=== PATIENT | female | born 1940 | race African-American/Black ===

== ENCOUNTER 2016-11-23 20:56 | Inpatient (IN) | payer OTHER ==
[~2016-11-23] VITALS: Ht 162.6 cm; Wt 85.0 kg
[~2016-11-23 20:56] MED LIST: ACET325T9 PO; ASPI325T8; CHOL10003 PO; CLON0.1T PO; CLON0.1T12 PO; CLON0.2T PO; DILT240C4; HYDR-2868 PO; INSU100I11 SQ; INSU100I17 SUBCUT; INSU100I18 SUBCUT; INSU100V13 SQ; LABE200T2 PO; LINA5TAB4 PO; LOSA1TAB18 PO; PRAV40TA2; SAXA5TAB PO; SODI650T PO; TRAV5DRO; TRAV5DRO OS; [UNRECOGNIZED DRUG - CODE]; vit d
--- NOTE | 2016-11-23 21:22 | PHYS DOC ---
Past Medical History Past Medical History: CVA, Diabetes-Type I, Hypertension, Renal Failure Past Surgical History: Tonsillectomy Additional Past Surgical Histo: fistula graft Alcohol Use: Occasionally Drug Use: None Adult General Chief Complaint Chief Complaint: OTHER COMPLAINTS [facility] HPI Patient is a 76 year old female who presents with complains of generalized weakness. She just recently got out of [facility] and is now at home. Family states that she's too weak to be taking care of. She denies any headache chest pain nausea vomiting or other concerns. She states she has taken her blood pressure medicines but hasn't taken tonight's medicine as of yet. Review of Systems Review of Systems Constitutional: Denies fever or chills [] Eyes: Denies change in visual acuity, redness, or eye pain [] HENT: Denies nasal congestion or sore throat [] Respiratory: Denies cough or shortness of breath [] Cardiovascular: No additional information not addressed in HPI [] GI: Denies abdominal pain, nausea, vomiting, bloody stools or diarrhea [] : Denies dysuria or hematuria [] Musculoskeletal: Denies back pain or joint pain [] Integument: Denies rash or skin lesions [] Neurologic: Denies headache, focal weakness or sensory changes [] Endocrine: Denies polyuria or polydipsia [] Current Medications Current Medications Current Medications Medications (Trade) Dose Ordered Sig/Nicolas Start Time Stop Time Status Last Admin Dose Admin Hydralazine HCl (Apresoline) 10 mg 1X ONCE 11/24/16 01:00 11/24/16 01:01 DC 11/24/16 00:35 10 MG Ondansetron HCl (Zofran) 4 mg PRN Q8HRS PRN 11/24/16 00:30 11/25/16 00:29 Allergies Allergies Allergies Coded Allergies Type Severity Reaction Last Updated Verified iodine Allergy Intermediate 05/01/16 Yes Physical Exam Physical Exam Constitutional: Well developed, well nourished, no acute distress, non-toxic appearance. [] HENT: Normocephalic, atraumatic, bilateral external ears normal, oropharynx moist, no oral exudates, nose normal. [] Eyes: PERRLA, EOMI, conjunctiva normal, no discharge. [] Neck: Normal range of motion, no tenderness, supple, no stridor. [] Cardiovascular:Heart rate regular rhythm, no murmur [] Lungs & Thorax: Bilateral breath sounds clear to auscultation [] Abdomen: Bowel sounds normal, soft, no tenderness, no masses, no pulsatile masses. [] Skin: Warm, dry, no erythema, no rash. [] Back: No tenderness, no CVA tenderness. [] Extremities: No tenderness, no cyanosis, no clubbing, ROM intact, 2+ right lower show many edema Neurologic: Alert and oriented X 3, normal motor function, normal sensory function, no focal deficits noted. [] Psychologic: Affect normal, judgement normal, mood normal. [] Current Patient Data Vital Signs Vital Signs Date Time Temp Pulse Resp B/P (MAP) Pulse Ox O2 Delivery O2 Flow Rate FiO2 11/24/16 00:37 98.6 74 16 218/97 (137) 100 Room Air 98.6 Lab Values Laboratory Tests Test 11/23/16 21:45 11/23/16 22:20 11/23/16 23:45 White Blood Count 10.2 x10^3/uL (4.0-11.0) Red Blood Count 2.73 x10^6/uL (3.50-5.40) L Hemoglobin 8.1 g/dL (12.0-15.5) L Hematocrit 23.9 % (36.0-47.0) L Mean Corpuscular Volume 87 fL (79-100) Mean Corpuscular Hemoglobin 30 pg (25-35) Mean Corpuscular Hemoglobin Concent 34 g/dL (31-37) Red Cell Distribution Width 16.2 % (11.5-14.5) H Platelet Count 279 x10^3/uL (140-400) Neutrophils (%) (Auto) 67 % (31-73) Lymphocytes (%) (Auto) 17 % (24-48) L Monocytes (%) (Auto) 14 % (0-9) H Eosinophils (%) (Auto) 2 % (0-3) Basophils (%) (Auto) 1 % (0-3) Neutrophils # (Auto) 6.8 x10^3uL (1.8-7.7) Lymphocytes # (Auto) 1.7 x10^3/uL (1.0-4.8) Monocytes # (Auto) 1.4 x10^3/uL (0.0-1.1) H Eosinophils # (Auto) 0.2 x10^3/uL (0.0-0.7) Basophils # (Auto) 0.1 x10^3/uL (0.0-0.2) Prothrombin Time 13.4 SEC (11.7-14.0) Prothrombin Time INR 1.1 (0.8-1.1) Sodium Level 139 mmol/L (136-145) Potassium Level 5.1 mmol/L (3.5-5.1) Chloride Level 105 mmol/L (98-107) Carbon Dioxide Level 25 mmol/L (21-32) Anion Gap 9 (6-14) Blood Urea Nitrogen 59 mg/dL (7-20) H Creatinine 2.8 mg/dL (0.6-1.0) H Estimated GFR (Cockcroft-Gault) 20.0 Glucose Level 118 mg/dL (70-99) H Calcium Level 9.4 mg/dL (8.5-10.1) Magnesium Level 1.8 mg/dL (1.8-2.4) Total Bilirubin 0.3 mg/dL (0.2-1.0) Direct Bilirubin 0.1 mg/dL (0.0-0.2) Aspartate Amino Transferase (AST) 22 U/L (15-37) Alanine Aminotransferase (ALT) 39 U/L (14-59) Alkaline Phosphatase 67 U/L (46-116) Creatine Kinase 110 U/L (26-192) Creatine Kinase MB (Mass) 1.3 ng/mL (0.0-3.6) Creatine Kinase MB Relative Index 1.2 % (0-4) Troponin I Quantitative 0.020 ng/mL (0.000-0.055) Total Protein 6.9 g/dL (6.4-8.2) Albumin 2.9 g/dL (3.4-5.0) L Lipase 172 U/L (73-393) Thyroid Stimulating Hormone (TSH) 3.262 uIU/mL (0.358-3.74) Urine Collection Type Unknown Urine Color Yellow Urine Clarity Cloudy Urine pH 7.0 Urine Specific [place] 1.010 Urine Protein 100 mg/dL (NEG-TRACE) Urine Glucose (UA) Negative mg/dL (NEG) Urine Ketones (Stick) Negative mg/dL (NEG) Urine Blood Small (NEG) Urine Nitrite Negative (NEG) Urine Bilirubin Negative (NEG) Urine Urobilinogen Dipstick 0.2 mg/dL (0.2 mg/dL) Urine Leukocyte Esterase Large (NEG) Urine RBC 11-20 /HPF (0-2) Urine WBC Tntc /HPF (0-4) Urine Squamous Epithelial Cells Few /LPF Urine Bacteria Moderate /HPF (0-FEW) Laboratory Tests 11/23/16 21:45 Laboratory Tests 11/23/16 22:20 EKG EKG EKG shows irregular rhythm with rate of 70 bpm, no ST elevations or T-wave inversions appreciated, left axis deviation noted, QTC 498 ms, as interpreted by me. Radiology/Procedures Radiology/Procedures One view chest x-ray did not show any focal is elevations, bony abnormality's, or pneumothorax, as interpreted by me. Impressions: Generalized weakness Urgency urgency Diabetes Course & Med Decision Making Course & Med Decision Making Pertinent Labs and Imaging studies reviewed. (See chart for details) Labs do not show acute abnormalities. Chest x-ray EKG all within normal limits. Patient is being admitted for weakness and unable to take care of herself. She likely needs to be placed in a [place] [facility]. Spoke with Dr. Bazan who is agreeable to the plan. Interim orders have been written. Patient's blood pressure is elevated 211 systolic she's been given IV hydralazine x 2 My Critical Care: Critical Care Time: 55 minutes Treatments/Evaluations: Close monitoring and treatment of unstable vital signs, cardiorespiratory, and neurologic status, while maintaining tight balance of fluid, respiratory, and cardiac interventions. Dragon Disclaimer Dragon Disclaimer This electronic medical record was generated, in whole or in part, using a voice recognition dictation system. Departure Departure Impression: Primary Impression: Weakness Disposition: ADMITTED INPATIENT Admitting Physician: Eugenia Bazan Condition: STABLE Referrals: RENITA RAMIREZ (PCP) KUSUM HUGO MD Nov 23, 2016 21:22
[2016-11-23 21:55] LABS: BASO # 0.1 x10^3/uL (0.0-0.2); BASO % 1 % (0-3); EOS % 2 % (0-3); HEMATOCRIT 23.9 % (36.0-47.0); HEMOGLOBIN 8.1 g/dL (12.0-15.5); LYMPH # 1.7 x10^3/uL (1.0-4.8); LYMPH % 17 % (24-48); MEAN CORPUSCULAR HEMOGLOBIN 30 pg (25-35); MEAN CORPUSCULAR HGB CONC 34 g/dL (31-37); MEAN CORPUSCULAR VOLUME 87 fL (79-100); MONO % 14 % (0-9); NEUT % 67 % (31-73); PLATELET COUNT 279 x10^3/uL (140-400); RED BLOOD COUNT 2.73 x10^6/uL (3.50-5.40); RED CELL DISTRIBUTION WIDTH 16.2 % (11.5-14.5); WHITE BLOOD COUNT 10.2 x10^3/uL (4.0-11.0)
[2016-11-23 22:05] LABS: INR 1.1 (0.8-1.1); PROTHROMBIN TIME PATIENT 13.4 SEC (11.7-14.0)
[2016-11-23 22:44] LABS: CALCIUM 9.4 mg/dL (8.5-10.1); CREATININE 2.8 mg/dL (0.6-1.0); POTASSIUM 5.1 mmol/L (3.5-5.1)
[2016-11-23 22:50] LABS: ALBUMIN 2.9 g/dL (3.4-5.0); DIRECT BILIRUBIN 0.1 mg/dL (0.0-0.2); MAGNESIUM 1.8 mg/dL (1.8-2.4); TOTAL BILIRUBIN 0.3 mg/dL (0.2-1.0); TOTAL PROTEIN 6.9 g/dL (6.4-8.2)
[2016-11-23 22:58] LABS: CKMB MASS 1.3 ng/mL (0.0-3.6)
[2016-11-23 23:53] LABS: BILIRUBIN,URINE NEGATIVE (NEG); GLUCOSE,URINE NEGATIVE (NEG); NITRITE,URINE NEGATIVE (NEG); PROTEIN,URINE 100 mg/dL (NEG-TRACE); UROBILINOGEN,URINE 0.2 mg/dL (0.2 mg/dL)
[2016-11-24] VITALS (7 sets, daily range): BP systolic 168–181; BP diastolic 71–81
[2016-11-24 00:22] LABS: BACTERIA,URINE MODERATE /HPF (0-FEW); SQUAMOUS EPITHELIAL CELL,UR FEW /LPF; WBC,URINE TNTC /HPF (0-4)
[2016-11-24] MEDS ORDERED: ONDANSETRON PF 4 MG/2 ML VIAL. IV PRN (00:30)
[2016-11-24] MEDS ORDERED: hydrALAZINE 20 MG/ML VIAL. IVP ONE ×2 (01:00→02:00)
[2016-11-24] MEDS ORDERED: ACETAMINOPHEN 325 MG TABLET. PO PRN (03:45)
--- NOTE | 2016-11-24 08:14 | RAD ---
EXAM: CHEST 1 VIEW History: Bilateral leg swelling, weakness COMPARISON: 10/29/2016 TECHNIQUE: Single portable radiograph of the chest FINDINGS: The cardiac silhouette is unchanged. The lungs are clear bilaterally. The costophrenic sulci are clear and well demarcated. Aortic atherosclerotic calcifications. IMPRESSION: No radiographic evidence of an acute cardiopulmonary process.
[2016-11-24] MEDS ORDERED: hydrALAZINE 25 MG TABLET PO SCH (09:00)
[2016-11-24] MEDS ORDERED: LINAGLIPTIN 5 MG TABLET PO SCH (09:00)
--- NOTE | 2016-11-24 09:02 | EKG ---
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
[2016-11-24] MEDS: INSULIN ASPART 300 UNITS/3 ML INSULN.PEN SQ SCH ×3 (09:15→17:03)
[2016-11-24] MEDS: LABETALOL HCL 200 MG TABLET PO SCH ×2 (09:17→20:45)
[2016-11-24] MEDS: cloNIDine HCL 0.2 MG TABLET PO SCH ×3 (09:17→20:47)
[2016-11-24] MEDS: SODIUM BICARBONATE 650 MG TABLET. PO SCH ×2 (09:18→20:47)
[2016-11-24] MEDS: ACETAMINOPHEN 325 MG TABLET. PO SCH ×4 (09:18→20:47)
[2016-11-24] MEDS: INSULIN DETEMIR 300 UNITS/3 ML INSULN.PEN. SQ SCH (10:24)
[2016-11-24] MEDS ORDERED: LOSA100T6 PO (11:37)
[2016-11-24] MEDS ORDERED: HYDR12.58 PO (11:37)
--- NOTE | 2016-11-24 12:17 | EKG ---
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
[2016-11-24] MEDS: hydroCHLOROthiazide 12.5 MG CAPSULE PO SCH (12:44)
[2016-11-24] MEDS: LOSARTAN POTASSIUM 50 MG TABLET. PO SCH (12:44)
--- NOTE | 2016-11-24 12:44 | PDOC ---
Provider Note Provider Note Pt seen .H&P dictated. #[id number] GRAEME SERNA MD Nov 24, 2016 12:44
--- NOTE | 2016-11-24 15:30 | HP ---
ADMIT DATE: 11/24/2016 PATIENT LOCATION: [facility] REASON FOR ADMISSION TO THE HOSPITAL: Generalized weakness. HISTORY OF PRESENT ILLNESS: The patient is a 76-year-old female and patient has a history of stage 5 renal failure. She has an AV shunt placed, anticipating dialysis. She was just released from [facility] on Saturday, but she was too weak and not able to care for herself and the patient was brought back to the hospital because they are not able to take care of her, probably she may need a long-term mcc placement. PAST MEDICAL HISTORY: The patient has a history of diabetes, hypertension and end-stage renal disease. PAST SURGICAL HISTORY: She had a tonsillectomy, AV fistula on the right arm and anticipating dialysis, she also has history of gout. ALLERGIES: IODINE. MEDICATIONS: Tylenol, clonidine 0.2 three times daily, hydralazine 25 mg 3 times daily, insulin sliding scale 5 units 3 times daily, labetalol 200 mg twice a day, Tradjenta 5 mg daily, pravastatin 40 mg daily, sodium bicarbonate 650 twice a day, Travatan two drops at bedtime. PERSONAL HISTORY: No history of smoking, alcohol or drug abuse. FAMILY HISTORY: Diabetes and kidney problems. REVIEW OF SYMPTOMS: Denies any chest pain, shortness of breath, nausea or vomiting. Just weakness. PHYSICAL EXAMINATION: GENERAL: The patient is an elderly female, not in any distress. VITAL SIGNS: Temperature 97, pulse 96, respirations 18, blood pressure 180/79 and 97 on room air. HEENT: Head is atraumatic. Pupils equal. Oral cavity: No congestion. NECK: Supple. Thyroid not enlarged. JVD not elevated. CHEST: Symmetrical. CARDIOVASCULAR: S1, S2. LUNGS: Clear to auscultation. ABDOMEN: Soft. No mass palpable. EXTERNAL GENITALIA: No Jerome. RECTAL: Deferred. EXTREMITIES: Has some arthritis with some swelling at the joints, has AV shunt in the left arm and thrill is present. LABORATORY DATA: Shows a white count of 10, hemoglobin 8.1, platelets 279. Electrolytes show sodium 139, potassium 5.1, chloride 105, bicarbonate 25, BUN 59, creatinine 2.8, glucose 118. LFTs were normal. Urine shows 11-20 rbc's, too many white cells. Chest x-ray: No acute process. FINAL IMPRESSION: 1. Generalized weakness.Failure to thrive at home, not a safe social situation. 2. Stage 5 renal failure. The patient has AV shunt, anticipating dialysis. 3. Insulin-dependent diabetes. 4. Hypertension. 5. Gout. 6. General debility. 7. Elevated troponin. PLAN: At this time, was admitted to the hospital and social service consult, probably the patient needs a long-term mcc placement, not able to care of herself at home.slightly elevated troponin will consult cardiology,ECHO and stress test? GRAEME SERNA MD DR: CATALINA/tereso JOB#: [id number] / [id number] RENITA Ann
[2016-11-24] MEDS: ENOXAPARIN 30 MG/0.3 ML SYRINGE. SQ SCH (15:31)
[2016-11-24] MEDS: ASPIRIN 325 MG TABLET PO SCH (15:37)
--- NOTE | 2016-11-24 16:50 | EKG ---
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
[2016-11-24] MEDS: ATORVASTATIN CALCIUM 10 MG TABLET. PO SCH (20:44)
[2016-11-24] MEDS: LATANOPROST 0.005% OPHTH SOLUTION 2.5ML BOTTLE. OS SCH (20:44)
[2016-11-24] MEDS ORDERED: INSULIN DETEMIR 300 UNITS/3 ML INSULN.PEN. SQ SCH (21:00)
[2016-11-25] VITALS (8 sets, daily range): BP systolic 133–204; BP diastolic 66–91
--- NOTE | 2016-11-25 03:42 | ACF ---
Admission Forms Criteria GENERAL ADMISSION CRITERIA (Place 'X' for any and all applicable criteria): Admission is indicated for ANY ONE of the following: [ ]I. Hemodynamic instability as indicated by ANY ONE of the following(1)(2) (3)(4)(5): [ ]a) Vital sign abnormality not readily corrected by appropriate treatment within 12 to 24 hours indicated by ANY ONE of the following: [ ]i) Hypotension [ ]ii) Symptomatic Tachycardia unresponsive to treatment (eg , analgesia, fluids, sedation as indicated) [ ]iii) Orthostatic vital sign changes unresponsive to treatment (eg, fluids) [ ]b) Vital sign abnormality that is severe indicated by ANY ONE of the following: [ ]i) Inadequate perfusion indicated by ANY ONE of the following: [ ]1) Lactic acidosis (greater than 2 mmol/L) [ ]2) New abnormal capillary refill (greater than 3 seconds) [ ]3) Other metabolic acidosis (arterial pH less than 7.35) not otherwise explained [ ]4) Reduced urine output [ ]5) Altered mental status [ ]6) Myocardial Ischemia [ ]v) Mean arterial pressure[A] less than 60 mm Hg [ ]vi) Mean arterial pressure[A] less than 70 mm Hg after 30 minutes of appropriate treatment (eg, fluid resuscitation) [ ]vii) IV inotropic or vasopressor medication required to maintain adequate blood pressure or perfusion [ ]viii) Sustained heart rate greater than 120 beats per minute in adult or child 6 years or older[B]] [ ]II. Hypertension requiring inpatient treatment as indicated by ANY ONE of the following(6)(7)(8): [ ]a) SBP greater than 220 mm Hg or DBP greater than 120 mm Hg despite treatment [ ]b) SBP greater than 140 mm Hg or DBP greater than 100 mm Hg with evidence of acute end organ damage as indicated by ANY ONE of the following: [ ]i) Encephalopathy [ ]ii) Acute renal failure as indicated by new onset of ANY ONE of the following(9)(10)(11)(12)(13): [ ]1) A 3-fold rise in serum creatinine from baseline [ ]2) Serum creatinine greater than 4 mg/dL ( 354 micromoles/L) with acute rise greater than 0.5 mg/dL (44.2 micromoles/L) [ ]3) Reduction of more than 75% in estimated glomerular filtration rate from baseline [ ]4) Estimated glomerular filtration rate less than 35 mL/min/1.73m2 (0.59 mL/sec/1.73m2) in child up to 18 years of age [ ]5) Cessation of urine output indicated by ALL of the following: [ ]A. Adequate volume status [ ]B. Inadequate urine output as indicated by ANY ONE of the following: [ ]a. Urine output less than 0.3 mL/kg/hr for 24 hours [ ]b. Anuria (urine output less than 0.1 mL/kg/hr) for 12 hours [ ]iii) Aortic dissection [ ]iv) Myocardial ischemia [ ]v) Left ventricular heart failure [ ]vi) Retinal hemorrhage [ ]vii) Other significant finding [ ]c) Hypertension in child requiring inpatient treatment as indicated by ALL of the following(14)(15)(16): [ ]i) Outpatient treatment not effective, not available, or not appropriate [ ]ii) SBP or DBP greater than 95th percentile for age [ ]iii) Evidence of acute end organ damage as indicated by ANY ONE of the following: [ ]1) Altered mental status [ ]2) Acute renal failure as indicated by new onset of ANY ONE of the following(9)(10)(11)(12)(13): [ ]A. A 3-fold rise in serum creatinine from baseline [ ]B. Serum creatinine greater than 4 mg/dL (354 micromoles/L) with acute rise greater than 0.5 mg/dL (44.2 micromoles/L) [ ]C. Reduction of more than 75% in estimated glomerular filtration rate from baseline [ ]D. Estimated glomerular filtration rate less than 35 mL/min/1.73m2 (0.59 mL/sec/1.73m2)in child up to 18 years of age [ ]E. Cessation of urine output indicated by ALL of the following: [ ]a. Adequate volume status [ ]b. Inadequate urine output as indicated by ANY ONE of the following: [ ]1) Urine output less than 0.3 mL/kg/hr for 24 hours [ ]2) Anuria (urine output less than 0.1 mL/kg/hr) for 12 hours [ ]3) Severe headache [ ]4) Visual disturbance [ ]5) Retinal hemorrhage [ ]6) Other significant finding [ ]III. Acute cardiac or peripheral ischemia as indicated by ANY ONE of the following: [ ]a) Acute coronary syndrome(17)(18) [ ]b) Acute peripheral ischemia (eg, pulseless, cool, mottled, or cyanotic extremity)(19) [ ]IV. Cardiac arrhythmias or findings of immediate concern indicated by ANY ONE of the following(20)(21): [ ]a) Heart rhythms that are inherently dangerous or unstable indicated by ANY ONE of the following(22)(23)(24): [ ]i) Resuscitated ventricular fibrillation or cardiac arrest [ ]ii) Ventricular escape rhythm [ ]iii) Sustained ventricular tachycardia (30 seconds or more of ventricular rhythm at greater than 100 beats per minute) [ ]iv) Nonsustained ventricular tachycardia and ANY ONE of the following: [ ]1) Suspected cardiac ischemia as cause or consequence of ventricular tachycardia [ ]2) In setting of acute myocarditis [ ]b) Unstable cardiac conduction defects indicated by ANY ONE of the following(24)(25)(26): [ ]i) Type II second-degree atrioventricular block [ ]ii) Third-degree atrioventricular block [ ]iii) New-onset left bundle branch block with suspected myocardial ischemia [ ]c) Any heart rhythm and ANY ONE of the following(22)(23)(27)(28)( 29): [ ] i) Continuous long-term ECG monitoring needed (eg, initiation of drug requiring monitoring for more than 24 hours) [ ] ii) Patient has automatic implanted cardioverter defibrillator that is repeatedly firing, malfunctioning, or in need of immediate adjustment of settings beyond the scope of ambulatory or observation care. [ ]d) Heart rhythms of concern due to ANY ONE of the following: [ ]i) Hypotension [ ]ii) Respiratory distress [ ]iii) Association with other significant symptoms (eg, bradycardia with syncope or ongoing dizziness, supraventricular tachycardia with chest pain) (27)(28) (30) [ ] V. Severe heart failure as indicated by ANY ONE of the following ( 31)(32): [ ]a) Respiratory distress [ ]b) Hypotension [ ]c) Anasarca (refractory to outpatient therapy) [ ]d) Cardiac arrhythmias of immediate concern [ ]e) Myocardial ischemia [ ]. Respiratory abnormalities, including ANY ONE of the following(33)(34) (35)(36): [ ]a) Respiratory rate greater than 30 breaths per minute unresponsive to treatment [A] [ ]b) New saturation of arterial oxygen less than 90% [ ]c) New partial pressure of carbon dioxide greater than 44 mm Hg ( 5.9 kPa) [ ]d) Supplemental oxygen or respiratory treatments needed that are new or not performable at other levels of care [ ]e) New-onset cyanosis [ ]f) Inability to protect airway [ ]g) Chronic lung disease with severe deterioration (not responsive to emergency and observation care treatment as appropriate) as indicated by ANY ONE of the following(34)(36 ): [ ]i) SaO2 5% below baseline in patient with chronic hypoxemia [ ]ii) New requirement for supplemental oxygen to keep SaO2 at baseline or acceptable level [ ]iii) Required supplemental oxygen performable only in acute inpatient setting [ ]iv) Severe airflow or ventilation abnormalities [ ]v) Previously mobile patient unable to walk between rooms [ ]vi Inability to eat or sleep due to dyspnea [ ]vii) Rapid rate of exacerbation onset [ ]viii) Altered mental status ]VII. Severe airflow or ventilation abnormalities (not responsive to emergency and observation care treatment as appropriate) as indicated by ANY ONE of the following(33)(34)(35)(37): [ ]a) PCO2 greater than 42 mm Hg (5.6 kPa) and pH less than 7.35 (new ) [ ]b) Documented PCO2 increased more than 5 mm Hg (0.7 kPa) from disease baseline [ ]c) Airflow measurements [B] less than 60% of previous best or predicted (eg, peak expiratory flow rate less than 300 L/minute) despite intensive emergent treatment [C] [ ]d) Required respiratory treatments that are performable only in acute inpatient setting [ ]VIII. Impending or actual respiratory arrest ( Also use Respiratory Failure GRG for severe respiratory disease and long-term mechanical ventilation patients) [ ]IX. Neurologic abnormalities, including ANY ONE of the following: [ ]a) New findings that suggest ANY ONE of the following: [ ]i) EVP OF [employer] infection(38) [ ]ii) Cerebral bleeding, ischemia, or vasospasm(39)(40) [ ]iii) Increased intracranial pressure, hydrocephalus, or cerebral edema(41)(42)(43) [ ]iv) Spinal cord injury(44) [ ]b) Uncontrolled seizures(45) [ ]c) New-onset coma (eg, Adrienne coma scale score less than 9) or unexplained abnormal mental status (eg, Adrienne coma scale score less than 14) [D](41)(46)(47) [ ]X. New-onset severe neurologic findings requiring inpatient care; examples include(42)(48)(49): [ ]a) Papilledema [ ]b) Cerebral edema [ ]c) Mass effect on CT scan [ ]XI. Suspected acute intra-abdominal process with peritoneal signs, abdominal mass, or similar findings (50)(51)(52) [ ]XII. Severe physiologic disorder remaining after emergency or observation level care (as appropriate) as indicated by ANY ONE of the following (53): [ ]a) Significant dehydration [ ]b) Diabetic ketoacidosis [ ]c) Hyperglycemic hyperosmolar state (eg, osmolality greater than 320 mOsm/kg (mmol/kg) [ ]d) Hypoglycemia [ ]e) Other (new) acid-base disorder with pH less than 7.35 or greater than 7.5(54) [ ]f) Thyroid storm (55) [ ]g) Myxedema coma (55) [ ]XIII. Abdominal abnormalities with ANY ONE of the following(56)(57): [ ]a) Absent bowel sounds with complete ileus [ ]b) Signs of intestinal obstruction or peritonitis [E] [ ]c) Nausea and vomiting that cannot be controlled with outpatient or observation care [ ]XIV. Acute renal failure as indicated by new onset of ANY ONE of the following(9)(10)(11)(12)(13): [ ]a) A 3-fold rise in serum creatinine from baseline [ ]b) Serum creatinine greater than 4 mg/dL (354 micromoles/L) with acute rise greater than 0.5 mg/dL (44.2 micromoles/L) [ ]c) Reduction of more than 75% in estimated glomerular filtration rate from baseline [ ]d) Estimated glomerular filtration rate less than 35 mL/min/ 1.73m2 (0.59 mL/sec/1.73m2) in child up to 18 years of age [ ]e) Cessation of urine output indicated by ALL of the following: [ ]i) Adequate volume status [ ]ii) Inadequate urine output as indicated by ANY ONE of the following: [ ]1) Urine output less than 0.3 mL/kg/hr for 24 hours [ ]2) Anuria (urine output less than 0.1 mL/kg/hr) for 12 hours [ ]XV. Significant uremic complications as indicated by ANY ONE of the following(58)(59)(60): [ ]a) Outpatient therapy is ineffective or not feasible for ANY ONE of the following: [ ]i) Severe heart failure [ ]ii) Severehypertension [ ]iii) Pleural effusion [ ]iv) Pericarditis or pericardial effusion [ ]b) Cardiac arrhythmias of immediate concern [ ]c) Intractable nausea or vomiting [ ]d) Recurrent seizures [ ]e) Encephalopathy [ ]f) Bleeding abnormalities (eg, platelet dysfunction) with active (eg, gastrointestinal) bleeding [ ]g) Dialysis indicated before long-term access or ambulatory arrangements can be made [ ]h) Significant metabolic or electrolyte abnormalities (eg, severe acidosis or hyperkalemia) [ ]XVI. High fever or other high-risk infection situation as indicated by ANY ONE of the following(61)(62)(63)(64): [ ]a) Outpatient and observation care antimicrobial treatment unavailable, not effective, or not appropriate [ ]b) Documented bacteremia [ ]c) Temperature greater than 40.5 degrees C (104.9 degrees F) ( oral) [ ]d) Temperature greater than 39.5 degrees C (103.1 degrees F) ( oral) or less than 36 degrees C (96.8 degrees F) (rectal) that does not respond to e treatment and observation care [ ] XVII. Temperature less than 95 degrees F (35 degrees C)(rectal)(65) [ ] XVIII. Severe nutritional abnormalities as indicated by ALL of the following (66)(67): [ ]a) Inability to tolerate or establish sufficient oral or other enteral nutrition in outpatient setting [ ]b) Parenteral nutrition regimen need that must be implemented on inpatient basis [ ] XIX. Severe electrolyte abnormalities indicated by ALL of the following(68) (69)(70): [ ]a) Electrolytes and associated findings are not as expected for patient baseline or acceptable treatment effects. [ ]b) Severe abnormalities indicated by ANY ONE of the following: [ ]i) Sodium less than 130 mEq/L (mmol/L) (new) [ ]ii)Sodium less than 135 mEq/L (mmol/L) with ANY ONE of the following: [ ]1) Uncorrectable (to near normal or chronic baseline) after trial of outpatient and emergency treatment [ ]2) Altered mental status [ ]3) Seizures [ ]4) Severe medical etiology requiring inpatient management (eg, heart failure, hypovolemia) [ ]iii) Sodium greater than 155 mEq/L (mmol/L) [ ]iv) Sodium greater than 150 mEq/L (mmol/L) with ANY ONE of the following: [ ]1) Uncorrectable (to near normal or chronic baseline) with outpatient and emergency treatment [ ]2) Altered mental status [ ]3) Seizures [ ]4) Severe medical etiology (eg, hypovolemia, diabetes insipidus) [ ]v) Potassium less than 2.5 mEq/L (mmol/L) despite outpatient and emergency treatment [ ]vi) Potassium less than 3 mEq/L (mmol/L) with ANY ONE of the following: [ ]1) Weakness [ ]2) Cardiac abnormality (eg, arrhythmia, conduction disturbance) [ ]3) Cardiac ischemia [ ]4) Ileus [ ]5) Ongoing medical cause requiring inpatient management (eg, acute renal wasting or SIADH) [ ]6) Other severe symptoms [ ]vii) Potassium greater than 6.5 mEq/L (mmol/L) [ ]viii) Potassium greater than 5 mEq/L (mmol/L) with ANY ONE of the following: [ ]1) Uncorrectable (to near normal or chronic baseline) with outpatient and emergency treatment [ ]2) Severe ECG findings [F] [ ]3) Acute worsening of renal failure (creatinine greater than 2.5 mg/dL (221 micromoles/L) or significant elevation for age and size) [ ]4) Severe weakness [ ]5) Severe medical etiology (eg, hemolysis, infection, drug overdose) [ ]ix) Calcium less than 7 mg/dL (1.75 mmol/L) despite outpatient and emergency treatment (72) [ ]x) Calcium less than 8 mg/dL (2 mmol/L) with significant symptoms or findings; examples include(72): [ ]1) Altered mental status [ ]2) Muscle spasms [ ]3) Seizures [ ]4) Breathing difficulty [ ]5) Cardiac abnormality (eg, arrhythmia or conduction disturbance) [ ]xi) Calcium greater than 14 mg/dL (3.5 mmol/L)(72) [ ]xii) Calcium greater than 12 mg/dL (3 mmol/L) with ANY ONE of the following(72): [ ]1) Uncorrectable (to near normal or chronic baseline) with outpatient and emergency treatment [ ]2) Significant dehydration or hypovolemia as indicated by ALL of the following(70)(73)(74): [ ]A. Not resolved with initial treatments [ ]B. Clinically significant dehydration as indicated by ANY ONE of the following: [ ]a. Vomiting refractory to outpatient treatment (ie, precluding oral rehydration) [ ]b. Inability to drink [ ]c. Hypernatremia or other electrolyte abnormality unable to be corrected with outpatient and emergency treatment [ ]d. Failure to remain hydrated with outpatient therapy [ ]e. Reduced urine output [ ]f. Hypotension [ ]g. Serious cause for dehydration requiring acute hospitalization (eg, bowel obstruction, increased intracranial pressure, infectious cause) [ ]h. Child with ANY ONE of the following(75): [ ]1) Severe abdominal tenderness [ ]2) Adequate care not available at home [ ]3) Severe dehydration ( greater than 9% loss of body weight) [ ]4) Significant symptoms or findings; examples include: [ ]A. Altered mental status [ ]B. Cardiac abnormality (eg, arrhythmia, conduction disturbance) [ ]C. Malignant etiology requiring inpatient treatment [ ]xiii) Phosphorus less than 1 mg/dL (0.32 mmol/L) [ ]xiv) Phosphorus less than 1.5 mg/dL (0.48 mmol/L) with ANY ONE of the following: [ ]1) Patient unresponsive to outpatient and emergency treatment [ ]2) Significant symptoms or findings; examples include: [ ]A. Weakness [ ]B. Altered mental status [ ]C. Breathing difficulty [ ]D. Seizures [ ]E. Rhabdomyolysis [ ]xv) Phosphorus greater than 10 mg/dL (3.2 mmol/L) [ ]xvi) Phosphorus greater than 4.5 mg/dL (1.45 mmol/L) (new) with ANY ONE of the following: [ ]1) Severe medical etiology (eg, crush injury, acute renal failure) [ ]2) Associated hypocalcemia with significant findings; examples include: [ ]A. Neurologic symptoms [ ]B. Altered mental status [ ]C. Muscle spasms [ ]D. Seizures [ ]E. Breathing difficulty [ ]F. Cardiac abnormality (eg, arrhythmia, conduction disturbance) [ ]xvii) Magnesium less than 1 mg/dL (0.41 mmol/L) [ ]xviii) Magnesium less than 1.5 mg/dL (0.62 mmol/L) with ANY ONE of the following: [ ]1) Patient unresponsive to outpatient and emergency treatment [ ]2) Associated hypocalcemia with significant findings; examples include: [ ]A. Altered mental status [ ]B. Muscle spasms [ ]C. Seizures [ ]D. Breathing difficulty [ ]E. Cardiac abnormality (eg, arrhythmia , conduction disturbance) [ ]3) Associated hypokalemia (potassium less than 3 mEq/L (mmol/L)) with risk of arrhythmia [ ]xix) Magnesium greater than 4 mEq/L (2 mmol/L) [ ]xx) Magnesium greater than 2.5 mEq/L (1.25 mmol/L) with significant symptoms or findings; examples include: [ ]1) Weakness [ ]2) Altered mental status [ ]3) Cardiac abnormality (eg, arrhythmia, conduction disturbance) [ ]4) Breathing difficulty [ ]5) Severe medical etiology (eg, renal failure, hypovolemia) [ ]xxi) Uric acid greater than 20 mg/dL (1190 micromoles/L)(76) [ ]xxii) Uric acid greater than 8 mg/dL (476 micromoles/L) with significant symptoms or findings of tumor lysis syndrome; examples include(76): [ ]1) Creatinine greater than 1.5 times upper limit of normal [ ]2) Cardiac abnormality (eg, arrhythmia, conduction disturbance) [ ]3) Seizure [ ]XX. Acute blood loss causing significant abnormality as indicated by ANY ONE of the following(77)(78): [ ]a) Hemoglobin less than 10 g/dL (100 g/L) (not baseline) [ ]b) Hematocrit less than 30% (0.30) (not baseline) [ ]c) Repeat hematocrit decreased more than 2% (0.02) [ ]d) Uncontrolled bleeding [ ]XXI. Severe anemia indicated by ANY ONE of the following(78)(79): [ ]a) Altered mental status [ ]b) Chest pain [ ]c) Exertional dyspnea [ ]d) Syncope [ ]e) Other findings suggesting inadequate perfusion [ ]f) Treatment with transfusion or volume replacement is ineffective at resolving ANY ONE of the following [G]: [ ]i) Tachycardia for age [ ]ii) Orthostatic vital sign changes as indicated by ANY ONE of the following(80): [ ]1) Fall in SBP of 20 mm Hg or more 1 to 3 minutes after patient sits or stands from recumbent position [ ]2) Fall in DBP of 10 mm Hg or more 1 to 3 minutes after patient sits or stands from recumbent position [ ]XXII. High-risk low platelet count as indicated by ANY ONE of the following( 81)(82): [ ]a) Severe or life-threatening bleeding (eg, intracranial, major gastrointestinal, or extensive mucosal bleeding), with any reduced platelet count [ ]b) Platelet count less than 20,000/mm3 (20 x109/L) with any active bleeding [ ]c) Platelet count less than 10,000/mm3 (10 x109/L) with minor purpura or petechiae [ ]d) Platelet count less than 5000/mm3 (5 x109/L) [ ]e) Low platelet count with hemolytic anemia [ ]XXIII. Disseminated intravascular coagulation(77)(83) [ ]XXIV. Severe adverse drug or systemic toxin reaction requiring inpatient treatment; examples include(84)(85): [ ]a) Serotonin syndrome(86) [ ]b) Neuroleptic malignant syndrome(86) [ ]c) Cholinergic syndrome with severe symptoms (eg, bronchorrhea, weakness, mental status changes, seizures) [ ]d) Sympathetic syndrome with severe symptoms (eg, seizures, mental status changes, cardiac dysrhythmias) [ ]e) Anticholinergic syndrome [ ]XXV. Severe pain requiring acute inpatient management as indicated by ALL of the following (87)(88)(89): [ ]a) Continuous or frequent (eg, every 2 to 4 hours) parenteral analgesics required [H] [ ]b) Rapid improvement expected from treatment or acute intervention (eg, surgery, anesthesia procedure) [ ]XXVI.Severe behavioral health issues judged unmanageable at a lower level of care (eg, residential) in a patient who is ANY ONE of the following(91) [ ]a) Acutely suicidal [ ]b) A danger to self (eg, self-mutilating or suicidal behavior) [ ]c) A danger to others (eg, assaultive or homicidal behavior) [ ]d) Incapacitated because of grave disability (eg, inability to provide for self at lower level of care) (92) [X ]XXVII. Inpatient monitoring needed; examples include(1)(3)(87)(93)(94)(95)( 96): [ X]a) Vital signs, neurologic signs, or vascular checks more frequently than every 4 hours [ ]b) Cardiac or respiratory monitoring beyond the scope (eg, over 24 hours) of observation care [ ]c) Pulmonary artery catheter monitoring [ ]d) Suspected compartment syndrome(97) (98) [ ]e) Cerebral bleeding, hydrocephalus, or vasospasm monitoring [ ]f) Increased intracranial pressure or cerebral edema monitoring [ ]g) monitoring [ ]XXVIII. Treatment requiring inpatient care; examples include: [ ]a) IV fluid to replace significant ongoing losses (greater than 3 L/m2 per day)(53) [ ]b) High concentration oxygen (greater than 40%)(33)(99)(100) [ ]c) Frequent respiratory therapy (more frequently than every 4 hours) to maintain airflow rates greater than 60% of baseline(33)(99)(100) [ ]d) Epidural analgesia(87) [ ]e) IV anticoagulation, vasoactive, or antiarrhythmic medication(19 )(23) [ ]f) Acute thrombolytics (generally require 24 hours of observation )(101)(102) [ ]XXIX. Emergency procedures needed; examples include: [ ]a) Emergency inpatient surgery [ ]b) Temporary pacemaker placement(103) [ ]c) Chest tube placement with active evacuation (eg, suction, drainage)(104) [ ]d) Emergent cardioversion(105) [ ]e) Emergent cardiac or vascular procedures (eg, cardiac catheterization, angioplasty) (17)(18) [ ]f) Emergent dialysis access placement and institution(10)(106) [ ]g) Emergent pericardiocentesis(107) [ ]h) Emergent plasmapheresis or leukapheresis(83) [ ]i) Emergent tracheostomy The original [employer] content created by [employer] has been revised. The portions of the content which have been revised are identified through the use of italic text or in bold, and [facility] [employer] has neither reviewed nor approved the modified material. All other unmodified content is copyright [employer]. Please see references footnoted in the original [employer] edition 2016 Admission Criteria Met?: Yes SONYA PÉREZ Nov 25, 2016 03:42
[2016-11-25 05:57] LABS: BASO # 0.1 x10^3/uL (0.0-0.2); BASO % 1 % (0-3); EOS % 2 % (0-3); HEMATOCRIT 22.2 % (36.0-47.0); HEMOGLOBIN 7.3 g/dL (12.0-15.5); LYMPH # 1.8 x10^3/uL (1.0-4.8); LYMPH % 22 % (24-48); MEAN CORPUSCULAR HEMOGLOBIN 29 pg (25-35); MEAN CORPUSCULAR HGB CONC 33 g/dL (31-37); MEAN CORPUSCULAR VOLUME 89 fL (79-100); MONO % 15 % (0-9); NEUT % 59 % (31-73); PLATELET COUNT 254 x10^3/uL (140-400); RED BLOOD COUNT 2.51 x10^6/uL (3.50-5.40); RED CELL DISTRIBUTION WIDTH 16.4 % (11.5-14.5); WHITE BLOOD COUNT 8.3 x10^3/uL (4.0-11.0)
--- NOTE | 2016-11-25 06:11 | EKG ---
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
[2016-11-25 06:30] LABS: CALCIUM 8.8 mg/dL (8.5-10.1); CREATININE 3.1 mg/dL (0.6-1.0); GFR 17.8; POTASSIUM 5.2 mmol/L (3.5-5.1)
[2016-11-25] MEDS ORDERED: LOSARTAN POTASSIUM 50 MG TABLET. PO SCH (09:00)
--- NOTE | 2016-11-25 10:17 | PDOC2 ---
CONSULT Date of Consult Date of Consult DATE: 11/25/16 TIME: :17 Reason for Consult Reason for Consult: Elevated troponin level Referring Physician Referring Physician: Dr. Bazan Identification/Chief Complaint Chief Complaint Generalized weakness Problems: Source Source: Chart review, Patient History of Present Illness Reason for Visit: 76-year-old female with history of near end-stage renal failure presented with generalized weakness and fatigue. She denied any chest pain, orthopnea/PND, palpitations or syncope. Cardiology has been consulted for slightly elevated troponin level. Past Medical History Cardiovascular: HTN, Hyperlipidemia Pulmonary: No pertinent hx GI: Constipation Heme/Onc: Anemia NOS Hepatobiliary: No pertinent hx Psych: No pertinent hx Rheumatologic: No pertinent hx Renal/: Chronic renal insuff Endocrine: Diabetes, Hypothyroidism Past Surgical History Past Surgical History AV fistula placement Tonsillectomy Family History Family History: Cancer, Coronary Artery Disease, Diabetes, Kidney Disease, Osteo Arthiritis Social History Social History Patient denied any smoking alcohol or drug use Current Problem List Problem List Problems Medical Problems: (1) Weakness Status: Acute Current Medications Current Medications Current Medications Hydralazine HCl (Apresoline) 10 mg 1X ONCE IVP Last administered on 11/24/16 00:35; Start 11/24/16 at 01:00; Stop 11/24/16 at 01:01; Status DC Ondansetron HCl (Zofran) 4 mg PRN Q8HRS PRN IV NAUSEA/VOMITING; Start 11/24/16 at 00:30; Stop 11/25/16 at 00:29; Status DC Hydralazine HCl (Apresoline) 10 mg 1X ONCE IVP Last administered on 11/24/16 02:06; Start 11/24/16 at 02:00; Stop 11/24/16 at 02:13; Status DC Acetaminophen (Tylenol) 650 mg PRN Q6HRS PRN PO MILD PAIN Last administered on 11/24/16 03:43; Start 11/24/16 at 03:45; Stop 11/24/16 at 09:08; Status DC Acetaminophen (Tylenol) 650 mg QID PO Last administered on 11/24/16 20:47; Start 11/24/16 at 09:00 Clonidine HCl (Catapres) 0.2 mg TID PO Last administered on 11/24/16 20:47; Start 11/24/16 at 09:00 Hydralazine HCl (Apresoline) 50 mg TID PO ; Start 11/24/16 at 09:00; Stop at 09:16; Status DC Labetalol HCl (Trandate) 200 mg BID PO Last administered on 11/24/16 20:45; Start 11/24/16 at 09:00 Linagliptin (Tradjenta) 5 mg DAILY PO Last administered on 11/24/16 10:20; Start 11/24/16 at 09:00; Stop 11/24/16 at 12:47; Status DC Sodium Bicarbonate (Sodium Bicarbonate) 1,300 mg BID PO Last administered on 20:47; Start 11/24/16 at 09:00 Insulin Detemir (Levemir) 10 units DAILYWBKFT SQ Last administered on 11/24/16 10:24; Start 11/24/16 at 09:15 Insulin Detemir (Levemir) 65 units QHS SQ ; Start 11/24/16 at 21:00; Stop at 21:00; Status DC Insulin Aspart (NovoLOG) 5 units TIDAC SQ Last administered on 11/24/16 17:03; Start 11/24/16 at 09:15 Latanoprost (Xalatan) 1 drop QHS OS Last administered on 11/24/16 20:44; Start 11/24/16 at 21:00 Hydralazine HCl (Apresoline) 50 mg TID PO Last administered on 11/24/16 20:48; Start 11/24/16 at 09:30 Atorvastatin Calcium (Lipitor) 10 mg QHS PO Last administered on 11/24/16 20:44 ; Start 11/24/16 at 21:00 Losartan Potassium (Cozaar) 100 mg DAILY PO ; Start 11/25/16 at 09:00; Status Cancel Hydrochlorothiazide (Microzide) 12.5 mg DAILY PO Last administered on 11/24/16 12:44; Start 11/24/16 at 12:00 Losartan Potassium (Cozaar) 100 mg DAILY PO Last administered on 11/24/16 12:44 ; Start 11/24/16 at 12:00 Enoxaparin Sodium (Lovenox 30mg Syringe) 30 mg Q24H SQ Last administered on 11/24 15:31; Start 11/24/16 at 15:00 Aspirin (Radha Aspirin) 325 mg DAILYWBKFT PO Last administered on 11/24/16 15: 37; Start 11/24/16 at 15:30 Active Scripts Active Hydralazine Hcl 25 Mg Tablet 50 Mg PO TID Reported Tradjenta (Linagliptin) 5 Mg Tablet 1 Tab PO DAILY Clonidine Hcl 0.2 Mg Tablet 1 Tab PO TID Tylenol (Acetaminophen) 325 Mg Tablet 1-2 Tab PO QID Sodium Bicarbonate 650 Mg Tablet 2 Tab PO BID Levemir (Insulin Detemir) 100 Unit/1 Ml Vial 65 Unit SQ QHS Levemir (Insulin Detemir) 100 Unit/1 Ml Vial 10 Unit SQ DAILYWBKFT Humalog (Insulin Lispro) 100 Unit/1 Ml Insuln.pen 5 Unit SQ TIDAC Travatan Z (Travoprost) 5 Ml Drops 1 Drop OS QHS Labetalol Hcl 200 Mg Tablet 1 Tab PO BID Losartan-Hctz 100-12.5 Mg Tab (Losartan/Hydrochlorothiazide) 1 Each Tablet PO DAILY Pravastatin Sodium 40 Mg Tablet 1 HS Allergies Allergies: Coded Allergies: iodine (Verified Allergy, Intermediate, 05/01/16) ROS General: YES: Fatigue PSYCHOLOGICAL ROS: No: Hallucinations Eyes: No Loss of vision HEENT: No: Epistaxis Respiratory: No: Hemoptysis, Orthopnea Cardiovascular: No Chest Pain Gastrointestinal: No Vomiting, No Diarrhea Genitourinary: No Hematuria Neurological: No Seizures Skin: No Rash Physical Exam General: Alert, Oriented X3 HEENT: Atraumatic, PERRLA Lungs: Clear to auscultation Heart: Regular rate Abdomen: Soft, No tenderness Extremities: Other (1-2+ pitting pedal edema) Neuro: Normal speech Psych/Mental Status: Mood NL Vitals VITALS Vital Signs Date Time Temp Pulse Resp B/P (MAP) Pulse Ox O2 Delivery O2 Flow Rate FiO2 11/25/16 07:30 98.7 72 18 191/79 (116) 93 Room Air 98.7 Labs Labs Laboratory Tests Test 11/23/16 21:45 11/23/16 22:20 11/23/16 23:45 11/24/16 06:20 White Blood Count 10.2 x10^3/uL (4.0-11.0) Red Blood Count 2.73 x10^6/uL (3.50-5.40) Hemoglobin 8.1 g/dL (12.0-15.5) Hematocrit 23.9 % (36.0-47.0) Mean Corpuscular Volume 87 fL (79-100) Mean Corpuscular Hemoglobin 30 pg (25-35) Mean Corpuscular Hemoglobin Concent 34 g/dL (31-37) Red Cell Distribution Width 16.2 % (11.5-14.5) Platelet Count 279 x10^3/uL (140-400) Neutrophils (%) (Auto) 67 % (31-73) Lymphocytes (%) (Auto) 17 % (24-48) Monocytes (%) (Auto) 14 % (0-9) Eosinophils (%) (Auto) 2 % (0-3) Basophils (%) (Auto) 1 % (0-3) Neutrophils # (Auto) 6.8 x10^3uL (1.8-7.7) Lymphocytes # (Auto) 1.7 x10^3/uL (1.0-4.8) Monocytes # (Auto) 1.4 x10^3/uL (0.0-1.1) Eosinophils # (Auto) 0.2 x10^3/uL (0.0-0.7) Basophils # (Auto) 0.1 x10^3/uL (0.0-0.2) Prothrombin Time 13.4 SEC (11.7-14.0) Prothromb Time International Ratio 1.1 (0.8-1.1) Sodium Level 139 mmol/L (136-145) Potassium Level 5.1 mmol/L (3.5-5.1) Chloride Level 105 mmol/L (98-107) Carbon Dioxide Level 25 mmol/L (21-32) Anion Gap 9 (6-14) Blood Urea Nitrogen 59 mg/dL (7-20) Creatinine 2.8 mg/dL (0.6-1.0) Estimated GFR (Cockcroft-Gault) 20.0 Glucose Level 118 mg/dL (70-99) Calcium Level 9.4 mg/dL (8.5-10.1) Magnesium Level 1.8 mg/dL (1.8-2.4) Total Bilirubin 0.3 mg/dL (0.2-1.0) Direct Bilirubin 0.1 mg/dL (0.0-0.2) Aspartate Amino Transf (AST/SGOT) 22 U/L (15-37) Alanine Aminotransferase (ALT/SGPT) 39 U/L (14-59) Alkaline Phosphatase 67 U/L (46-116) Creatine Kinase 110 U/L (26-192) Creatine Kinase MB (Mass) 1.3 ng/mL (0.0-3.6) Creatine Kinase MB Relative Index 1.2 % (0-4) Troponin I Quantitative 0.020 ng/mL (0.000-0.055) 0.022 ng/mL (0.000-0.055) Total Protein 6.9 g/dL (6.4-8.2) Albumin 2.9 g/dL (3.4-5.0) Lipase 172 U/L (73-393) Thyroid Stimulating Hormone (TSH) 3.262 uIU/mL (0.358-3.74) Urine Collection Type Unknown Urine Color Yellow Urine Clarity Cloudy Urine pH 7.0 Urine Specific [place] 1.010 Urine Protein 100 mg/dL (NEG-TRACE) Urine Glucose (UA) Negative mg/dL (NEG) Urine Ketones (Stick) Negative mg/dL (NEG) Urine Blood Small (NEG) Urine Nitrite Negative (NEG) Urine Bilirubin Negative (NEG) Urine Urobilinogen Dipstick 0.2 mg/dL (0.2 mg/dL) Urine Leukocyte Esterase Large (NEG) Urine RBC 11-20 /HPF (0-2) Urine WBC Tntc /HPF (0-4) Urine Squamous Epithelial Cells Few /LPF Urine Bacteria Moderate /HPF (0-FEW) Test 11/24/16 07:29 11/24/16 11:22 11/24/16 12:40 11/24/16 16:19 Glucose (Fingerstick) 135 mg/dL (70-99) 139 mg/dL (70-99) 140 mg/dL (70-99) Troponin I Quantitative 0.169 ng/mL (0.000-0.055) Test 11/24/16 19:10 11/24/16 21:07 11/25/16 04:30 11/25/16 08:32 Troponin I Quantitative 0.305 ng/mL (0.000-0.055) 0.323 ng/mL (0.000-0.055) Glucose (Fingerstick) 140 mg/dL (70-99) 158 mg/dL (70-99) White Blood Count 8.3 x10^3/uL (4.0-11.0) Red Blood Count 2.51 x10^6/uL (3.50-5.40) Hemoglobin 7.3 g/dL (12.0-15.5) Hematocrit 22.2 % (36.0-47.0) Mean Corpuscular Volume 89 fL (79-100) Mean Corpuscular Hemoglobin 29 pg (25-35) Mean Corpuscular Hemoglobin Concent 33 g/dL (31-37) Red Cell Distribution Width 16.4 % (11.5-14.5) Platelet Count 254 x10^3/uL (140-400) Neutrophils (%) (Auto) 59 % (31-73) Lymphocytes (%) (Auto) 22 % (24-48) Monocytes (%) (Auto) 15 % (0-9) Eosinophils (%) (Auto) 2 % (0-3) Basophils (%) (Auto) 1 % (0-3) Neutrophils # (Auto) 4.9 x10^3uL (1.8-7.7) Lymphocytes # (Auto) 1.8 x10^3/uL (1.0-4.8) Monocytes # (Auto) 1.3 x10^3/uL (0.0-1.1) Eosinophils # (Auto) 0.2 x10^3/uL (0.0-0.7) Basophils # (Auto) 0.1 x10^3/uL (0.0-0.2) Sodium Level 140 mmol/L (136-145) Potassium Level 5.2 mmol/L (3.5-5.1) Chloride Level 105 mmol/L (98-107) Carbon Dioxide Level 25 mmol/L (21-32) Anion Gap 10 (6-14) Blood Urea Nitrogen 59 mg/dL (7-20) Creatinine 3.1 mg/dL (0.6-1.0) Estimated GFR (Cockcroft-Gault) 17.8 Glucose Level 98 mg/dL (70-99) Calcium Level 8.8 mg/dL (8.5-10.1) Laboratory Tests Test 11/24/16 11:22 11/24/16 12:40 11/24/16 16:19 11/24/16 19:10 Glucose (Fingerstick) 139 mg/dL (70-99) 140 mg/dL (70-99) Troponin I Quantitative 0.169 ng/mL (0.000-0.055) 0.305 ng/mL (0.000-0.055) Test 11/24/16 21:07 11/25/16 04:30 11/25/16 08:32 Glucose (Fingerstick) 140 mg/dL (70-99) 158 mg/dL (70-99) White Blood Count 8.3 x10^3/uL (4.0-11.0) Red Blood Count 2.51 x10^6/uL (3.50-5.40) Hemoglobin 7.3 g/dL (12.0-15.5) Hematocrit 22.2 % (36.0-47.0) Mean Corpuscular Volume 89 fL (79-100) Mean Corpuscular Hemoglobin 29 pg (25-35) Mean Corpuscular Hemoglobin Concent 33 g/dL (31-37) Red Cell Distribution Width 16.4 % (11.5-14.5) Platelet Count 254 x10^3/uL (140-400) Neutrophils (%) (Auto) 59 % (31-73) Lymphocytes (%) (Auto) 22 % (24-48) Monocytes (%) (Auto) 15 % (0-9) Eosinophils (%) (Auto) 2 % (0-3) Basophils (%) (Auto) 1 % (0-3) Neutrophils # (Auto) 4.9 x10^3uL (1.8-7.7) Lymphocytes # (Auto) 1.8 x10^3/uL (1.0-4.8) Monocytes # (Auto) 1.3 x10^3/uL (0.0-1.1) Eosinophils # (Auto) 0.2 x10^3/uL (0.0-0.7) Basophils # (Auto) 0.1 x10^3/uL (0.0-0.2) Sodium Level 140 mmol/L (136-145) Potassium Level 5.2 mmol/L (3.5-5.1) Chloride Level 105 mmol/L (98-107) Carbon Dioxide Level 25 mmol/L (21-32) Anion Gap 10 (6-14) Blood Urea Nitrogen 59 mg/dL (7-20) Creatinine 3.1 mg/dL (0.6-1.0) Estimated GFR (Cockcroft-Gault) 17.8 Glucose Level 98 mg/dL (70-99) Calcium Level 8.8 mg/dL (8.5-10.1) Troponin I Quantitative 0.323 ng/mL (0.000-0.055) Assessment/Plan Assessment/Plan 1. Slightly elevated troponin level: Patient denied any chest pain. EKG showed sinus rhythm without any acute changes. Check 2-D echo to assess LV systolic function and Lexiscan nuclear stress test to rule out ischemia. 2. Accelerated hypertension: Continue home medications and increase hydralazine dose for better blood pressure control. 3. Hyperlipidemia: Continue statin therapy 4. Near end-stage renal disease s/p AV fistula placement in anticipation of hemodialysis : Continue management per nephrology team 5. Diabetes mellitus type 2: Treated per IM Thank you for your consultation. DENI JORDAN MD Nov 25, 2016 10:17
[2016-11-25] MEDS: ACETAMINOPHEN 325 MG TABLET. PO SCH ×4 (11:11→20:45)
[2016-11-25] MEDS: ASPIRIN 325 MG TABLET PO SCH (11:12)
[2016-11-25] MEDS: SODIUM BICARBONATE 650 MG TABLET. PO SCH ×2 (11:12→20:47)
[2016-11-25] MEDS: LABETALOL HCL 200 MG TABLET PO SCH ×2 (11:12→20:47)
[2016-11-25] MEDS: hydroCHLOROthiazide 12.5 MG CAPSULE PO SCH (11:13)
[2016-11-25] MEDS: cloNIDine HCL 0.2 MG TABLET PO SCH ×3 (11:13→20:46)
[2016-11-25] MEDS: LOSARTAN POTASSIUM 50 MG TABLET. PO SCH (11:14)
[2016-11-25] MEDS: INSULIN ASPART 300 UNITS/3 ML INSULN.PEN SQ SCH ×3 (11:16→17:31)
[2016-11-25] MEDS: INSULIN DETEMIR 300 UNITS/3 ML INSULN.PEN. SQ SCH (11:17)
--- NOTE | 2016-11-25 11:35 | PDOC ---
PROGRESS NOTES Subjective Subjective no complaints Objective Objective Vital Signs Date Time Temp Pulse Resp B/P (MAP) Pulse Ox O2 Delivery O2 Flow Rate FiO2 11/25/16 11:14 72 191/79 11/25/16 07:30 98.7 18 93 Room Air 98.7 Physical Exam Abdomen: Normal bowel sounds, Soft Heart: Regular rate, Normal S1, Normal S2 Extremities: No clubbing General: No acute distress HEENT: PERRLA Lungs: Clear to auscultation MUSCULOSKELETAL: No deformity, No swelling Neuro: Normal speech Psych/Mental Status: Mood NL Skin: No breakdown Diagnosis Problem List Problems Medical Problems: (1) Weakness Status: Acute Assessment Assessment Problems Medical Problems: (1) Weakness Status: Acute FINAL IMPRESSION: 1. Generalized weakness. 2. Stage 5 renal failure. The patient has AV shunt, anticipating dialysis. 3. Insulin-dependent diabetes. 4. Hypertension. 5. Gout. 6. General debility. 7. elevated troponin slightly PLAN: cardiology consult. echo. Labs reviewed. needs NH placement. At this time, was admitted to the hospital and social service consult, probably the patient needs a long-term prison placement, not able to care of herself at home. Problems: Plan Plan of Care Problems Medical Problems: (1) Weakness Status: Acute Comment Review of Relevant I have reviewed the following items reji (where applicable) has been applied. Labs Laboratory Tests Test 11/24/16 12:40 11/24/16 16:19 11/24/16 19:10 11/24/16 21:07 Troponin I Quantitative 0.169 ng/mL (0.000-0.055) 0.305 ng/mL (0.000-0.055) Glucose (Fingerstick) 140 mg/dL (70-99) 140 mg/dL (70-99) Test 11/25/16 04:30 11/25/16 08:32 White Blood Count 8.3 x10^3/uL (4.0-11.0) Red Blood Count 2.51 x10^6/uL (3.50-5.40) Hemoglobin 7.3 g/dL (12.0-15.5) Hematocrit 22.2 % (36.0-47.0) Mean Corpuscular Volume 89 fL (79-100) Mean Corpuscular Hemoglobin 29 pg (25-35) Mean Corpuscular Hemoglobin Concent 33 g/dL (31-37) Red Cell Distribution Width 16.4 % (11.5-14.5) Platelet Count 254 x10^3/uL (140-400) Neutrophils (%) (Auto) 59 % (31-73) Lymphocytes (%) (Auto) 22 % (24-48) Monocytes (%) (Auto) 15 % (0-9) Eosinophils (%) (Auto) 2 % (0-3) Basophils (%) (Auto) 1 % (0-3) Neutrophils # (Auto) 4.9 x10^3uL (1.8-7.7) Lymphocytes # (Auto) 1.8 x10^3/uL (1.0-4.8) Monocytes # (Auto) 1.3 x10^3/uL (0.0-1.1) Eosinophils # (Auto) 0.2 x10^3/uL (0.0-0.7) Basophils # (Auto) 0.1 x10^3/uL (0.0-0.2) Sodium Level 140 mmol/L (136-145) Potassium Level 5.2 mmol/L (3.5-5.1) Chloride Level 105 mmol/L (98-107) Carbon Dioxide Level 25 mmol/L (21-32) Anion Gap 10 (6-14) Blood Urea Nitrogen 59 mg/dL (7-20) Creatinine 3.1 mg/dL (0.6-1.0) Estimated GFR (Cockcroft-Gault) 17.8 Glucose Level 98 mg/dL (70-99) Calcium Level 8.8 mg/dL (8.5-10.1) Troponin I Quantitative 0.323 ng/mL (0.000-0.055) Glucose (Fingerstick) 158 mg/dL (70-99) Medications Current Medications Aspirin (Radha Aspirin) 325 mg DAILYWBKFT PO Last administered on 11/25/16 11: 12; Start 11/24/16 at 15:30 Atorvastatin Calcium (Lipitor) 10 mg QHS PO Last administered on 11/24/16 20:44 ; Start 11/24/16 at 21:00 Enoxaparin Sodium (Lovenox 30mg Syringe) 30 mg Q24H SQ Last administered on 11/24 15:31; Start 11/24/16 at 15:00 Hydralazine HCl (Apresoline) 25 mg PRN Q6HRS PRN IVP ELEVATED BP, SEE COMMENTS ; Start 11/25/16 at 11:15 Hydrochlorothiazide (Microzide) 12.5 mg DAILY PO Last administered on 11/25/16 11:13; Start 11/24/16 at 12:00 Insulin Detemir (Levemir) 65 units QHS SQ ; Start 11/24/16 at 21:00; Stop at 21:00; Status DC Latanoprost (Xalatan) 1 drop QHS OS Last administered on 11/24/16 20:44; Start 11/24/16 at 21:00 Losartan Potassium (Cozaar) 100 mg DAILY PO Last administered on 11/25/16 11:14 ; Start 11/24/16 at 12:00 Losartan Potassium (Cozaar) 100 mg DAILY PO ; Start 11/25/16 at 09:00; Status Cancel Vitals/I & O Vital Sign - Last 24 Hours 11/24/16 11/24/16 11/24/16 11/24/16 12:44 15:00 15:30 15:31 Temp 99.7 99.7 Pulse 87 78 87 87 Resp 18 B/P (MAP) 172/80 168/81 (110) 172/80 172/80 Pulse Ox 97 O2 Delivery Room Air 11/24/16 11/24/16 11/24/16 11/24/16 19:00 20:00 20:45 20:47 Temp 98.8 98.8 Pulse 81 87 87 Resp 16 B/P (MAP) 179/75 (109) 172/80 172/80 Pulse Ox 99 O2 Delivery Room Air Room Air 11/24/16 11/24/16 11/25/16 11/25/16 20:48 23:00 03:00 04:01 Temp 97.9 97.7 97.9 97.7 Pulse 87 77 75 75 Resp 18 18 B/P (MAP) 172/80 181/74 (109) 198/78 (118) 174/84 (114) Pulse Ox 99 99 O2 Delivery Room Air Room Air 11/25/16 11/25/16 11/25/16 11/25/16 07:30 11:12 11:12 11:13 Temp 98.7 98.7 Pulse 72 72 72 72 Resp 18 B/P (MAP) 191/ (116) / Pulse Ox 93 O2 Delivery Room Air 11/25/16 11:14 Pulse 72 B/P (MAP) 191/79 GRAEME SERNA MD Nov 25, 2016 11:35
[2016-11-25] MEDS: hydrALAZINE 20 MG/ML VIAL. IVP PRN (12:53)
[2016-11-25] MEDS: ENOXAPARIN 30 MG/0.3 ML SYRINGE. SQ SCH (14:59)
[2016-11-25] MEDS: ATORVASTATIN CALCIUM 10 MG TABLET. PO SCH (20:46)
[2016-11-25] MEDS: hydrALAZINE 25 MG TABLET PO SCH (20:46)
[2016-11-25] MEDS: LATANOPROST 0.005% OPHTH SOLUTION 2.5ML BOTTLE. OS SCH (20:47)
[2016-11-26] VITALS (7 sets, daily range): BP systolic 137–208; BP diastolic 66–94
[2016-11-26] MEDS: hydrALAZINE 20 MG/ML VIAL. IVP PRN (03:39)
[2016-11-26] MEDS: ASPIRIN 325 MG TABLET PO SCH (08:59)
[2016-11-26] MEDS: SODIUM BICARBONATE 650 MG TABLET. PO SCH ×2 (08:59→20:35)
[2016-11-26] MEDS: ACETAMINOPHEN 325 MG TABLET. PO SCH ×4 (09:00→20:27)
[2016-11-26] MEDS: hydroCHLOROthiazide 12.5 MG CAPSULE PO SCH (09:00)
[2016-11-26] MEDS: LOSARTAN POTASSIUM 50 MG TABLET. PO SCH (09:00)
[2016-11-26] MEDS: LABETALOL HCL 200 MG TABLET PO SCH ×2 (09:02→20:33)
[2016-11-26] MEDS: hydrALAZINE 25 MG TABLET PO SCH (09:04)
[2016-11-26] MEDS: cloNIDine HCL 0.2 MG TABLET PO SCH ×3 (09:06→20:36)
[2016-11-26] MEDS: INSULIN DETEMIR 300 UNITS/3 ML INSULN.PEN. SQ SCH (09:10)
[2016-11-26] MEDS: INSULIN ASPART 300 UNITS/3 ML INSULN.PEN SQ SCH ×3 (09:11→17:25)
[2016-11-26 10:03] LABS: BASO % 0 % (0-3); EOS % 2 % (0-3); HEMATOCRIT 22.7 % (36.0-47.0); HEMOGLOBIN 7.6 g/dL (12.0-15.5); LYMPH # 1.1 x10^3/uL (1.0-4.8); LYMPH % 12 % (24-48); MEAN CORPUSCULAR HEMOGLOBIN 29 pg (25-35); MEAN CORPUSCULAR HGB CONC 34 g/dL (31-37); MEAN CORPUSCULAR VOLUME 88 fL (79-100); MONO % 13 % (0-9); NEUT % 73 % (31-73); PLATELET COUNT 244 x10^3/uL (140-400); RED BLOOD COUNT 2.59 x10^6/uL (3.50-5.40); RED CELL DISTRIBUTION WIDTH 16.2 % (11.5-14.5); WHITE BLOOD COUNT 8.9 x10^3/uL (4.0-11.0)
[2016-11-26 10:08] LABS: CALCIUM 9.1 mg/dL (8.5-10.1); CREATININE 3.2 mg/dL (0.6-1.0); GFR 17.1; POTASSIUM 4.6 mmol/L (3.5-5.1)
--- NOTE | 2016-11-26 11:59 | PDOC ---
PROGRESS NOTES Subjective Subjective Denied any chest pain or dyspnea Objective Objective Vital Signs Date Time Temp Pulse Resp B/P (MAP) Pulse Ox O2 Delivery O2 Flow Rate FiO2 11/26/16 10:55 98.5 71 20 197/81 (119) 98 Room Air 98.5 Physical Exam Abdomen: Soft, No tenderness Heart: Regular rate Extremities: Other (1-2+ pitting pedal edema) General: Alert, Oriented X3 HEENT: Atraumatic, PERRLA Lungs: Clear to auscultation MUSCULOSKELETAL: No deformity, No swelling Neuro: Normal speech Psych/Mental Status: Mood NL Skin: No breakdown Assessment Assessment 1. Slightly elevated troponin level: Patient denied any chest pain. EKG showed sinus rhythm without any acute changes. 2-D echo showed normal LV systolic function without any wall motion abnormalities. Lexiscan nuclear stress test to rule out ischemia pending. 2. Accelerated hypertension: Blood pressure continues to be elevated. Increase hydralazine dose 200 mg 3 times a day. 3. Hyperlipidemia: Continue statin therapy 4. Near end-stage renal disease s/p AV fistula placement in anticipation of hemodialysis : Continue management per nephrology team 5. Diabetes mellitus type 2: Treated per IM Plan Plan of Care Problems Medical Problems: (1) Weakness Status: Acute Comment Review of Relevant I have reviewed the following items reji (where applicable) has been applied. Labs Laboratory Tests Test 11/25/16 16:37 11/25/16 20:55 11/26/16 07:40 11/26/16 09:40 Glucose (Fingerstick) 139 mg/dL (70-99) 171 mg/dL (70-99) 131 mg/dL (70-99) White Blood Count 8.9 x10^3/uL (4.0-11.0) Red Blood Count 2.59 x10^6/uL (3.50-5.40) Hemoglobin 7.6 g/dL (12.0-15.5) Hematocrit 22.7 % (36.0-47.0) Mean Corpuscular Volume 88 fL (79-100) Mean Corpuscular Hemoglobin 29 pg (25-35) Mean Corpuscular Hemoglobin Concent 34 g/dL (31-37) Red Cell Distribution Width 16.2 % (11.5-14.5) Platelet Count 244 x10^3/uL (140-400) Neutrophils (%) (Auto) 73 % (31-73) Lymphocytes (%) (Auto) 12 % (24-48) Monocytes (%) (Auto) 13 % (0-9) Eosinophils (%) (Auto) 2 % (0-3) Basophils (%) (Auto) 0 % (0-3) Neutrophils # (Auto) 6.5 x10^3uL (1.8-7.7) Lymphocytes # (Auto) 1.1 x10^3/uL (1.0-4.8) Monocytes # (Auto) 1.1 x10^3/uL (0.0-1.1) Eosinophils # (Auto) 0.2 x10^3/uL (0.0-0.7) Basophils # (Auto) 0.0 x10^3/uL (0.0-0.2) Sodium Level 142 mmol/L (136-145) Potassium Level 4.6 mmol/L (3.5-5.1) Chloride Level 106 mmol/L (98-107) Carbon Dioxide Level 24 mmol/L (21-32) Anion Gap 12 (6-14) Blood Urea Nitrogen 59 mg/dL (7-20) Creatinine 3.2 mg/dL (0.6-1.0) Estimated GFR (Cockcroft-Gault) 17.1 Glucose Level 162 mg/dL (70-99) Calcium Level 9.1 mg/dL (8.5-10.1) Test 11/26/16 11:38 Glucose (Fingerstick) 121 mg/dL (70-99) Medications Current Medications Hydralazine HCl (Apresoline) 75 mg TID PO Last administered on 11/26/16t 09:04; Start 11/25/16 at 21:00 Vitals/I & O Vital Sign - Last 24 Hours 11/25/16 11/25/16 11/25/16 11/25/16 12:18 12:53 15:00 15:00 Pulse 72 72 72 B/P (MAP) 185/82 (116) 185/82 185/82 185/82 11/25/16 11/25/16 11/25/16 11/25/16 15:00 19:20 20:00 20:46 Temp 97.0 98.5 97.0 98.5 Pulse 98 84 84 Resp 17 18 B/P (MAP) 133/66 (88) 194/82 (119) 194/82 Pulse Ox 99 98 O2 Delivery Room Air Room Air Room Air 11/25/16 11/25/16 11/25/16 11/26/16 20:46 20:47 23:20 03:25 Temp 98.6 98.5 98.6 98.5 Pulse 84 84 81 78 Resp 18 18 B/P (MAP) 194/82 194/82 163/68 (99) 208/94 (132) Pulse Ox 96 98 O2 Delivery Room Air Room Air 11/26/16 11/26/16 11/26/16 11/26/16 03:39 04:39 07:30 09:00 Temp 98.2 98.2 Pulse 76 80 80 Resp 18 B/P (MAP) 208/94 153/66 (95) 186/86 (119) 186/86 Pulse Ox 97 O2 Delivery Room Air 11/26/16 11/26/16 11/26/16 11/26/16 09:02 09:04 09:06 10:55 Temp 98.5 98.5 Pulse 80 80 80 71 Resp 20 B/P (MAP) 186/86 186/86 186/86 197/81 (119) Pulse Ox 98 O2 Delivery Room Air DENI JORDAN MD Nov 26, 2016 11:59
--- NOTE | 2016-11-26 12:44 | CARD ---
APPROVED REPORT EXAM: Two-dimensional and M-mode echocardiogram with Doppler and color Doppler. Other Information Quality : GoodHR: 83bpm Rhythm : NSR INDICATION Elevated troponin 2D DIMENSIONS RVDd2.9 (2.9-3.5cm)Left Atrium(2D)4.1 (1.6-4.0cm) IVSd1.2 (0.7-1.1cm)Aortic Root(2D)2.8 (2.0-3.7cm) LVDd5.5 (3.9-5.9cm)LVOT Diameter2.3 (1.8-2.4cm) PWd1.2 (0.7-1.1cm)LVDs3.3 (2.5-4.0cm) FS (%) 40.2 %SV102.6 ml LVEF(%)70.3 (>50%) Aortic Valve AoV Peak [place].145.0cm/sAoV VTI29.5cm AO Peak GR.8.4mmHgLVOT Peak [place].136.5cm/s AO Mean GR.4mmHgAVA (VMAX)3.82cm2 Mitral Valve MV E Tusqjugz410.3cm/sMV E Peak Gr.9mmHg MV DECEL [id number] A Dczaddhm262.8cm/s MV E Mean Gr.3mmHgE/A Ratio0.7 MV A [id number] Pulmonary Valve PV Peak Hmrdioqb718.2cm/s Tricuspid Valve TR P. [id number]/sTR Peak Gr.40mmHg Pulmonary Vein S1 Ykkxzxyp63.1cm/sD2 Wgucahlq51.4cm/s LEFT VENTRICLE The left ventricle is normal size. There is mild concentric left ventricular hypertrophy. The left ve ntricular systolic function is normal. The Ejection Fraction is 65-70%. There is normal LV segmental wall motion. Transmitral Doppler flow pattern is Grade I-abnormal relaxation pattern. RIGHT VENTRICLE The right ventricle is normal size. There is normal right ventricular wall thickness. The right ventr icular systolic function is normal. ATRIA The left atrium is mildly dilated. The right atrium size is normal. The interatrial septum is intact with no evidence for an atrial septal defect or patent foramen ovale as noted on 2-D or Doppler imagi ng. AORTIC VALVE The aortic valve is mildly sclerotic. The aortic valve is probably bicuspid. Doppler and Color Flow r evealed no significant aortic regurgitation. There is no significant aortic valvular stenosis. MITRAL VALVE The mitral valve leaflets are mildly thickened. There is no evidence of mitral valve prolapse. There is no mitral valve stenosis. Doppler and Color Flow revealed trace mitral regurgitation. TRICUSPID VALVE Doppler and Color Flow revealed mild tricuspid regurgitation. The pulmonary artery systolic pressure is estimated at 48 mmHg. There is moderate pulmonary hypertension. PULMONIC VALVE The pulmonic valve is not well visualized but appears to open adequately. Doppler and Color Flow reve aled trace pulmonic valvular regurgitation. There is no pulmonic valvular stenosis by spectral Dopple r. GREAT VESSELS The aortic root is normal in size. The ascending aorta is normal in size. The pulmonary artery is nor mal. The IVC is dilated and collapses >50% with inspiration. PERICARDIAL EFFUSION There is small right pleural effusion. There is no evidence of significant pericardial effusion. Critical Notification Critical Value: No <Conclusion> The left ventricular systolic function is normal. The Ejection Fraction is 65-70%. There is normal LV segmental wall motion. Transmitral Doppler flow pattern is Grade I-abnormal relaxation pattern. Trace mitral regurgitation. Mild tricuspid regurgitation. The pulmonary artery systolic pressure is estimated at 48 mmHg. There is no evidence of significant pericardial effusion.
--- NOTE | 2016-11-26 13:16 | PDOC ---
IM PROGRESS NOTES- Subjective Subjective No dyspnea,chest pains. Objective Vitals Vital Signs Date Time Temp Pulse Resp B/P (MAP) Pulse Ox O2 Delivery O2 Flow Rate FiO2 11/26/16 10:55 98.5 71 20 197/81 (119) 98 Room Air 98.5 Physical Exam Physical Exam General appearance - alert and in no distress and oriented to person, place, and time Obese Mental Status - alert, oriented to person, place, and time, affect appropriate to mood Head - normal Chest - clear to auscultation, no wheezes, rales or rhonchi, symmetric air entry Heart - S1 and S2 normal Abdomen - soft, nontender, nondistended, no masses or organomegaly Neurological - alert and oriented Musculoskeletal - no muscular tenderness noted Extremities - pedal edema + Skin - warm and dry Labs Laboratory Tests Test 11/24/16 16:19 11/24/16 19:10 11/24/16 21:07 11/25/16 04:30 Glucose (Fingerstick) 140 mg/dL (70-99) 140 mg/dL (70-99) Troponin I Quantitative 0.305 ng/mL (0.000-0.055) 0.323 ng/mL (0.000-0.055) White Blood Count 8.3 x10^3/uL (4.0-11.0) Red Blood Count 2.51 x10^6/uL (3.50-5.40) Hemoglobin 7.3 g/dL (12.0-15.5) Hematocrit 22.2 % (36.0-47.0) Mean Corpuscular Volume 89 fL (79-100) Mean Corpuscular Hemoglobin 29 pg (25-35) Mean Corpuscular Hemoglobin Concent 33 g/dL (31-37) Red Cell Distribution Width 16.4 % (11.5-14.5) Platelet Count 254 x10^3/uL (140-400) Neutrophils (%) (Auto) 59 % (31-73) Lymphocytes (%) (Auto) 22 % (24-48) Monocytes (%) (Auto) 15 % (0-9) Eosinophils (%) (Auto) 2 % (0-3) Basophils (%) (Auto) 1 % (0-3) Neutrophils # (Auto) 4.9 x10^3uL (1.8-7.7) Lymphocytes # (Auto) 1.8 x10^3/uL (1.0-4.8) Monocytes # (Auto) 1.3 x10^3/uL (0.0-1.1) Eosinophils # (Auto) 0.2 x10^3/uL (0.0-0.7) Basophils # (Auto) 0.1 x10^3/uL (0.0-0.2) Sodium Level 140 mmol/L (136-145) Potassium Level 5.2 mmol/L (3.5-5.1) Chloride Level 105 mmol/L (98-107) Carbon Dioxide Level 25 mmol/L (21-32) Anion Gap 10 (6-14) Blood Urea Nitrogen 59 mg/dL (7-20) Creatinine 3.1 mg/dL (0.6-1.0) Estimated GFR (Cockcroft-Gault) 17.8 Glucose Level 98 mg/dL (70-99) Calcium Level 8.8 mg/dL (8.5-10.1) Test 11/25/16 08:32 11/25/16 11:55 11/25/16 16:37 11/25/16 20:55 Glucose (Fingerstick) 158 mg/dL (70-99) 150 mg/dL (70-99) 139 mg/dL (70-99) 171 mg/dL (70-99) Test 11/26/16 07:40 11/26/16 09:40 11/26/16 11:38 Glucose (Fingerstick) 131 mg/dL (70-99) 121 mg/dL (70-99) White Blood Count 8.9 x10^3/uL (4.0-11.0) Red Blood Count 2.59 x10^6/uL (3.50-5.40) Hemoglobin 7.6 g/dL (12.0-15.5) Hematocrit 22.7 % (36.0-47.0) Mean Corpuscular Volume 88 fL (79-100) Mean Corpuscular Hemoglobin 29 pg (25-35) Mean Corpuscular Hemoglobin Concent 34 g/dL (31-37) Red Cell Distribution Width 16.2 % (11.5-14.5) Platelet Count 244 x10^3/uL (140-400) Neutrophils (%) (Auto) 73 % (31-73) Lymphocytes (%) (Auto) 12 % (24-48) Monocytes (%) (Auto) 13 % (0-9) Eosinophils (%) (Auto) 2 % (0-3) Basophils (%) (Auto) 0 % (0-3) Neutrophils # (Auto) 6.5 x10^3uL (1.8-7.7) Lymphocytes # (Auto) 1.1 x10^3/uL (1.0-4.8) Monocytes # (Auto) 1.1 x10^3/uL (0.0-1.1) Eosinophils # (Auto) 0.2 x10^3/uL (0.0-0.7) Basophils # (Auto) 0.0 x10^3/uL (0.0-0.2) Sodium Level 142 mmol/L (136-145) Potassium Level 4.6 mmol/L (3.5-5.1) Chloride Level 106 mmol/L (98-107) Carbon Dioxide Level 24 mmol/L (21-32) Anion Gap 12 (6-14) Blood Urea Nitrogen 59 mg/dL (7-20) Creatinine 3.2 mg/dL (0.6-1.0) Estimated GFR (Cockcroft-Gault) 17.1 Glucose Level 162 mg/dL (70-99) Calcium Level 9.1 mg/dL (8.5-10.1) Laboratory Tests Test 11/25/16 16:37 11/25/16 20:55 11/26/16 07:40 11/26/16 09:40 Glucose (Fingerstick) 139 mg/dL (70-99) 171 mg/dL (70-99) 131 mg/dL (70-99) White Blood Count 8.9 x10^3/uL (4.0-11.0) Red Blood Count 2.59 x10^6/uL (3.50-5.40) Hemoglobin 7.6 g/dL (12.0-15.5) Hematocrit 22.7 % (36.0-47.0) Mean Corpuscular Volume 88 fL (79-100) Mean Corpuscular Hemoglobin 29 pg (25-35) Mean Corpuscular Hemoglobin Concent 34 g/dL (31-37) Red Cell Distribution Width 16.2 % (11.5-14.5) Platelet Count 244 x10^3/uL (140-400) Neutrophils (%) (Auto) 73 % (31-73) Lymphocytes (%) (Auto) 12 % (24-48) Monocytes (%) (Auto) 13 % (0-9) Eosinophils (%) (Auto) 2 % (0-3) Basophils (%) (Auto) 0 % (0-3) Neutrophils # (Auto) 6.5 x10^3uL (1.8-7.7) Lymphocytes # (Auto) 1.1 x10^3/uL (1.0-4.8) Monocytes # (Auto) 1.1 x10^3/uL (0.0-1.1) Eosinophils # (Auto) 0.2 x10^3/uL (0.0-0.7) Basophils # (Auto) 0.0 x10^3/uL (0.0-0.2) Sodium Level 142 mmol/L (136-145) Potassium Level 4.6 mmol/L (3.5-5.1) Chloride Level 106 mmol/L (98-107) Carbon Dioxide Level 24 mmol/L (21-32) Anion Gap 12 (6-14) Blood Urea Nitrogen 59 mg/dL (7-20) Creatinine 3.2 mg/dL (0.6-1.0) Estimated GFR (Cockcroft-Gault) 17.1 Glucose Level 162 mg/dL (70-99) Calcium Level 9.1 mg/dL (8.5-10.1) Test 11/26/16 11:38 Glucose (Fingerstick) 121 mg/dL (70-99) Meds Current Medications Hydralazine HCl (Apresoline) 75 mg TID PO Last administered on 11/26/16t 09:04; Start 11/25/16 at 21:00 Assessment Assessment Problems Medical Problems: (1) Weakness Status: Acute FINAL IMPRESSION: 1. Generalized weakness. 2. Stage 5 renal failure. The patient has AV shunt, anticipating dialysis. 3. Insulin-dependent diabetes. 4. Hypertension. 5. Gout. 6. General debility. 7. elevated troponin slightly PLAN: cardiology consult. Hypertensive crisis- BP 197/81- start Clonidine prn,continue Hydralazine. echo. Labs reviewed. needs NH placement. Plan Plan For more details regarding further plans, please refer to the orders. FAHEEM OBRIEN MD Nov 26, 2016 13:16
[2016-11-26] MEDS: ENOXAPARIN 30 MG/0.3 ML SYRINGE. SQ SCH (17:18)
[2016-11-26] MEDS: ATORVASTATIN CALCIUM 10 MG TABLET. PO SCH (20:27)
[2016-11-26] MEDS: cloNIDine HCL 0.1 MG TABLET PO PRN (20:30)
[2016-11-26] MEDS: LATANOPROST 0.005% OPHTH SOLUTION 2.5ML BOTTLE. OS SCH (20:34)
[2016-11-26] MEDS: CEPHALEXIN 250 MG CAPSULE. PO SCH (22:38)
[2016-11-27 03:20] VITALS: BP 190/81
[2016-11-27] MEDS: cloNIDine HCL 0.1 MG TABLET PO PRN ×2 (03:53→10:29)
[2016-11-27 07:03] LABS: BASO % 1 % (0-3); EOS % 2 % (0-3); HEMATOCRIT 21.8 % (36.0-47.0); HEMOGLOBIN 7.2 g/dL (12.0-15.5); LYMPH # 1.4 x10^3/uL (1.0-4.8); LYMPH % 16 % (24-48); MEAN CORPUSCULAR HEMOGLOBIN 29 pg (25-35); MEAN CORPUSCULAR HGB CONC 33 g/dL (31-37); MEAN CORPUSCULAR VOLUME 88 fL (79-100); MONO % 17 % (0-9); NEUT % 64 % (31-73); PLATELET COUNT 248 x10^3/uL (140-400); RED BLOOD COUNT 2.48 x10^6/uL (3.50-5.40); RED CELL DISTRIBUTION WIDTH 16.5 % (11.5-14.5); WHITE BLOOD COUNT 8.7 x10^3/uL (4.0-11.0)
[2016-11-27 07:22] LABS: ALBUMIN 2.5 g/dL (3.4-5.0); ALBUMIN/GLOBULIN RATIO 0.7 (1.0-1.7); CALCIUM 8.9 mg/dL (8.5-10.1); GFR 18.5; POTASSIUM 4.5 mmol/L (3.5-5.1); TOTAL BILIRUBIN 0.4 mg/dL (0.2-1.0); TOTAL PROTEIN 6.3 g/dL (6.4-8.2)
[2016-11-27 07:35] VITALS: BP 185/82
[2016-11-27] MEDS ORDERED: REGADENOSON 0.4 MG/5 ML DISP.SYRIN. IV ONE (08:00)
[2016-11-27] MEDS: hydroCHLOROthiazide 12.5 MG CAPSULE PO SCH (10:23)
[2016-11-27] MEDS: LOSARTAN POTASSIUM 50 MG TABLET. PO SCH (10:24)
[2016-11-27] MEDS: ASPIRIN 325 MG TABLET PO SCH (10:25)
[2016-11-27] MEDS: SODIUM BICARBONATE 650 MG TABLET. PO SCH ×2 (10:25→20:28)
[2016-11-27] MEDS: ACETAMINOPHEN 325 MG TABLET. PO SCH ×4 (10:25→20:28)
[2016-11-27] MEDS: CEPHALEXIN 250 MG CAPSULE. PO SCH ×2 (10:25→20:31)
[2016-11-27] MEDS: LABETALOL HCL 200 MG TABLET PO SCH ×2 (10:26→20:29)
[2016-11-27] MEDS: cloNIDine HCL 0.2 MG TABLET PO SCH ×3 (10:41→20:31)
[2016-11-27] MEDS: INSULIN DETEMIR 300 UNITS/3 ML INSULN.PEN. SQ SCH (10:42)
[2016-11-27] MEDS: INSULIN ASPART 300 UNITS/3 ML INSULN.PEN SQ SCH ×3 (10:43→17:37)
[2016-11-27 10:53] VITALS: BP 164/76
--- NOTE | 2016-11-27 12:11 | RAD ---
APPROVED REPORT Test Type: Pharmacological Stress Nurse/Tech: Corby Cardona RN Test Indications: chest pain Cardiac History: see ehr Medications: see ehr Medical History: see ehr Resting ECG: SR with BBB Resting Heart Rate: 77 bpm Resting Blood Pressure: 185/85mmHg Pretest Chest Pain: None Nurse/Tech Notes Lungs CTA, S1, S2 Consent: The procedure was explained to the patient in lay terms. Informed consent was witnessed. Mark eout was entered into [employer]. History and Stress Test performed by [facility] Details Pharmacologic stress testing was performed using 0.4mg per 5ml of regadenoson given intravenously ove r 7-10 seconds. Stress Symptoms No chest pain or symptoms. POST EXERCISE Reason for Termination: Infusion complete Max HR: 96 bpm Max Blood Pressure: 168/60mmHg Blood Pressure response to exercise: Normal blood pressure response during stress. Chest Pain: No. Arrhythmia: No. ST Change: No. INTERPRETATION Stress EKG Conclusion: Baseline EKG showed sinus rhythm with intraventricular conduction delay. Nondi agnostic changes at peak stress. No arrhythmias. Imaging Protocol IMAGE PROTOCOL: Rest Tc-99m/stress Tc-99m 2 days Rest: Stress: Viability: Radiopharm.Tc99m SmdrxvfezLi78u Sestamibi Bchs87oYi 33.4mCi Duration 15min. 10min. Img Date 11/26/2016 11/27/2016 Inj-Img Aveu13jlp. 60min. Rest Admin Site:IV - Right ForearmAdministrator:SHADI Modi Stress Admin Site: IV - Right ForearmAdministrator: WANDA Steven, ARRT (R)(N) STRESS DATA End Diast. Vol.130.0mlAv. Heart Rate99.0bpm End Syst. Vol.61.0mlCO Index BSA0.0L/min Myocardial Crmv463.0gEject. Oasmlfsn72.0% Stress Rates Pk. Fill Rate4.12EDV/secLVtime Pk. Fill 163.71msec Pk. Empty Rate3.32ESV/secLVtime Pk. Wtdgz643.53msec 03/27 Pk. Fill0.40EDV/sec Stress Scores Regional WT2.00Summed WT21.00 Regional WM0.00Summed WM16.00 LV Perfusion Scintigraphic images did not show any fixed or reversible defects. Wall Motion Abnormal septal wall motion secondary to conduction delay. Left ventricular ejection fraction calcula patricia at 53%. LV Perf. Quant 17 Seg. SSS8.00 17 Seg. SRS3.00 17 Seg. SDS5.00 Stress Defect Extent (% LAD)0.00Rest Defect Extent (% LAD)0.00Rev. Defect Extent (% LAD)0.00 Stress Defect Extent (% LCX) 75.00Rest Defect Extent (% LCX)30.00Rev. Defect Extent (% LCX)43.80 Stress Defect Extent (% RCA)0.00Rest Defect Extent (% RCA)0.00Rev. Defect Extent (% RCA)0.00 Stress Defect Extent (% ANNA)16.10Rest Defect Extent (% ANNA)5.90Rev. Defect Extent (% ANNA)10.40 Conclusion 1. Regadenoson cardioisotope stress test did not show any evidence of ischemia or infarct. 2. Abnormal septal wall motion secondary to conduction delay. Left ventricular ejection fraction calc ulated at 53%. 3. Low risk for cardiac events.
--- NOTE | 2016-11-27 13:31 | PDOC ---
MICHAEL SRIVASTAVA INTERPERSONAL COMMUNICATIONS PROFESSOR 11/27/16 1330: CARDIO Progress Notes Date and Time Date of Service 11/27/2016 Time of Evaluation 1310 Subjective Subjective: No Chest Pain, No shortness of breath, No Palpitations Vitals Vitals Vital Signs Date Time Temp Pulse Resp B/P (MAP) Pulse Ox O2 Delivery O2 Flow Rate FiO2 11/27/16 10:53 97.9 99 18 164/76 (105) 98 Room Air 97.9 Weight Weight [ ] Laboratory Labs Laboratory Tests Test 11/26/16 16:21 11/26/16 21:12 11/27/16 06:00 11/27/16 07:33 Glucose (Fingerstick) 174 mg/dL (70-99) 152 mg/dL (70-99) 119 mg/dL (70-99) White Blood Count 8.7 x10^3/uL (4.0-11.0) Red Blood Count 2.48 x10^6/uL (3.50-5.40) Hemoglobin 7.2 g/dL (12.0-15.5) Hematocrit 21.8 % (36.0-47.0) Mean Corpuscular Volume 88 fL (79-100) Mean Corpuscular Hemoglobin 29 pg (25-35) Mean Corpuscular Hemoglobin Concent 33 g/dL (31-37) Red Cell Distribution Width 16.5 % (11.5-14.5) Platelet Count 248 x10^3/uL (140-400) Neutrophils (%) (Auto) 64 % (31-73) Lymphocytes (%) (Auto) 16 % (24-48) Monocytes (%) (Auto) 17 % (0-9) Eosinophils (%) (Auto) 2 % (0-3) Basophils (%) (Auto) 1 % (0-3) Neutrophils # (Auto) 5.6 x10^3uL (1.8-7.7) Lymphocytes # (Auto) 1.4 x10^3/uL (1.0-4.8) Monocytes # (Auto) 1.5 x10^3/uL (0.0-1.1) Eosinophils # (Auto) 0.2 x10^3/uL (0.0-0.7) Basophils # (Auto) 0.0 x10^3/uL (0.0-0.2) Sodium Level 141 mmol/L (136-145) Potassium Level 4.5 mmol/L (3.5-5.1) Chloride Level 105 mmol/L (98-107) Carbon Dioxide Level 23 mmol/L (21-32) Anion Gap 13 (6-14) Blood Urea Nitrogen 57 mg/dL (7-20) Creatinine 3.0 mg/dL (0.6-1.0) Estimated GFR (Cockcroft-Gault) 18.5 BUN/Creatinine Ratio 19 (6-20) Glucose Level 122 mg/dL (70-99) Calcium Level 8.9 mg/dL (8.5-10.1) Total Bilirubin 0.4 mg/dL (0.2-1.0) Aspartate Amino Transf (AST/SGOT) 16 U/L (15-37) Alanine Aminotransferase (ALT/SGPT) 29 U/L (14-59) Alkaline Phosphatase 59 U/L (46-116) Total Protein 6.3 g/dL (6.4-8.2) Albumin 2.5 g/dL (3.4-5.0) Albumin/Globulin Ratio 0.7 (1.0-1.7) Test 11/27/16 11:49 Glucose (Fingerstick) 155 mg/dL (70-99) Microbiology Micro Microbiology 11/24/16 Urine Culture - Final, Complete 11/24/16 Urine Culture Result 1 (STANLEY) - Final, Complete 11/24/16 Antimicrobic Susceptibility - Final, Complete Physical Exam HEENT: Neck Supple W Full Motion Chest: Symmetric LUNGS: Other (diminished bases) Heart: S1S2, RRR (SR) Abdomen: Soft N/T Extremities: No Calf Tenderness, Other (2+ bilateral LE pitting edema) Neurology: alert, oriented, follow commands Assessment Assessment 1. Elevated troponin: peaked at 0.32, demand mediated with underlying renal insufficiency and uncontrolled HTN. 2. Accelerated HTN: labile 3. CKD5: nephrology following. HD anticipated 4. DM2/HLP 5. Anemia of chronic disease: Hgb 7.2 per PCP Recommendations 1. MPI unremarkable for ischemic process. TTE with normal wall motion and EF. Continue with secondary prevention 2. Agree with med adjustment, consider imdur to add if BP remains labile. 3. Will follow peripherally DENI JORDAN MD 11/27/162051: CARDIO Progress Notes Assessment Assessment Patient seen and examined. Agree with FILTER WORKER's assessment and plan. 2D echo showed normal LV function and MPI without any ischemia Continue current medical regimen We will follow as needed MICHAEL SRIVASTAVA APRN Nov 27, 2016 13:30 DENI JORDAN MD Nov 27, 2016 20:52
--- NOTE | 2016-11-27 14:41 | PDOC ---
PROGRESS NOTES Subjective Subjective feels ok ,no complaints Objective Objective Vital Signs Date Time Temp Pulse Resp B/P (MAP) Pulse Ox O2 Delivery O2 Flow Rate FiO2 11/27/16 14:06 99 164/76 11/27/16 10:53 97.9 18 98 Room Air 97.9 Physical Exam Abdomen: Soft, No tenderness Heart: Regular rate Extremities: Other (1-2+ pitting pedal edema) General: Alert, Oriented X3 HEENT: Atraumatic, PERRLA Lungs: Clear to auscultation MUSCULOSKELETAL: No deformity, No swelling Neuro: Normal speech Psych/Mental Status: Mood NL Skin: No breakdown Diagnosis Problem List Problems Medical Problems: (1) Weakness Status: Acute Assessment Assessment Problems Medical Problems: (1) Weakness Status: Acute FINAL IMPRESSION: 1. Generalized weakness. 2. Stage 5 renal failure. The patient has AV shunt, anticipating dialysis. 3. Insulin-dependent diabetes. 4. Hypertension. 5. Gout. 6. General debility. 7. elevated troponin slightly 8.UTI PLAN: cardiology consult appreciated. Hypertensive crisis- BP 197/81- start Clonidine prn,continue Hydralazine. echo good LVF. stress test -ve keflex for uti Labs reviewed. needs NH placement. Problems: Plan Plan of Care Problems Medical Problems: (1) Weakness Status: Acute Comment Review of Relevant I have reviewed the following items reji (where applicable) has been applied. Labs Laboratory Tests Test 11/26/16 16:21 11/26/16 21:12 11/27/16 06:00 11/27/16 07:33 Glucose (Fingerstick) 174 mg/dL (70-99) 152 mg/dL (70-99) 119 mg/dL (70-99) White Blood Count 8.7 x10^3/uL (4.0-11.0) Red Blood Count 2.48 x10^6/uL (3.50-5.40) Hemoglobin 7.2 g/dL (12.0-15.5) Hematocrit 21.8 % (36.0-47.0) Mean Corpuscular Volume 88 fL (79-100) Mean Corpuscular Hemoglobin 29 pg (25-35) Mean Corpuscular Hemoglobin Concent 33 g/dL (31-37) Red Cell Distribution Width 16.5 % (11.5-14.5) Platelet Count 248 x10^3/uL (140-400) Neutrophils (%) (Auto) 64 % (31-73) Lymphocytes (%) (Auto) 16 % (24-48) Monocytes (%) (Auto) 17 % (0-9) Eosinophils (%) (Auto) 2 % (0-3) Basophils (%) (Auto) 1 % (0-3) Neutrophils # (Auto) 5.6 x10^3uL (1.8-7.7) Lymphocytes # (Auto) 1.4 x10^3/uL (1.0-4.8) Monocytes # (Auto) 1.5 x10^3/uL (0.0-1.1) Eosinophils # (Auto) 0.2 x10^3/uL (0.0-0.7) Basophils # (Auto) 0.0 x10^3/uL (0.0-0.2) Sodium Level 141 mmol/L (136-145) Potassium Level 4.5 mmol/L (3.5-5.1) Chloride Level 105 mmol/L (98-107) Carbon Dioxide Level 23 mmol/L (21-32) Anion Gap 13 (6-14) Blood Urea Nitrogen 57 mg/dL (7-20) Creatinine 3.0 mg/dL (0.6-1.0) Estimated GFR (Cockcroft-Gault) 18.5 BUN/Creatinine Ratio 19 (6-20) Glucose Level 122 mg/dL (70-99) Calcium Level 8.9 mg/dL (8.5-10.1) Total Bilirubin 0.4 mg/dL (0.2-1.0) Aspartate Amino Transf (AST/SGOT) 16 U/L (15-37) Alanine Aminotransferase (ALT/SGPT) 29 U/L (14-59) Alkaline Phosphatase 59 U/L (46-116) Total Protein 6.3 g/dL (6.4-8.2) Albumin 2.5 g/dL (3.4-5.0) Albumin/Globulin Ratio 0.7 (1.0-1.7) Test 11/27/16 11:49 Glucose (Fingerstick) 155 mg/dL (70-99) Microbiology 11/24/16 Urine Culture - Final, Complete 11/24/16 Urine Culture Result 1 (STANLEY) - Final, Complete 11/24/16 Antimicrobic Susceptibility - Final, Complete Medications Current Medications Cephalexin HCl (Keflex) 500 mg BID PO Last administered on 11/27/16 10:25; Start 11/26/16 at 22:30 Regadenoson (Lexiscan) 0.4 mg 1X ONCE IV Last administered on 11/27/16 08:16; Start 11/27/16 at 08:00; Stop 11/27/16 at 08:01; Status DC Vitals/I & O Vital Sign - Last 24 Hours 11/26/16 11/26/16 11/26/16 11/26/16 14:44 19:20 20:00 20:30 Temp 97.5 98.5 97.5 98.5 Pulse 81 77 81 Resp 20 20 B/P (MAP) 179/80 (113) 137/74 (95) 179/80 Pulse Ox 97 99 O2 Delivery Room Air Room Air Room Air 11/26/16 11/26/16 11/26/16 11/26/16 20:32 20:33 20:36 23:20 Temp 98.4 98.4 Pulse 77 77 77 74 Resp 20 B/P (MAP) 137/74 134/74 134/74 195/83 (120) Pulse Ox 99 O2 Delivery Room Air 11/27/16 11/27/16 11/27/16 11/27/16 03:20 03:53 07:35 08:00 Temp 98.5 97.9 98.5 97.9 Pulse 77 77 77 Resp 20 20 B/P (MAP) 190/81 (117) 190/81 185/82 (116) Pulse Ox 97 98 O2 Delivery Room Air Room Air Room Air 11/27/16 11/27/16 11/27/16 11/27/16 08:00 10:24 10:26 10:26 Pulse 77 77 77 B/P (MAP) 185/82 185/82 185/82 O2 Delivery Room Air 11/27/16 11/27/16 11/27/16 11/27/16 10:41 10:53 14:04 14:06 Temp 97.9 97.9 Pulse 77 99 99 99 Resp 18 B/P (MAP) 185/82 164/76 (105) 164/76 164/76 Pulse Ox 98 O2 Delivery Room Air GRAEME SERNA MD Nov 27, 2016 14:41
[2016-11-27 15:10] VITALS: BP 169/78
[2016-11-27] MEDS: ENOXAPARIN 30 MG/0.3 ML SYRINGE. SQ SCH (15:27)
[2016-11-27 19:50] VITALS: BP 193/78
[2016-11-27] MEDS: LATANOPROST 0.005% OPHTH SOLUTION 2.5ML BOTTLE. OS SCH (20:31)
[2016-11-27] MEDS: ATORVASTATIN CALCIUM 10 MG TABLET. PO SCH (20:31)
[2016-11-27 23:31] VITALS: BP 152/74
[2016-11-28 03:11] VITALS: BP 177/78
[2016-11-28] MEDS: hydrALAZINE 20 MG/ML VIAL. IVP PRN (03:19)
[2016-11-28 06:18] LABS: ALBUMIN 2.6 g/dL (3.4-5.0); ALBUMIN/GLOBULIN RATIO 0.7 (1.0-1.7); CALCIUM 8.6 mg/dL (8.5-10.1); CREATININE 3.2 mg/dL (0.6-1.0); GFR 17.1; POTASSIUM 4.1 mmol/L (3.5-5.1); TOTAL BILIRUBIN 0.4 mg/dL (0.2-1.0); TOTAL PROTEIN 6.4 g/dL (6.4-8.2)
[2016-11-28 07:00] VITALS: BP 197/79
[2016-11-28] MEDS: ASPIRIN 325 MG TABLET PO SCH (08:07)
[2016-11-28] MEDS: cloNIDine HCL 0.2 MG TABLET PO SCH ×3 (08:09→20:46)
[2016-11-28] MEDS: ACETAMINOPHEN 325 MG TABLET. PO SCH ×4 (08:09→20:44)
[2016-11-28] MEDS: hydroCHLOROthiazide 12.5 MG CAPSULE PO SCH (08:09)
[2016-11-28] MEDS: LOSARTAN POTASSIUM 50 MG TABLET. PO SCH (08:11)
[2016-11-28] MEDS: LABETALOL HCL 200 MG TABLET PO SCH ×2 (08:11→20:45)
[2016-11-28] MEDS: CEPHALEXIN 250 MG CAPSULE. PO SCH ×2 (08:12→20:45)
[2016-11-28] MEDS: SODIUM BICARBONATE 650 MG TABLET. PO SCH ×2 (08:17→20:43)
[2016-11-28] MEDS: INSULIN DETEMIR 300 UNITS/3 ML INSULN.PEN. SQ SCH (08:30)
[2016-11-28] MEDS: INSULIN ASPART 300 UNITS/3 ML INSULN.PEN SQ SCH ×3 (08:30→17:04)
--- NOTE | 2016-11-28 09:37 | PDOC ---
PROGRESS NOTES Subjective Subjective no complaints Objective Objective Vital Signs Date Time Temp Pulse Resp B/P (MAP) Pulse Ox O2 Delivery O2 Flow Rate FiO2 11/28/16 08:11 81 197/79 11/28/16 07:00 98.4 20 97 Room Air 98.4 Physical Exam Abdomen: Soft, No tenderness Heart: Regular rate Extremities: Other (1-2+ pitting pedal edema) General: Alert, Oriented X3 HEENT: Atraumatic, PERRLA Lungs: Clear to auscultation MUSCULOSKELETAL: No deformity, No swelling Neuro: Normal speech Psych/Mental Status: Mood NL Skin: No breakdown Diagnosis Problem List Problems Medical Problems: (1) Weakness Status: Acute Assessment Assessment Problems Medical Problems: (1) Weakness Status: Acute FINAL IMPRESSION: 1. Generalized weakness. 2. Stage 5 renal failure. The patient has AV shunt, anticipating dialysis. 3. Insulin-dependent diabetes. 4. Hypertension. 5. Gout. 6. General debility. 7. elevated troponin slightly 8.UTI PLAN: waiting for placement cardiology consult appreciated. Hypertensive crisis- BP 197/81- start Clonidine prn,continue Hydralazine. echo good LVF.60% EJF stress test -ve for ischemia keflex for uti Labs reviewed. needs NH placement. Problems: Plan Plan of Care Problems Medical Problems: (1) Weakness Status: Acute Comment Review of Relevant I have reviewed the following items reji (where applicable) has been applied. Labs Laboratory Tests Test 11/27/16 11:49 11/27/16 16:56 11/27/16 21:16 11/28/16 05:16 Glucose (Fingerstick) 155 mg/dL (70-99) 131 mg/dL (70-99) 128 mg/dL (70-99) Sodium Level 140 mmol/L (136-145) Potassium Level 4.1 mmol/L (3.5-5.1) Chloride Level 105 mmol/L (98-107) Carbon Dioxide Level 23 mmol/L (21-32) Anion Gap 12 (6-14) Blood Urea Nitrogen 58 mg/dL (7-20) Creatinine 3.2 mg/dL (0.6-1.0) Estimated GFR (Cockcroft-Gault) 17.1 BUN/Creatinine Ratio 18 (6-20) Glucose Level 115 mg/dL (70-99) Calcium Level 8.6 mg/dL (8.5-10.1) Total Bilirubin 0.4 mg/dL (0.2-1.0) Aspartate Amino Transf (AST/SGOT) 23 U/L (15-37) Alanine Aminotransferase (ALT/SGPT) 34 U/L (14-59) Alkaline Phosphatase 61 U/L (46-116) Total Protein 6.4 g/dL (6.4-8.2) Albumin 2.6 g/dL (3.4-5.0) Albumin/Globulin Ratio 0.7 (1.0-1.7) Test 11/28/16 07:24 Glucose (Fingerstick) 121 mg/dL (70-99) Microbiology 11/24/16 Urine Culture - Final, Complete 11/24/16 Urine Culture Result 1 (STANLEY) - Final, Complete 11/24/16 Antimicrobic Susceptibility - Final, Complete Vitals/I & O Vital Sign - Last 24 Hours 11/27/16 11/27/16 11/27/16 11/27/16 10:24 10:26 10:26 10:41 Pulse 77 77 77 77 B/P (MAP) 185/82 185/82 185/82 185/82 11/27/16 11/27/16 11/27/16 11/27/16 10:53 14:04 14:06 15:10 Temp 97.9 98.3 97.9 98.3 Pulse 99 99 99 96 Resp 18 18 B/P (MAP) 164/76 (105) 164/76 164/76 169/78 (108) Pulse Ox 98 98 O2 Delivery Room Air Room Air 11/27/16 11/27/16 11/27/16 11/27/16 19:50 20:00 20:29 20:30 Temp 98.3 98.3 Pulse 72 72 72 Resp 20 B/P (MAP) 193/78 (116) 193/78 193/78 Pulse Ox 100 O2 Delivery Room Air Room Air 11/27/16 11/27/16 11/28/16 11/28/16 20:31 23:31 03:11 03:19 Temp 98.3 98.3 98.3 98.3 Pulse 72 77 79 79 Resp 18 20 B/P (MAP) 193/78 152/74 (100) 177/78 (111) 177/78 Pulse Ox 98 100 O2 Delivery Room Air Room Air 11/28/16 11/28/16 11/28/16 11/28/16 07:00 08:08 08:09 08:11 Temp 98.4 98.4 Pulse 81 81 81 81 Resp 20 B/P (MAP) 197/79 (118) 197/79 197/79 197/79 Pulse Ox 97 O2 Delivery Room Air 11/28/16 08:11 Pulse 81 B/P (MAP) 197/79 GRAEME SERNA MD Nov 28, 2016 09:37
[2016-11-28 11:00] VITALS: BP 127/53
[2016-11-28 15:00] VITALS: BP 167/67
[2016-11-28] MEDS: ENOXAPARIN 30 MG/0.3 ML SYRINGE. SQ SCH (15:45)
[2016-11-28 19:30] VITALS: BP 114/72
[2016-11-28] MEDS: ATORVASTATIN CALCIUM 10 MG TABLET. PO SCH (20:45)
[2016-11-28] MEDS: LATANOPROST 0.005% OPHTH SOLUTION 2.5ML BOTTLE. OS SCH (20:46)
[2016-11-28 23:44] VITALS: BP 172/75
[2016-11-29] VITALS (7 sets, daily range): BP systolic 170–198; BP diastolic 71–85
[2016-11-29] MEDS: hydrALAZINE 20 MG/ML VIAL. IVP PRN (00:04)
[2016-11-29] MEDS: cloNIDine HCL 0.1 MG TABLET PO PRN ×2 (04:07→18:19)
[2016-11-29 05:17] LABS: ALBUMIN 2.7 g/dL (3.4-5.0); ALBUMIN/GLOBULIN RATIO 0.7 (1.0-1.7); CALCIUM 8.8 mg/dL (8.5-10.1); GFR 18.5; POTASSIUM 4.2 mmol/L (3.5-5.1); TOTAL BILIRUBIN 0.3 mg/dL (0.2-1.0); TOTAL PROTEIN 6.5 g/dL (6.4-8.2)
[2016-11-29] MEDS: ASPIRIN 325 MG TABLET PO SCH (09:23)
[2016-11-29] MEDS: cloNIDine HCL 0.2 MG TABLET PO SCH ×3 (09:25→21:09)
[2016-11-29] MEDS: LOSARTAN POTASSIUM 50 MG TABLET. PO SCH (09:26)
[2016-11-29] MEDS: hydroCHLOROthiazide 12.5 MG CAPSULE PO SCH (09:26)
[2016-11-29] MEDS: SODIUM BICARBONATE 650 MG TABLET. PO SCH ×2 (09:27→21:09)
[2016-11-29] MEDS: LABETALOL HCL 200 MG TABLET PO SCH ×2 (09:28→21:08)
[2016-11-29] MEDS: ACETAMINOPHEN 325 MG TABLET. PO SCH ×4 (09:29→21:07)
[2016-11-29] MEDS: CEPHALEXIN 250 MG CAPSULE. PO SCH ×2 (09:29→21:07)
[2016-11-29] MEDS: INSULIN ASPART 300 UNITS/3 ML INSULN.PEN SQ SCH ×3 (09:40→17:10)
[2016-11-29] MEDS: INSULIN DETEMIR 300 UNITS/3 ML INSULN.PEN. SQ SCH (09:41)
[2016-11-29] MEDS: ENOXAPARIN 30 MG/0.3 ML SYRINGE. SQ SCH (15:57)
--- NOTE | 2016-11-29 17:39 | PDOC ---
PROGRESS NOTES Subjective Subjective feels good ,eating now. Objective Objective Vital Signs Date Time Temp Pulse Resp B/P (MAP) Pulse Ox O2 Delivery O2 Flow Rate FiO2 11/29/16 14:35 98.4 76 19 170/71 (104) 97 Room Air 98.4 Intake and Output 11/30/16 07:00 Intake Total 700 ml Balance 700 ml Intake Oral 700 ml # Voids 3 Physical Exam Abdomen: Soft, No tenderness Heart: Regular rate Extremities: Other (1-2+ pitting pedal edema) General: Alert, Oriented X3 HEENT: Atraumatic, PERRLA Lungs: Clear to auscultation MUSCULOSKELETAL: No deformity, No swelling Neuro: Normal speech Psych/Mental Status: Mood NL Skin: No breakdown Diagnosis Problem List Problems Medical Problems: (1) Weakness Status: Acute Assessment Assessment Problems Medical Problems: (1) Weakness Status: Acute FINAL IMPRESSION: 1. Generalized weakness. 2. Stage 5 renal failure. The patient has AV shunt, anticipating dialysis. 3. Insulin-dependent diabetes. 4. Hypertension. 5. Gout. 6. General debility. 7. elevated troponin slightly 8.UTI PLAN: pt want to go home, donot want to go [facility]. renal consult for f/u home tomorrow. cardiology consult appreciated. Hypertensive crisis- BP 197/81- start Clonidine prn,continue Hydralazine. echo good LVF.60% EJF stress test -ve for ischemia keflex for uti Labs reviewed. needs NH placement. Problems: Plan Plan of Care Problems Medical Problems: (1) Weakness Status: Acute Comment Review of Relevant I have reviewed the following items reji (where applicable) has been applied. Labs Laboratory Tests Test 11/28/16 20:38 11/29/16 04:00 11/29/16 07:23 11/29/16 11:31 Glucose (Fingerstick) 137 mg/dL (70-99) 144 mg/dL (70-99) 130 mg/dL (70-99) Sodium Level 141 mmol/L (136-145) Potassium Level 4.2 mmol/L (3.5-5.1) Chloride Level 105 mmol/L (98-107) Carbon Dioxide Level 24 mmol/L (21-32) Anion Gap 12 (6-14) Blood Urea Nitrogen 60 mg/dL (7-20) Creatinine 3.0 mg/dL (0.6-1.0) Estimated GFR (Cockcroft-Gault) 18.5 BUN/Creatinine Ratio 20 (6-20) Glucose Level 111 mg/dL (70-99) Calcium Level 8.8 mg/dL (8.5-10.1) Total Bilirubin 0.3 mg/dL (0.2-1.0) Aspartate Amino Transf (AST/SGOT) 29 U/L (15-37) Alanine Aminotransferase (ALT/SGPT) 43 U/L (14-59) Alkaline Phosphatase 59 U/L (46-116) Total Protein 6.5 g/dL (6.4-8.2) Albumin 2.7 g/dL (3.4-5.0) Albumin/Globulin Ratio 0.7 (1.0-1.7) Test 11/29/16 16:49 Glucose (Fingerstick) 125 mg/dL (70-99) Microbiology 11/24/16 Urine Culture - Final, Complete 11/24/16 Urine Culture Result 1 (STANLEY) - Final, Complete 11/24/16 Antimicrobic Susceptibility - Final, Complete Vitals/I & O Vital Sign - Last 24 Hours 11/28/16 11/28/16 11/28/16 11/28/16 19:30 20:00 20:44 20:45 Temp 98.1 98.1 Pulse 77 77 77 Resp 18 B/P (MAP) 114/72 (86) 114/72 114/72 Pulse Ox 98 O2 Delivery Room Air Room Air 11/28/16 11/28/16 11/29/16 11/29/16 20:46 23:44 00:04 03:10 Temp 98.1 98.5 98.1 98.5 Pulse 77 80 80 74 Resp 18 18 B/P (MAP) 114/72 172/75 (107) 172/75 198/85 (122) Pulse Ox 95 95 O2 Delivery Room Air Room Air 11/29/16 11/29/16 11/29/16 11/29/16 04:07 07:04 08:00 09:24 Temp 98.3 98.3 Pulse 74 75 75 Resp 19 B/P (MAP) 198/85 197/85 (122) 197/85 Pulse Ox 93 O2 Delivery Room Air Room Air 11/29/16 11/29/16 11/29/16 11/29/16 09:25 09:26 09:28 11:01 Temp 98.1 98.1 Pulse 75 75 75 77 Resp 19 B/P (MAP) 197/85 197/85 197/85 175/78 (110) Pulse Ox 98 O2 Delivery Room Air 11/29/16 11/29/16 11/29/16 13:29 13:29 14:35 Temp 98.4 98.4 Pulse 77 77 76 Resp 19 B/P (MAP) 175/78 175/78 170/71 (104) Pulse Ox 97 O2 Delivery Room Air Intake and Output 11/29/16 11/29/16 11/30/16 15:00 23:00 07:00 Intake Total 500 ml 200 ml Balance 500 ml 200 ml GRAEME SERNA MD Nov 29, 2016 17:39
[2016-11-29] MEDS ORDERED: ASPI325T8 PO (17:45)
[2016-11-29] MEDS ORDERED: HYDR-2869 PO (17:45)
[2016-11-29] MEDS ORDERED: CEPH250C PO (17:45)
[2016-11-29] MEDS: ATORVASTATIN CALCIUM 10 MG TABLET. PO SCH (21:08)
[2016-11-29] MEDS: LATANOPROST 0.005% OPHTH SOLUTION 2.5ML BOTTLE. OS SCH (21:09)
[2016-11-30] MEDS: cloNIDine HCL 0.1 MG TABLET PO PRN (00:31)
[2016-11-30] MEDS: hydrALAZINE 20 MG/ML VIAL. IVP PRN (02:03)
[2016-11-30 03:09] VITALS: BP 166/74
[2016-11-30 06:04] LABS: ALBUMIN 2.8 g/dL (3.4-5.0); ALBUMIN/GLOBULIN RATIO 0.7 (1.0-1.7); CALCIUM 8.9 mg/dL (8.5-10.1); CREATININE 2.9 mg/dL (0.6-1.0); GFR 19.2; POTASSIUM 3.8 mmol/L (3.5-5.1); TOTAL BILIRUBIN 0.3 mg/dL (0.2-1.0); TOTAL PROTEIN 6.7 g/dL (6.4-8.2)
[2016-11-30 06:07] VITALS: BP 118/79
[2016-11-30 07:45] VITALS: BP 191/85
[2016-11-30] MEDS: SODIUM BICARBONATE 650 MG TABLET. PO SCH (08:30)
[2016-11-30] MEDS: hydroCHLOROthiazide 12.5 MG CAPSULE PO SCH (08:30)
[2016-11-30] MEDS: LOSARTAN POTASSIUM 50 MG TABLET. PO SCH (08:30)
[2016-11-30] MEDS: ACETAMINOPHEN 325 MG TABLET. PO SCH ×2 (08:31→12:51)
[2016-11-30] MEDS: ASPIRIN 325 MG TABLET PO SCH (08:31)
[2016-11-30] MEDS: cloNIDine HCL 0.2 MG TABLET PO SCH (08:31)
[2016-11-30] MEDS: LABETALOL HCL 200 MG TABLET PO SCH (08:32)
[2016-11-30] MEDS: CEPHALEXIN 250 MG CAPSULE. PO SCH (08:32)
[2016-11-30] MEDS: INSULIN DETEMIR 300 UNITS/3 ML INSULN.PEN. SQ SCH (08:50)
[2016-11-30] MEDS: INSULIN ASPART 300 UNITS/3 ML INSULN.PEN SQ SCH ×2 (08:50→12:57)
--- NOTE | 2016-11-30 10:32 | PDOC ---
PROGRESS NOTES Subjective Subjective feels good,ready to go home Objective Objective Vital Signs Date Time Temp Pulse Resp B/P (MAP) Pulse Ox O2 Delivery O2 Flow Rate FiO2 11/30/16 08:32 80 191/85 11/30/16 08:00 Room Air 11/30/16 07:45 98.2 20 93 98.2 Physical Exam Abdomen: Soft, No tenderness Heart: Regular rate Extremities: Other (1-2+ pitting pedal edema) General: Alert, Oriented X3 HEENT: Atraumatic, PERRLA Lungs: Clear to auscultation MUSCULOSKELETAL: No deformity, No swelling Neuro: Normal speech Psych/Mental Status: Mood NL Skin: No breakdown Diagnosis Problem List Problems Medical Problems: (1) Weakness Status: Acute Assessment Assessment Problems Medical Problems: (1) Weakness Status: Acute FINAL IMPRESSION: 1. Generalized weakness. 2. Stage 5 renal failure. The patient has AV shunt, anticipating dialysis. 3. Insulin-dependent diabetes. 4. Hypertension. 5. Gout. 6. General debility. 7. elevated troponin slightly 8.UTI PLAN: d/c home today with home health spoke with renal. pt want to go home, donot want to go to [place]. renal consult for f/u cardiology consult appreciated. echo good LVF.60% EJF stress test -ve for ischemia keflex for uti for 3 more days Labs reviewed. Problems: Plan Plan of Care Problems Medical Problems: (1) Weakness Status: Acute Comment Review of Relevant I have reviewed the following items reji (where applicable) has been applied. Labs Laboratory Tests Test 11/29/16 11:31 11/29/16 16:49 11/29/16 20:25 11/30/16 04:10 Glucose (Fingerstick) 130 mg/dL (70-99) 125 mg/dL (70-99) 138 mg/dL (70-99) Sodium Level 139 mmol/L (136-145) Potassium Level 3.8 mmol/L (3.5-5.1) Chloride Level 103 mmol/L (98-107) Carbon Dioxide Level 22 mmol/L (21-32) Anion Gap 14 (6-14) Blood Urea Nitrogen 55 mg/dL (7-20) Creatinine 2.9 mg/dL (0.6-1.0) Estimated GFR (Cockcroft-Gault) 19.2 BUN/Creatinine Ratio 19 (6-20) Glucose Level 109 mg/dL (70-99) Calcium Level 8.9 mg/dL (8.5-10.1) Total Bilirubin 0.3 mg/dL (0.2-1.0) Aspartate Amino Transf (AST/SGOT) 36 U/L (15-37) Alanine Aminotransferase (ALT/SGPT) 58 U/L (14-59) Alkaline Phosphatase 64 U/L (46-116) Total Protein 6.7 g/dL (6.4-8.2) Albumin 2.8 g/dL (3.4-5.0) Albumin/Globulin Ratio 0.7 (1.0-1.7) Test 11/30/16 07:20 Glucose (Fingerstick) 108 mg/dL (70-99) Microbiology 11/24/16 Urine Culture - Final, Complete 11/24/16 Urine Culture Result 1 (STANLEY) - Final, Complete 11/24/16 Antimicrobic Susceptibility - Final, Complete Vitals/I & O Vital Sign - Last 24 Hours 11/29/16 11/29/16 11/29/16 11/29/16 11:01 13:29 13:29 14:35 Temp 98.1 98.4 98.1 98.4 Pulse 77 77 77 76 Resp 19 19 B/P (MAP) 175/78 (110) 175/78 175/78 170/71 (104) Pulse Ox 98 97 O2 Delivery Room Air Room Air 11/29/16 11/29/16 11/29/16 11/29/16 18:15 18:19 19:20 20:00 Temp 97.8 97.8 Pulse 75 75 71 Resp 20 18 B/P (MAP) 189/77 (114) 189/77 177/85 (115) Pulse Ox 96 94 O2 Delivery Room Air Room Air Room Air 11/29/16 11/29/16 11/29/16 11/29/16 21:08 21:08 21:09 23:38 Temp 98.3 98.3 Pulse 75 75 71 86 Resp 18 B/P (MAP) 189/77 189/77 177/85 195/81 (119) Pulse Ox 98 O2 Delivery Room Air 11/30/16 11/30/16 11/30/16 11/30/16 00:31 02:03 03:09 06:07 Temp 98.1 98.1 Pulse 86 97 76 Resp 18 B/P (MAP) 195/81 200/103 166/74 (104) 118/79 (92) Pulse Ox 93 O2 Delivery Room Air 11/30/16 11/30/16 11/30/16 11/30/16 07:45 08:00 08:30 08:31 Temp 98.2 98.2 Pulse 80 80 80 Resp 20 B/P (MAP) 191/85 (120) 191/ 191/85 Pulse Ox 93 O2 Delivery Room Air Room Air 11/30/16 11/30/16 08:32 08:32 Pulse 80 80 B/P (MAP) 191/85 191/85 GRAEME SERNA MD Nov 30, 2016 10:32
[2016-11-30 11:00] VITALS: BP 173/79
--- NOTE | 2016-11-30 14:53 | PDOC ---
PROGRESS NOTES Subjective Subjective consult cancelled by Dr Bazan and so she will f/up with us as OP Objective Objective Vital Signs Date Time Temp Pulse Resp B/P (MAP) Pulse Ox O2 Delivery O2 Flow Rate FiO2 11/30/16 11:00 97.9 72 20 173/79 (110) 98 Room Air 97.9 Assessment Assessment Problems Medical Problems: (1) Weakness Status: Acute Comment Review of Relevant I have reviewed the following items reji (where applicable) has been applied. Labs Laboratory Tests Test 11/28/16 16:54 11/28/16 20:38 11/29/16 04:00 11/29/16 07:23 Glucose (Fingerstick) 159 mg/dL (70-99) 137 mg/dL (70-99) 144 mg/dL (70-99) Sodium Level 141 mmol/L (136-145) Potassium Level 4.2 mmol/L (3.5-5.1) Chloride Level 105 mmol/L (98-107) Carbon Dioxide Level 24 mmol/L (21-32) Anion Gap 12 (6-14) Blood Urea Nitrogen 60 mg/dL (7-20) Creatinine 3.0 mg/dL (0.6-1.0) Estimated GFR (Cockcroft-Gault) 18.5 BUN/Creatinine Ratio 20 (6-20) Glucose Level 111 mg/dL (70-99) Calcium Level 8.8 mg/dL (8.5-10.1) Total Bilirubin 0.3 mg/dL (0.2-1.0) Aspartate Amino Transf (AST/SGOT) 29 U/L (15-37) Alanine Aminotransferase (ALT/SGPT) 43 U/L (14-59) Alkaline Phosphatase 59 U/L (46-116) Total Protein 6.5 g/dL (6.4-8.2) Albumin 2.7 g/dL (3.4-5.0) Albumin/Globulin Ratio 0.7 (1.0-1.7) Test 11/29/16 11:31 11/29/16 16:49 11/29/16 20:25 11/30/16 04:10 Glucose (Fingerstick) 130 mg/dL (70-99) 125 mg/dL (70-99) 138 mg/dL (70-99) Sodium Level 139 mmol/L (136-145) Potassium Level 3.8 mmol/L (3.5-5.1) Chloride Level 103 mmol/L (98-107) Carbon Dioxide Level 22 mmol/L (21-32) Anion Gap 14 (6-14) Blood Urea Nitrogen 55 mg/dL (7-20) Creatinine 2.9 mg/dL (0.6-1.0) Estimated GFR (Cockcroft-Gault) 19.2 BUN/Creatinine Ratio 19 (6-20) Glucose Level 109 mg/dL (70-99) Calcium Level 8.9 mg/dL (8.5-10.1) Total Bilirubin 0.3 mg/dL (0.2-1.0) Aspartate Amino Transf (AST/SGOT) 36 U/L (15-37) Alanine Aminotransferase (ALT/SGPT) 58 U/L (14-59) Alkaline Phosphatase 64 U/L (46-116) Total Protein 6.7 g/dL (6.4-8.2) Albumin 2.8 g/dL (3.4-5.0) Albumin/Globulin Ratio 0.7 (1.0-1.7) Test 11/30/16 07:20 11/30/16 11:34 Glucose (Fingerstick) 108 mg/dL (70-99) 125 mg/dL (70-99) Laboratory Tests Test 11/29/16 16:49 11/29/16 20:25 11/30/16 04:10 11/30/16 07:20 Glucose (Fingerstick) 125 mg/dL (70-99) 138 mg/dL (70-99) 108 mg/dL (70-99) Sodium Level 139 mmol/L (136-145) Potassium Level 3.8 mmol/L (3.5-5.1) Chloride Level 103 mmol/L (98-107) Carbon Dioxide Level 22 mmol/L (21-32) Anion Gap 14 (6-14) Blood Urea Nitrogen 55 mg/dL (7-20) Creatinine 2.9 mg/dL (0.6-1.0) Estimated GFR (Cockcroft-Gault) 19.2 BUN/Creatinine Ratio 19 (6-20) Glucose Level 109 mg/dL (70-99) Calcium Level 8.9 mg/dL (8.5-10.1) Total Bilirubin 0.3 mg/dL (0.2-1.0) Aspartate Amino Transf (AST/SGOT) 36 U/L (15-37) Alanine Aminotransferase (ALT/SGPT) 58 U/L (14-59) Alkaline Phosphatase 64 U/L (46-116) Total Protein 6.7 g/dL (6.4-8.2) Albumin 2.8 g/dL (3.4-5.0) Albumin/Globulin Ratio 0.7 (1.0-1.7) Test 11/30/16 11:34 Glucose (Fingerstick) 125 mg/dL (70-99) Microbiology 11/24/16 Urine Culture - Final, Complete 11/24/16 Urine Culture Result 1 (STANLEY) - Final, Complete 11/24/16 Antimicrobic Susceptibility - Final, Complete Medications Current Medications Hydralazine HCl (Apresoline) 10 mg 1X ONCE IVP Last administered on 11/24/16 00:35; Start 11/24/16 at 01:00; Stop 11/24/16 at 01:01; Status DC Ondansetron HCl (Zofran) 4 mg PRN Q8HRS PRN IV NAUSEA/VOMITING; Start 11/24/16 at 00:30; Stop 11/25/16 at 00:29; Status DC Hydralazine HCl (Apresoline) 10 mg 1X ONCE IVP Last administered on 11/24/16 02:06; Start 11/24/16 at 02:00; Stop 11/24/16 at 02:13; Status DC Acetaminophen (Tylenol) 650 mg PRN Q6HRS PRN PO MILD PAIN Last administered on 11/24/16 03:43; Start 11/24/16 at 03:45; Stop 11/24/16 at 09:08; Status DC Acetaminophen (Tylenol) 650 mg QID PO Last administered on 11/30/16 12:51; Start 11/24/16 at 09:00 Clonidine HCl (Catapres) 0.2 mg TID PO Last administered on 11/30/16 08:31; Start 11/24/16 at 09:00 Hydralazine HCl (Apresoline) 50 mg TID PO ; Start 11/24/16 at 09:00; Stop at 09:16; Status DC Labetalol HCl (Trandate) 200 mg BID PO Last administered on 11/30/16 08:32; Start 11/24/16 at 09:00 Linagliptin (Tradjenta) 5 mg DAILY PO Last administered on 11/24/16 10:20; Start 11/24/16 at 09:00; Stop 11/24/16 at 12:47; Status DC Sodium Bicarbonate (Sodium Bicarbonate) 1,300 mg BID PO Last administered on 08:30; Start 11/24/16 at 09:00 Insulin Detemir (Levemir) 10 units DAILYWBKFT SQ Last administered on 11/30/16 08:50; Start 11/24/16 at 09:15 Insulin Detemir (Levemir) 65 units QHS SQ ; Start 11/24/16 at 21:00; Stop at 21:00; Status DC Insulin Aspart (NovoLOG) 5 units TIDAC SQ Last administered on 11/30/16 12:57; Start 11/24/16 at 09:15 Latanoprost (Xalatan) 1 drop QHS OS Last administered on 11/29/16 21:09; Start 11/24/16 at 21:00 Hydralazine HCl (Apresoline) 50 mg TID PO Last administered on 11/25/16 15:00; Start 11/24/16 at 09:30; Stop 11/25/16 at 17:32; Status DC Atorvastatin Calcium (Lipitor) 10 mg QHS PO Last administered on 11/29/16 21:08 ; Start 11/24/16 at 21:00 Losartan Potassium (Cozaar) 100 mg DAILY PO ; Start 11/25/16 at 09:00; Status Cancel Hydrochlorothiazide (Microzide) 12.5 mg DAILY PO Last administered on 11/30/16 08:30; Start 11/24/16 at 12:00 Losartan Potassium (Cozaar) 100 mg DAILY PO Last administered on 11/30/16 08:30 ; Start 11/24/16 at 12:00 Enoxaparin Sodium (Lovenox 30mg Syringe) 30 mg Q24H SQ Last administered on 11/29 15:57; Start 11/24/16 at 15:00 Aspirin (Radha Aspirin) 325 mg DAILYWBKFT PO Last administered on 11/30/16 08: 31; Start 11/24/16 at 15:30 Hydralazine HCl (Apresoline) 25 mg PRN Q6HRS PRN IVP ELEVATED BP, SEE COMMENTS Last administered on 11/30/16 02:03; Start 11/25/16 at 11:15 Hydralazine HCl (Apresoline) 75 mg TID PO Last administered on 11/26/16 09:04; Start 11/25/16 at 21:00; Stop 11/26/16 at 13:35; Status DC Clonidine HCl (Catapres) 0.1 mg PRN Q6HRS PRN PO HYPERTENSION, SEE COMMENTS Last administered on 11/30/16 00:31; Start 11/26/16 at 13:15 Hydralazine HCl (Apresoline) 100 mg TID PO Last administered on 11/30/16 08:32 ; Start 11/26/16 at 13:45 Cephalexin HCl (Keflex) 500 mg BID PO Last administered on 11/30/16 08:32; Start 11/26/16 at 22:30 Regadenoson (Lexiscan) 0.4 mg 1X ONCE IV Last administered on 11/27/16 08:16; Start 11/27/16 at 08:00; Stop 11/27/16 at 08:01; Status DC Active Scripts Active Hydralazine Hcl 25 Mg Tablet 50 Mg PO TID Reported Tradjenta (Linagliptin) 5 Mg Tablet 1 Tab PO DAILY Clonidine Hcl 0.2 Mg Tablet 1 Tab PO TID Tylenol (Acetaminophen) 325 Mg Tablet 1-2 Tab PO QID Sodium Bicarbonate 650 Mg Tablet 2 Tab PO BID Levemir (Insulin Detemir) 100 Unit/1 Ml Vial 65 Unit SQ QHS Levemir (Insulin Detemir) 100 Unit/1 Ml Vial 10 Unit SQ DAILYWBKFT Humalog (Insulin Lispro) 100 Unit/1 Ml Insuln.pen 5 Unit SQ TIDAC Travatan Z (Travoprost) 5 Ml Drops 1 Drop OS QHS Labetalol Hcl 200 Mg Tablet 1 Tab PO BID Losartan-Hctz 100-12.5 Mg Tab (Losartan/Hydrochlorothiazide) 1 Each Tablet PO DAILY Pravastatin Sodium 40 Mg Tablet 1 HS Vitals/I & O Vital Sign - Last 24 Hours 9/711/29/16 11/29/16 11/29/16 18:15 18:19 19:20 20:00 Temp 97.8 97.8 Pulse 75 75 71 Resp 20 18 B/P (MAP) 189/77 (114) 189/77 177/85 (115) Pulse Ox 96 94 O2 Delivery Room Air Room Air Room Air 11/29/16 11/29/16 11/29/16 11/29/16 21:08 21:08 21:09 23:38 Temp 98.3 98.3 Pulse 75 75 71 86 Resp 18 B/P (MAP) 189/77 189/77 177/85 195/81 (119) Pulse Ox 98 O2 Delivery Room Air 11/30/16 11/30/16 11/30/16 11/30/16 00:31 02:03 03:09 06:07 Temp 98.1 98.1 Pulse 86 97 76 Resp 18 B/P (MAP) 195/81 200/103 166/74 (104) 118/79 (92) Pulse Ox 93 O2 Delivery Room Air 11/30/16 11/30/16 11/30/16 11/30/16 07:45 08:00 08:30 08:31 Temp 98.2 98.2 Pulse 80 80 80 Resp 20 B/P (MAP) 191/85 (120) 191/ 191/85 Pulse Ox 93 O2 Delivery Room Air Room Air 11/30/16 11/30/16 11/30/16 08:32 08:32 11:00 Temp 97.9 97.9 Pulse 80 80 72 Resp 20 B/P (MAP) 191/85 191/85 173/79 (110) Pulse Ox 98 O2 Delivery Room Air SHARMILA CONTRERAS MD Nov 30, 2016 14:53
[2016-11-30 15:00] VITALS: BP 173/59
--- NOTE | 2016-12-02 14:27 | PDOC ---
Provider Note Provider Note Discharge summary dictated. #[id number] GRAEME SERNA MD Dec 02, 2016 14:27
--- NOTE | 2016-12-03 12:44 | DS ---
DATE OF DISCHARGE: 11/30/2016 DATE OF ADMISSION: 11/24/2016 DATE OF DISCHARGE: 11/30/2016 CONSULTATIONS: Dr. Upton. PROCEDURES DONE: 1. Stress test. 2. Echocardiogram. COMPLICATIONS NOTED: None. HOSPITAL COURSE: The patient is a 76-year-old female. The patient has stage 5 renal disease, has AV shunt in the left arm. She was at [facility] and was discharged home, but when she went home, she was having problems with weakness and not able to move around, was brought to the hospital. The patient was seen by Cardiology, had a stress test negative for ischemia. Echo shows a good left ventricular function. The patient has a creatinine around 3 which is at baseline at stage V. She already has an AV shunt placed. The patient seen by Physical Therapy Rehab and it was felt that she would need a long-term nursing facility, but the patient's family decided to take her back home with home health and the patient was discharged. FINAL DIAGNOSES: 1. Chest pain, noncardiac.?GERD. 2. Generalized weakness. 3. Chronic renal failure, stage 5. 4. Anemia secondary to chronic renal disease, hemoglobin 7.2 and creatinine was 3 that is a new baseline. 5. UTI-She also had a urinary tract infection with Proteus 50,000 colonies, sensitive to Keflex, was discharged on Keflex 500 mg twice daily for 7 days, adjusted to renal dose 6. Diabetes. 7. Hypertension. DISPOSITION: Home with home health. See MRAD for discharge medications. GRAEME SERNA MD DR: CATALINA/tereso JOB#: [id number] / [id number] RENITA Ann
== END 2016-11-30 15:56 | disposition home health service (06) | DRG 682 ==
LOC: ER 22:36 → 6 SOUTH 11-24 01:21
PROVIDERS: ADMIT Internal Medicine; ATTEND Internal Medicine
DX: I12.0 Hypertensive chronic kidney disease with stage 5 chronic kidney disease or end stage renal disease (principal); N18.6 End stage renal disease; E11.22 Type 2 diabetes mellitus with diabetic chronic kidney disease; N39.0 Urinary tract infection, site not specified; I16.9 Hypertensive crisis, unspecified; D63.8 Anemia in other chronic diseases classified elsewhere; R62.7 Adult failure to thrive; E03.9 Hypothyroidism, unspecified; E78.5 Hyperlipidemia, unspecified; M10.9 Gout, unspecified; Z79.4 Long term (current) use of insulin; Z82.49 Family history of ischemic heart disease and other diseases of the circulatory system; Z83.3 Family history of diabetes mellitus; Z86.73 Personal history of transient ischemic attack (TIA), and cerebral infarction without residual deficits; Z99.2 Dependence on renal dialysis; Z90.89 Acquired absence of other organs; Z80.9 Family history of malignant neoplasm, unspecified; Z84.1 Family history of disorders of kidney and ureter; Z91.041 Radiographic dye allergy status
CPT/HCPCS: 36415; 71010; 78452; 80048; 80053; 80076; 81001; 82553; 82962; 83690; 83735; 84443; 84484; 85025; 85610; 87086; 87186; 93005; 93017; 93306; 96374; 96375; 96376; A9500; J0360; J1650; J1815; J2785; 97110; 97116; 97530; 97535; 99291-25

== ENCOUNTER → 2016-12-13 | Outpatient (CLI) | payer OTHER ==
[2016-11-30 15:00] VITALS: BP 173/59
[~2016-12-13] MED LIST changes: +ASPI325T8 PO; +CEPH250C PO; +HYDR-2869 PO; +HYDR12.58 PO; +LOSA100T6 PO
--- NOTE | 2016-12-13 12:08 | RAD ---
Indication lump right hip for 2 weeks. Axial images through the pelvis were obtained. The abdomen was not scanned. No IV or gastrointestinal contrast was administered. The area of concern, lump, was marked with a BB. There is mild diffuse soft tissue swelling. This likely reflects a systemic process. Mild anasarca could account for the appearance. Corresponding to the palpable concern is a soft tissue mass in the subcutaneous tissues opposite and just inferior to the right greater trochanter measuring 3.6 x 2.2 x 3.3 cm. The etiology is unclear. This may represent a lymph node. Hematoma would be in the differential. Targeted ultrasound would likely be useful for additional evaluation and characterization. No additional finding is seen in the pelvis. Degenerative changes are noted in the lumbar spine. IMPRESSION: Subcutaneous soft tissue mass in the area of the right hip. Targeted ultrasound may be useful for additional evaluation and characterization PQRS Compliance Statement: One or more of the following individualized dose reduction techniques were utilized for this examination: 1. Automated exposure control 2. Adjustment of the mA and/or kV according to patient size 3. Use of iterative reconstruction technique
== END | disposition home or self-care (01) ==
LOC: CT 10:46
PROVIDERS: ATTEND Family Medicine
DX: R19.00 Intra-abdominal and pelvic swelling, mass and lump, unspecified site (principal)
CPT/HCPCS: 72192

== ENCOUNTER → 2016-12-17 | Outpatient (CLI) | payer OTHER ==
[2016-11-30 15:00] VITALS: BP 173/59
--- NOTE | 2016-12-17 15:30 | RAD ---
Examination: Ultrasound lateral right hip History: History of lump in the lateral right hip for 2 weeks, fall comparison: None available. Findings: In the lateral aspect of the right hip, there is a 6.5 x 1.8 x 4.1 cm hypoechoic fluid collection without vascular flow. Impression Large 6.5 cm hypoechoic fluid collection identified in the soft tissue of the lateral aspect of the right hip without vascular flow within , differential includes seroma or hematoma. Follow-up to resolution.
== END | disposition home or self-care (01) ==
LOC: US 13:42
PROVIDERS: ATTEND Family Medicine
DX: M79.89 Other specified soft tissue disorders (principal)
CPT/HCPCS: 76881

== ENCOUNTER → 2017-01-08 | Outpatient (CLI) | payer OTHER ==
[~2017-01-08] MED LIST changes: -LOSA1TAB18 PO; +LOSA1TAB25 PO
--- NOTE | 2017-01-08 14:39 | RAD ---
Clinical Indication: Bilateral lower extremity swelling Technique: Study is dated January 08, 2017. Taylor scale, color flow and spectral waveform analysis was performed of both lower extremities with and without compression. Findings: There is normal compressibility of all visualized vein segments. No evidence of DVT is present on grayscale or color images. There is normal phasicity of waveform. There is normal augmentation . Mildly prominent right inguinal lymph node is noted but has normal fatty notch, presumably reactive. Impression: No evidence of deep vein thrombosis in either lower extremity.
== END | disposition home or self-care (01) ==
LOC: US 13:23
PROVIDERS: ATTEND Family Medicine
DX: I12.9 Hypertensive chronic kidney disease with stage 1 through stage 4 chronic kidney disease, or unspecified chronic kidney disease (principal); N18.4 Chronic kidney disease, stage 4 (severe); E11.22 Type 2 diabetes mellitus with diabetic chronic kidney disease; I73.9 Peripheral vascular disease, unspecified; G89.29 Other chronic pain; M79.89 Other specified soft tissue disorders
CPT/HCPCS: 93970

== ENCOUNTER → 2017-01-10 | Outpatient (CLI) | payer OTHER | END | disposition home or self-care (01) | LOC: PMGWOUND 08:59 | PROVIDERS: ATTEND Emergency Medicine Undersea and Hyperbaric Medicine | DX: E11.621 Type 2 diabetes mellitus with foot ulcer (principal); L97.421 Non-pressure chronic ulcer of left heel and midfoot limited to breakdown of skin; L89.629 Pressure ulcer of left heel, unspecified stage; E11.22 Type 2 diabetes mellitus with diabetic chronic kidney disease; I12.0 Hypertensive chronic kidney disease with stage 5 chronic kidney disease or end stage renal disease; N18.6 End stage renal disease; E78.5 Hyperlipidemia, unspecified; E03.9 Hypothyroidism, unspecified; G89.29 Other chronic pain; Z79.4 Long term (current) use of insulin; Z99.2 Dependence on renal dialysis; Z86.73 Personal history of transient ischemic attack (TIA), and cerebral infarction without residual deficits | CPT/HCPCS: 97597 ==

== ENCOUNTER → 2017-01-22 | Outpatient (CLI) | payer OTHER | END | disposition home or self-care (01) | LOC: PMGWOUND 14:09 | PROVIDERS: ATTEND Emergency Medicine Undersea and Hyperbaric Medicine | DX: E11.621 Type 2 diabetes mellitus with foot ulcer (principal); L97.421 Non-pressure chronic ulcer of left heel and midfoot limited to breakdown of skin; L89.629 Pressure ulcer of left heel, unspecified stage; E78.5 Hyperlipidemia, unspecified; E03.9 Hypothyroidism, unspecified; M19.90 Unspecified osteoarthritis, unspecified site; E11.51 Type 2 diabetes mellitus with diabetic peripheral angiopathy without gangrene; E11.22 Type 2 diabetes mellitus with diabetic chronic kidney disease; I12.0 Hypertensive chronic kidney disease with stage 5 chronic kidney disease or end stage renal disease; N18.6 End stage renal disease; G89.29 Other chronic pain; Z99.2 Dependence on renal dialysis; Z79.4 Long term (current) use of insulin; Z86.73 Personal history of transient ischemic attack (TIA), and cerebral infarction without residual deficits | CPT/HCPCS: 99214 ==

== ENCOUNTER 2017-03-08 13:56 | Inpatient (IN) | payer OTHER ==
[~2017-03-08] VITALS: Ht 162.6 cm; Wt 80.5 kg
[2017-03-08] MEDS ORDERED: cloNIDine HCL 0.1 MG TABLET PO ONE (15:00)
--- NOTE | 2017-03-08 15:11 | EKG ---
[facility] [address] [place] [address] Test Date: 2017-03-08 Test Time: 15:04:57 Pat Name: OFE MAE Department: Room: Gender: F [employer]: : 1940 Requested By: ELVIA KOENIG Order Number: [id number] Reading MD: Measurements Intervals Protem Rate: 84 P: 35 FL: 156 QRS: -33 QRSD: 118 T: 109 QT: 410 QTc: 488 Interpretive Statements SINUS RHYTHM LEFT ATRIAL ABNORMALITY ABNORMAL LEFT AXIS DEVIATION LVH WITH REPOLARIZATION ABNORMALITY PROLONGED QT ST-T ELEVATION, CONSIDER ACUTE ANTERIOR INFARCT ABNORMAL ECG RI6.01 No previous ECG available for comparison
[2017-03-08 15:19] LABS: BILIRUBIN,URINE NEGATIVE (NEG); GLUCOSE,URINE NEGATIVE (NEG); NITRITE,URINE NEGATIVE (NEG); PROTEIN,URINE >=300 mg/dL (NEG-TRACE); UROBILINOGEN,URINE 0.2 mg/dL (0.2 mg/dL)
[2017-03-08 15:28] LABS: BARBITURATES NEG (NEG); BENZODIAZEPINES NEG (NEG); CANNABINOIDS NEG (NEG); COCAINE NEG (NEG); METHADONE NEG (NEG); OPIATES NEG (NEG); PHENCYCLIDINE NEG (NEG)
[2017-03-08 15:29] LABS: BACTERIA,URINE MANY /HPF (0-FEW); WBC,URINE 20-40 /HPF (0-4)
--- NOTE | 2017-03-08 15:35 | RAD ---
Frontal view of the Chest 03/08/2017 4:42 PM Indication: syncope Comparison: Chest radiograph November 23, 2016 Findings: There is no focal consolidation or infiltrate identified. There is no effusion or pneumothorax. Heart size is stable. Stable aortic calcification.. No osseous abnormality is identified. Impression: No evidence of acute cardiopulmonary process.
--- NOTE | 2017-03-08 15:39 | RAD ---
Right knee with patella, 4 views, 03/08/2017: History: Syncope, fall, pain The bony structures are demineralized. There is moderate narrowing of the knee joint with marginal spurring and irregularity of the articular surfaces. There is extensive spurring at the right patellofemoral articulation. No acute fracture or dislocation is identified. Soft tissue swelling in the suprapatellar bursa region is suggestive of a joint effusion. Extensive arterial calcifications are present. IMPRESSION: 1. Demineralization. 2. Severe degenerative change. 3. No acute bony abnormality. 4. Probable knee joint effusion.
[2017-03-08 15:46] LABS: BASO # 0.1 x10^3/uL (0.0-0.2); BASO % 1 % (0-3); EOS % 2 % (0-3); HEMATOCRIT 28.9 % (36.0-47.0); HEMOGLOBIN 9.5 g/dL (12.0-15.5); LYMPH # 1.9 x10^3/uL (1.0-4.8); LYMPH % 20 % (24-48); MEAN CORPUSCULAR HEMOGLOBIN 27 pg (25-35); MEAN CORPUSCULAR HGB CONC 33 g/dL (31-37); MEAN CORPUSCULAR VOLUME 83 fL (79-100); MONO % 12 % (0-9); NEUT % 66 % (31-73); PLATELET COUNT 238 x10^3/uL (140-400); RED BLOOD COUNT 3.46 x10^6/uL (3.50-5.40); RED CELL DISTRIBUTION WIDTH 15.7 % (11.5-14.5); WHITE BLOOD COUNT 9.5 x10^3/uL (4.0-11.0)
[2017-03-08 16:05] LABS: CALCIUM 8.8 mg/dL (8.5-10.1); CREATININE 3.1 mg/dL (0.6-1.0); GFR 17.8; POTASSIUM 3.8 mmol/L (3.5-5.1)
--- NOTE | 2017-03-08 16:11 | RAD ---
CT of the head without contrast, 03/08/2017: History: Syncope Comparison is made to a study from 11/02/2016. There is moderate cerebral atrophy. There is a lucency within the left basal ganglia compatible with an old infarct. There are mild deep white matter lucencies, more so on the left, compatible with chronic ischemic change. The ventricles are mildly prominent on a compensatory basis. There is no shift of the midline structures. There is no evidence of acute intracranial hemorrhage or mass effect. IMPRESSION: 1. Chronic findings as described above. 2. No acute intracranial abnormality is detected. PQRS Compliance Statement: One or more of the following individualized dose reduction techniques were utilized for this examination: 1. Automated exposure control 2. Adjustment of the mA and/or kV according to patient size 3. Use of iterative reconstruction technique
[2017-03-08 16:12] LABS: ALBUMIN 3.2 g/dL (3.4-5.0); ALBUMIN/GLOBULIN RATIO 0.7 (1.0-1.7); MAGNESIUM 2.1 mg/dL (1.8-2.4); TOTAL BILIRUBIN 0.4 mg/dL (0.2-1.0); TOTAL PROTEIN 7.5 g/dL (6.4-8.2)
[2017-03-08 16:15] LABS: CKMB MASS 1.7 ng/mL (0.0-3.6)
--- NOTE | 2017-03-08 16:28 | PHYS DOC ---
Past Medical History Past Medical History: CVA, Diabetes-Type I, Hypertension, Renal Failure Additional Past Medical Histor: R side weakness from CVA Past Surgical History: Tonsillectomy Additional Past Surgical Histo: fistula graft Alcohol Use: Occasionally Drug Use: None Adult General Chief Complaint Chief Complaint: MECHANICAL FALL HPI HPI Patient is a 76 year old female with history of diabetes type I, uncontrolled hypertension, CVA with right-sided weakness, who presents today stating she fell. Patient states she got up to ambulate when she fell on her right knee. Patient states she does not know if she passed out but her granddaughter informed her "she fainted" patient denies any chest pain or shortness of breath. She states her granddaughter called 911 as soon as she fell. She states her granddaughter does not want to live with her anymore. She states the granddaughter has not picked up her blood pressure medicines for months. Patient is a very poor historian. PCP Dr. Ramirez Review of Systems Review of Systems Constitutional: Denies fever or chills [] Eyes: Denies change in visual acuity, redness, or eye pain [] HENT: Denies nasal congestion or sore throat [] Respiratory: Denies cough or shortness of breath [] Cardiovascular: No additional information not addressed in HPI [] GI: Denies abdominal pain, nausea, vomiting, bloody stools or diarrhea [] : Denies dysuria or hematuria [] Musculoskeletal: Right anterior knee pain Integument: Denies rash or skin lesions [] Neurologic: Denies headache, focal weakness or sensory changes [] All other systems were reviewed and found to be within normal limits, except as documented in this note. Current Medications Current Medications Current Medications Medications (Trade) Dose Ordered Sig/[facility] Start Time Stop Time Status Last Admin Dose Admin Clonidine HCl (Catapres) 0.2 mg 1X ONCE 03/08/17 15:00 03/08/17 15:01 DC 03/08/17 15:23 0.2 MG Allergies Allergies Allergies Coded Allergies Type Severity Reaction Last Updated Verified iodine Allergy Intermediate 05/01/16 Yes Physical Exam Physical Exam Constitutional: Well developed, well nourished, no acute distress, non-toxic appearance. [] HENT: Normocephalic, atraumatic, bilateral external ears normal, oropharynx moist, no oral exudates, nose normal. [] Eyes: PERRLA, EOMI, conjunctiva normal, no discharge. [] Neck: Normal range of motion, no tenderness, supple, no stridor. [] Cardiovascular:Heart rate regular rhythm, no murmur [] Lungs & Thorax: Bilateral breath sounds clear to auscultation [] Abdomen: Bowel sounds normal, soft, no tenderness, no masses, no pulsatile masses. [] Skin: Warm, dry, no erythema, no rash. [] Back: No tenderness, no CVA tenderness. [] Extremities: Right upper extremity is deformed from a CVA. Right knee with small amount of soft tissue swelling on the anterior aspect. No tenderness on exam of the right knee. Full passive range of motion to the right knee, +2 right pedal pulse. Cap refill less than 2 seconds to the right lower extremity. Trace edema noted to bilateral lower extremities. Neurologic: Alert and oriented X 3, normal motor function, normal sensory function, no focal deficits noted. [] Psychologic: Affect normal, judgement normal, mood normal. [] Current Patient Data Vital Signs Vital Signs Date Time Temp Pulse Resp B/P (MAP) Pulse Ox O2 Delivery O2 Flow Rate FiO2 03/08/17 15:23 92 237/112 03/08/17 13:56 98.4 13 98 Room Air 98.4 Lab Values Laboratory Tests Test 03/08/17 14:50 03/08/17 15:00 Urine Collection Type U cath Urine Color Yellow Urine Clarity Clear Urine pH 6.0 Urine Specific [place] 1.020 Urine Protein >=300 mg/dL (NEG-TRACE) Urine Glucose (UA) Negative mg/dL (NEG) Urine Ketones (Stick) Negative mg/dL (NEG) Urine Blood Moderate (NEG) Urine Nitrite Negative (NEG) Urine Bilirubin Negative (NEG) Urine Urobilinogen Dipstick 0.2 mg/dL (0.2 mg/dL) Urine Leukocyte Esterase Small (NEG) Urine RBC 11-20 /HPF (0-2) Urine WBC 20-40 /HPF (0-4) Urine Bacteria Many /HPF (0-FEW) Urine Opiates Screen Neg (NEG) Urine Methadone Screen Neg (NEG) Urine Barbiturates Neg (NEG) Urine Phencyclidine Screen Neg (NEG) Urine Amphetamine/Methamphetamine Neg (NEG) Urine Benzodiazepines Screen Neg (NEG) Urine Cocaine Screen Neg (NEG) Urine Cannabinoids Screen Neg (NEG) Urine Ethyl Alcohol Neg (NEG) White Blood Count 9.5 x10^3/uL (4.0-11.0) Red Blood Count 3.46 x10^6/uL (3.50-5.40) L Hemoglobin 9.5 g/dL (12.0-15.5) L Hematocrit 28.9 % (36.0-47.0) L Mean Corpuscular Volume 83 fL (79-100) Mean Corpuscular Hemoglobin 27 pg (25-35) Mean Corpuscular Hemoglobin Concent 33 g/dL (31-37) Red Cell Distribution Width 15.7 % (11.5-14.5) H Platelet Count 238 x10^3/uL (140-400) Neutrophils (%) (Auto) 66 % (31-73) Lymphocytes (%) (Auto) 20 % (24-48) L Monocytes (%) (Auto) 12 % (0-9) H Eosinophils (%) (Auto) 2 % (0-3) Basophils (%) (Auto) 1 % (0-3) Neutrophils # (Auto) 6.2 x10^3uL (1.8-7.7) Lymphocytes # (Auto) 1.9 x10^3/uL (1.0-4.8) Monocytes # (Auto) 1.1 x10^3/uL (0.0-1.1) Eosinophils # (Auto) 0.2 x10^3/uL (0.0-0.7) Basophils # (Auto) 0.1 x10^3/uL (0.0-0.2) Sodium Level 143 mmol/L (136-145) Potassium Level 3.8 mmol/L (3.5-5.1) Chloride Level 107 mmol/L (98-107) Carbon Dioxide Level 24 mmol/L (21-32) Anion Gap 12 (6-14) Blood Urea Nitrogen 62 mg/dL (7-20) H Creatinine 3.1 mg/dL (0.6-1.0) H Estimated GFR (Cockcroft-Gault) 17.8 BUN/Creatinine Ratio 20 (6-20) Glucose Level 115 mg/dL (70-99) H Calcium Level 8.8 mg/dL (8.5-10.1) Magnesium Level 2.1 mg/dL (1.8-2.4) Total Bilirubin 0.4 mg/dL (0.2-1.0) Aspartate Amino Transferase (AST) 23 U/L (15-37) Alanine Aminotransferase (ALT) 19 U/L (14-59) Alkaline Phosphatase 80 U/L (46-116) Creatine Kinase 127 U/L (26-192) Creatine Kinase MB (Mass) 1.7 ng/mL (0.0-3.6) Creatine Kinase MB Relative Index 1.3 % (0-4) Troponin I Quantitative 0.095 ng/mL (0.000-0.055) BV-Wxm-G-Type Natriuretic Peptide 4660 pg/mL (0-124) H Total Protein 7.5 g/dL (6.4-8.2) Albumin 3.2 g/dL (3.4-5.0) L Albumin/Globulin Ratio 0.7 (1.0-1.7) L Lipase 192 U/L (73-393) Thyroid Stimulating Hormone (TSH) 2.465 uIU/mL (0.358-3.74) Laboratory Tests 03/08/17 15:00 Laboratory Tests 03/08/17 15:00 EKG EKG 15:04 interpreted by sinus rhythm, left bundle branch block, heart rate 84 no STEMI.[] Radiology/Procedures Radiology/Procedures []PROCEDURE: CT HEAD WO CONTRAST CT of the head without contrast, 03/08/2017: History: Syncope Comparison is made to a study from 11/02/2016. There is moderate cerebral atrophy. There is a lucency within the left basal ganglia compatible with an old infarct. There are mild deep white matter lucencies, more so on the left, compatible with chronic ischemic change. The ventricles are mildly prominent on a compensatory basis. There is no shift of the midline structures. There is no evidence of acute intracranial hemorrhage or mass effect. IMPRESSION: 1. Chronic findings as described above. 2. No acute intracranial abnormality is detected. PQRS Compliance Statement: One or more of the following individualized dose reduction techniques were utilized for this examination: 1. Automated exposure control 2. Adjustment of the mA and/or kV according to patient size 3. Use of iterative reconstruction technique DICTATED and SIGNED BY: KIARA CASIANO MD DATE: 03/08/17 [id number] CC: RENITA RAMIREZ; ELVIA KOENIG APRN ~ PROCEDURE: KNEE RIGHT 4V Right knee with patella, 4 views, 03/08/2017: History: Syncope, fall, pain The bony structures are demineralized. There is moderate narrowing of the knee joint with marginal spurring and irregularity of the articular surfaces. There is extensive spurring at the right patellofemoral articulation. No acute fracture or dislocation is identified. Soft tissue swelling in the suprapatellar bursa region is suggestive of a joint effusion. Extensive arterial calcifications are present. IMPRESSION: 1. Demineralization. 2. Severe degenerative change. 3. No acute bony abnormality. 4. Probable knee joint effusion. DICTATED and SIGNED BY: KIARA CASIANO MD DATE: 03/08/17 [id number] CC: RENITA RAMIREZ; ELVIA KOENIG APRN ~ Course & Med Decision Making Course & Med Decision Making Pertinent Labs and Imaging studies reviewed. (See chart for details) This is a 76-year-old female patient very poor historian presenting to the ED today with complaints of falling at home. She states she was informed she passed out. Right knee x-ray interpreted by radiologist was noted for probable joint effusion to the right knee. Patient is noted for creatinine of 3.1, from the charts she has history of renal failure. Troponin 0.095, no STEMI on EKG. Patient does not have chest pain or shortness of breath. CT of the head is negative. 16:29 Consulted with Marily MITCHELL for cardiology for elevated troponin she will follow-up with patient. 16:[address] Bazan and patient was admitted. Her blood pressure was 237/112 on arrival to the ED. She was given clonidine 0.2 mg, BP has come down to 203/94. She has no neurological symptoms. Her CT of the head is negative. She has not taken her blood pressure medicines for months. Dragon Disclaimer Dragon Disclaimer This electronic medical record was generated, in whole or in part, using a voice recognition dictation system. Departure Departure Impression: Primary Impression: Acute on chronic renal failure Additional Impressions: Fall from standing Elevated troponin Syncope Accelerated hypertension Disposition: ADMITTED INPATIENT Admitting Physician: Eugenia Bazan Condition: STABLE Referrals: RENITA RAMIREZ (PCP) Problem Qualifiers Primary Impression: Acute on chronic renal failure Acute renal failure type: unspecified Chronic kidney disease stage: unspecified stage Qualified Codes: N17.9 - Acute kidney failure, unspecified; N18.9 - Chronic kidney disease, unspecified Additional Impressions: Fall from standing Encounter type: initial encounter Qualified Codes: W19.XXXA - Unspecified fall, initial encounter Syncope Syncope type: unspecified Qualified Codes: R55 - Syncope and collapse ELVIA KOENIG [employer]ER [employer] OPERATOR Mar 08, 2017 16:28
[2017-03-08] MEDS ORDERED: ONDANSETRON PF 4 MG/2 ML VIAL. IV PRN (17:00)
[2017-03-08] MEDS ORDERED: MORPHINE SULFATE 2 MG/ML DISP.SYRIN. IV PRN (17:00)
[2017-03-08] MEDS ORDERED: IV NORMAL SALINE 1000ML BAG 1,000 ML IV ONE (17:00)
[2017-03-08] MEDS: INSULIN ASPART 300 UNITS/3 ML INSULN.PEN SQ SCH (17:00)
[2017-03-08] MEDS ORDERED: DEXTROSE 50% 25 GM / 50ML DISP.SYRIN. IV PRN (17:00)
[2017-03-08] MEDS ORDERED: LABETALOL 20 MG/4 ML DISP.SYRIN. IVP PRN (17:00)
[2017-03-08] MEDS ORDERED: ACETAMINOPHEN 325 MG TABLET. PO PRN (17:00)
[2017-03-08 19:02] VITALS: BP 170/91
[2017-03-08 19:43] VITALS: BP 116/59
[2017-03-08 20:16] VITALS: BP 215/95
[2017-03-08] MEDS ORDERED: INSU100I17 SQ (20:48)
[2017-03-08] MEDS ORDERED: hydrALAZINE 20 MG/ML VIAL. IVP PRN (21:00)
[2017-03-08] MEDS: LABETALOL HCL 200 MG TABLET PO SCH (21:15)
[2017-03-08 23:42] VITALS: BP 135/65
[2017-03-09] VITALS (7 sets, daily range): BP systolic 116–184; BP diastolic 57–98
[2017-03-09 05:36] LABS: BASO # 0.1 x10^3/uL (0.0-0.2); BASO % 1 % (0-3); EOS % 2 % (0-3); HEMATOCRIT 24.7 % (36.0-47.0); HEMOGLOBIN 8.1 g/dL (12.0-15.5); LYMPH # 2.2 x10^3/uL (1.0-4.8); LYMPH % 25 % (24-48); MEAN CORPUSCULAR HEMOGLOBIN 28 pg (25-35); MEAN CORPUSCULAR HGB CONC 33 g/dL (31-37); MEAN CORPUSCULAR VOLUME 84 fL (79-100); MONO % 14 % (0-9); NEUT % 58 % (31-73); PLATELET COUNT 211 x10^3/uL (140-400); RED BLOOD COUNT 2.96 x10^6/uL (3.50-5.40); WHITE BLOOD COUNT 8.7 x10^3/uL (4.0-11.0)
[2017-03-09 06:18] LABS: ALBUMIN 2.7 g/dL (3.4-5.0); ALBUMIN/GLOBULIN RATIO 0.8 (1.0-1.7); CALCIUM 8.4 mg/dL (8.5-10.1); CREATININE 3.2 mg/dL (0.6-1.0); GFR 17.1; POTASSIUM 3.6 mmol/L (3.5-5.1); TOTAL BILIRUBIN 0.2 mg/dL (0.2-1.0); TOTAL PROTEIN 6.3 g/dL (6.4-8.2)
[2017-03-09] MEDS: INSULIN ASPART 300 UNITS/3 ML INSULN.PEN SQ SCH ×2 (08:00→12:00)
[2017-03-09] MEDS: LABETALOL HCL 200 MG TABLET PO SCH ×2 (09:58→20:38)
[2017-03-09] MEDS ORDERED: LABETALOL 20 MG/4 ML DISP.SYRIN. IVP PRN (11:45)
--- NOTE | 2017-03-09 11:49 | PDOC2 ---
CARDIAC CONSULT DATE OF CONSULT Date of Consult DATE: 03/09/17 TIME: 11:18 REASON FOR CONSULT Reason for Consult: Elevated troponin REFERRING PHYSICIAN Referring Physician: Rosmery SOURCE Source: Chart review, Patient HISTORY OF PRESENT ILLNESS HISTORY OF PRESENT ILLNESS This is a 76 yo female admitted for fall. She is notable for right side hemiparesis with past CVA. She got up and lost her balance and landed somewhat to her right knee. She may have fainted in regards to her falling but she is not clear about this but appears to have been witnessed by granddaughter per review. Family not at the bedside to confirm. It appears there is some family dynamics going on and appears that pt has not taken her BP meds for unknown duration. Upon admission she was noted with right knee tenderness and high BP. No mention of CP, palpitations, or SOA. Presently pt denies fainting or dizziness and told me that she lost her balance. In addition she PAST MEDICAL HISTORY Past Medical History Cardiovascular: HTN, Hyperlipidemia Pulmonary: No pertinent hx GI: Constipation Heme/Onc: Anemia NOS Hepatobiliary: No pertinent hx Psych: No pertinent hx Rheumatologic: No pertinent hx Renal/: Chronic renal insuff Endocrine: Diabetes, Hypothyroidism Neuro: CVA PAST SURGICAL HISTORY Past Surgical History AV fistula placement Tonsillectomy FAMILY HISTORY Family History Cancer, Coronary Artery Disease, Diabetes, Kidney Disease, Osteo Arthiritis SOCIAL HISTORY Smoke: No ALCOHOL: none Drugs: None CURRENT MEDICATIONS CURRENT MEDICATIONS Current Medications Medications (Trade) Dose Ordered Sig/Nicolas Route PRN Reason Start Time Stop Time Status Last Admin Dose Admin Clonidine HCl (Catapres) 0.2 mg 1X ONCE PO 03/08/17 15:00 03/08/17 15:01 DC 03/08/17 15:23 Labetalol HCl (Normodyne) 10 mg Q6HRS PRN IVP HYPERTENSION, SEE COMMENTS 03/08/17 17:00 03/08/17 17:10 Hydralazine HCl (Apresoline Inj) 10 mg Q6HRS PRN IVP ELEVATED BP, SEE COMMENTS 03/08/17 21:00 03/08/17 21:13 Hydralazine HCl (Apresoline) 100 mg TID PO 03/08/17 21:00 03/09/17 09:58 Labetalol HCl (Trandate) 200 mg BID PO 03/08/17 21:00 03/09/17 09:58 ALLERGIES ALLERGIES: Coded Allergies: iodine (Verified Allergy, Intermediate, 05/01/16) ROS Review of System possibly unreliable, discrepancy between pt recall and chart review. see HPI PHYSICAL EXAM General: Alert, Oriented X3, Cooperative, No acute distress HEENT: Atraumatic, Mucous membr. moist/pink Lungs: Clear to auscultation, Normal air movement Heart: Regular rate (SR), Normal S1, Normal S2, Other (2/6 systolic murmur to LLS border) Abdomen: Soft Extremities: No cyanosis, Other (right knee tenderness) Skin: No breakdown, No significant lesion Neuro: Normal speech, Sensation intact Psych/Mental Status: Mental status NL, Mood NL MUSCULOSKELETAL: Osteoarthritic changes both hands, Other (right knee effusion) VITALS VITALS Vital Signs Date Time Temp Pulse Resp B/P (MAP) Pulse Ox O2 Delivery O2 Flow Rate FiO2 03/09/17 10:40 98.7 86 18 173/90 (117) 100 Room Air 98.7 LABS Lab: Laboratory Tests Test 03/08/17 14:50 03/08/17 15:00 03/08/17 17:35 03/08/17 20:25 Urine Collection Type U cath Urine Color Yellow Urine Clarity Clear Urine pH 6.0 Urine Specific [place] 1.020 Urine Protein >=300 mg/dL (NEG-TRACE) Urine Glucose (UA) Negative mg/dL (NEG) Urine Ketones (Stick) Negative mg/dL (NEG) Urine Blood Moderate (NEG) Urine Nitrite Negative (NEG) Urine Bilirubin Negative (NEG) Urine Urobilinogen Dipstick 0.2 mg/dL (0.2 mg/dL) Urine Leukocyte Esterase Small (NEG) Urine RBC 11-20 /HPF (0-2) Urine WBC 20-40 /HPF (0-4) Urine Bacteria Many /HPF (0-FEW) Urine Opiates Screen Neg (NEG) Urine Methadone Screen Neg (NEG) Urine Barbiturates Neg (NEG) Urine Phencyclidine Screen Neg (NEG) Urine Amphetamine/Methamphetamine Neg (NEG) Urine Benzodiazepines Screen Neg (NEG) Urine Cocaine Screen Neg (NEG) Urine Cannabinoids Screen Neg (NEG) Urine Ethyl Alcohol Neg (NEG) White Blood Count 9.5 x10^3/uL (4.0-11.0) Red Blood Count 3.46 x10^6/uL (3.50-5.40) Hemoglobin 9.5 g/dL (12.0-15.5) Hematocrit 28.9 % (36.0-47.0) Mean Corpuscular Volume 83 fL (79-100) Mean Corpuscular Hemoglobin 27 pg (25-35) Mean Corpuscular Hemoglobin Concent 33 g/dL (31-37) Red Cell Distribution Width 15.7 % (11.5-14.5) Platelet Count 238 x10^3/uL (140-400) Neutrophils (%) (Auto) 66 % (31-73) Lymphocytes (%) (Auto) 20 % (24-48) Monocytes (%) (Auto) 12 % (0-9) Eosinophils (%) (Auto) 2 % (0-3) Basophils (%) (Auto) 1 % (0-3) Neutrophils # (Auto) 6.2 x10^3uL (1.8-7.7) Lymphocytes # (Auto) 1.9 x10^3/uL (1.0-4.8) Monocytes # (Auto) 1.1 x10^3/uL (0.0-1.1) Eosinophils # (Auto) 0.2 x10^3/uL (0.0-0.7) Basophils # (Auto) 0.1 x10^3/uL (0.0-0.2) Sodium Level 143 mmol/L (136-145) Potassium Level 3.8 mmol/L (3.5-5.1) Chloride Level 107 mmol/L (98-107) Carbon Dioxide Level 24 mmol/L (21-32) Anion Gap 12 (6-14) Blood Urea Nitrogen 62 mg/dL (7-20) Creatinine 3.1 mg/dL (0.6-1.0) Estimated GFR (Cockcroft-Gault) 17.8 BUN/Creatinine Ratio 20 (6-20) Glucose Level 115 mg/dL (70-99) Calcium Level 8.8 mg/dL (8.5-10.1) Magnesium Level 2.1 mg/dL (1.8-2.4) Total Bilirubin 0.4 mg/dL (0.2-1.0) Aspartate Amino Transf (AST/SGOT) 23 U/L (15-37) Alanine Aminotransferase (ALT/SGPT) 19 U/L (14-59) Alkaline Phosphatase 80 U/L (46-116) Creatine Kinase 127 U/L (26-192) Creatine Kinase MB (Mass) 1.7 ng/mL (0.0-3.6) Creatine Kinase MB Relative Index 1.3 % (0-4) Troponin I Quantitative 0.095 ng/mL (0.000-0.055) GL-Rqz-A-Type Natriuretic Peptide 4660 pg/mL (0-124) Total Protein 7.5 g/dL (6.4-8.2) Albumin 3.2 g/dL (3.4-5.0) Albumin/Globulin Ratio 0.7 (1.0-1.7) Lipase 192 U/L (73-393) Thyroid Stimulating Hormone (TSH) 2.465 uIU/mL (0.358-3.74) Glucose (Fingerstick) 99 mg/dL (70-99) 169 mg/dL (70-99) Test 03/08/17 22:48 03/09/17 04:45 03/09/17 08:03 Troponin I Quantitative 0.081 ng/mL (0.000-0.055) 0.063 ng/mL (0.000-0.055) White Blood Count 8.7 x10^3/uL (4.0-11.0) Red Blood Count 2.96 x10^6/uL (3.50-5.40) Hemoglobin 8.1 g/dL (12.0-15.5) Hematocrit 24.7 % (36.0-47.0) Mean Corpuscular Volume 84 fL (79-100) Mean Corpuscular Hemoglobin 28 pg (25-35) Mean Corpuscular Hemoglobin Concent 33 g/dL (31-37) Red Cell Distribution Width 16.0 % (11.5-14.5) Platelet Count 211 x10^3/uL (140-400) Neutrophils (%) (Auto) 58 % (31-73) Lymphocytes (%) (Auto) 25 % (24-48) Monocytes (%) (Auto) 14 % (0-9) Eosinophils (%) (Auto) 2 % (0-3) Basophils (%) (Auto) 1 % (0-3) Neutrophils # (Auto) 5.0 x10^3uL (1.8-7.7) Lymphocytes # (Auto) 2.2 x10^3/uL (1.0-4.8) Monocytes # (Auto) 1.2 x10^3/uL (0.0-1.1) Eosinophils # (Auto) 0.2 x10^3/uL (0.0-0.7) Basophils # (Auto) 0.1 x10^3/uL (0.0-0.2) Sodium Level 141 mmol/L (136-145) Potassium Level 3.6 mmol/L (3.5-5.1) Chloride Level 106 mmol/L (98-107) Carbon Dioxide Level 23 mmol/L (21-32) Anion Gap 12 (6-14) Blood Urea Nitrogen 64 mg/dL (7-20) Creatinine 3.2 mg/dL (0.6-1.0) Estimated GFR (Cockcroft-Gault) 17.1 BUN/Creatinine Ratio 20 (6-20) Glucose Level 177 mg/dL (70-99) Calcium Level 8.4 mg/dL (8.5-10.1) Total Bilirubin 0.2 mg/dL (0.2-1.0) Aspartate Amino Transf (AST/SGOT) 18 U/L (15-37) Alanine Aminotransferase (ALT/SGPT) 15 U/L (14-59) Alkaline Phosphatase 68 U/L (46-116) Total Protein 6.3 g/dL (6.4-8.2) Albumin 2.7 g/dL (3.4-5.0) Albumin/Globulin Ratio 0.8 (1.0-1.7) Glucose (Fingerstick) 107 mg/dL (70-99) ECHOCARDIOGRAM ECHOCARDIOGRAM <Conclusion> The left ventricular systolic function is normal. The Ejection Fraction is 65-70%. There is normal LV segmental wall motion. Transmitral Doppler flow pattern is Grade I-abnormal relaxation pattern. Trace mitral regurgitation. Mild tricuspid regurgitation. The pulmonary artery systolic pressure is estimated at 48 mmHg. There is no evidence of significant pericardial effusion. DATE: 11/26/16 1243 STRESS TEST STRESS TEST Conclusion 1. Regadenoson cardioisotope stress test did not show any evidence of ischemia or infarct. 2. Abnormal septal wall motion secondary to conduction delay. Left ventricular ejection fraction calculated at 53%. 3. Low risk for cardiac events. DATE: 11/27/16 1210 ASSESSMENT/PLAN ASSESSMENT/PLAN 1. Malignant HTN: due to missed meds, still awaiting meds from mail 2. Mechanical fall with right knee effusion 3. Hx of CVA with right side hemiparesis 4. CKD5; has LFA AV fistula but denies having HD 5. Elevated troponin: peaked at 0.09, likely type 2, due to above. No cardiac symptoms. 6. Possible presyncope: pt does deny 7. DM2/HLP 8. Possible neglect, defer to PCP 9. LBBB/LAFB: SR. Could not ascertain if this is new or chronic. Prior EF and wall motion normal. Recommendations 1. Recent MPI noted above, nothing further at this time, will follow peripherally 2. Start on ECASA 81 mg and statin 3. Continue home BP meds. Labeotolol PRN. No ACEi/ARB 4. Social service. 5. Continue with secondary prevention measures 6. TTE tomorrow in regards to LBBB Problems: MICHAEL SRIVASTAVA APRN Mar 09, 2017 11:49
--- NOTE | 2017-03-09 12:29 | PDOC ---
Provider Note Provider Note Pt seen.H&P dictated. #[id number] GRAEME SERNA MD Mar 09, 2017 12:29
[2017-03-09] MEDS ORDERED: DEXTROSE 50% 25 GM / 50ML DISP.SYRIN. IV PRN (12:30)
[2017-03-09] MEDS ORDERED: ASPIRIN ENTERIC COATED 81 MG TABLET.DR. PO SCH (12:30)
[2017-03-09] MEDS: ASPIRIN 325 MG TABLET PO SCH (13:36)
[2017-03-09] MEDS: LINAGLIPTIN 5 MG TABLET PO SCH (13:36)
[2017-03-09] MEDS: LOSARTAN POTASSIUM 50 MG TABLET. PO SCH (13:37)
[2017-03-09] MEDS: cloNIDine HCL 0.2 MG TABLET PO SCH ×2 (13:38→20:38)
[2017-03-09] MEDS: ENOXAPARIN 30 MG/0.3 ML SYRINGE. SQ SCH (13:39)
[2017-03-09] MEDS ORDERED: INSULIN ASPART 300 UNITS/3 ML INSULN.PEN SQ SCH ×2 (16:30→17:00)
--- NOTE | 2017-03-09 16:36 | HP ---
ADMIT DATE: 03/08/2017 PATIENT LOCATION: 254. ADMITTING PHYSICIAN: Graeme Bazan MD. PRIMARY PHYSICIAN: Dr. Ruffin. REASON FOR ADMISSION TO THE HOSPITAL: Mechanical fall at home and also she thinks she might have fainted, and when she came in, x-rays were negative for fracture, her troponin was slightly elevated, and the patient was admitted to the hospital. PAST MEDICAL HISTORY: She was in the hospital 3 months ago, had a stress test and echocardiogram, negative for ischemia. She has a history of type 1 insulin-dependent diabetes, old CVA, hypertension, renal failure, right-sided weakness from previous CVA. PAST SURGICAL HISTORY: Tonsillectomy, fistula for stage 5 renal failure. PERSONAL HISTORY: No history of smoking, alcohol, drug abuse. FAMILY HISTORY: Hypertension, heart disease, kidney problems. SOCIAL HISTORY: Lives at home with her family. REVIEW OF SYSTEMS: Denies any chest pain or shortness of breath. Recurrence of pain in the right knee. ALLERGIES: IODINE. MEDICATIONS AT HOME: The patient takes pravastatin 40 mg daily, aspirin 325 daily, clonidine 0.2 three times daily, hydralazine 100 mg 3 times daily, insulin 5 units 3 times daily, NovoLog, Levemir 10 units at bedtime, labetalol 200 units twice a day, Tradjenta 5 mg daily, losartan 100 mg daily. PHYSICAL EXAMINATION: GENERAL: The patient is not in any distress, eating. VITAL SIGNS: Temperature 97, pulse 80, respirations 20, blood pressure 167/77, 97% or room air. HEENT: Head is atraumatic. Pupils equal. Oral cavity: No congestion. NECK: Supple. Thyroid not enlarged. JVD not elevated. CHEST: Symmetrical. CARDIOVASCULAR: S1, S2. LUNGS: Clear. ABDOMEN: Soft, no masses palpable. EXTERNAL GENITALIA: No Jerome. RECTAL: Deferred. EXTREMITIES: No calf tenderness, no edema. The patient has an AV shunt in the left arm. LABORATORY DATA: Urine shows more than 20-40 wbc's, small leukocyte esterase, moderate blood in the urine. She had a chest x-ray that was negative. CT head, negative. X-ray of the right knee was negative for any fractures. FINAL IMPRESSION: 1. Mechanical fall. 2. Questionable syncopal episode. 3. Accelerated hypertension. 4. Stage 5 renal failure. 5. Possible urinary tract infection. 6. General debility. PLAN: At this time, the patient was admitted. She, 3 months ago, had an echo stress test, negative for ischemia. Cardiology has seen. Elevated troponin secondary to kidney failure and also accelerated hypertension. We will have PT, OT and urine cultures and see how the patient's condition improves. GRAEME BAZAN MD DR: CATALINA/tereso JOB#: [id number] / [id number]
[2017-03-09] MEDS: ATORVASTATIN CALCIUM 10 MG TABLET. PO SCH (20:38)
[2017-03-09] MEDS ORDERED: INSULIN DETEMIR 300 UNITS/3 ML INSULN.PEN. SQ SCH (21:00)
[2017-03-10] VITALS (15 sets, daily range): BP systolic 86–133; BP diastolic 47–73
[2017-03-10 06:10] LABS: CALCIUM 8.6 mg/dL (8.5-10.1); CREATININE 4.2 mg/dL (0.6-1.0); GFR 12.5; POTASSIUM 4.2 mmol/L (3.5-5.1)
[2017-03-10 07:42] LABS: BASO % 0 % (0-3); EOS % 1 % (0-3); HEMATOCRIT 23.3 % (36.0-47.0); HEMOGLOBIN 7.9 g/dL (12.0-15.5); LYMPH # 1.5 x10^3/uL (1.0-4.8); LYMPH % 16 % (24-48); MEAN CORPUSCULAR HEMOGLOBIN 28 pg (25-35); MEAN CORPUSCULAR HGB CONC 34 g/dL (31-37); MEAN CORPUSCULAR VOLUME 83 fL (79-100); MONO % 12 % (0-9); NEUT % 70 % (31-73); PLATELET COUNT 244 x10^3/uL (140-400); RED BLOOD COUNT 2.81 x10^6/uL (3.50-5.40); RED CELL DISTRIBUTION WIDTH 15.8 % (11.5-14.5); WHITE BLOOD COUNT 9.1 x10^3/uL (4.0-11.0)
[2017-03-10] MEDS ORDERED: ASPIRIN ENTERIC COATED 81 MG TABLET.DR. PO SCH (08:00)
[2017-03-10] MEDS: LABETALOL HCL 200 MG TABLET PO SCH ×2 (08:59→21:39)
[2017-03-10] MEDS: ASPIRIN 325 MG TABLET PO SCH (08:59)
[2017-03-10] MEDS: LINAGLIPTIN 5 MG TABLET PO SCH (08:59)
[2017-03-10] MEDS: cloNIDine HCL 0.2 MG TABLET PO SCH ×3 (09:00→21:39)
[2017-03-10] MEDS: LOSARTAN POTASSIUM 50 MG TABLET. PO SCH (09:01)
[2017-03-10] MEDS: IV NORMAL SALINE 1000ML BAG 1,000 ML IV SCH (11:00)
[2017-03-10 11:07] LABS: BASO # 0.1 x10^3/uL (0.0-0.2); BASO % 1 % (0-3); EOS % 1 % (0-3); HEMATOCRIT 22.2 % (36.0-47.0); HEMOGLOBIN 7.6 g/dL (12.0-15.5); LYMPH # 1.6 x10^3/uL (1.0-4.8); LYMPH % 17 % (24-48); MEAN CORPUSCULAR HEMOGLOBIN 28 pg (25-35); MEAN CORPUSCULAR HGB CONC 34 g/dL (31-37); MEAN CORPUSCULAR VOLUME 83 fL (79-100); MONO % 13 % (0-9); NEUT % 69 % (31-73); PLATELET COUNT 240 x10^3/uL (140-400); RED BLOOD COUNT 2.69 x10^6/uL (3.50-5.40); RED CELL DISTRIBUTION WIDTH 15.9 % (11.5-14.5); WHITE BLOOD COUNT 9.4 x10^3/uL (4.0-11.0)
--- NOTE | 2017-03-10 11:08 | PDOC ---
PROGRESS NOTES Subjective Subjective nge in mental status around 1015, am,hard to arouse,sleepy Objective Objective Vital Signs Date Time Temp Pulse Resp B/P (MAP) Pulse Ox O2 Delivery O2 Flow Rate FiO2 03/10/17 10:40 98.0 75 18 104/48 (66) 99 Room Air 98.0 Intake and Output 03/10/17 07:00 Intake Total 600 ml Output Total 500 ml Balance 100 ml Intake Oral 600 ml Output Urine Total 500 ml # Voids 2 Physical Exam Abdomen: Soft Heart: Regular rate (SR), Normal S1, Normal S2, Other (2/6 systolic murmur to LLS border) Extremities: No cyanosis, Other (right knee tenderness) General: No acute distress HEENT: Atraumatic, Mucous membr. moist/pink Lungs: Clear to auscultation, Normal air movement MUSCULOSKELETAL: Osteoarthritic changes both hands, Other (right knee effusion) Neuro: Sensation intact Skin: No breakdown, No significant lesion COMMENT weak in left arm ,not able to lift any extremities by herself Diagnosis Problem List Problems Medical Problems: (1) Accelerated hypertension Status: Acute (2) Acute on chronic renal failure Status: Acute (3) Elevated troponin Status: Acute (4) Fall from standing Status: Acute (5) Syncope Status: Acute Assessment Assessment Problems Medical Problems: (1) Accelerated hypertension Status: Acute (2) Acute on chronic renal failure Status: Acute (3) Elevated troponin Status: Acute (4) Fall from standing Status: Acute (5) Syncope Status: Acute FINAL IMPRESSION: mental status changes hard to arouse ?cva 1. Mechanical fall no injuries. 2. Questionable syncopal episode. 3. Accelerated hypertension. 4. Stage 5 renal failure. 5. Possible urinary tract infection. 6. General debility. PLAN: code stroke activated [address] scan neuro consult. blood sugars 150 . BP110/70 .p80 sat94% , no arrhythmias on monitor. not able to get urine c/s incontinence. Problems: Plan Plan of Care Problems Medical Problems: (1) Accelerated hypertension Status: Acute (2) Acute on chronic renal failure Status: Acute (3) Elevated troponin Status: Acute (4) Fall from standing Status: Acute (5) Syncope Status: Acute Comment Review of Relevant I have reviewed the following items reji (where applicable) has been applied. Labs Laboratory Tests Test 03/09/17 11:32 03/09/17 17:08 03/09/17 21:37 03/10/17 03:30 Glucose (Fingerstick) 121 mg/dL (70-99) 142 mg/dL (70-99) 197 mg/dL (70-99) Sodium Level 141 mmol/L (136-145) Potassium Level 4.2 mmol/L (3.5-5.1) Chloride Level 108 mmol/L (98-107) Carbon Dioxide Level 22 mmol/L (21-32) Anion Gap 11 (6-14) Blood Urea Nitrogen 68 mg/dL (7-20) Creatinine 4.2 mg/dL (0.6-1.0) Estimated GFR (Cockcroft-Gault) 12.5 Glucose Level 131 mg/dL (70-99) Calcium Level 8.6 mg/dL (8.5-10.1) Test 03/10/17 07:07 03/10/17 08:00 White Blood Count 9.1 x10^3/uL (4.0-11.0) Red Blood Count 2.81 x10^6/uL (3.50-5.40) Hemoglobin 7.9 g/dL (12.0-15.5) Hematocrit 23.3 % (36.0-47.0) Mean Corpuscular Volume 83 fL (79-100) Mean Corpuscular Hemoglobin 28 pg (25-35) Mean Corpuscular Hemoglobin Concent 34 g/dL (31-37) Red Cell Distribution Width 15.8 % (11.5-14.5) Platelet Count 244 x10^3/uL (140-400) Neutrophils (%) (Auto) 70 % (31-73) Lymphocytes (%) (Auto) 16 % (24-48) Monocytes (%) (Auto) 12 % (0-9) Eosinophils (%) (Auto) 1 % (0-3) Basophils (%) (Auto) 0 % (0-3) Neutrophils # (Auto) 6.4 x10^3uL (1.8-7.7) Lymphocytes # (Auto) 1.5 x10^3/uL (1.0-4.8) Monocytes # (Auto) 1.1 x10^3/uL (0.0-1.1) Eosinophils # (Auto) 0.1 x10^3/uL (0.0-0.7) Basophils # (Auto) 0.0 x10^3/uL (0.0-0.2) Glucose (Fingerstick) 135 mg/dL (70-99) Medications Current Medications Aspirin (Radha Aspirin) 325 mg DAILYWBKFT PO Last administered on 03/10/17 08 :59; Start 03/09/17 at 13:00 Aspirin (Ecotrin) 81 mg DAILYWBKFT PO ; Start 03/09/17 at 12:30; Stop at 12:30; Status DC Aspirin (Ecotrin) 81 mg DAILYWBKFT PO ; Start 03/10/17 at 08:00; Stop at 08:00; Status DC Atorvastatin Calcium (Lipitor) 10 mg QHS PO Last administered on 03/09/17 20: 38; Start 03/09/17 at 21:00 Clonidine HCl (Catapres) 0.2 mg TID PO Last administered on 03/10/17 09:00; Start 03/09/17 at 14:00 Dextrose (Dextrose 50%-Water Syringe) 12.5 gm PRN Q15MIN PRN IV SEE COMMENTS; Start 03/09/17 at 12:30 Enoxaparin Sodium (Lovenox 30mg Syringe) 30 mg Q24H SQ Last administered on 13:39; Start 03/09/17 at 13:00 Insulin Aspart (NovoLOG) 0-5 UNITS TIDWMEALS SQ ; Start 03/09/17 at 17:00; Stop 03/09/17 at 17:00; Status DC Insulin Aspart (NovoLOG) 5 units TIDAC SQ ; Start 03/09/17 at 16:30; Stop at 16:30; Status DC Insulin Detemir (Levemir) 10 units QHS SQ Last administered on 03/09/17 21:43 ; Start 03/09/17 at 21:00 Labetalol HCl (Normodyne) 20 mg PRN Q2HR PRN IVP HYPERTENSION, SEE COMMENTS; Start 03/09/17 at 11:45 Linagliptin (Tradjenta) 5 mg DAILY PO Last administered on 03/10/17 08:59; Start 03/09/17 at 13:00 Losartan Potassium (Cozaar) 100 mg DAILY PO Last administered on 03/10/17t 09: 01; Start 03/09/17 at 13:00 Sodium Chloride 1,000 ml @ 75 mls/hr [id number] IV ; Start 03/10/17 at 11:00 Vitals/I & O Vital Sign - Last 24 Hours 03/09/17 03/09/17 03/09/17 03/09/17 13:37 13:37 13:38 15:05 Temp 98.2 98.2 Pulse 86 86 86 76 Resp 16 B/P (MAP) 173/90 173/90 173/90 116/57 (76) Pulse Ox 95 O2 Delivery Room Air 03/09/17 03/09/17 03/09/17 03/09/17 19:36 20:00 20:38 20:38 Temp 97.6 97.6 Pulse 90 90 90 Resp 18 B/P (MAP) 152/73 (99) 152/73 152/73 Pulse Ox 100 O2 Delivery Room Air Room Air 03/09/17 03/09/17 03/10/17 03/10/17 20:38 23:58 03:59 07:50 Temp 98.4 99.9 98.8 98.4 99.9 98.8 Pulse 90 92 85 84 Resp 16 16 18 B/P (MAP) 152/73 174/81 (112) 125/68 (87) 132/70 (90) Pulse Ox 100 99 96 O2 Delivery Room Air Room Air Room Air 03/10/17 03/10/17 03/10/17 03/10/17 08:59 09:00 09:00 09:01 Pulse 84 84 84 84 B/P (MAP) 132/70 132/70 132/70 132/70 03/10/17 10:40 Temp 98.0 98.0 Pulse 75 Resp 18 B/P (MAP) 104/48 (66) Pulse Ox 99 O2 Delivery Room Air Intake and Output 03/09/17 03/09/17 03/10/17 15:00 23:00 07:00 Intake Total 500 ml 100 ml Output Total 500 ml 0 ml Balance 0 ml 100 ml GRAEME SERNA MD Mar 10, 2017 11:08
--- NOTE | 2017-03-10 11:34 | RAD ---
CT head without contrast 03/10/2017 Clinical indication: Altered mental status. Comparison: CT head 03/08/2017, 11/02/2016, 05/06/2013. Technique: Multiple CT images of the head were obtained without contrast according to standard protocol. RS Compliance Statement: One or more of the following individualized dose reduction techniques were utilized for this examination: 1. Automated exposure control 2. Adjustment of the mA and/or kV according to patient size 3. Use of iterative reconstruction technique Findings: Examination is somewhat limited due to patient positioning. No acute intracranial hemorrhage. No midline shift. There is prominence of the ventricles and subarachnoid spaces compatible generalized cerebral atrophy. There is an old left basal ganglia lacunar infarct. There is patchy periventricular white matter low attenuation compatible with nonspecific white matter disease. Visualized mastoid air cells and paranasal sinuses are well aerated. Impression: Limited exam due to patient positioning with no acute intracranial hemorrhage. These results were discussed with the emergency service by telephone at 11:30 AM 03/10/2017.
[2017-03-10 11:48] LABS: BASO % 0 % (0-3); EOS % 1 % (0-3); HEMATOCRIT 23.6 % (36.0-47.0); HEMOGLOBIN 7.9 g/dL (12.0-15.5); LYMPH # 1.8 x10^3/uL (1.0-4.8); LYMPH % 19 % (24-48); MEAN CORPUSCULAR HEMOGLOBIN 28 pg (25-35); MEAN CORPUSCULAR HGB CONC 33 g/dL (31-37); MEAN CORPUSCULAR VOLUME 83 fL (79-100); MONO % 14 % (0-9); NEUT % 66 % (31-73); PLATELET COUNT 230 x10^3/uL (140-400); RED BLOOD COUNT 2.84 x10^6/uL (3.50-5.40); WHITE BLOOD COUNT 9.4 x10^3/uL (4.0-11.0)
[2017-03-10] MEDS ORDERED: IV NORMAL SALINE 1000ML BAG 1,000 ML IV SCH (12:00)
[2017-03-10 12:07] LABS: CALCIUM 8.2 mg/dL (8.5-10.1); CREATININE 4.6 mg/dL (0.6-1.0); GFR 11.3; MAGNESIUM 2.1 mg/dL (1.8-2.4)
[2017-03-10] MEDS ORDERED: CLOPIDOGREL BISULFATE 75 MG TABLET PO ONE (12:30)
--- NOTE | 2017-03-10 12:32 | PDOC ---
Provider Note Provider Note pt seen again in ICU, improved significantly awake answering questions moving upper extremities weak in rt leg CT head neg for bleed, getting mri brain and carotid doppler ,echo with bubble study. pt already on Lovenox and stage 5 renal failure, admitted with accelerated htn ,not a good candidate for tPa, risk of bleeding high. pt started on Plavix GRAEME SERNA MD Mar 10, 2017 12:32
[2017-03-10] MEDS: ENOXAPARIN 30 MG/0.3 ML SYRINGE. SQ SCH (12:46)
--- NOTE | 2017-03-10 14:15 | RAD ---
EXAMINATION: Magnetic resonance imaging (MRI) of the brain and brainstem without contrast 03/10/2017 11:50 AM HISTORY: CVA TECHNIQUE: Multiplanar multi-weighted MRI of the brain and brainstem was performed without intravenous contrast using the general brain protocol. COMPARISON: CT head March 08, 2017, March 10, 2017 FINDINGS: The scalp and calvarium are normal. The superior sagittal sinus demonstrates normal venous flow. The corpus callosum is normal in shape and signal intensity. The posterior fossa is unremarkable. The pituitary and sella are normal. The brainstem and craniocervical junction are unremarkable. T2/FLAIR signal hyperintensity is identified in the periventricular and subcortical white matter compatible with moderate chronic small vessel ischemic changes. Remote lacunar infarcts are noted in the right cerebellum. Remote lacunar infarcts are noted in the left basal ganglia. There is linear susceptibility artifact along the subependymal region of the left lateral ventricle suspicious remote hemorrhage. Remote infarct noted in the left doll radiata. Punctate foci of diffusion signal hyperintensity are identified with corresponding low signal on ADC maps involving the left inferior frontal gyri, right middle frontal gyrus, and isthmus of the corpus callosum. Findings are suspicious for acute infarcts and given distribution an embolic phenomenon is suspected. The susceptibility weighted sequences reveal no evidence of acute or chronic hemorrhage. The ventricles are normal in size and position without evidence of hydrocephalus. The paranasal sinuses are normal. The visualized portions of the mastoids are unremarkable. [place] contour of the right globe may represent a coloboma versus high myopia Normal flow voids are demonstrated in the carotid arteries and basilar artery. IMPRESSION: 1. Suspect acute punctate infarcts involving the left inferior frontal gyrus, right middle frontal gyrus, and isthmus of the corpus callosum. Findings are suspicious for embolic phenomena. 2. Moderate chronic small vessel ischemic changes are identified in the periventricular and subcortical white matter. Remote lacunar infarcts are identified in the right cerebellum and left basal ganglia. 3. No evidence for acute intracranial hemorrhage. Critical results were discussed with the patient's nurse Vidhya at 2:05 PM on 03/10/[address] Varma. Electronically signed by: Rebecca Varma MD (03/10/2017 2:11 PM) [facility]
--- NOTE | 2017-03-10 15:41 | RAD ---
Ultrasound bilateral carotid Doppler 03/10/2017 INDICATION: CVA COMPARISON: None. TECHNIQUE: Color, grayscale and doppler ultrasound images obtained of the carotid system bilaterally. Percent stenosis is estimated using criteria that correlates with NASCET methodology. FINDINGS: Peak systolic velocities are as follows in cm/s: Right Carotid System: Mid CCA 107 cm/s Distal ICA: 65 cm/s Distal ICA E : 25 cm/s ECA: 68 cm/s ICA/CCA ratio: <1 Left carotid system: Mid CCA 72 cm/s Mid ICA: 65 cm/s Mid ICA 83:19 cm/s ECA: 82 cm/s ICA/CCA ratio:<1 Vertebral arteries are antegrade bilaterally. There is mild plaque at the bilateral carotid bulbs without significant high-grade visualized narrowing. Impression: Mild bilateral carotid bulb plaque without visual or spectral analysis evidence of hemodynamically significant stenosis.
--- NOTE | 2017-03-10 16:46 | PDOC2 ---
CONSULT Date of Consult Date of Consult DATE: 03/10/17 TIME: 16:42 Reason for Consult Reason for Consult: CVA History of Present Illness Reason for Visit: This patient is 76-year-old female who presented to emergency room after mechanical fall. Patient was having weakness for last several days. Patient also had elevated blood pressures. Patient was previously in the hospital 3 months back had a cardiac workup done patient has also history of hypertension, renal failure, right-sided weakness from a previous stroke. with some worsening of weakness this morning around 8 and also had some numbness on theright side of the face. Patient was moved to the ICU for stroke evaluation. Patient had a CT scan done on the brain which was limited due to patient's positioning but there was no acute intracranial hemorrhage noted. Past Medical History Cardiovascular: HTN, Hyperlipidemia Pulmonary: No pertinent hx GI: Constipation Heme/Onc: Anemia NOS Hepatobiliary: No pertinent hx Psych: No pertinent hx Rheumatologic: No pertinent hx Renal/: Chronic renal insuff Endocrine: Diabetes, Hypothyroidism Family History Family History: Cancer, Coronary Artery Disease, Diabetes, Kidney Disease, Osteo Arthiritis Social History No ALCOHOL: none Drugs: None Current Problem List Problem List Problems Medical Problems: (1) Accelerated hypertension Status: Acute (2) Acute on chronic renal failure Status: Acute (3) Elevated troponin Status: Acute (4) Fall from standing Status: Acute (5) Syncope Status: Acute Current Medications Current Medications Current Medications Clonidine HCl (Catapres) 0.2 mg 1X ONCE PO Last administered on 03/08/17t 15: 23; Start 03/08/17 at 15:00; Stop 03/08/17 at 15:01; Status DC Ondansetron HCl (Zofran) 4 mg PRN Q8HRS PRN IV NAUSEA/VOMITING; Start at 17:00; Stop 03/09/17 at 16:59; Status DC Morphine Sulfate 2 mg PRN Q2HR PRN IV PAIN; Start 03/08/17 at 17:00; Stop at 16:59; Status DC Acetaminophen (Tylenol) 650 mg PRN Q4HRS PRN PO FEVER; Start 03/08/17 at 17:00 ; Stop 03/09/17 at 16:59; Status DC Insulin Aspart (NovoLOG) 0-7 UNITS TIDWMEALS SQ ; Start 03/08/17 at 17:00; Stop 03/09/17 at 12:29; Status DC Dextrose (Dextrose 50%-Water Syringe) 12.5 gm PRN Q15MIN PRN IV SEE COMMENTS; Start 03/08/17 at 17:00; Status Cancel Sodium Chloride 1,000 ml @ 75 mls/hr 1X ONCE IV ; Start 03/08/17 at 17:00; Stop 03/09/17 at 06:19; Status Cancel Labetalol HCl (Normodyne) 10 mg Q6HRS PRN IVP HYPERTENSION, SEE COMMENTS Last administered on 03/08/17 17:10; Start 03/08/17 at 17:00; Stop 03/09/17 at 12 :31; Status DC Hydralazine HCl (Apresoline Inj) 10 mg Q6HRS PRN IVP ELEVATED BP, SEE COMMENTS Last administered on 03/08/17 21:13; Start 03/08/17 at 21:00 Hydralazine HCl (Apresoline) 100 mg TID PO Last administered on 03/10/17 14: 02; Start 03/08/17 at 21:00 Labetalol HCl (Trandate) 200 mg BID PO Last administered on 03/10/17 08:59; Start 03/08/17 at 21:00 Atorvastatin Calcium (Lipitor) 10 mg QHS PO Last administered on 03/09/17 20: 38; Start 03/09/17 at 21:00 Aspirin (Ecotrin) 81 mg DAILYWBKFT PO ; Start 03/10/17 at 08:00; Stop at 08:00; Status DC Labetalol HCl (Normodyne) 20 mg PRN Q2HR PRN IVP HYPERTENSION, SEE COMMENTS; Start 03/09/17 at 11:45 Aspirin (Ecotrin) 81 mg DAILYWBKFT PO ; Start 03/09/17 at 12:30; Stop at 12:30; Status DC Aspirin (Radha Aspirin) 325 mg DAILYWBKFT PO Last administered on 03/10/17 08 :59; Start 03/09/17 at 13:00 Clonidine HCl (Catapres) 0.2 mg TID PO Last administered on 03/10/17 14:02; Start 03/09/17 at 14:00 Insulin Aspart (NovoLOG) 5 units TIDAC SQ ; Start 03/09/17 at 16:30; Stop at 16:30; Status DC Linagliptin (Tradjenta) 5 mg DAILY PO Last administered on 03/10/17 08:59; Start 03/09/17 at 13:00 Insulin Detemir (Levemir) 10 units QHS SQ Last administered on 03/09/17 21:43 ; Start 03/09/17 at 21:00; Stop 03/10/17 at 12:34; Status DC Losartan Potassium (Cozaar) 100 mg DAILY PO Last administered on 03/10/17 09: 01; Start 03/09/17 at 13:00 Insulin Aspart (NovoLOG) 0-5 UNITS TIDWMEALS SQ ; Start 03/09/17 at 17:00; Stop 03/09/17 at 17:00; Status DC Dextrose (Dextrose 50%-Water Syringe) 12.5 gm PRN Q15MIN PRN IV SEE COMMENTS; Start 03/09/17 at 12:30 Enoxaparin Sodium (Lovenox 30mg Syringe) 30 mg Q24H SQ Last administered on 12:46; Start 03/09/17 at 13:00 Sodium Chloride 1,000 ml @ 75 mls/hr [id number] IV Last administered on 11:00; Start 03/10/17 at 11:00 Sodium Chloride 1,000 ml @ 75 mls/hr [id number] IV ; Start 03/10/17 at 12:00; Stop 03/10/17 at 12:00; Status DC Clopidogrel Bisulfate (Plavix) 75 mg DAILYWBKFT PO ; Start 03/11/17 at 08:00 Clopidogrel Bisulfate (Plavix) 75 mg 1X ONCE PO Last administered on 12:42; Start 03/10/17 at 12:30; Stop 03/10/17 at 12:31; Status DC Active Scripts Active Hydralazine Hcl 50 Mg Tablet 100 Mg PO TID 30 Days Aspirin 325 Mg Tablet 325 Mg PO DAILYWBKFT 30 Days Reported Novolog Flexpen (Insulin Aspart) 100 Unit/1 Ml Insuln.pen 5 Unit SQ TIDAC Tradjenta (Linagliptin) 5 Mg Tablet 1 Tab PO DAILY Clonidine Hcl 0.2 Mg Tablet 1 Tab PO TID Levemir (Insulin Detemir) 100 Unit/1 Ml Vial 10 Unit SQ HS Labetalol Hcl 200 Mg Tablet 1 Tab PO BID Losartan-Hctz 100-12.5 Mg Tab (Losartan/Hydrochlorothiazide) 1 Each Tablet PO DAILY Pravastatin Sodium 40 Mg Tablet 1 HS Allergies Allergies: Coded Allergies: iodine (Verified Allergy, Intermediate, 05/01/16) Physical Exam Physical Exam REVIEW OF SYSTEMS: Otherwise, not [id number] review of systems. PHYSICAL EXAMINATION: General appearance is in acute distress. HEENT: Normocephalic and nontraumatic. Neck is supple. No lymphadenopathy. No crepitus. Cardiovascular: S1, S2, regular rate and rhythm. murmur + Pulmonary: Clear to auscultation bilaterally. Abdomen: Bowel sounds are positive. Abdomen is soft, nontender, and nondistended. No restriction of range of motion NEUROLOGICAL EXAMINATION: Alert able to tell her name knows in hospital PERRL. EOMI. CN: no focal findings. facial sy Muscle tone: within normal. Muscle strength: able to move all exts left more than right DTR 1 Plantar reflex: Flexor response bilaterally Gait: not examined in bed. Sensory exam: no abnormal findings. No obvious cerebellar signs elicited. Vitals VITALS Vital Signs Date Time Temp Pulse Resp B/P (MAP) Pulse Ox O2 Delivery O2 Flow Rate FiO2 03/10/17 14:02 68 129/61 03/10/17 10:40 98.0 18 99 Room Air 98.0 Labs Labs Laboratory Tests Test 03/08/17 17:35 03/08/17 20:25 03/08/17 22:48 03/09/17 04:45 Glucose (Fingerstick) 99 mg/dL (70-99) 169 mg/dL (70-99) Troponin I Quantitative 0.081 ng/mL (0.000-0.055) 0.063 ng/mL (0.000-0.055) White Blood Count 8.7 x10^3/uL (4.0-11.0) Red Blood Count 2.96 x10^6/uL (3.50-5.40) Hemoglobin 8.1 g/dL (12.0-15.5) Hematocrit 24.7 % (36.0-47.0) Mean Corpuscular Volume 84 fL (79-100) Mean Corpuscular Hemoglobin 28 pg (25-35) Mean Corpuscular Hemoglobin Concent 33 g/dL (31-37) Red Cell Distribution Width 16.0 % (11.5-14.5) Platelet Count 211 x10^3/uL (140-400) Neutrophils (%) (Auto) 58 % (31-73) Lymphocytes (%) (Auto) 25 % (24-48) Monocytes (%) (Auto) 14 % (0-9) Eosinophils (%) (Auto) 2 % (0-3) Basophils (%) (Auto) 1 % (0-3) Neutrophils # (Auto) 5.0 x10^3uL (1.8-7.7) Lymphocytes # (Auto) 2.2 x10^3/uL (1.0-4.8) Monocytes # (Auto) 1.2 x10^3/uL (0.0-1.1) Eosinophils # (Auto) 0.2 x10^3/uL (0.0-0.7) Basophils # (Auto) 0.1 x10^3/uL (0.0-0.2) Sodium Level 141 mmol/L (136-145) Potassium Level 3.6 mmol/L (3.5-5.1) Chloride Level 106 mmol/L (98-107) Carbon Dioxide Level 23 mmol/L (21-32) Anion Gap 12 (6-14) Blood Urea Nitrogen 64 mg/dL (7-20) Creatinine 3.2 mg/dL (0.6-1.0) Estimated GFR (Cockcroft-Gault) 17.1 BUN/Creatinine Ratio 20 (6-20) Glucose Level 177 mg/dL (70-99) Calcium Level 8.4 mg/dL (8.5-10.1) Total Bilirubin 0.2 mg/dL (0.2-1.0) Aspartate Amino Transf (AST/SGOT) 18 U/L (15-37) Alanine Aminotransferase (ALT/SGPT) 15 U/L (14-59) Alkaline Phosphatase 68 U/L (46-116) Total Protein 6.3 g/dL (6.4-8.2) Albumin 2.7 g/dL (3.4-5.0) Albumin/Globulin Ratio 0.8 (1.0-1.7) Test 03/09/17 08:03 03/09/17 11:32 03/09/17 17:08 03/09/17 21:37 Glucose (Fingerstick) 107 mg/dL (70-99) 121 mg/dL (70-99) 142 mg/dL (70-99) 197 mg/dL (70-99) Test 03/10/17 03:30 03/10/17 07:07 03/10/17 08:00 03/10/17 10:41 Sodium Level 141 mmol/L (136-145) Potassium Level 4.2 mmol/L (3.5-5.1) Chloride Level 108 mmol/L (98-107) Carbon Dioxide Level 22 mmol/L (21-32) Anion Gap 11 (6-14) Blood Urea Nitrogen 68 mg/dL (7-20) Creatinine 4.2 mg/dL (0.6-1.0) Estimated GFR (Cockcroft-Gault) 12.5 Glucose Level 131 mg/dL (70-99) Calcium Level 8.6 mg/dL (8.5-10.1) White Blood Count 9.1 x10^3/uL (4.0-11.0) Red Blood Count 2.81 x10^6/uL (3.50-5.40) Hemoglobin 7.9 g/dL (12.0-15.5) Hematocrit 23.3 % (36.0-47.0) Mean Corpuscular Volume 83 fL (79-100) Mean Corpuscular Hemoglobin 28 pg (25-35) Mean Corpuscular Hemoglobin Concent 34 g/dL (31-37) Red Cell Distribution Width 15.8 % (11.5-14.5) Platelet Count 244 x10^3/uL (140-400) Neutrophils (%) (Auto) 70 % (31-73) Lymphocytes (%) (Auto) 16 % (24-48) Monocytes (%) (Auto) 12 % (0-9) Eosinophils (%) (Auto) 1 % (0-3) Basophils (%) (Auto) 0 % (0-3) Neutrophils # (Auto) 6.4 x10^3uL (1.8-7.7) Lymphocytes # (Auto) 1.5 x10^3/uL (1.0-4.8) Monocytes # (Auto) 1.1 x10^3/uL (0.0-1.1) Eosinophils # (Auto) 0.1 x10^3/uL (0.0-0.7) Basophils # (Auto) 0.0 x10^3/uL (0.0-0.2) Glucose (Fingerstick) 135 mg/dL (70-99) 138 mg/dL (70-99) Test 03/10/17 10:55 03/10/17 11:35 03/10/17 11:43 White Blood Count 9.4 x10^3/uL (4.0-11.0) 9.4 x10^3/uL (4.0-11.0) Red Blood Count 2.69 x10^6/uL (3.50-5.40) 2.84 x10^6/uL (3.50-5.40) Hemoglobin 7.6 g/dL (12.0-15.5) 7.9 g/dL (12.0-15.5) Hematocrit 22.2 % (36.0-47.0) 23.6 % (36.0-47.0) Mean Corpuscular Volume 83 fL (79-100) 83 fL (79-100) Mean Corpuscular Hemoglobin 28 pg (25-35) 28 pg (25-35) Mean Corpuscular Hemoglobin Concent 34 g/dL (31-37) 33 g/dL (31-37) Red Cell Distribution Width 15.9 % (11.5-14.5) 16.0 % (11.5-14.5) Platelet Count 240 x10^3/uL (140-400) 230 x10^3/uL (140-400) Neutrophils (%) (Auto) 69 % (31-73) 66 % (31-73) Lymphocytes (%) (Auto) 17 % (24-48) 19 % (24-48) Monocytes (%) (Auto) 13 % (0-9) 14 % (0-9) Eosinophils (%) (Auto) 1 % (0-3) 1 % (0-3) Basophils (%) (Auto) 1 % (0-3) 0 % (0-3) Neutrophils # (Auto) 6.5 x10^3uL (1.8-7.7) 6.2 x10^3uL (1.8-7.7) Lymphocytes # (Auto) 1.6 x10^3/uL (1.0-4.8) 1.8 x10^3/uL (1.0-4.8) Monocytes # (Auto) 1.2 x10^3/uL (0.0-1.1) 1.3 x10^3/uL (0.0-1.1) Eosinophils # (Auto) 0.1 x10^3/uL (0.0-0.7) 0.1 x10^3/uL (0.0-0.7) Basophils # (Auto) 0.1 x10^3/uL (0.0-0.2) 0.0 x10^3/uL (0.0-0.2) Sodium Level 140 mmol/L (136-145) Potassium Level 4.0 mmol/L (3.5-5.1) Chloride Level 106 mmol/L (98-107) Carbon Dioxide Level 22 mmol/L (21-32) Anion Gap 12 (6-14) Blood Urea Nitrogen 74 mg/dL (7-20) Creatinine 4.6 mg/dL (0.6-1.0) Estimated GFR (Cockcroft-Gault) 11.3 Glucose Level 138 mg/dL (70-99) Lactic Acid Level 0.8 mmol/L (0.4-2.0) Calcium Level 8.2 mg/dL (8.5-10.1) Magnesium Level 2.1 mg/dL (1.8-2.4) Glucose (Fingerstick) 126 mg/dL (70-99) Laboratory Tests Test 03/09/17 17:08 03/09/17 21:37 03/10/17 03:30 03/10/17 07:07 Glucose (Fingerstick) 142 mg/dL (70-99) 197 mg/dL (70-99) Sodium Level 141 mmol/L (136-145) Potassium Level 4.2 mmol/L (3.5-5.1) Chloride Level 108 mmol/L (98-107) Carbon Dioxide Level 22 mmol/L (21-32) Anion Gap 11 (6-14) Blood Urea Nitrogen 68 mg/dL (7-20) Creatinine 4.2 mg/dL (0.6-1.0) Estimated GFR (Cockcroft-Gault) 12.5 Glucose Level 131 mg/dL (70-99) Calcium Level 8.6 mg/dL (8.5-10.1) White Blood Count 9.1 x10^3/uL (4.0-11.0) Red Blood Count 2.81 x10^6/uL (3.50-5.40) Hemoglobin 7.9 g/dL (12.0-15.5) Hematocrit 23.3 % (36.0-47.0) Mean Corpuscular Volume 83 fL (79-100) Mean Corpuscular Hemoglobin 28 pg (25-35) Mean Corpuscular Hemoglobin Concent 34 g/dL (31-37) Red Cell Distribution Width 15.8 % (11.5-14.5) Platelet Count 244 x10^3/uL (140-400) Neutrophils (%) (Auto) 70 % (31-73) Lymphocytes (%) (Auto) 16 % (24-48) Monocytes (%) (Auto) 12 % (0-9) Eosinophils (%) (Auto) 1 % (0-3) Basophils (%) (Auto) 0 % (0-3) Neutrophils # (Auto) 6.4 x10^3uL (1.8-7.7) Lymphocytes # (Auto) 1.5 x10^3/uL (1.0-4.8) Monocytes # (Auto) 1.1 x10^3/uL (0.0-1.1) Eosinophils # (Auto) 0.1 x10^3/uL (0.0-0.7) Basophils # (Auto) 0.0 x10^3/uL (0.0-0.2) Test 03/10/17 08:00 03/10/17 10:41 03/10/17 10:55 03/10/17 11:35 Glucose (Fingerstick) 135 mg/dL (70-99) 138 mg/dL (70-99) White Blood Count 9.4 x10^3/uL (4.0-11.0) 9.4 x10^3/uL (4.0-11.0) Red Blood Count 2.69 x10^6/uL (3.50-5.40) 2.84 x10^6/uL (3.50-5.40) Hemoglobin 7.6 g/dL (12.0-15.5) 7.9 g/dL (12.0-15.5) Hematocrit 22.2 % (36.0-47.0) 23.6 % (36.0-47.0) Mean Corpuscular Volume 83 fL (79-100) 83 fL (79-100) Mean Corpuscular Hemoglobin 28 pg (25-35) 28 pg (25-35) Mean Corpuscular Hemoglobin Concent 34 g/dL (31-37) 33 g/dL (31-37) Red Cell Distribution Width 15.9 % (11.5-14.5) 16.0 % (11.5-14.5) Platelet Count 240 x10^3/uL (140-400) 230 x10^3/uL (140-400) Neutrophils (%) (Auto) 69 % (31-73) 66 % (31-73) Lymphocytes (%) (Auto) 17 % (24-48) 19 % (24-48) Monocytes (%) (Auto) 13 % (0-9) 14 % (0-9) Eosinophils (%) (Auto) 1 % (0-3) 1 % (0-3) Basophils (%) (Auto) 1 % (0-3) 0 % (0-3) Neutrophils # (Auto) 6.5 x10^3uL (1.8-7.7) 6.2 x10^3uL (1.8-7.7) Lymphocytes # (Auto) 1.6 x10^3/uL (1.0-4.8) 1.8 x10^3/uL (1.0-4.8) Monocytes # (Auto) 1.2 x10^3/uL (0.0-1.1) 1.3 x10^3/uL (0.0-1.1) Eosinophils # (Auto) 0.1 x10^3/uL (0.0-0.7) 0.1 x10^3/uL (0.0-0.7) Basophils # (Auto) 0.1 x10^3/uL (0.0-0.2) 0.0 x10^3/uL (0.0-0.2) Sodium Level 140 mmol/L (136-145) Potassium Level 4.0 mmol/L (3.5-5.1) Chloride Level 106 mmol/L (98-107) Carbon Dioxide Level 22 mmol/L (21-32) Anion Gap 12 (6-14) Blood Urea Nitrogen 74 mg/dL (7-20) Creatinine 4.6 mg/dL (0.6-1.0) Estimated GFR (Cockcroft-Gault) 11.3 Glucose Level 138 mg/dL (70-99) Lactic Acid Level 0.8 mmol/L (0.4-2.0) Calcium Level 8.2 mg/dL (8.5-10.1) Magnesium Level 2.1 mg/dL (1.8-2.4) Test 03/10/17 11:43 Glucose (Fingerstick) 126 mg/dL (70-99) Assessment/Plan Assessment/Plan This patient is 76-year-old female who presented to emergency room after mechanical fall. Patient was having weakness for last several days. Patient also had elevated blood pressures. Patient was previously in the hospital 3 months back had a cardiac workup done patient has also history of hypertension, renal failure, right-sided weakness from a previous stroke. with some worsening of weakness this morning around 8 and also had some numbness on theright side of the face. Patient was moved to the ICU for stroke evaluation. Patient had a CT scan done on the brain which was limited due to patient's positioning but there was no acute intracranial hemorrhage noted. 76-year-old female with past medical history of multiple medical problems with history of CVA with weakness on the right side of the body with history of renal failure patient woke up with symptoms of worsening of weakness this morning also had some numbness on the right side of the face patient was brought to the ICU for further stroke workup patient had MRI of the brain which showed punctate infarct in left frontal, right frontal areaswith changes showing chronic small vessel ischemic disease with no evidence of acute hemorrhage patient also had remote lacunar infarcts in the right cerebellum and left basal ganglia. Patient was started on Plavix. Patient had improvement of symptoms. Patient did not got IV TPA as she is outside the window. Patient was also found to be high risk of bleed with previous stroke. Patient was started on Plavix. We will check echo with a bubble study, K Doppler. Patient is on Lovenox for DVT prophylaxis. History of hypertension continue treat and monitor in the disease. PTOT evaluation continue medical management. MERY SUERO MD Mar 10, 2017 16:45
[2017-03-10 17:03] LABS: CALCIUM 8.3 mg/dL (8.5-10.1); CREATININE 4.5 mg/dL (0.6-1.0); GFR 11.6; POTASSIUM 4.1 mmol/L (3.5-5.1)
--- NOTE | 2017-03-10 17:13 | EKG ---
[facility] [address] [place] [address] Test Date: 2017-03-10 Test Time: 17:13:06 Pat Name: OFE MAE Department: Room: 254 1 Gender: F Information Consultant: WINIFRED : 1940 Requested By: GRAEME SERNA Order Number: [id number] Reading MD: Measurements Intervals Counselor Rate: 60 P: 90 NV: 188 QRS: -28 QRSD: 70 T: 64 QT: 480 QTc: 485 Interpretive Statements SINUS RHYTHM LEFT ATRIAL ABNORMALITY LEFTWARD AXIS T ABNORMALITY IN ANTEROSEPTAL LEADS HIGH LATERAL LEADS PROLONGED QT ABNORMAL ECG RI6.01 Compared to ECG 11/25/2016 06:05:45 Atrial abnormality now present Left-axis deviation now present T-wave abnormality now present Prolonged QT interval now present
[2017-03-10] MEDS: ATORVASTATIN CALCIUM 10 MG TABLET. PO SCH (21:38)
--- NOTE | 2017-03-10 22:13 | CARD ---
APPROVED REPORT EXAM: Two-dimensional and M-mode echocardiogram with Doppler, color Doppler with saline contrast. Other Information Quality : AverageHR: 66bpm Rhythm : Atrial FibrillationNSR INDICATION Stroke 2D DIMENSIONS Left Atrium(2D)4.3 (1.6-4.0cm)IVSd1.9 (0.7-1.1cm) Aortic Root(2D)2.7 (2.0-3.7cm)LVDd3.9 (3.9-5.9cm) LVOT Diameter2.0 (1.8-2.4cm)PWd1.8 (0.7-1.1cm) LVDs2.4 (2.5-4.0cm)FS (%) 38.6 % SV45.6 mlLVEF(%)69.6 (>50%) CO4.6 L/min M-Mode DIMENSIONS Aortic Cusp Exc1.56 (1.5-2.0cm) Aortic Valve AoV Peak Nilton.150.4cm/sAoV VTI32.0cm AO Peak GR.9.0mmHgLVOT VTI 22.21cm AO Mean GR.6mmHgAI P 1/2 [id number] Mitral Valve MV E Uquagmda22.3cm/sMV E Peak Gr.7mmHg MV DECEL [id number] A Fovitvak53.3cm/s MV E Mean Gr.3mmHgE/A Ratio0.8 MV A [id number] TDI Lateral E' P. V4.34cm/sMedial E' P. V4.40cm/s E/Lateral E'18.5E/Medial E'18.3 Pulmonary Valve PV Peak Nexjkgpb376.8cm/s Tricuspid Valve TR P. Glpokpro439qw/sTR Peak Gr.41mmHg Pulmonary Vein S1 Xahmcqoy24.8cm/sS2 Olwwefzk79.15cm/s D2 Xhkwppup25.1cm/s LEFT VENTRICLE The left ventricle is normal size. There is mild to moderate concentric left ventricular hypertrophy. The left ventricular systolic function is normal and the ejection fraction is within normal range. L V ejection fraction of 60-65%. There is normal LV segmental wall motion. Transmitral Doppler flow pat tern is Grade I-abnormal relaxation pattern. There is no ventricular septal defect visualized. There is no left ventricular aneurysm. There is no mass noted in the left ventricle. RIGHT VENTRICLE The right ventricle is normal size. There is normal right ventricular wall thickness. The right ventr icular systolic function is normal. ATRIA The left atrium is mildly dilated. Probable thrombus in the left atrium. The right atrium size is nor mal. Probable thrombus in the right atrium. The interatrial septum is intact with no evidence for an atrial septal defect or patent foramen ovale as noted on 2-D or Doppler imaging. Normal bubble study. AORTIC VALVE The aortic valve is normal in structure and function. Doppler and Color Flow revealed mild to moderat e aortic regurgitation. There is no significant aortic valvular stenosis. There is no aortic valvular vegetation. MITRAL VALVE The mitral valve is normal in structure and function. There is no evidence of mitral valve prolapse. There is no mitral valve stenosis. Doppler and Color-flow revealed mild mitral regurgitation. TRICUSPID VALVE The tricuspid valve is normal in structure and function. Doppler and Color Flow revealed mild tricusp id regurgitation. There is no tricuspid valve stenosis. PULMONIC VALVE The pulmonary valve is normal in structure and function. Doppler and Color Flow revealed trace pulmon ic valvular regurgitation. There is no pulmonic valvular stenosis. GREAT VESSELS The aortic root is normal in size. The ascending aorta is normal in size. The IVC was not visualized. PERICARDIAL EFFUSION There is no pleural effusion. There is no evidence of significant pericardial effusion. Critical Notification Date: 03/10/2017 Time: 21:18 Physician Name:Jessica Critical Value: Yes Response Time:now Report Read Back <Conclusion> The left ventricle is normal size. The left ventricular systolic function is normal and the ejection fraction is within normal range. LV ejection fraction of 60-65%. There is mild to moderate concentric left ventricular hypertrophy. The left atrium is mildly dilated. Probable thrombus in the left atrium. The right atrium size is normal. Probable thrombus in the right atrium. The interatrial septum is intact with no evidence for an atrial septal defect or patent foramen ovale as noted on 2-D or Doppler imaging. Normal bubble study. There is no significant aortic valvular stenosis. Doppler and Color Flow revealed mild to moderate aortic regurgitation. Doppler and Color-flow revealed mild mitral regurgitation. Doppler and Color Flow revealed mild tricuspid regurgitation.
[2017-03-10] MEDS ORDERED: HEPARIN for IV BOLUS 10,000 UNIT/10 ML VIAL. IV PRN (22:30)
--- NOTE | 2017-03-10 22:34 | CONS ---
DATE OF CONSULTATION: 03/10/2017 REQUESTING PHYSICIAN: Dr. Bazan. REASON FOR CONSULTATION: Renal failure. HISTORY OF PRESENT ILLNESS: This is a 76-year-old female with history of diabetes mellitus, hypertension and chronic kidney disease. She has progressive chronic kidney disease, now at stage 5. She has a very poorly matured left forearm AV fistula in place. She has not been on dialysis. She currently admits with having sustained a fall at home. MRIs fail to reveal a new CVA. PAST MEDICAL HISTORY: Diabetes mellitus, hypertension, chronic kidney disease, CVA, anemia of chronic kidney disease, tonsillectomy and AV fistula placement. ALLERGIES: IODINE AND IV CONTRAST. MEDICATIONS: Noted. FAMILY HISTORY: This is a note for renal disease and hypertension as well as heart disease. SOCIAL HISTORY: The patient resides at home with family. REVIEW OF SYSTEMS: No headaches, sinus problem, nasal drainage, epistaxis, change in vision or hearing or difficulty swallowing. No fever, chills, cough, sputum production or hemoptysis. No chest pain, shortness of breath, PND, orthopnea or dyspnea on exertion. No abdominal pain or upper or lower gastrointestinal blood loss. No nausea, vomiting, diarrhea or seizures. PHYSICAL EXAMINATION: GENERAL APPEARANCE: The patient is awake and follows. HEENT: Clear. NECK: No increased JVD. No thyromegaly, mass or adenopathy. LUNGS: Clear. CARDIAC: Without S3 or rub. ABDOMEN: Soft, nontender. No bruits. EXTREMITIES: Without edema. Left forearm AV fistula is quite small and poorly developed. NEUROLOGIC: Follows appropriately, answers questions appropriately. PSYCHIATRIC: Depressed, withdrawn. LABORATORY DATA: Sodium 140, potassium 4, chloride 106, CO2 of 22, BUN 74, creatinine 1.6, GFR is 11.3 and calcium 8.2. Hemoglobin 7.9 and hematocrit 23.6. IMPRESSION: 1. Chronic kidney disease, now end-stage renal disease status. 2. Diabetes mellitus. 3. Hypertension. 4. Cerebrovascular accident. 5. Anemia of chronic kidney disease. RECOMMENDATIONS: 1. The patient would likely benefit from initiation of dialysis during this hospital stay if the patient's renal function is not improved. 2. Epogen for anemia of chronic kidney disease should be instituted. 3. Further recommendations from Neurology. TOY FORDE MD DR: MYLENE/tereso JOB#: [id number] / [id number]
[2017-03-10] MEDS: HEPARIN 25,000UTS/500ML PREMIX 500 ML IV PRN (23:02)
[2017-03-11] VITALS (13 sets, daily range): BP systolic 106–157; BP diastolic 53–71
[2017-03-11] MEDS: IV NORMAL SALINE 1000ML BAG 1,000 ML IV SCH ×2 (00:13→13:40)
[2017-03-11 06:04] LABS: ALBUMIN 2.5 g/dL (3.4-5.0); ALBUMIN/GLOBULIN RATIO 0.6 (1.0-1.7); CALCIUM 8.3 mg/dL (8.5-10.1); CREATININE 4.5 mg/dL (0.6-1.0); GFR 11.6; POTASSIUM 4.2 mmol/L (3.5-5.1); TOTAL BILIRUBIN 0.3 mg/dL (0.2-1.0); TOTAL PROTEIN 6.6 g/dL (6.4-8.2)
--- NOTE | 2017-03-11 08:19 | RAD ---
CT head Indication: Follow-up exam. Technique: CT head without IV contrast Comparison: Previous study from 03/10/2017 Findings: No pathologic extra-axial or intra-axial fluid collections. Stable chronic left basal ganglia lacunar infarct no acute intracranial bleed. Confluent low attenuation of the periventricular and deep white matter noted. The basal cisterns are within normal limits. Visualized orbits are within normal limits. No calvarial lesions. Visualized paranasal sinuses and mastoid air cells are clear. Impression: 1. No acute intracranial process on this noncontrast CT. 2. White matter changes likely secondary to chronic microvascular ischemic disease. PQRS Compliance Statement: One or more of the following individualized dose reduction techniques were utilized for this examination: 1. Automated exposure control 2. Adjustment of the mA and/or kV according to patient size 3. Use of iterative reconstruction technique
[2017-03-11] MEDS: cloNIDine HCL 0.2 MG TABLET PO SCH ×3 (08:44→20:34)
[2017-03-11] MEDS: ASPIRIN 325 MG TABLET PO SCH (08:44)
[2017-03-11] MEDS: LABETALOL HCL 200 MG TABLET PO SCH ×2 (08:45→20:33)
[2017-03-11] MEDS: LINAGLIPTIN 5 MG TABLET PO SCH (08:45)
[2017-03-11] MEDS: LOSARTAN POTASSIUM 50 MG TABLET. PO SCH (08:47)
[2017-03-11] MEDS: CLOPIDOGREL BISULFATE 75 MG TABLET PO SCH (08:47)
--- NOTE | 2017-03-11 08:55 | PDOC ---
SUBJECTIVE ROS F/up for CKD V with ? Uremic s/s Doing OK. Denies complaints CVS: no Orthopnea, no CP RESP: no SOB, no MCCULLOUGH GI: no Nausea, no Vomiting : no Dysuria, no Urgency OBJECTIVE Vital Signs Vital Signs Date Time Temp Pulse Resp B/P (MAP) Pulse Ox O2 Delivery O2 Flow Rate FiO2 03/11/17 08:16 Room Air 03/11/17 06:00 68 14 147/57 (87) 99 03/11/17 05:00 98.4 98.4 I & 0 Intake and Output 03/11/17 07:00 Intake Total 1948 ml Output Total 730 ml Balance 1218 ml Intake Oral 800 ml IV Total 835 ml Other 313 ml Output Urine Total 730 ml PHYSICAL EXAM Physical Exam GEN: Awake, Oriented x 2, In no distress EYES: Vision Unchanged, Conjunctiva Normal EN: No EN Drainage, Mucous Membranes moist NECK: no JVD, no JVP, Supple, no Thyromegaly CVS: S1S2, soft Murmur, No Gallop, No Rub,no Edema RESP: no Rales, no Rhonchi,no Acc. Muscle Use GI: BS + ve, NO Bruit, Non Tender, Non Distended : no CVA tenderness, no Suprapubic Tenderness Left forearm AVF - appears too small DIAGNOSIS/ASSESSMENT Assessment & Plan CKD V: No uremic s/s. current fluid and E-lyte status does not necessitate emergent need for dialysis. Pt not ready for same either. Will re-evaluate for dialysis in the am Proteinuria - Quantitate wiht Ratio. Suspect Nephrotic Syndrome; remains on ARB Hypoalbuminemia - suspect due to proteinuria ANEMIA; recheck Iron; start Aranesp as ordered, Transfuse as needed HTN: Current BPs are well controlled on present meds as reviewed. Discussed Plan of Care with pt at bedside Problems: COMMENT/RELEVANT DATA Meds Current Medications Medications (Trade) Dose Ordered Sig/Nicolas Start Time Stop Time Status Last Admin Dose Admin Acetaminophen (Tylenol) 650 mg PRN Q4HRS PRN 03/08/17 17:00 03/09/17 16:59 DC Aspirin (Radha Aspirin) 325 mg DAILYWBKFT 03/09/17 13:00 03/10/17 08:59 325 MG Aspirin (Ecotrin) 81 mg DAILYWBKFT 03/09/17 12:30 03/09/17 12:30 DC Atorvastatin Calcium (Lipitor) 10 mg QHS 03/09/17 21:00 03/10/17 21:38 10 MG Clonidine HCl (Catapres) 0.2 mg TID 03/09/17 14:00 03/10/17 21:39 0.2 MG Clopidogrel Bisulfate (Plavix) 75 mg 1X ONCE 03/10/17 12:30 03/10/17 12:31 DC 03/10/17 12:42 75 MG Dextrose (Dextrose 50%-Water Syringe) 12.5 gm PRN Q15MIN PRN 03/09/17 12:30 Enoxaparin Sodium (Lovenox 30mg Syringe) 30 mg Q24H 03/09/17 13:00 03/10/17 22:33 DC 03/10/17 12:46 30 MG Heparin Sodium (Porcine) (Heparin Sodium) 1,750 unit PRN Q6HRS PRN 03/10/17 22:30 Heparin Sodium/ Dextrose 500 ml @ 0 mls/hr CONT PRN 03/10/17 22:30 03/10/17 23:02 17.3 MLS/HR Hydralazine HCl (Apresoline Inj) 10 mg Q6HRS PRN 03/08/17 21:00 03/08/17 21:13 10 MG Hydralazine HCl (Apresoline) 100 mg TID 03/08/17 21:00 03/10/17 21:38 100 MG Info (Anti-Coagulation Monitoring By Pharmacy) 1 each PRN DAILY PRN 03/11/17 08:00 Insulin Aspart (NovoLOG) 0-5 UNITS TIDWMEALS 03/09/17 17:00 03/09/17 17:00 DC Insulin Detemir (Levemir) 10 units QHS 03/09/17 21:00 03/10/17 12:34 DC 03/09/17 21:43 10 UNITS Labetalol HCl (Normodyne) 20 mg PRN Q2HR PRN 03/09/17 11:45 Labetalol HCl (Trandate) 200 mg BID 03/08/17 21:00 03/10/17 21:39 200 MG Linagliptin (Tradjenta) 5 mg DAILY 03/09/17 13:00 03/10/17 08:59 5 MG Losartan Potassium (Cozaar) 100 mg DAILY 03/09/17 13:00 03/10/17 09:01 100 MG Morphine Sulfate 2 mg PRN Q2HR PRN 03/08/17 17:00 03/09/17 16:59 DC Ondansetron HCl (Zofran) 4 mg PRN Q8HRS PRN 03/08/17 17:00 03/09/17 16:59 DC Sodium Chloride 1,000 ml @ 75 mls/hr [id number] 03/10/17 12:00 03/10/17 12:00 DC Lab Laboratory Tests Test 03/10/17 10:41 03/10/17 10:55 03/10/17 11:35 03/10/17 11:43 Glucose (Fingerstick) 138 mg/dL (70-99) 126 mg/dL (70-99) White Blood Count 9.4 x10^3/uL (4.0-11.0) 9.4 x10^3/uL (4.0-11.0) Red Blood Count 2.69 x10^6/uL (3.50-5.40) 2.84 x10^6/uL (3.50-5.40) Hemoglobin 7.6 g/dL (12.0-15.5) 7.9 g/dL (12.0-15.5) Hematocrit 22.2 % (36.0-47.0) 23.6 % (36.0-47.0) Mean Corpuscular Volume 83 fL (79-100) 83 fL (79-100) Mean Corpuscular Hemoglobin 28 pg (25-35) 28 pg (25-35) Mean Corpuscular Hemoglobin Concent 34 g/dL (31-37) 33 g/dL (31-37) Red Cell Distribution Width 15.9 % (11.5-14.5) 16.0 % (11.5-14.5) Platelet Count 240 x10^3/uL (140-400) 230 x10^3/uL (140-400) Neutrophils (%) (Auto) 69 % (31-73) 66 % (31-73) Lymphocytes (%) (Auto) 17 % (24-48) 19 % (24-48) Monocytes (%) (Auto) 13 % (0-9) 14 % (0-9) Eosinophils (%) (Auto) 1 % (0-3) 1 % (0-3) Basophils (%) (Auto) 1 % (0-3) 0 % (0-3) Neutrophils # (Auto) 6.5 x10^3uL (1.8-7.7) 6.2 x10^3uL (1.8-7.7) Lymphocytes # (Auto) 1.6 x10^3/uL (1.0-4.8) 1.8 x10^3/uL (1.0-4.8) Monocytes # (Auto) 1.2 x10^3/uL (0.0-1.1) 1.3 x10^3/uL (0.0-1.1) Eosinophils # (Auto) 0.1 x10^3/uL (0.0-0.7) 0.1 x10^3/uL (0.0-0.7) Basophils # (Auto) 0.1 x10^3/uL (0.0-0.2) 0.0 x10^3/uL (0.0-0.2) Sodium Level 140 mmol/L (136-145) Potassium Level 4.0 mmol/L (3.5-5.1) Chloride Level 106 mmol/L (98-107) Carbon Dioxide Level 22 mmol/L (21-32) Anion Gap 12 (6-14) Blood Urea Nitrogen 74 mg/dL (7-20) Creatinine 4.6 mg/dL (0.6-1.0) Estimated GFR (Cockcroft-Gault) 11.3 Glucose Level 138 mg/dL (70-99) Lactic Acid Level 0.8 mmol/L (0.4-2.0) Calcium Level 8.2 mg/dL (8.5-10.1) Magnesium Level 2.1 mg/dL (1.8-2.4) Test 03/10/17 16:25 03/10/17 18:24 03/11/17 05:10 Sodium Level 141 mmol/L (136-145) 141 mmol/L (136-145) Potassium Level 4.1 mmol/L (3.5-5.1) 4.2 mmol/L (3.5-5.1) Chloride Level 108 mmol/L (98-107) 107 mmol/L (98-107) Carbon Dioxide Level 24 mmol/L (21-32) 20 mmol/L (21-32) Anion Gap 9 (6-14) 14 (6-14) Blood Urea Nitrogen 73 mg/dL (7-20) 77 mg/dL (7-20) Creatinine 4.5 mg/dL (0.6-1.0) 4.5 mg/dL (0.6-1.0) Estimated GFR (Cockcroft-Gault) 11.6 11.6 Glucose Level 129 mg/dL (70-99) 133 mg/dL (70-99) Calcium Level 8.3 mg/dL (8.5-10.1) 8.3 mg/dL (8.5-10.1) Glucose (Fingerstick) 111 mg/dL (70-99) Heparin Anti-Xa Act, Unfractionated 0.30 IU/mL (0.30-0.70) BUN/Creatinine Ratio 17 (6-20) Total Bilirubin 0.3 mg/dL (0.2-1.0) Aspartate Amino Transf (AST/SGOT) 14 U/L (15-37) Alanine Aminotransferase (ALT/SGPT) 11 U/L (14-59) Alkaline Phosphatase 65 U/L (46-116) Total Protein 6.6 g/dL (6.4-8.2) Albumin 2.5 g/dL (3.4-5.0) Albumin/Globulin Ratio 0.6 (1.0-1.7) SHARMILA CONTRERAS MD Mar 11, 2017 08:55
[2017-03-11] MEDS ORDERED: MAGNESIUM SULFATE 2GM 50 ML IV PRN (09:00)
--- NOTE | 2017-03-11 10:10 | PDOC ---
PROGRESS NOTES Subjective Subjective mental status back to normal Objective Objective Vital Signs Date Time Temp Pulse Resp B/P (MAP) Pulse Ox O2 Delivery O2 Flow Rate FiO2 03/11/17 09:00 70 20 140/63 (88) 99 Room Air 03/11/17 05:00 98.4 98.4 Intake and Output 03/11/17 07:00 Intake Total 1948 ml Output Total 755 ml Balance 1193 ml Intake Oral 800 ml IV Total 835 ml Other 313 ml Output Urine Total 755 ml Physical Exam Abdomen: Soft Heart: Regular rate (SR), Normal S1, Normal S2, Other (2/6 systolic murmur to LLS border) Extremities: No cyanosis, Other (right knee tenderness) General: No acute distress HEENT: Atraumatic, Mucous membr. moist/pink Lungs: Clear to auscultation, Normal air movement MUSCULOSKELETAL: Osteoarthritic changes both hands, Other (right knee effusion) Neuro: Sensation intact Skin: No breakdown, No significant lesion COMMENT weak in legs, hands good strength Diagnosis Problem List Problems Medical Problems: (1) Accelerated hypertension Status: Acute (2) Acute on chronic renal failure Status: Acute (3) Elevated troponin Status: Acute (4) Fall from standing Status: Acute (5) Syncope Status: Acute Assessment Assessment Problems Medical Problems: (1) Accelerated hypertension Status: Acute (2) Acute on chronic renal failure Status: Acute (3) Elevated troponin Status: Acute (4) Fall from standing Status: Acute (5) Syncope Status: Acute FINAL IMPRESSION: new cva embolic biatrial thrombosis 1. Mechanical fall no injuries. 2. Questionable syncopal episode. 3. Accelerated hypertension. 4. Stage 5 renal failure. 5. Possible urinary tract infection. 6. General debility. PLAN: MRI brain punctate infarcts embolicnew echo showed biatrial thrombosis. heparin drip now. stat ct scan , today no bleed neuro consult appreciated. blood sugars 150 . BP110/70 .p80 sat94% , no arrhythmias on monitor. not able to get urine c/s incontinence. spoke with renal Problems: Plan Plan of Care Problems Medical Problems: (1) Accelerated hypertension Status: Acute (2) Acute on chronic renal failure Status: Acute (3) Elevated troponin Status: Acute (4) Fall from standing Status: Acute (5) Syncope Status: Acute Comment Review of Relevant I have reviewed the following items reji (where applicable) has been applied. Labs Laboratory Tests Test 03/10/17 10:41 03/10/17 10:55 03/10/17 11:35 03/10/17 11:43 Glucose (Fingerstick) 138 mg/dL (70-99) 126 mg/dL (70-99) White Blood Count 9.4 x10^3/uL (4.0-11.0) 9.4 x10^3/uL (4.0-11.0) Red Blood Count 2.69 x10^6/uL (3.50-5.40) 2.84 x10^6/uL (3.50-5.40) Hemoglobin 7.6 g/dL (12.0-15.5) 7.9 g/dL (12.0-15.5) Hematocrit 22.2 % (36.0-47.0) 23.6 % (36.0-47.0) Mean Corpuscular Volume 83 fL (79-100) 83 fL (79-100) Mean Corpuscular Hemoglobin 28 pg (25-35) 28 pg (25-35) Mean Corpuscular Hemoglobin Concent 34 g/dL (31-37) 33 g/dL (31-37) Red Cell Distribution Width 15.9 % (11.5-14.5) 16.0 % (11.5-14.5) Platelet Count 240 x10^3/uL (140-400) 230 x10^3/uL (140-400) Neutrophils (%) (Auto) 69 % (31-73) 66 % (31-73) Lymphocytes (%) (Auto) 17 % (24-48) 19 % (24-48) Monocytes (%) (Auto) 13 % (0-9) 14 % (0-9) Eosinophils (%) (Auto) 1 % (0-3) 1 % (0-3) Basophils (%) (Auto) 1 % (0-3) 0 % (0-3) Neutrophils # (Auto) 6.5 x10^3uL (1.8-7.7) 6.2 x10^3uL (1.8-7.7) Lymphocytes # (Auto) 1.6 x10^3/uL (1.0-4.8) 1.8 x10^3/uL (1.0-4.8) Monocytes # (Auto) 1.2 x10^3/uL (0.0-1.1) 1.3 x10^3/uL (0.0-1.1) Eosinophils # (Auto) 0.1 x10^3/uL (0.0-0.7) 0.1 x10^3/uL (0.0-0.7) Basophils # (Auto) 0.1 x10^3/uL (0.0-0.2) 0.0 x10^3/uL (0.0-0.2) Sodium Level 140 mmol/L (136-145) Potassium Level 4.0 mmol/L (3.5-5.1) Chloride Level 106 mmol/L (98-107) Carbon Dioxide Level 22 mmol/L (21-32) Anion Gap 12 (6-14) Blood Urea Nitrogen 74 mg/dL (7-20) Creatinine 4.6 mg/dL (0.6-1.0) Estimated GFR (Cockcroft-Gault) 11.3 Glucose Level 138 mg/dL (70-99) Lactic Acid Level 0.8 mmol/L (0.4-2.0) Calcium Level 8.2 mg/dL (8.5-10.1) Magnesium Level 2.1 mg/dL (1.8-2.4) Test 03/10/17 16:25 03/10/17 18:24 03/11/17 05:10 Sodium Level 141 mmol/L (136-145) 141 mmol/L (136-145) Potassium Level 4.1 mmol/L (3.5-5.1) 4.2 mmol/L (3.5-5.1) Chloride Level 108 mmol/L (98-107) 107 mmol/L (98-107) Carbon Dioxide Level 24 mmol/L (21-32) 20 mmol/L (21-32) Anion Gap 9 (6-14) 14 (6-14) Blood Urea Nitrogen 73 mg/dL (7-20) 77 mg/dL (7-20) Creatinine 4.5 mg/dL (0.6-1.0) 4.5 mg/dL (0.6-1.0) Estimated GFR (Cockcroft-Gault) 11.6 11.6 Glucose Level 129 mg/dL (70-99) 133 mg/dL (70-99) Calcium Level 8.3 mg/dL (8.5-10.1) 8.3 mg/dL (8.5-10.1) Glucose (Fingerstick) 111 mg/dL (70-99) Heparin Anti-Xa Act, Unfractionated 0.30 IU/mL (0.30-0.70) BUN/Creatinine Ratio 17 (6-20) Total Bilirubin 0.3 mg/dL (0.2-1.0) Aspartate Amino Transf (AST/SGOT) 14 U/L (15-37) Alanine Aminotransferase (ALT/SGPT) 11 U/L (14-59) Alkaline Phosphatase 65 U/L (46-116) Total Protein 6.6 g/dL (6.4-8.2) Albumin 2.5 g/dL (3.4-5.0) Albumin/Globulin Ratio 0.6 (1.0-1.7) Medications Current Medications Clopidogrel Bisulfate (Plavix) 75 mg 1X ONCE PO Last administered on 12:42; Start 03/10/17 at 12:30; Stop 03/10/17 at 12:31; Status DC Clopidogrel Bisulfate (Plavix) 75 mg DAILYWBKFT PO Last administered on 08:47; Start 03/11/17 at 08:00 Heparin Sodium (Porcine) (Heparin Sodium) 1,750 unit PRN Q6HRS PRN IV FOR UFH LEVEL LESS THAN 0.2; Start 03/10/17 at 22:30 Heparin Sodium/ Dextrose 500 ml @ 0 mls/hr CONT PRN IV SEE I/O RECORD Last administered on 03/10/17 23:02; Start 03/10/17 at 22:30 Info (Anti-Coagulation Monitoring By Pharmacy) 1 each PRN DAILY PRN MC SEE COMMENTS; Start 03/11/17 at 08:00 Magnesium Sulfate/ Dextrose 50 ml @ 25 mls/hr PRN DAILY PRN IV for Mag < 1.7 on am labs; Start 03/11/17 at 09:00 Sodium Chloride 1,000 ml @ 75 mls/hr [id number] IV Last administered on 00:13; Start 03/10/17 at 11:00 Sodium Chloride 1,000 ml @ 75 mls/hr [id number] IV ; Start 03/10/17 at 12:00; Stop 03/10/17 at 12:00; Status DC Vitals/I & O Vital Sign - Last 24 Hours 03/10/17 03/10/17 03/10/17 03/10/17 10:40 12:00 12:00 12:45 Temp 98.0 99.3 98.0 99.3 Pulse 75 74 66 Resp 18 27 16 B/P (MAP) 104/48 (66) 117/65 (82) 115/59 (77) Pulse Ox 99 99 99 O2 Delivery Room Air Room Air Room Air Room Air 03/10/17 03/10/17 03/10/17 03/10/17 14:00 14:02 14:02 15:00 Pulse 70 66 68 62 Resp 23 11 B/P (MAP) 129/61 (83) 129/61 129/61 112/68 (83) Pulse Ox 100 100 O2 Delivery Room Air Room Air 03/10/17 03/10/17 03/10/17 03/10/17 16:00 16:00 17:00 18:00 Pulse 60 62 61 Resp 12 12 12 B/P (MAP) 86/47 (60) 112/61 (78) 117/73 (88) Pulse Ox 100 100 100 O2 Delivery Room Air Room Air Room Air Room Air 03/10/17 03/10/17 03/10/17 03/10/17 19:00 20:00 20:00 21:00 Temp 98.0 98.0 Pulse 65 75 66 Resp 12 12 18 B/P (MAP) 110/68 (82) 122/59 (80) 130/68 (88) Pulse Ox 99 99 99 O2 Delivery Room Air Room Air Room Air Room Air 03/10/17 03/10/17 03/10/17 03/10/17 21:38 21:39 21:39 22:00 Pulse 75 75 75 67 Resp 18 B/P (MAP) 122/59 122/59 122/59 133/70 (91) Pulse Ox 99 O2 Delivery Room Air 03/10/17 03/11/17 03/11/17 03/11/17 23:00 00:00 00:00 01:00 Temp 98.2 98.2 Pulse 60 70 75 Resp 18 18 18 B/P (MAP) 110/70 (83) 112/56 (74) 137/56 (83) Pulse Ox 99 99 99 O2 Delivery Room Air Room Air Room Air Room Air 03/11/17 03/11/17 03/11/17 03/11/17 02:00 03:00 04:00 04:00 Pulse 71 72 72 Resp 18 14 14 B/P (MAP) 143/71 (95) 133/71 (91) 116/62 (80) Pulse Ox 99 99 99 O2 Delivery Room Air Room Air Room Air Room Air 03/11/17 03/11/17 03/11/17 03/11/17 05:00 06:00 07:00 08:16 Temp 98.4 98.4 Pulse 73 68 74 Resp 14 14 16 B/P (MAP) 135/60 (85) 147/57 (87) 106/53 (70) Pulse Ox 99 99 100 O2 Delivery Room Air Room Air Room Air Room Air 03/11/17 03/11/17 03/11/17 03/11/17 08:44 08:45 08:45 08:47 Pulse 75 72 73 74 B/P (MAP) 106/53 106/53 106/53 106/53 03/11/17 09:00 Pulse 70 Resp 20 B/P (MAP) 140/63 (88) Pulse Ox 99 O2 Delivery Room Air Intake and Output 03/10/17 03/10/17 03/11/17 15:00 23:00 07:00 Intake Total 988 ml 960 ml Output Total 510 ml 245 ml Balance 478 ml 715 ml GRAEME SERNA MD Mar 11, 2017 10:10
[2017-03-11] MEDS: ANTI-COAG MONITOR BY PHARMACY. MC PRN ×2 (12:38→12:43)
[2017-03-11 13:26] LABS: % SAT IRON 19 % (15-34); IRON,SERUM 25 ug/dL (50-170)
--- NOTE | 2017-03-11 15:27 | PDOC ---
PROGRESS NOTES Assessment Assessment IMPRESSION: Suspect acute punctuate infarcts in bilateral frontal lobes. Metabolic encephalopathy. Right new on old hemiplegia. Right side facial numbness. Renal failure. 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 HTN HLD Thromboses in atria? RECOMMENDATIONS/PLAN: Continue Plavix 75 mg daily. Continue Lipitor HS. Fasting lipid panel in a.m. Please consult Cardiology for possible thromboses in atria. Treat medical diseases. Past Medical History Cardiovascular: HTN, Hyperlipidemia Pulmonary: No pertinent hx GI: Constipation Heme/Onc: Anemia NOS Hepatobiliary: No pertinent hx Psych: No pertinent hx Rheumatologic: No pertinent hx Renal/: Chronic renal insuff Endocrine: Diabetes, Hypothyroidism Family History Family History: Cancer, Coronary Artery Disease, Diabetes, Kidney Disease, Osteo Arthiritis Social History No ALCOHOL: none Drugs: None ALLERGY: NKDA Unknown MEDICATIONS: Refer to MAR REVIEW OF SYSTEMS: Constitutional: No malnutrition, weight loss, cachexia. Head: No traumatic brain or head injury. Skin: No edema, or rash. Ear: No infection. Eyes: No vision loss, or diplopia. Nose: No bleeding or purulent discharges. Hearing: Hearing loss. Neck: No injury. Breast: No history of cancer, masses, or discharges. Cardiac: HTN, HLD Pulmonary: No CPOD. GI: No GI Ulcer, GI bleeding Urinary/genital: UTI. Endocrine: No cousin face, craniofacial dysmorphism, polydactyly. Skeletomuscular: No muscular atrophy, deformity. Neurological: see HP. Psychiatric: Denies drug use/abuse. Otherwise, not [id number] review of systems. PHYSICAL EXAMINATION: General appearance in subacute distress. HEENT: Normocephalic and nontraumatic. Eyes, nose, ears, and throat are unremarkable. Hearing decrease. Neck is supple. No lymphadenopathy. No bruits are heard over the carotid artery. No Crepitus. Cardiovascular: S1, S2, regular rate and rhythm. Pulmonary: Clear to auscultation bilaterally. Abdomen: Bowel sounds are positive. Abdomen is soft, nontender, and nondistended. NEUROLOGICAL EXAMINATION: Awake. Not oriented to time, place and person. PERRL. EOMI. CN: nOld right VII palsy. Muscle tone: increased in right side from old CVA. Muscle strength: 3 right UE, 5- left UE, 2 LE. DTR: 1-2 Plantar reflex: Neutral response bilaterally Gait: not examined in chair. Sensory exam: no abnormal findings. No acute cerebellar signs elicited. F-T-N test fine. Objective Objective Vital Signs Date Time Temp Pulse Resp B/P (MAP) Pulse Ox O2 Delivery O2 Flow Rate FiO2 03/11/17 15:04 59 16 131/54 (79) 100 Room Air 03/11/17 05:00 98.4 98.4 Intake and Output 03/11/17 07:00 Intake Total 1948 ml Output Total 755 ml Balance 1193 ml Intake Oral 800 ml IV Total 835 ml Other 313 ml Output Urine Total 755 ml Vitals Signs Vitals VS - Last 72 Hours, by Label Date Time Temp Pulse Resp B/P (MAP) Pulse Ox O2 Delivery O2 Flow Rate FiO2 03/11/17 15:04 59 16 131/54 (79) 100 Room Air 03/11/17 14:32 66 106/49 03/11/17 14:31 66 106/49 03/11/17 10:59 64 16 132/56 (81) 99 Room Air 03/11/17 09:00 70 20 140/63 (88) 99 Room Air 03/11/17 08:47 74 106/53 03/11/17 08:45 73 106/53 03/11/17 08:45 72 106/53 03/11/17 08:44 75 106/53 03/11/17 08:16 Room Air 03/11/17 07:00 74 16 106/53 (70) 100 Room Air 03/11/17 06:00 68 14 147/57 (87) 99 Room Air 03/11/17 05:00 98.4 73 14 135/60 (85) 99 Room Air 98.4 03/11/17 04:00 Room Air 03/11/17 04:00 72 14 116/62 (80) 99 Room Air 03/11/17 03:00 72 14 133/71 (91) 99 Room Air 03/11/17 02:00 71 18 143/71 (95) 99 Room Air 03/11/17 01:00 75 18 137/56 (83) 99 Room Air 03/11/17 00:00 Room Air 03/11/17 00:00 98.2 70 18 112/56 (74) 99 Room Air 98.2 03/10/17 23:00 60 18 110/70 (83) 99 Room Air 03/10/17 22:00 67 18 133/70 (91) 99 Room Air 03/10/17 21:39 75 122/59 03/10/17 21:39 75 122/59 03/10/17 21:38 75 122/59 03/10/17 21:00 66 18 130/68 (88) 99 Room Air 03/10/17 20:00 75 12 122/59 (80) 99 Room Air 03/10/17 20:00 Room Air 03/10/17 19:00 98.0 65 12 110/68 (82) 99 Room Air 98.0 03/10/17 18:00 61 12 117/73 (88) 100 Room Air 03/10/17 17:00 62 12 112/61 (78) 100 Room Air 03/10/17 16:00 60 12 86/47 (60) 100 Room Air 03/10/17 16:00 Room Air 03/10/17 15:00 62 11 112/68 (83) 100 Room Air 03/10/17 14:02 68 129/61 03/10/17 14:02 66 129/61 03/10/17 14:00 70 23 129/61 (83) 100 Room Air 03/10/17 12:45 66 16 115/59 (77) 99 Room Air 03/10/17 12:00 99.3 74 27 117/65 (82) 99 Room Air 99.3 03/10/17 12:00 Room Air 03/10/17 10:40 98.0 75 18 104/48 (66) 99 Room Air 98.0 03/10/17 09:01 84 132/70 03/10/17 09:00 84 132/70 03/10/17 09:00 84 132/70 03/10/17 08:59 84 132/70 03/10/17 07:50 98.8 84 18 132/70 (90) 96 Room Air 98.8 03/10/17 07:30 Room Air Laboratory Laboratory Laboratory Tests Test 03/10/17 16:25 03/10/17 18:24 03/11/17 05:10 03/11/17 12:20 Sodium Level 141 mmol/L (136-145) 141 mmol/L (136-145) Potassium Level 4.1 mmol/L (3.5-5.1) 4.2 mmol/L (3.5-5.1) Chloride Level 108 mmol/L (98-107) 107 mmol/L (98-107) Carbon Dioxide Level 24 mmol/L (21-32) 20 mmol/L (21-32) Anion Gap 9 (6-14) 14 (6-14) Blood Urea Nitrogen 73 mg/dL (7-20) 77 mg/dL (7-20) Creatinine 4.5 mg/dL (0.6-1.0) 4.5 mg/dL (0.6-1.0) Estimated GFR (Cockcroft-Gault) 11.6 11.6 Glucose Level 129 mg/dL (70-99) 133 mg/dL (70-99) Calcium Level 8.3 mg/dL (8.5-10.1) 8.3 mg/dL (8.5-10.1) Glucose (Fingerstick) 111 mg/dL (70-99) Heparin Anti-Xa Act, Unfractionated 0.30 IU/mL (0.30-0.70) 0.32 IU/mL (0.30-0.70) BUN/Creatinine Ratio 17 (6-20) Total Bilirubin 0.3 mg/dL (0.2-1.0) Aspartate Amino Transf (AST/SGOT) 14 U/L (15-37) Alanine Aminotransferase (ALT/SGPT) 11 U/L (14-59) Alkaline Phosphatase 65 U/L (46-116) Total Protein 6.6 g/dL (6.4-8.2) Albumin 2.5 g/dL (3.4-5.0) Albumin/Globulin Ratio 0.6 (1.0-1.7) Reticulocyte Count (auto) 1.6 % (0.5-2.5) Iron Level 25 ug/dL (50-170) Total Iron Binding Capacity 132 ug/dL (250-450) Iron Saturation 19 % (15-34) Ferritin 530 ng/mL (8-252) Medication Medications Current Medications Clopidogrel Bisulfate (Plavix) 75 mg DAILYWBKFT PO Last administered on t 08:47; Start 03/11/17 at 08:00 Heparin Sodium (Porcine) (Heparin Sodium) 1,750 unit PRN Q6HRS PRN IV FOR UFH LEVEL LESS THAN 0.2; Start 03/10/17 at 22:30 Heparin Sodium/ Dextrose 500 ml @ 0 mls/hr CONT PRN IV SEE I/O RECORD Last administered on 03/10/17 23:02; Start 03/10/17 at 22:30 Info (Anti-Coagulation Monitoring By Pharmacy) 1 each PRN DAILY PRN MC SEE COMMENTS Last administered on 03/11/17 12:43; Start 03/11/17 at 08:00 Magnesium Sulfate/ Dextrose 50 ml @ 25 mls/hr PRN DAILY PRN IV for Mag < 1.7 on am labs; Start 03/11/17 at 09:00 Comment Review of Relevant I have reviewed the following items reji (where applicable) has been applied. RUTH TORRES MD Mar 11, 2017 15:27
--- NOTE | 2017-03-11 15:46 | PDOC ---
PROGRESS NOTES Subjective Subjective The patient is more alert today. Objective Objective Vital Signs Date Time Temp Pulse Resp B/P (MAP) Pulse Ox O2 Delivery O2 Flow Rate FiO2 03/11/17 15:04 59 16 131/54 (79) 100 Room Air 03/11/17 05:00 98.4 98.4 Intake and Output 03/11/17 07:00 Intake Total 1948 ml Output Total 755 ml Balance 1193 ml Intake Oral 800 ml IV Total 835 ml Other 313 ml Output Urine Total 755 ml Physical Exam Abdomen: Normal bowel sounds Heart: Regular rate General: No acute distress Lungs: Clear to auscultation Assessment Assessment Problems Medical Problems: (1) Accelerated hypertension Status: Acute (2) Acute on chronic renal failure Status: Acute (3) Elevated troponin Status: Acute (4) Fall from standing Status: Acute (5) Syncope Status: Acute Malignant HTN: due to missed meds, significantly improved on present medications. New CVA with a history of a previous CVA as noted above. Echocardiogram suggests thrombus in her atria. We'll continue on anticoagulation at this time. History of CVA with right side hemiparesis CKD5; as per renal Elevated troponin: peaked at 0.09, likely type 2, due to above. No cardiac symptoms. DM2/HLP Comment Review of Relevant I have reviewed the following items reji (where applicable) has been applied. Labs Laboratory Tests Test 03/09/17 17:08 03/09/17 21:37 03/10/17 03:30 03/10/17 07:07 Glucose (Fingerstick) 142 mg/dL (70-99) 197 mg/dL (70-99) Sodium Level 141 mmol/L (136-145) Potassium Level 4.2 mmol/L (3.5-5.1) Chloride Level 108 mmol/L (98-107) Carbon Dioxide Level 22 mmol/L (21-32) Anion Gap 11 (6-14) Blood Urea Nitrogen 68 mg/dL (7-20) Creatinine 4.2 mg/dL (0.6-1.0) Estimated GFR (Cockcroft-Gault) 12.5 Glucose Level 131 mg/dL (70-99) Calcium Level 8.6 mg/dL (8.5-10.1) White Blood Count 9.1 x10^3/uL (4.0-11.0) Red Blood Count 2.81 x10^6/uL (3.50-5.40) Hemoglobin 7.9 g/dL (12.0-15.5) Hematocrit 23.3 % (36.0-47.0) Mean Corpuscular Volume 83 fL (79-100) Mean Corpuscular Hemoglobin 28 pg (25-35) Mean Corpuscular Hemoglobin Concent 34 g/dL (31-37) Red Cell Distribution Width 15.8 % (11.5-14.5) Platelet Count 244 x10^3/uL (140-400) Neutrophils (%) (Auto) 70 % (31-73) Lymphocytes (%) (Auto) 16 % (24-48) Monocytes (%) (Auto) 12 % (0-9) Eosinophils (%) (Auto) 1 % (0-3) Basophils (%) (Auto) 0 % (0-3) Neutrophils # (Auto) 6.4 x10^3uL (1.8-7.7) Lymphocytes # (Auto) 1.5 x10^3/uL (1.0-4.8) Monocytes # (Auto) 1.1 x10^3/uL (0.0-1.1) Eosinophils # (Auto) 0.1 x10^3/uL (0.0-0.7) Basophils # (Auto) 0.0 x10^3/uL (0.0-0.2) Test 03/10/17 08:00 03/10/17 10:41 03/10/17 10:55 03/10/17 11:35 Glucose (Fingerstick) 135 mg/dL (70-99) 138 mg/dL (70-99) White Blood Count 9.4 x10^3/uL (4.0-11.0) 9.4 x10^3/uL (4.0-11.0) Red Blood Count 2.69 x10^6/uL (3.50-5.40) 2.84 x10^6/uL (3.50-5.40) Hemoglobin 7.6 g/dL (12.0-15.5) 7.9 g/dL (12.0-15.5) Hematocrit 22.2 % (36.0-47.0) 23.6 % (36.0-47.0) Mean Corpuscular Volume 83 fL (79-100) 83 fL (79-100) Mean Corpuscular Hemoglobin 28 pg (25-35) 28 pg (25-35) Mean Corpuscular Hemoglobin Concent 34 g/dL (31-37) 33 g/dL (31-37) Red Cell Distribution Width 15.9 % (11.5-14.5) 16.0 % (11.5-14.5) Platelet Count 240 x10^3/uL (140-400) 230 x10^3/uL (140-400) Neutrophils (%) (Auto) 69 % (31-73) 66 % (31-73) Lymphocytes (%) (Auto) 17 % (24-48) 19 % (24-48) Monocytes (%) (Auto) 13 % (0-9) 14 % (0-9) Eosinophils (%) (Auto) 1 % (0-3) 1 % (0-3) Basophils (%) (Auto) 1 % (0-3) 0 % (0-3) Neutrophils # (Auto) 6.5 x10^3uL (1.8-7.7) 6.2 x10^3uL (1.8-7.7) Lymphocytes # (Auto) 1.6 x10^3/uL (1.0-4.8) 1.8 x10^3/uL (1.0-4.8) Monocytes # (Auto) 1.2 x10^3/uL (0.0-1.1) 1.3 x10^3/uL (0.0-1.1) Eosinophils # (Auto) 0.1 x10^3/uL (0.0-0.7) 0.1 x10^3/uL (0.0-0.7) Basophils # (Auto) 0.1 x10^3/uL (0.0-0.2) 0.0 x10^3/uL (0.0-0.2) Sodium Level 140 mmol/L (136-145) Potassium Level 4.0 mmol/L (3.5-5.1) Chloride Level 106 mmol/L (98-107) Carbon Dioxide Level 22 mmol/L (21-32) Anion Gap 12 (6-14) Blood Urea Nitrogen 74 mg/dL (7-20) Creatinine 4.6 mg/dL (0.6-1.0) Estimated GFR (Cockcroft-Gault) 11.3 Glucose Level 138 mg/dL (70-99) Lactic Acid Level 0.8 mmol/L (0.4-2.0) Calcium Level 8.2 mg/dL (8.5-10.1) Magnesium Level 2.1 mg/dL (1.8-2.4) Test 03/10/17 11:43 03/10/17 16:25 03/10/17 18:24 03/11/17 05:10 Glucose (Fingerstick) 126 mg/dL (70-99) 111 mg/dL (70-99) Sodium Level 141 mmol/L (136-145) 141 mmol/L (136-145) Potassium Level 4.1 mmol/L (3.5-5.1) 4.2 mmol/L (3.5-5.1) Chloride Level 108 mmol/L (98-107) 107 mmol/L (98-107) Carbon Dioxide Level 24 mmol/L (21-32) 20 mmol/L (21-32) Anion Gap 9 (6-14) 14 (6-14) Blood Urea Nitrogen 73 mg/dL (7-20) 77 mg/dL (7-20) Creatinine 4.5 mg/dL (0.6-1.0) 4.5 mg/dL (0.6-1.0) Estimated GFR (Cockcroft-Gault) 11.6 11.6 Glucose Level 129 mg/dL (70-99) 133 mg/dL (70-99) Calcium Level 8.3 mg/dL (8.5-10.1) 8.3 mg/dL (8.5-10.1) Heparin Anti-Xa Act, Unfractionated 0.30 IU/mL (0.30-0.70) BUN/Creatinine Ratio 17 (6-20) Total Bilirubin 0.3 mg/dL (0.2-1.0) Aspartate Amino Transf (AST/SGOT) 14 U/L (15-37) Alanine Aminotransferase (ALT/SGPT) 11 U/L (14-59) Alkaline Phosphatase 65 U/L (46-116) Total Protein 6.6 g/dL (6.4-8.2) Albumin 2.5 g/dL (3.4-5.0) Albumin/Globulin Ratio 0.6 (1.0-1.7) Test 03/11/17 12:20 Reticulocyte Count (auto) 1.6 % (0.5-2.5) Heparin Anti-Xa Act, Unfractionated 0.32 IU/mL (0.30-0.70) Iron Level 25 ug/dL (50-170) Total Iron Binding Capacity 132 ug/dL (250-450) Iron Saturation 19 % (15-34) Ferritin 530 ng/mL (8-252) Laboratory Tests Test 03/10/17 16:25 03/10/17 18:24 03/11/17 05:10 03/11/17 12:20 Sodium Level 141 mmol/L (136-145) 141 mmol/L (136-145) Potassium Level 4.1 mmol/L (3.5-5.1) 4.2 mmol/L (3.5-5.1) Chloride Level 108 mmol/L (98-107) 107 mmol/L (98-107) Carbon Dioxide Level 24 mmol/L (21-32) 20 mmol/L (21-32) Anion Gap 9 (6-14) 14 (6-14) Blood Urea Nitrogen 73 mg/dL (7-20) 77 mg/dL (7-20) Creatinine 4.5 mg/dL (0.6-1.0) 4.5 mg/dL (0.6-1.0) Estimated GFR (Cockcroft-Gault) 11.6 11.6 Glucose Level 129 mg/dL (70-99) 133 mg/dL (70-99) Calcium Level 8.3 mg/dL (8.5-10.1) 8.3 mg/dL (8.5-10.1) Glucose (Fingerstick) 111 mg/dL (70-99) Heparin Anti-Xa Act, Unfractionated 0.30 IU/mL (0.30-0.70) 0.32 IU/mL (0.30-0.70) BUN/Creatinine Ratio 17 (6-20) Total Bilirubin 0.3 mg/dL (0.2-1.0) Aspartate Amino Transf (AST/SGOT) 14 U/L (15-37) Alanine Aminotransferase (ALT/SGPT) 11 U/L (14-59) Alkaline Phosphatase 65 U/L (46-116) Total Protein 6.6 g/dL (6.4-8.2) Albumin 2.5 g/dL (3.4-5.0) Albumin/Globulin Ratio 0.6 (1.0-1.7) Reticulocyte Count (auto) 1.6 % (0.5-2.5) Iron Level 25 ug/dL (50-170) Total Iron Binding Capacity 132 ug/dL (250-450) Iron Saturation 19 % (15-34) Ferritin 530 ng/mL (8-252) Microbiology 03/10/17 Urine Culture - Preliminary, Resulted 03/10/17 Urine Culture Result 1 (STANLEY) - Preliminary, Resulted Medications Current Medications Clonidine HCl (Catapres) 0.2 mg 1X ONCE PO Last administered on 03/08/17 15: 23; Start 03/08/17 at 15:00; Stop 03/08/17 at 15:01; Status DC Ondansetron HCl (Zofran) 4 mg PRN Q8HRS PRN IV NAUSEA/VOMITING; Start at 17:00; Stop 03/09/17 at 16:59; Status DC Morphine Sulfate 2 mg PRN Q2HR PRN IV PAIN; Start 03/08/17 at 17:00; Stop at 16:59; Status DC Acetaminophen (Tylenol) 650 mg PRN Q4HRS PRN PO FEVER; Start 03/08/17 at 17:00 ; Stop 03/09/17 at 16:59; Status DC Insulin Aspart (NovoLOG) 0-7 UNITS TIDWMEALS SQ ; Start 03/08/17 at 17:00; Stop 03/09/17 at 12:29; Status DC Dextrose (Dextrose 50%-Water Syringe) 12.5 gm PRN Q15MIN PRN IV SEE COMMENTS; Start 03/08/17 at 17:00; Status Cancel Sodium Chloride 1,000 ml @ 75 mls/hr 1X ONCE IV ; Start 03/08/17 at 17:00; Stop 03/09/17 at 06:19; Status Cancel Labetalol HCl (Normodyne) 10 mg Q6HRS PRN IVP HYPERTENSION, SEE COMMENTS Last administered on 03/08/17 17:10; Start 03/08/17 at 17:00; Stop 03/09/17 at 12 :31; Status DC Hydralazine HCl (Apresoline Inj) 10 mg Q6HRS PRN IVP ELEVATED BP, SEE COMMENTS Last administered on 03/08/17 21:13; Start 03/08/17 at 21:00 Hydralazine HCl (Apresoline) 100 mg TID PO Last administered on 03/11/17 14: 31; Start 03/08/17 at 21:00 Labetalol HCl (Trandate) 200 mg BID PO Last administered on 03/11/17 08:45; Start 03/08/17 at 21:00 Atorvastatin Calcium (Lipitor) 10 mg QHS PO Last administered on 03/10/17 21: 38; Start 03/09/17 at 21:00 Aspirin (Ecotrin) 81 mg DAILYWBKFT PO ; Start 03/10/17 at 08:00; Stop at 08:00; Status DC Labetalol HCl (Normodyne) 20 mg PRN Q2HR PRN IVP HYPERTENSION, SEE COMMENTS; Start 03/09/17 at 11:45 Aspirin (Ecotrin) 81 mg DAILYWBKFT PO ; Start 03/09/17 at 12:30; Stop at 12:30; Status DC Aspirin (Radha Aspirin) 325 mg DAILYWBKFT PO Last administered on 03/11/17 08 :44; Start 03/09/17 at 13:00 Clonidine HCl (Catapres) 0.2 mg TID PO Last administered on 03/11/17 14:32; Start 03/09/17 at 14:00 Insulin Aspart (NovoLOG) 5 units TIDAC SQ ; Start 03/09/17 at 16:30; Stop at 16:30; Status DC Linagliptin (Tradjenta) 5 mg DAILY PO Last administered on 03/11/17 08:45; Start 03/09/17 at 13:00 Insulin Detemir (Levemir) 10 units QHS SQ Last administered on 03/09/17 21:43 ; Start 03/09/17 at 21:00; Stop 03/10/17 at 12:34; Status DC Losartan Potassium (Cozaar) 100 mg DAILY PO Last administered on 03/11/17 08: 47; Start 03/09/17 at 13:00 Insulin Aspart (NovoLOG) 0-5 UNITS TIDWMEALS SQ ; Start 03/09/17 at 17:00; Stop 03/09/17 at 17:00; Status DC Dextrose (Dextrose 50%-Water Syringe) 12.5 gm PRN Q15MIN PRN IV SEE COMMENTS; Start 03/09/17 at 12:30 Enoxaparin Sodium (Lovenox 30mg Syringe) 30 mg Q24H SQ Last administered on 12:46; Start 03/09/17 at 13:00; Stop 03/10/17 at 22:33; Status DC Sodium Chloride 1,000 ml @ 75 mls/hr [id number] IV Last administered on 13:40; Start 03/10/17 at 11:00 Sodium Chloride 1,000 ml @ 75 mls/hr [id number] IV ; Start 03/10/17 at 12:00; Stop 03/10/17 at 12:00; Status DC Clopidogrel Bisulfate (Plavix) 75 mg DAILYWBKFT PO Last administered on 08:47; Start 03/11/17 at 08:00 Clopidogrel Bisulfate (Plavix) 75 mg 1X ONCE PO Last administered on 12:42; Start 03/10/17 at 12:30; Stop 03/10/17 at 12:31; Status DC Heparin Sodium/ Dextrose 500 ml @ 0 mls/hr CONT PRN IV SEE I/O RECORD Last administered on 03/10/17 23:02; Start 03/10/17 at 22:30 Heparin Sodium (Porcine) (Heparin Sodium) 1,750 unit PRN Q6HRS PRN IV FOR UFH LEVEL LESS THAN 0.2; Start 03/10/17 at 22:30 Info (Anti-Coagulation Monitoring By Pharmacy) 1 each PRN DAILY PRN MC SEE COMMENTS Last administered on 03/11/17 12:43; Start 03/11/17 at 08:00 Magnesium Sulfate/ Dextrose 50 ml @ 25 mls/hr PRN DAILY PRN IV for Mag < 1.7 on am labs; Start 03/11/17 at 09:00 Active Scripts Active Hydralazine Hcl 50 Mg Tablet 100 Mg PO TID 30 Days Aspirin 325 Mg Tablet 325 Mg PO DAILYWBKFT 30 Days Reported Novolog Flexpen (Insulin Aspart) 100 Unit/1 Ml Insuln.pen 5 Unit SQ TIDAC Tradjenta (Linagliptin) 5 Mg Tablet 1 Tab PO DAILY Clonidine Hcl 0.2 Mg Tablet 1 Tab PO TID Levemir (Insulin Detemir) 100 Unit/1 Ml Vial 10 Unit SQ HS Labetalol Hcl 200 Mg Tablet 1 Tab PO BID Losartan-Hctz 100-12.5 Mg Tab (Losartan/Hydrochlorothiazide) 1 Each Tablet PO DAILY Pravastatin Sodium 40 Mg Tablet 1 HS Vitals/I & O Vital Sign - Last 24 Hours 03/10/17 03/10/17 03/10/17 03/10/17 16:00 16:00 17:00 18:00 Pulse 60 62 61 Resp 12 12 12 B/P (MAP) 86/47 (60) 112/61 (78) 117/73 (88) Pulse Ox 100 100 100 O2 Delivery Room Air Room Air Room Air Room Air 03/10/17 03/10/17 03/10/17 03/10/17 19:00 20:00 20:00 21:00 Temp 98.0 98.0 Pulse 65 75 66 Resp 12 12 18 B/P (MAP) 110/68 (82) 122/59 (80) 130/68 (88) Pulse Ox 99 99 99 O2 Delivery Room Air Room Air Room Air Room Air 03/10/17 03/10/17 03/10/17 03/10/17 21:38 21:39 21:39 22:00 Pulse 75 75 75 67 Resp 18 B/P (MAP) 122/59 122/59 122/59 133/70 (91) Pulse Ox 99 O2 Delivery Room Air 03/10/17 03/11/17 03/11/17 03/11/17 23:00 00:00 00:00 01:00 Temp 98.2 98.2 Pulse 60 70 75 Resp 18 18 18 B/P (MAP) 110/70 (83) 112/56 (74) 137/56 (83) Pulse Ox 99 99 99 O2 Delivery Room Air Room Air Room Air Room Air 03/11/17 03/11/17 03/11/17 03/11/17 02:00 03:00 04:00 04:00 Pulse 71 72 72 Resp 18 14 14 B/P (MAP) 143/71 (95) 133/71 (91) 116/62 (80) Pulse Ox 99 99 99 O2 Delivery Room Air Room Air Room Air Room Air 03/11/17 03/11/17 03/11/17 03/11/17 05:00 06:00 07:00 08:16 Temp 98.4 98.4 Pulse 73 68 74 Resp 14 14 16 B/P (MAP) 135/60 (85) 147/57 (87) 106/53 (70) Pulse Ox 99 99 100 O2 Delivery Room Air Room Air Room Air Room Air 03/11/17 03/11/17 03/11/17 03/11/17 08:44 08:45 08:45 08:47 Pulse 75 72 73 74 B/P (MAP) 106/53 106/53 106/53 106/53 03/11/17 03/11/17 03/11/17 03/11/17 09:00 10:59 14:31 14:32 Pulse 70 64 66 66 Resp 20 16 B/P (MAP) 140/63 (88) 132/56 (81) 106/49 106/49 Pulse Ox 99 99 O2 Delivery Room Air Room Air 03/11/17 15:04 Pulse 59 Resp 16 B/P (MAP) 131/54 (79) Pulse Ox 100 O2 Delivery Room Air Intake and Output 03/10/17 03/10/17 03/11/17 15:00 23:00 07:00 Intake Total 988 ml 960 ml Output Total 510 ml 245 ml Balance 478 ml 715 ml CHARO AL MD Mar 11, 2017 15:46
[2017-03-11 19:14] LABS: UR PROTEIN RD 186.3 mg/dL (Not Estab.)
[2017-03-11] MEDS: ATORVASTATIN CALCIUM 10 MG TABLET. PO SCH (20:34)
--- NOTE | 2017-03-12 01:18 | CONS ---
DATE OF CONSULTATION: 03/11/2017 REASON FOR CONSULTATION: I saw her at the request of Dr. Bazan for rehab evaluation. LOCATION: She is in room 116 at ICU. HISTORY OF PRESENT ILLNESS: This is a 76-year-old female admitted after a fall at home. She thinks she might have fainted. She had x-rays negative for fracture. Her troponin was slightly elevated. She was admitted. She apparently had a stress test done about 3 months ago and echocardiogram negative for ischemia. The patient with known type 1 insulin-dependent diabetes mellitus, old cerebrovascular accident with residual right hemiparesis, hypertension, renal failure, status post tonsillectomy, fistula for stage 5 renal failure. FAMILY HISTORY: Hypertension, coronary artery disease, kidney problems. She lives at home with her daughter. The patient thinks her daughter is not taking care of her properly. The patient had recurrence of right knee pain. ALLERGIES: She is known allergic to IODINE. Since admission, the patient is being treated for hypertension, acute on chronic renal failure and syncopal episode, metabolic encephalopathy. She had radiological studies: CT scan of the brain done today revealed no acute changes, white matter changes, likely secondary to chronic microvascular ischemic disease, this was done today. MRI scan of the brain done on 03/10/2017 revealed suspect acute punctate infarct involving left inferior frontal gyrus, right middle frontal gyrus and isthmus of the corpus callosum, findings are suspicious for embolic phenomenon, moderate chronic small vessel ischemic changes are identified in the periventricular and subcortical white matter, remote lacunar infarcts are identified in the right cerebellum and left basal ganglia. Carotid Doppler studies revealed mild bilateral carotid bulb plaque without any visible or spectral analysis evidence of hemodynamically significant stenosis. X-ray of her right knee revealed demineralization, severe degenerative changes. Chest x-ray failed to reveal any acute abnormalities. The patient is being followed by physical therapy and occupational therapy. As per the therapy note, she had about 4 steps to manage to enter the house. She has been independent with her mobility at roller walker level and sometimes uses a cane and sometimes uses manual wheelchair. She prefers to use a cane. She was apparently at residential care unit after discharge from the hospital in November of this year, has been home for several weeks. 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 She had falls and her granddaughter stated that it is a big one, I made her go to the hospital. She had accident with bowel and bladder control. She was left at home during the daytime. She warms up her meals in the microwave. She showers herself while seated in the shower chair. Physical therapy noted her with decreased motor planning, decreased gross motor coordination, poor activity tolerance. She is having some difficulty to follow commands for manual muscle testing. She was sitting at the edge of the bed, leaning to the left side and would prop herself up on her elbow. She was unable to self correct independently from leaning to the left side. She denied any pain, although grimaces with supine to sit. She requires maximal assistance rolling to the right side and maximal assistance supine to sit 2-person assistance and maximal assistance for transfers, squat pivot. She tolerated minimal weightbearing during transfer and total assisted to complete pivot, maintained flex lower extremity posture throughout. Therapist recommended nursing to use mechanical lift to return to bed. PHYSICAL EXAMINATION: Today revealed an elderly female. She thinks she is in the apartment. The patient is awake, follows commands. She had significant stiffness and weakness of right shoulder muscles. She had a crepitus on range of motion of her knee joints without any obvious knee joint effusion or pain on range of motion. She had brisk knee jerks, decreased ankle jerks. I have not tested her mobility skills at this time. She seemed to have equal perception of touch and pinprick sensation bilaterally. ASSESSMENT: An elderly female with old cerebrovascular accident with residual right hemiparesis, most of the weakness being in the right shoulder with associated frozen shoulder, also, degenerative joint disease of her knees with recent falls. She also presents with diabetes mellitus with peripheral neuropathy, hypertension, hyperlipidemia, chronic renal insufficiency, hypothyroidism. RECOMMENDATIONS: She is not safe to be by herself. If the family could not provide the help she needs, she needs to be in a m[facility] right now. When medically stable, she needs to be transferred to residential care unit. Dr. Bazan, I appreciate asking me to participate in the care of this interesting patient. I will be glad to follow her with you as needed for her rehabilitation. EVELYN SALAS MD DR: BEAU/tereso JOB#: [id number] / [id number]
[2017-03-12] MEDS: IV NORMAL SALINE 1000ML BAG 1,000 ML IV SCH ×2 (02:24→15:36)
[2017-03-12 04:00] VITALS: BP 162/73
[2017-03-12 05:26] LABS: ALBUMIN 2.2 g/dL (3.4-5.0); CALCIUM 7.6 mg/dL (8.5-10.1); CREATININE 4.4 mg/dL (0.6-1.0); GFR 11.9; MAGNESIUM 2.2 mg/dL (1.8-2.4); PHOSPHORUS 5.9 mg/dL (2.6-4.7); POTASSIUM 4.2 mmol/L (3.5-5.1)
[2017-03-12 05:27] LABS: CHOLESTEROL/HDL RATIO 4.4
[2017-03-12] MEDS: HEPARIN 25,000UTS/500ML PREMIX 500 ML IV PRN (06:41)
[2017-03-12 08:15] VITALS: BP 155/62
[2017-03-12] MEDS: LABETALOL HCL 200 MG TABLET PO SCH ×2 (08:39→21:29)
[2017-03-12] MEDS: CLOPIDOGREL BISULFATE 75 MG TABLET PO SCH (08:39)
[2017-03-12] MEDS: LINAGLIPTIN 5 MG TABLET PO SCH (08:40)
[2017-03-12] MEDS: cloNIDine HCL 0.2 MG TABLET PO SCH ×3 (08:40→21:29)
[2017-03-12] MEDS: LOSARTAN POTASSIUM 50 MG TABLET. PO SCH (08:40)
[2017-03-12] MEDS: ASPIRIN 325 MG TABLET PO SCH (08:40)
--- NOTE | 2017-03-12 08:55 | PDOC ---
SUBJECTIVE ROS CKD V Doing OK overall, no new complaitns CVS: no Orthopnea, no CP RESP: no SOB, no MCCULLOUGH GI: no Nausea, no Vomiting : no Dysuria, no Urgency OBJECTIVE Vital Signs Vital Signs Date Time Temp Pulse Resp B/P (MAP) Pulse Ox O2 Delivery O2 Flow Rate FiO2 03/12/17 08:40 71 155/62 03/12/17 08:15 97.6 14 100 Room Air 97.6 I & 0 Intake and Output 03/12/17 07:00 Intake Total 1293 ml Output Total 655 ml Balance 638 ml Intake Oral 250 ml IV Total 1043 ml Output Urine Total 655 ml PHYSICAL EXAM Physical Exam GEN: Awake, Oriented x 2, In no distress EYES: Vision Unchanged, Conjunctiva Normal EN: No EN Drainage, Mucous Membranes moist NECK: no JVD, no JVP, Supple, no Thyromegaly CVS: S1S2, soft Murmur, No Gallop, No Rub,no Edema RESP: no Rales, no Rhonchi,no Acc. Muscle Use GI: BS + ve, NO Bruit, Non Tender, Non Distended : no CVA tenderness, no Suprapubic Tenderness Left forearm AVF - appears too small to use right away DIAGNOSIS/ASSESSMENT Assessment & Plan: CKD V: No uremic s/s. current fluid and E-lyte status does not necessitate emergent need for dialysis. Pt not ready for same either. Will re-evaluate for dialysis in the am Met ACidosis - PO Bicarb for now ^ed Phos - start Phoslo Proteinuria - 2 gms by Ratio. despite being on ARB Hypoalbuminemia - suspect due to Poor PO intake since U Pr/Cr ratio is NON- nephrotic range ANEMIA; recheck Iron is low so IV Fe as ordered; start Aranesp once on anti- coag for 4 weeks HTN: Current BPs are adequatel y controlled on present meds as reviewed. Discussed Plan of Care with pt at bedside COMMENT/RELEVANT DATA Meds Current Medications Medications (Trade) Dose Ordered Sig/Nicolas Start Time Stop Time Status Last Admin Dose Admin Acetaminophen (Tylenol) 650 mg PRN Q4HRS PRN 03/08/17 17:00 03/09/17 16:59 DC Aspirin (Radha Aspirin) 325 mg DAILYWBKFT 03/09/17 13:00 03/12/17 08:40 325 MG Aspirin (Ecotrin) 81 mg DAILYWBKFT 03/09/17 12:30 03/09/17 12:30 DC Atorvastatin Calcium (Lipitor) 10 mg QHS 03/09/17 21:00 03/11/17 20:34 10 MG Clonidine HCl (Catapres) 0.2 mg TID 03/09/17 14:00 03/12/17 08:40 0.2 MG Clopidogrel Bisulfate (Plavix) 75 mg 1X ONCE 03/10/17 12:30 03/10/17 12:31 DC 03/10/17 12:42 75 MG Dextrose (Dextrose 50%-Water Syringe) 12.5 gm PRN Q15MIN PRN 03/09/17 12:30 Enoxaparin Sodium (Lovenox 30mg Syringe) 30 mg Q24H 03/09/17 13:00 03/10/17 22:33 DC 03/10/17 12:46 30 MG Heparin Sodium (Porcine) (Heparin Sodium) 1,750 unit PRN Q6HRS PRN 03/10/17 22:30 Heparin Sodium/ Dextrose 500 ml @ 0 mls/hr CONT PRN 03/10/17 22:30 03/12/17 06:41 0 MLS/HR Hydralazine HCl (Apresoline Inj) 10 mg Q6HRS PRN 03/08/17 21:00 03/08/17 21:13 10 MG Hydralazine HCl (Apresoline) 100 mg TID 03/08/17 21:00 03/12/17 08:39 100 MG Info (Anti-Coagulation Monitoring By Pharmacy) 1 each PRN DAILY PRN 03/11/17 08:00 03/11/17 12:43 1 EACH Insulin Aspart (NovoLOG) 0-5 UNITS TIDWMEALS 03/09/17 17:00 03/09/17 17:00 DC Insulin Detemir (Levemir) 10 units QHS 03/09/17 21:00 03/10/17 12:34 DC 03/09/17 21:43 10 UNITS Labetalol HCl (Normodyne) 20 mg PRN Q2HR PRN 03/09/17 11:45 Labetalol HCl (Trandate) 200 mg BID 03/08/17 21:00 03/12/17 08:39 200 MG Linagliptin (Tradjenta) 5 mg DAILY 03/09/17 13:00 03/12/17 08:40 5 MG Losartan Potassium (Cozaar) 100 mg DAILY 03/09/17 13:00 03/12/17 08:40 100 MG Magnesium Sulfate/ Dextrose 50 ml @ 25 mls/hr PRN DAILY PRN 03/11/17 09:00 Morphine Sulfate 2 mg PRN Q2HR PRN 03/08/17 17:00 03/09/17 16:59 DC Ondansetron HCl (Zofran) 4 mg PRN Q8HRS PRN 03/08/17 17:00 03/09/17 16:59 DC Sodium Chloride 1,000 ml @ 75 mls/hr [id number] 03/10/17 12:00 03/10/17 12:00 DC Lab Laboratory Tests Test 03/11/17 09:45 03/11/17 12:20 03/12/17 00:11 03/12/17 04:55 Urine Protein 186.3 mg/dL (Not Estab.) Urine Creatinine 90.6 mg/dL (Not Estab.) Urine Protein/Creatinine Ratio 2056 mg/g creat (0-200) Reticulocyte Count (auto) 1.6 % (0.5-2.5) Heparin Anti-Xa Act, Unfractionated 0.32 IU/mL (0.30-0.70) 0.33 IU/mL (0.30-0.70) Iron Level 25 ug/dL (50-170) Total Iron Binding Capacity 132 ug/dL (250-450) Iron Saturation 19 % (15-34) Ferritin 530 ng/mL (8-252) Glucose (Fingerstick) 131 mg/dL (70-99) Hemoglobin 7.9 g/dL (12.0-15.5) Sodium Level 140 mmol/L (136-145) Potassium Level 4.2 mmol/L (3.5-5.1) Chloride Level 107 mmol/L (98-107) Carbon Dioxide Level 19 mmol/L (21-32) Anion Gap 14 (6-14) Blood Urea Nitrogen 73 mg/dL (7-20) Creatinine 4.4 mg/dL (0.6-1.0) Estimated GFR (Cockcroft-Gault) 11.9 Glucose Level 154 mg/dL (70-99) Calcium Level 7.6 mg/dL (8.5-10.1) Phosphorus Level 5.9 mg/dL (2.6-4.7) Magnesium Level 2.2 mg/dL (1.8-2.4) Albumin 2.2 g/dL (3.4-5.0) Triglycerides Level 117 mg/dL (0-150) Cholesterol Level 166 mg/dL (0-200) LDL Cholesterol, Calculated 105 mg/dL (0-100) VLDL Cholesterol, Calculated 23 mg/dL (0-40) Non-HDL Cholesterol Calculated 128 mg/dL (0-129) HDL Cholesterol 38 mg/dL (40-60) Cholesterol/HDL Ratio 4.4 SHARMILA CONTRERAS MD Mar 12, 2017 08:55
[2017-03-12] MEDS: IRON SUCROSE COMPLEX IV SCH (10:11)
[2017-03-12] MEDS: CEFPODOXIME PROXETIL 100 MG TABLET. PO SCH ×2 (10:11→21:29)
[2017-03-12] MEDS: TOTAL VOLUME IV SCH (10:11)
--- NOTE | 2017-03-12 11:05 | PDOC ---
CARDIO Progress Notes Date and Time Date of Service 03/12/2017 Time of Evaluation 1045 Subjective Subjective: No Chest Pain, No shortness of breath, No Palpitations Vitals Vitals Vital Signs Date Time Temp Pulse Resp B/P (MAP) Pulse Ox O2 Delivery O2 Flow Rate FiO2 03/12/17 08:40 71 155/62 03/12/17 08:15 97.6 14 100 Room Air 97.6 Weight Weight [ ] Input and Output Intake and Output Intake and Output 03/12/17 07:00 Intake Total 1293 ml Output Total 655 ml Balance 638 ml Intake Oral 250 ml IV Total 1043 ml Output Urine Total 655 ml Laboratory Labs Laboratory Tests Test 03/11/17 12:20 03/12/17 00:11 03/12/17 04:55 Reticulocyte Count (auto) 1.6 % (0.5-2.5) Heparin Anti-Xa Act, Unfractionated 0.32 IU/mL (0.30-0.70) 0.33 IU/mL (0.30-0.70) Iron Level 25 ug/dL (50-170) Total Iron Binding Capacity 132 ug/dL (250-450) Iron Saturation 19 % (15-34) Ferritin 530 ng/mL (8-252) Glucose (Fingerstick) 131 mg/dL (70-99) Hemoglobin 7.9 g/dL (12.0-15.5) Sodium Level 140 mmol/L (136-145) Potassium Level 4.2 mmol/L (3.5-5.1) Chloride Level 107 mmol/L (98-107) Carbon Dioxide Level 19 mmol/L (21-32) Anion Gap 14 (6-14) Blood Urea Nitrogen 73 mg/dL (7-20) Creatinine 4.4 mg/dL (0.6-1.0) Estimated GFR (Cockcroft-Gault) 11.9 Glucose Level 154 mg/dL (70-99) Calcium Level 7.6 mg/dL (8.5-10.1) Phosphorus Level 5.9 mg/dL (2.6-4.7) Magnesium Level 2.2 mg/dL (1.8-2.4) Albumin 2.2 g/dL (3.4-5.0) Triglycerides Level 117 mg/dL (0-150) Cholesterol Level 166 mg/dL (0-200) LDL Cholesterol, Calculated 105 mg/dL (0-100) VLDL Cholesterol, Calculated 23 mg/dL (0-40) Non-HDL Cholesterol Calculated 128 mg/dL (0-129) HDL Cholesterol 38 mg/dL (40-60) Cholesterol/HDL Ratio 4.4 Microbiology Micro Microbiology 03/10/17 Urine Culture - Preliminary, Resulted 03/10/17 Urine Culture Result 1 (STANLEY) - Preliminary, Resulted Physical Exam HEENT: Neck Supple W Full Motion Chest: Symmetric LUNGS: Clear to Auscultation Heart: S1S2, RRR (SR) Abdomen: Soft N/T Extremities: No Calf Tenderness Neurology: alert, oriented, follow commands Assessment Assessment 1. Malignant HTN: Better 2. New CVA: hx of prior CVA with right side hemiparesis. Neurology 3. Probable biatrial thrombus: noted via TTE 4. CKD5; as per renal 5. Elevated troponin: peaked at 0.09, likely type 2, due to above. No cardiac symptoms. 6. DM2/HLP 7. Anemia of chronic disease: stable at 7.9 Recommendations 1. MERISSA tomorrow. Risks and benefits discussed and agreeable to proceed. Continue heparin for now. 2. Continue with current regimen 3. If BP becomes labile then may add imdur. MICHAEL SRIVASTAVA APRN Mar 12, 2017 11:05
[2017-03-12] MEDS: CALCIUM ACETATE 667 MG CAPSULE PO SCH ×2 (12:16→17:21)
[2017-03-12] MEDS: ISOSORBIDE MONONITRATE ER 30 MG TAB.ER.24H PO SCH (12:17)
--- NOTE | 2017-03-12 13:00 | PDOC ---
PROGRESS NOTES Assessment Assessment Suspect acute punctuate infarcts in bilateral frontal lobes. Metabolic encephalopathy. Right new on old hemiplegia. Right side facial numbness. Renal failure. 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 HTN HLD Thromboses in atria? RECOMMENDATIONS/PLAN: Continue Plavix 75 mg daily. Increase Lipitor from 10 mg to 20 mg HS. Consulted Cardiology for possible thromboses in atria. Treat medical diseases. Past Medical History Cardiovascular: HTN, Hyperlipidemia Pulmonary: No pertinent hx GI: Constipation Heme/Onc: Anemia NOS Hepatobiliary: No pertinent hx Psych: No pertinent hx Rheumatologic: No pertinent hx Renal/: Chronic renal insuff Endocrine: Diabetes, Hypothyroidism Family History Family History: Cancer, Coronary Artery Disease, Diabetes, Kidney Disease, Osteo Arthiritis Social History No ALCOHOL: none Drugs: None ALLERGY: NKDA Unknown MEDICATIONS: Refer to MAR REVIEW OF SYSTEMS: Constitutional: No malnutrition, weight loss, cachexia. Head: No traumatic brain or head injury. Skin: No edema, or rash. Ear: No infection. Eyes: No vision loss, or diplopia. Nose: No bleeding or purulent discharges. Hearing: Hearing loss. Neck: No injury. Breast: No history of cancer, masses, or discharges. Cardiac: HTN, HLD Pulmonary: No CPOD. GI: No GI Ulcer, GI bleeding Urinary/genital: UTI. Endocrine: No cousin face, craniofacial dysmorphism, polydactyly. Skeletomuscular: No muscular atrophy, deformity. Neurological: see HP. Psychiatric: Denies drug use/abuse. Otherwise, not [id number] review of systems. PHYSICAL EXAMINATION: General appearance in subacute distress. HEENT: Normocephalic and nontraumatic. Eyes, nose, ears, and throat are unremarkable. Hearing decrease. Neck is supple. No lymphadenopathy. No bruits are heard over the carotid artery. No Crepitus. Cardiovascular: S1, S2, regular rate and rhythm. Pulmonary: Clear to auscultation bilaterally. Abdomen: Bowel sounds are positive. Abdomen is soft, nontender, and nondistended. NEUROLOGICAL EXAMINATION: Drowsiness. Not oriented to time, but knows place and person. PERRL. EOMI. 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 Muscle tone: increased in right side from old CVA. Muscle strength: 3+ right UE, 5- left UE, 2-3 LE. DTR: 1-2 Plantar reflex: Neutral response bilaterally Gait: not examined in chair. Sensory exam: no abnormal findings. No acute cerebellar signs elicited. F-T-N test fine left side. Objective Objective Vital Signs Date Time Temp Pulse Resp B/P (MAP) Pulse Ox O2 Delivery O2 Flow Rate FiO2 03/12/17 12:17 72 154/70 03/12/17 08:15 97.6 14 100 Room Air 97.6 Intake and Output 03/12/17 06:59 Intake Total 1293 ml Output Total 680 ml Balance 613 ml Intake Oral 250 ml IV Total 1043 ml Output Urine Total 680 ml Vitals Signs Vitals VS - Last 72 Hours, by Label Date Time Temp Pulse Resp B/P (MAP) Pulse Ox O2 Delivery O2 Flow Rate FiO2 03/12/17 12:17 72 154/70 03/12/17 08:40 71 155/62 03/12/17 08:40 71 155/62 03/12/17 08:39 69 155/62 03/12/17 08:39 71 155/62 03/12/17 08:15 97.6 71 14 155/62 (93) 100 Room Air 97.6 03/12/17 07:49 Room Air 03/12/17 04:00 97.7 65 11 162/73 (102) 100 Room Air 97.7 03/11/17 23:59 97.3 71 14 157/66 (96) 100 Room Air 97.3 03/11/17 20:34 72 147/64 03/11/17 20:34 72 147/64 03/11/17 20:33 72 147/64 03/11/17 20:00 97.2 64 9 147/64 (91) 100 Room Air 97.2 03/11/17 20:00 Room Air 03/11/17 15:04 59 16 131/54 (79) 100 Room Air 03/11/17 14:32 66 106/49 03/11/17 14:31 66 106/49 03/11/17 10:59 64 16 132/56 (81) 99 Room Air 03/11/17 09:00 70 20 140/63 (88) 99 Room Air 03/11/17 08:47 74 106/53 03/11/17 08:45 73 106/53 03/11/17 08:45 72 106/53 03/11/17 08:44 75 106/53 03/11/17 08:16 Room Air 03/11/17 07:00 74 16 106/53 (70) 100 Room Air Laboratory Laboratory Laboratory Tests Test 03/12/17 00:11 03/12/17 04:55 Glucose (Fingerstick) 131 mg/dL (70-99) Hemoglobin 7.9 g/dL (12.0-15.5) Heparin Anti-Xa Act, Unfractionated 0.33 IU/mL (0.30-0.70) Sodium Level 140 mmol/L (136-145) Potassium Level 4.2 mmol/L (3.5-5.1) Chloride Level 107 mmol/L (98-107) Carbon Dioxide Level 19 mmol/L (21-32) Anion Gap 14 (6-14) Blood Urea Nitrogen 73 mg/dL (7-20) Creatinine 4.4 mg/dL (0.6-1.0) Estimated GFR (Cockcroft-Gault) 11.9 Glucose Level 154 mg/dL (70-99) Calcium Level 7.6 mg/dL (8.5-10.1) Phosphorus Level 5.9 mg/dL (2.6-4.7) Magnesium Level 2.2 mg/dL (1.8-2.4) Albumin 2.2 g/dL (3.4-5.0) Triglycerides Level 117 mg/dL (0-150) Cholesterol Level 166 mg/dL (0-200) LDL Cholesterol, Calculated 105 mg/dL (0-100) VLDL Cholesterol, Calculated 23 mg/dL (0-40) Non-HDL Cholesterol Calculated 128 mg/dL (0-129) HDL Cholesterol 38 mg/dL (40-60) Cholesterol/HDL Ratio 4.4 Microbiology 03/10/17 Urine Culture - Final, Complete 03/10/17 Urine Culture Result 1 (STANLEY) - Final, Complete Medication Medications Current Medications Calcium Acetate (Phoslo) 1,334 mg TIDWMEALS PO Last administered on 03/12/17 12:16; Start 03/12/17 at 12:00 Cefpodoxime Proxetil (Vantin) 100 mg BID PO Last administered on 03/12/17 10: 11; Start 03/12/17 at 10:00 Iron Sucrose 100 mg/Miscellaneous 5 ml @ 60 mls/hr 3X/WEEK IV Last administered on 03/12/17t 10:11; Start 03/12/17 at 10:00; Stop 03/20/17 at 09 :04 Iron Sucrose 100 mg/Sodium Chloride 105 ml @ 55 mls/hr 3X/WEEK IV ; Start at 09:00; Stop 03/22/17 at 10:55; Status UNV Isosorbide Mononitrate (Imdur) 30 mg DAILY PO Last administered on 03/12/17t 12:17; Start 03/12/17 at 11:30 Lactobacillus Rhamnosus (Culturelle) 1 cap BID PO ; Start 03/12/17 at 21:00 Sodium Bicarbonate (Sodium Bicarbonate) 650 mg TID PO ; Start 03/12/17 at 14:00 Comment Review of Relevant I have reviewed the following items reji (where applicable) has been applied. RUTH TORRES MD Mar 12, 2017 13:00
[2017-03-12] MEDS: SODIUM BICARBONATE 650 MG TABLET. PO SCH ×2 (14:45→21:29)
[2017-03-12 15:00] VITALS: BP 120/64
--- NOTE | 2017-03-12 16:16 | PDOC ---
PROGRESS NOTES Subjective Subjective much better today Objective Objective Vital Signs Date Time Temp Pulse Resp B/P (MAP) Pulse Ox O2 Delivery O2 Flow Rate FiO2 03/12/17 15:00 97.6 62 16 120/64 (82) 100 Room Air 97.6 Intake and Output 03/12/17 07:00 Intake Total 1293 ml Output Total 655 ml Balance 638 ml Intake Oral 250 ml IV Total 1043 ml Output Urine Total 655 ml Physical Exam Abdomen: Normal bowel sounds Heart: Regular rate Extremities: No cyanosis, Other (right knee tenderness) General: No acute distress HEENT: Atraumatic, Mucous membr. moist/pink Lungs: Clear to auscultation MUSCULOSKELETAL: Osteoarthritic changes both hands, Other (right knee effusion) Neuro: Sensation intact Skin: No breakdown, No significant lesion COMMENT weak in legs, hands good strength Diagnosis Problem List Problems Medical Problems: (1) Accelerated hypertension Status: Acute (2) Acute on chronic renal failure Status: Acute (3) Elevated troponin Status: Acute (4) Fall from standing Status: Acute (5) Syncope Status: Acute Assessment Assessment Problems Medical Problems: (1) Accelerated hypertension Status: Acute (2) Acute on chronic renal failure Status: Acute (3) Elevated troponin Status: Acute (4) Fall from standing Status: Acute (5) Syncope Status: Acute FINAL IMPRESSION: new cva embolic biatrial thrombosis 1. Mechanical fall no injuries. 2. Questionable syncopal episode. 3. Accelerated hypertension. 4. Stage 5 renal failure. 5. Possible urinary tract infection. 6. General debility. PLAN: MERISSA in am. MRI brain punctate infarcts embolic new Echo showed biatrial thrombosis. heparin drip now. stat ct scan , no bleed neuro consult appreciated. blood sugars 150 . BP110/70 .p80 sat94% , no arrhythmias on monitor. Vantin for uti d/c iv fluids Problems: Plan Plan of Care Problems Medical Problems: (1) Accelerated hypertension Status: Acute (2) Acute on chronic renal failure Status: Acute (3) Elevated troponin Status: Acute (4) Fall from standing Status: Acute (5) Syncope Status: Acute Comment Review of Relevant I have reviewed the following items reji (where applicable) has been applied. Labs Laboratory Tests Test 03/12/17 00:11 03/12/17 04:55 Glucose (Fingerstick) 131 mg/dL (70-99) Hemoglobin 7.9 g/dL (12.0-15.5) Heparin Anti-Xa Act, Unfractionated 0.33 IU/mL (0.30-0.70) Sodium Level 140 mmol/L (136-145) Potassium Level 4.2 mmol/L (3.5-5.1) Chloride Level 107 mmol/L (98-107) Carbon Dioxide Level 19 mmol/L (21-32) Anion Gap 14 (6-14) Blood Urea Nitrogen 73 mg/dL (7-20) Creatinine 4.4 mg/dL (0.6-1.0) Estimated GFR (Cockcroft-Gault) 11.9 Glucose Level 154 mg/dL (70-99) Calcium Level 7.6 mg/dL (8.5-10.1) Phosphorus Level 5.9 mg/dL (2.6-4.7) Magnesium Level 2.2 mg/dL (1.8-2.4) Albumin 2.2 g/dL (3.4-5.0) Triglycerides Level 117 mg/dL (0-150) Cholesterol Level 166 mg/dL (0-200) LDL Cholesterol, Calculated 105 mg/dL (0-100) VLDL Cholesterol, Calculated 23 mg/dL (0-40) Non-HDL Cholesterol Calculated 128 mg/dL (0-129) HDL Cholesterol 38 mg/dL (40-60) Cholesterol/HDL Ratio 4.4 Microbiology 03/10/17 Urine Culture - Final, Complete 03/10/17 Urine Culture Result 1 (STANLEY) - Final, Complete Medications Current Medications Calcium Acetate (Phoslo) 1,334 mg TIDWMEALS PO Last administered on 03/12/17t 12:16; Start 03/12/17 at 12:00 Cefpodoxime Proxetil (Vantin) 100 mg BID PO Last administered on 03/12/17t 10: 11; Start 03/12/17 at 10:00 Fentanyl Citrate (Fentanyl 2ml Vial) 25 mcg PRN Q5MIN PRN IV MILD PAIN; Start 03/13/17 at 07:00; Stop 03/14/17 at 06:59 Fentanyl Citrate (Fentanyl 2ml Vial) 50 mcg PRN Q5MIN PRN IV MODERATE PAIN; Start 03/13/17 at 07:00; Stop 03/14/17 at 06:59 Hydromorphone HCl (Dilaudid) 0.5 mg PRN Q10MIN PRN IV SEV PAIN, Second choice; Start 03/13/17 at 07:00; Stop 03/14/17 at 06:59 Iron Sucrose 100 mg/Miscellaneous 5 ml @ 60 mls/hr 3X/WEEK IV Last administered on 03/12/17 10:11; Start 03/12/17 at 10:00; Stop 03/20/17 at 09 :04 Iron Sucrose 100 mg/Sodium Chloride 105 ml @ 55 mls/hr 3X/WEEK IV ; Start at 09:00; Stop 03/22/17 at 10:55; Status UNV Isosorbide Mononitrate (Imdur) 30 mg DAILY PO Last administered on 03/12/17 12:17; Start 03/12/17 at 11:30 Lactobacillus Rhamnosus (Culturelle) 1 cap BID PO ; Start 03/12/17 at 21:00 Lidocaine HCl (Xylocaine-Mpf 1% Vial) 2 ml PRN 1X PRN ID IV START; Start 03/13 at 07:00; Stop 03/14/17 at 06:59 Morphine Sulfate 1 mg PRN Q10MIN PRN IV SEVERE PAIN; Start 03/13/17 at 07:00; Stop 03/14/17 at 06:59 Ondansetron HCl (Zofran) 4 mg PRN Q6HRS PRN IV NAUSEA/VOMITING; Start at 07:00; Stop 03/14/17 at 06:59 Prochlorperazine Edisylate (Compazine) 5 mg PACU PRN PRN IV NAUSEA, MRX1; Start 03/13/17 at 07:00; Stop 03/14/17 at 06:59 Ringer's Solution 1,000 ml @ 30 mls/hr Q24H IV ; Start 03/13/17 at 07:00; Stop 03/13/17 at 18:59 Sodium Bicarbonate (Sodium Bicarbonate) 650 mg TID PO Last administered on 14:45; Start 03/12/17 at 14:00 Vitals/I & O Vital Sign - Last 24 Hours 03/11/17 03/11/17 03/11/17 03/11/17 20:00 20:00 20:33 20:34 Temp 97.2 97.2 Pulse 64 72 72 Resp 9 B/P (MAP) 147/64 (91) 147/64 147/64 Pulse Ox 100 O2 Delivery Room Air Room Air 03/11/17 03/11/17 03/12/17 03/12/17 20:34 23:59 04:00 07:49 Temp 97.3 97.7 97.3 97.7 Pulse 72 71 65 Resp 14 11 B/P (MAP) 147/64 157/66 (96) 162/73 (102) Pulse Ox 100 100 O2 Delivery Room Air Room Air Room Air 03/12/17 03/12/17 03/12/17 03/12/17 08:15 08:39 08:39 08:40 Temp 97.6 97.6 Pulse 71 71 69 71 Resp 14 B/P (MAP) 155/62 (93) 155/62 155/62 155/62 Pulse Ox 100 O2 Delivery Room Air 03/12/17 03/12/17 03/12/17 03/12/17 08:40 12:17 14:46 14:46 Pulse 71 72 65 64 B/P (MAP) 155/62 154/70 121/61 121/61 03/12/17 15:00 Temp 97.6 97.6 Pulse 62 Resp 16 B/P (MAP) 120/64 (82) Pulse Ox 100 O2 Delivery Room Air Intake and Output 03/11/17 03/11/17 03/12/17 15:00 23:00 07:00 Intake Total 150 ml 1143 ml Output Total 50 ml 295 ml 310 ml Balance -50 ml -145 ml 833 ml GRAEME SERNA MD Mar 12, 2017 16:16
--- NOTE | 2017-03-12 17:30 | PDOC ---
PROGRESS NOTES Subjective Subjective No new complaints. Objective Objective Vital Signs Date Time Temp Pulse Resp B/P (MAP) Pulse Ox O2 Delivery O2 Flow Rate FiO2 03/12/17 15:00 97.6 62 16 120/64 (82) 100 Room Air 97.6 Intake and Output 03/12/17 07:00 Intake Total 1293 ml Output Total 655 ml Balance 638 ml Intake Oral 250 ml IV Total 1043 ml Output Urine Total 655 ml Physical Exam Physical Exam She is more awake and sitting up in bedside recliner and she continues to require maximal help with moility. Assessment Assessment Problems Medical Problems: (1) Accelerated hypertension Status: Acute (2) Acute on chronic renal failure Status: Acute (3) Elevated troponin Status: Acute (4) Fall from standing Status: Acute (5) Syncope Status: Acute Plan Plan of Care To SNF when medically stable. Comment Review of Relevant I have reviewed the following items reji (where applicable) has been applied. Labs Laboratory Tests Test 03/10/17 18:24 03/11/17 05:10 03/11/17 09:45 03/11/17 12:20 Glucose (Fingerstick) 111 mg/dL (70-99) Heparin Anti-Xa Act, Unfractionated 0.30 IU/mL (0.30-0.70) 0.32 IU/mL (0.30-0.70) Sodium Level 141 mmol/L (136-145) Potassium Level 4.2 mmol/L (3.5-5.1) Chloride Level 107 mmol/L (98-107) Carbon Dioxide Level 20 mmol/L (21-32) Anion Gap 14 (6-14) Blood Urea Nitrogen 77 mg/dL (7-20) Creatinine 4.5 mg/dL (0.6-1.0) Estimated GFR (Cockcroft-Gault) 11.6 BUN/Creatinine Ratio 17 (6-20) Glucose Level 133 mg/dL (70-99) Calcium Level 8.3 mg/dL (8.5-10.1) Total Bilirubin 0.3 mg/dL (0.2-1.0) Aspartate Amino Transf (AST/SGOT) 14 U/L (15-37) Alanine Aminotransferase (ALT/SGPT) 11 U/L (14-59) Alkaline Phosphatase 65 U/L (46-116) Total Protein 6.6 g/dL (6.4-8.2) Albumin 2.5 g/dL (3.4-5.0) Albumin/Globulin Ratio 0.6 (1.0-1.7) Urine Protein 186.3 mg/dL (Not Estab.) Urine Creatinine 90.6 mg/dL (Not Estab.) Urine Protein/Creatinine Ratio 2056 mg/g creat (0-200) Reticulocyte Count (auto) 1.6 % (0.5-2.5) Iron Level 25 ug/dL (50-170) Total Iron Binding Capacity 132 ug/dL (250-450) Iron Saturation 19 % (15-34) Ferritin 530 ng/mL (8-252) Test 03/12/17 00:11 03/12/17 04:55 Glucose (Fingerstick) 131 mg/dL (70-99) Hemoglobin 7.9 g/dL (12.0-15.5) Heparin Anti-Xa Act, Unfractionated 0.33 IU/mL (0.30-0.70) Sodium Level 140 mmol/L (136-145) Potassium Level 4.2 mmol/L (3.5-5.1) Chloride Level 107 mmol/L (98-107) Carbon Dioxide Level 19 mmol/L (21-32) Anion Gap 14 (6-14) Blood Urea Nitrogen 73 mg/dL (7-20) Creatinine 4.4 mg/dL (0.6-1.0) Estimated GFR (Cockcroft-Gault) 11.9 Glucose Level 154 mg/dL (70-99) Calcium Level 7.6 mg/dL (8.5-10.1) Phosphorus Level 5.9 mg/dL (2.6-4.7) Magnesium Level 2.2 mg/dL (1.8-2.4) Albumin 2.2 g/dL (3.4-5.0) Triglycerides Level 117 mg/dL (0-150) Cholesterol Level 166 mg/dL (0-200) LDL Cholesterol, Calculated 105 mg/dL (0-100) VLDL Cholesterol, Calculated 23 mg/dL (0-40) Non-HDL Cholesterol Calculated 128 mg/dL (0-129) HDL Cholesterol 38 mg/dL (40-60) Cholesterol/HDL Ratio 4.4 Laboratory Tests Test 03/12/17 00:11 03/12/17 04:55 Glucose (Fingerstick) 131 mg/dL (70-99) Hemoglobin 7.9 g/dL (12.0-15.5) Heparin Anti-Xa Act, Unfractionated 0.33 IU/mL (0.30-0.70) Sodium Level 140 mmol/L (136-145) Potassium Level 4.2 mmol/L (3.5-5.1) Chloride Level 107 mmol/L (98-107) Carbon Dioxide Level 19 mmol/L (21-32) Anion Gap 14 (6-14) Blood Urea Nitrogen 73 mg/dL (7-20) Creatinine 4.4 mg/dL (0.6-1.0) Estimated GFR (Cockcroft-Gault) 11.9 Glucose Level 154 mg/dL (70-99) Calcium Level 7.6 mg/dL (8.5-10.1) Phosphorus Level 5.9 mg/dL (2.6-4.7) Magnesium Level 2.2 mg/dL (1.8-2.4) Albumin 2.2 g/dL (3.4-5.0) Triglycerides Level 117 mg/dL (0-150) Cholesterol Level 166 mg/dL (0-200) LDL Cholesterol, Calculated 105 mg/dL (0-100) VLDL Cholesterol, Calculated 23 mg/dL (0-40) Non-HDL Cholesterol Calculated 128 mg/dL (0-129) HDL Cholesterol 38 mg/dL (40-60) Cholesterol/HDL Ratio 4.4 Microbiology 03/10/17 Urine Culture - Final, Complete 03/10/17 Urine Culture Result 1 (STANLEY) - Final, Complete Medications Current Medications Clonidine HCl (Catapres) 0.2 mg 1X ONCE PO Last administered on 03/08/17t 15: 23; Start 03/08/17 at 15:00; Stop 03/08/17 at 15:01; Status DC Ondansetron HCl (Zofran) 4 mg PRN Q8HRS PRN IV NAUSEA/VOMITING; Start at 17:00; Stop 03/09/17 at 16:59; Status DC Morphine Sulfate 2 mg PRN Q2HR PRN IV PAIN; Start 03/08/17 at 17:00; Stop at 16:59; Status DC Acetaminophen (Tylenol) 650 mg PRN Q4HRS PRN PO FEVER; Start 03/08/17 at 17:00 ; Stop 03/09/17 at 16:59; Status DC Insulin Aspart (NovoLOG) 0-7 UNITS TIDWMEALS SQ ; Start 03/08/17 at 17:00; Stop 03/09/17 at 12:29; Status DC Dextrose (Dextrose 50%-Water Syringe) 12.5 gm PRN Q15MIN PRN IV SEE COMMENTS; Start 03/08/17 at 17:00; Status Cancel Sodium Chloride 1,000 ml @ 75 mls/hr 1X ONCE IV ; Start 03/08/17 at 17:00; Stop 03/09/17 at 06:19; Status Cancel Labetalol HCl (Normodyne) 10 mg Q6HRS PRN IVP HYPERTENSION, SEE COMMENTS Last administered on 03/08/17 17:10; Start 03/08/17 at 17:00; Stop 03/09/17 at 12 :31; Status DC Hydralazine HCl (Apresoline Inj) 10 mg Q6HRS PRN IVP ELEVATED BP, SEE COMMENTS Last administered on 03/08/17 21:13; Start 03/08/17 at 21:00 Hydralazine HCl (Apresoline) 100 mg TID PO Last administered on 03/12/17 14: 46; Start 03/08/17 at 21:00 Labetalol HCl (Trandate) 200 mg BID PO Last administered on 03/12/17 08:39; Start 03/08/17 at 21:00 Atorvastatin Calcium (Lipitor) 10 mg QHS PO Last administered on 03/11/17 20: 34; Start 03/09/17 at 21:00 Aspirin (Ecotrin) 81 mg DAILYWBKFT PO ; Start 03/10/17 at 08:00; Stop at 08:00; Status DC Labetalol HCl (Normodyne) 20 mg PRN Q2HR PRN IVP HYPERTENSION, SEE COMMENTS; Start 03/09/17 at 11:45 Aspirin (Ecotrin) 81 mg DAILYWBKFT PO ; Start 03/09/17 at 12:30; Stop at 12:30; Status DC Aspirin (Radha Aspirin) 325 mg DAILYWBKFT PO Last administered on 03/12/17 08 :40; Start 03/09/17 at 13:00; Stop 03/12/17 at 11:05; Status DC Clonidine HCl (Catapres) 0.2 mg TID PO Last administered on 03/12/17 14:46; Start 03/09/17 at 14:00 Insulin Aspart (NovoLOG) 5 units TIDAC SQ ; Start 03/09/17 at 16:30; Stop at 16:30; Status DC Linagliptin (Tradjenta) 5 mg DAILY PO Last administered on 03/12/17 08:40; Start 03/09/17 at 13:00 Insulin Detemir (Levemir) 10 units QHS SQ Last administered on 03/09/17 21:43 ; Start 03/09/17 at 21:00; Stop 03/10/17 at 12:34; Status DC Losartan Potassium (Cozaar) 100 mg DAILY PO Last administered on 03/12/17 08: 40; Start 03/09/17 at 13:00 Insulin Aspart (NovoLOG) 0-5 UNITS TIDWMEALS SQ ; Start 03/09/17 at 17:00; Stop 03/09/17 at 17:00; Status DC Dextrose (Dextrose 50%-Water Syringe) 12.5 gm PRN Q15MIN PRN IV SEE COMMENTS; Start 03/09/17 at 12:30 Enoxaparin Sodium (Lovenox 30mg Syringe) 30 mg Q24H SQ Last administered on 12:46; Start 03/09/17 at 13:00; Stop 03/10/17 at 22:33; Status DC Sodium Chloride 1,000 ml @ 30 mls/hr Q24H IV Last administered on 03/12/17 15:36; Start 03/10/17 at 11:00; Stop 03/12/17 at 20:00 Sodium Chloride 1,000 ml @ 75 mls/hr [id number] IV ; Start 03/10/17 at 12:00; Stop 03/10/17 at 12:00; Status DC Clopidogrel Bisulfate (Plavix) 75 mg DAILYWBKFT PO Last administered on 08:39; Start 03/11/17 at 08:00 Clopidogrel Bisulfate (Plavix) 75 mg 1X ONCE PO Last administered on 12:42; Start 03/10/17 at 12:30; Stop 03/10/17 at 12:31; Status DC Heparin Sodium/ Dextrose 500 ml @ 0 mls/hr CONT PRN IV SEE I/O RECORD Last administered on 03/12/17 06:41; Start 03/10/17 at 22:30 Heparin Sodium (Porcine) (Heparin Sodium) 1,750 unit PRN Q6HRS PRN IV FOR UFH LEVEL LESS THAN 0.2; Start 03/10/17 at 22:30 Info (Anti-Coagulation Monitoring By Pharmacy) 1 each PRN DAILY PRN MC SEE COMMENTS Last administered on 03/11/17 12:43; Start 03/11/17 at 08:00 Magnesium Sulfate/ Dextrose 50 ml @ 25 mls/hr PRN DAILY PRN IV for Mag < 1.7 on am labs; Start 03/11/17 at 09:00 Iron Sucrose 100 mg/Sodium Chloride 105 ml @ 55 mls/hr 3X/WEEK IV ; Start at 09:00; Stop 03/22/17 at 10:55; Status UNV Iron Sucrose 100 mg/Miscellaneous 5 ml @ 60 mls/hr 3X/WEEK IV Last administered on 03/12/17 10:11; Start 03/12/17 at 10:00; Stop 03/20/17 at 09 :04 Sodium Bicarbonate (Sodium Bicarbonate) 650 mg TID PO Last administered on 14:45; Start 03/12/17 at 14:00 Calcium Acetate (Phoslo) 1,334 mg TIDWMEALS PO Last administered on 03/12/17 17:21; Start 03/12/17 at 12:00 Cefpodoxime Proxetil (Vantin) 100 mg BID PO Last administered on 03/12/17 10: 11; Start 03/12/17 at 10:00 Lactobacillus Rhamnosus (Culturelle) 1 cap BID PO ; Start 03/12/17 at 21:00 Isosorbide Mononitrate (Imdur) 30 mg DAILY PO Last administered on 03/12/17 12:17; Start 03/12/17 at 11:30 Ondansetron HCl (Zofran) 4 mg PRN Q6HRS PRN IV NAUSEA/VOMITING; Start at 07:00; Stop 03/14/17 at 06:59 Fentanyl Citrate (Fentanyl 2ml Vial) 25 mcg PRN Q5MIN PRN IV MILD PAIN; Start 03/13/17 at 07:00; Stop 03/14/17 at 06:59 Fentanyl Citrate (Fentanyl 2ml Vial) 50 mcg PRN Q5MIN PRN IV MODERATE PAIN; Start 03/13/17 at 07:00; Stop 03/14/17 at 06:59 Morphine Sulfate 1 mg PRN Q10MIN PRN IV SEVERE PAIN; Start 03/13/17 at 07:00; Stop 03/14/17 at 06:59 Ringer's Solution 1,000 ml @ 30 mls/hr Q24H IV ; Start 03/13/17 at 07:00; Stop 03/13/17 at 18:59 Lidocaine HCl (Xylocaine-Mpf 1% Vial) 2 ml PRN 1X PRN ID IV START; Start 03/13 at 07:00; Stop 03/14/17 at 06:59 Hydromorphone HCl (Dilaudid) 0.5 mg PRN Q10MIN PRN IV SEV PAIN, Second choice; Start 03/13/17 at 07:00; Stop 03/14/17 at 06:59 Prochlorperazine Edisylate (Compazine) 5 mg PACU PRN PRN IV NAUSEA, MRX1; Start 03/13/17 at 07:00; Stop 03/14/17 at 06:59 Active Scripts Active Hydralazine Hcl 50 Mg Tablet 100 Mg PO TID 30 Days Aspirin 325 Mg Tablet 325 Mg PO DAILYWBKFT 30 Days Reported Novolog Flexpen (Insulin Aspart) 100 Unit/1 Ml Insuln.pen 5 Unit SQ TIDAC Tradjenta (Linagliptin) 5 Mg Tablet 1 Tab PO DAILY Clonidine Hcl 0.2 Mg Tablet 1 Tab PO TID Levemir (Insulin Detemir) 100 Unit/1 Ml Vial 10 Unit SQ HS Labetalol Hcl 200 Mg Tablet 1 Tab PO BID Losartan-Hctz 100-12.5 Mg Tab (Losartan/Hydrochlorothiazide) 1 Each Tablet PO DAILY Pravastatin Sodium 40 Mg Tablet 1 HS Vitals/I & O Vital Sign - Last 24 Hours 03/11/17 03/11/17 03/11/17 03/11/17 20:00 20:00 20:33 20:34 Temp 97.2 97.2 Pulse 64 72 72 Resp 9 B/P (MAP) 147/64 (91) 147/64 147/64 Pulse Ox 100 O2 Delivery Room Air Room Air 03/11/17 03/11/17 03/12/17 03/12/17 20:34 23:59 04:00 07:49 Temp 97.3 97.7 97.3 97.7 Pulse 72 71 65 Resp 14 11 B/P (MAP) 147/64 157/66 (96) 162/73 (102) Pulse Ox 100 100 O2 Delivery Room Air Room Air Room Air 03/12/17 03/12/17 03/12/17 03/12/17 08:15 08:39 08:39 08:40 Temp 97.6 97.6 Pulse 71 71 69 71 Resp 14 B/P (MAP) 155/62 (93) 155/62 155/62 155/62 Pulse Ox 100 O2 Delivery Room Air 03/12/17 03/12/17 03/12/17 03/12/17 08:40 12:17 14:46 14:46 Pulse 71 72 65 64 B/P (MAP) 155/62 154/70 121/61 121/61 03/12/17 15:00 Temp 97.6 97.6 Pulse 62 Resp 16 B/P (MAP) 120/64 (82) Pulse Ox 100 O2 Delivery Room Air Intake and Output 03/11/17 03/11/17 03/12/17 15:00 23:00 07:00 Intake Total 150 ml 1143 ml Output Total 50 ml 295 ml 310 ml Balance -50 ml -145 ml 833 ml EVELYN SALAS MD Mar 12, 2017 17:30
[2017-03-12 18:45] VITALS: BP 128/58
[2017-03-12] MEDS: LACTOBACILLUS RHAMNOSUS GG 1 CAPSULE. PO SCH (21:29)
[2017-03-12] MEDS: ATORVASTATIN CALCIUM 10 MG TABLET. PO SCH (21:29)
[2017-03-12 23:25] VITALS: BP 154/68
[2017-03-13 03:50] VITALS: BP 148/75
[2017-03-13 06:39] LABS: ALBUMIN 2.2 g/dL (3.4-5.0); CREATININE 4.6 mg/dL (0.6-1.0); GFR 11.3; MAGNESIUM 2.2 mg/dL (1.8-2.4); PHOSPHORUS 5.7 mg/dL (2.6-4.7); POTASSIUM 4.5 mmol/L (3.5-5.1)
[2017-03-13 07:00] VITALS: BP 136/70
[2017-03-13] MEDS ORDERED: fentaNYL PF VIAL 100 MCG/2 ML VIAL IV PRN ×2 (07:00)
[2017-03-13] MEDS ORDERED: IV RINGERS,LACTATED 1000ML 1,000 ML IV SCH (07:00)
[2017-03-13] MEDS ORDERED: HYDROmorphone 2 MG/ML VIAL IV PRN (07:00)
[2017-03-13] MEDS ORDERED: PROCHLORPERAZINE 10 MG/2 ML VIAL. IV PRN (07:00)
[2017-03-13] MEDS ORDERED: LIDOCAINE 1% PF 2 ML VIAL. ID PRN (07:00)
[2017-03-13] MEDS ORDERED: MORPHINE SULFATE 2 MG/ML DISP.SYRIN. IV PRN (07:00)
[2017-03-13] MEDS ORDERED: ONDANSETRON PF 4 MG/2 ML VIAL. IV PRN (07:00)
[2017-03-13] MEDS ORDERED: IRON SUCROSE COMPLEX 100 MG in IV NORMAL SALINE 100ML 100 ML IV SCH (09:00)
--- NOTE | 2017-03-13 09:05 | PDOC ---
PROGRESS NOTES Subjective Subjective No new complaints. Objective Objective Vital Signs Date Time Temp Pulse Resp B/P (MAP) Pulse Ox O2 Delivery O2 Flow Rate FiO2 03/13/17 07:00 97.9 84 18 136/70 (92) 99 Room Air 97.9 Intake and Output 03/13/17 07:00 Intake Total 1023 ml Output Total 1075 ml Balance -52 ml Intake Oral 100 ml IV Total 923 ml Output Urine Total 1075 ml Physical Exam Physical Exam She is supine in bed and seems to be in no acute distress and she is participating with therapy but requires help with mobility and self care. Assessment Assessment Problems Medical Problems: (1) Accelerated hypertension Status: Acute (2) Acute on chronic renal failure Status: Acute (3) Elevated troponin Status: Acute (4) Fall from standing Status: Acute (5) Syncope Status: Acute Plan Plan of Care To SNF when medically stable. Comment Review of Relevant I have reviewed the following items reji (where applicable) has been applied. Labs Laboratory Tests Test 03/11/17 09:45 03/11/17 12:20 03/12/17 00:11 03/12/17 04:55 Urine Protein 186.3 mg/dL (Not Estab.) Urine Creatinine 90.6 mg/dL (Not Estab.) Urine Protein/Creatinine Ratio 2056 mg/g creat (0-200) Reticulocyte Count (auto) 1.6 % (0.5-2.5) Heparin Anti-Xa Act, Unfractionated 0.32 IU/mL (0.30-0.70) 0.33 IU/mL (0.30-0.70) Iron Level 25 ug/dL (50-170) Total Iron Binding Capacity 132 ug/dL (250-450) Iron Saturation 19 % (15-34) Ferritin 530 ng/mL (8-252) Glucose (Fingerstick) 131 mg/dL (70-99) Hemoglobin 7.9 g/dL (12.0-15.5) Sodium Level 140 mmol/L (136-145) Potassium Level 4.2 mmol/L (3.5-5.1) Chloride Level 107 mmol/L (98-107) Carbon Dioxide Level 19 mmol/L (21-32) Anion Gap 14 (6-14) Blood Urea Nitrogen 73 mg/dL (7-20) Creatinine 4.4 mg/dL (0.6-1.0) Estimated GFR (Cockcroft-Gault) 11.9 Glucose Level 154 mg/dL (70-99) Calcium Level 7.6 mg/dL (8.5-10.1) Phosphorus Level 5.9 mg/dL (2.6-4.7) Magnesium Level 2.2 mg/dL (1.8-2.4) Albumin 2.2 g/dL (3.4-5.0) Triglycerides Level 117 mg/dL (0-150) Cholesterol Level 166 mg/dL (0-200) LDL Cholesterol, Calculated 105 mg/dL (0-100) VLDL Cholesterol, Calculated 23 mg/dL (0-40) Non-HDL Cholesterol Calculated 128 mg/dL (0-129) HDL Cholesterol 38 mg/dL (40-60) Cholesterol/HDL Ratio 4.4 Test 03/12/17 20:58 03/13/17 06:00 Glucose (Fingerstick) 156 mg/dL (70-99) Heparin Anti-Xa Act, Unfractionated 0.16 IU/mL (0.30-0.70) Sodium Level 143 mmol/L (136-145) Potassium Level 4.5 mmol/L (3.5-5.1) Chloride Level 109 mmol/L (98-107) Carbon Dioxide Level 20 mmol/L (21-32) Anion Gap 14 (6-14) Blood Urea Nitrogen 71 mg/dL (7-20) Creatinine 4.6 mg/dL (0.6-1.0) Estimated GFR (Cockcroft-Gault) 11.3 Glucose Level 150 mg/dL (70-99) Calcium Level 8.0 mg/dL (8.5-10.1) Phosphorus Level 5.7 mg/dL (2.6-4.7) Magnesium Level 2.2 mg/dL (1.8-2.4) Albumin 2.2 g/dL (3.4-5.0) Laboratory Tests Test 03/12/17 20:58 03/13/17 06:00 Glucose (Fingerstick) 156 mg/dL (70-99) Heparin Anti-Xa Act, Unfractionated 0.16 IU/mL (0.30-0.70) Sodium Level 143 mmol/L (136-145) Potassium Level 4.5 mmol/L (3.5-5.1) Chloride Level 109 mmol/L (98-107) Carbon Dioxide Level 20 mmol/L (21-32) Anion Gap 14 (6-14) Blood Urea Nitrogen 71 mg/dL (7-20) Creatinine 4.6 mg/dL (0.6-1.0) Estimated GFR (Cockcroft-Gault) 11.3 Glucose Level 150 mg/dL (70-99) Calcium Level 8.0 mg/dL (8.5-10.1) Phosphorus Level 5.7 mg/dL (2.6-4.7) Magnesium Level 2.2 mg/dL (1.8-2.4) Albumin 2.2 g/dL (3.4-5.0) Microbiology 03/10/17 Urine Culture - Final, Complete 03/10/17 Urine Culture Result 1 (STANLEY) - Final, Complete Medications Current Medications Clonidine HCl (Catapres) 0.2 mg 1X ONCE PO Last administered on 03/08/17t 15: 23; Start 03/08/17 at 15:00; Stop 03/08/17 at 15:01; Status DC Ondansetron HCl (Zofran) 4 mg PRN Q8HRS PRN IV NAUSEA/VOMITING; Start at 17:00; Stop 03/09/17 at 16:59; Status DC Morphine Sulfate 2 mg PRN Q2HR PRN IV PAIN; Start 03/08/17 at 17:00; Stop at 16:59; Status DC Acetaminophen (Tylenol) 650 mg PRN Q4HRS PRN PO FEVER; Start 03/08/17 at 17:00 ; Stop 03/09/17 at 16:59; Status DC Insulin Aspart (NovoLOG) 0-7 UNITS TIDWMEALS SQ ; Start 03/08/17 at 17:00; Stop 03/09/17 at 12:29; Status DC Dextrose (Dextrose 50%-Water Syringe) 12.5 gm PRN Q15MIN PRN IV SEE COMMENTS; Start 03/08/17 at 17:00; Status Cancel Sodium Chloride 1,000 ml @ 75 mls/hr 1X ONCE IV ; Start 03/08/17 at 17:00; Stop 03/09/17 at 06:19; Status Cancel Labetalol HCl (Normodyne) 10 mg Q6HRS PRN IVP HYPERTENSION, SEE COMMENTS Last administered on 03/08/17 17:10; Start 03/08/17 at 17:00; Stop 03/09/17 at 12 :31; Status DC Hydralazine HCl (Apresoline Inj) 10 mg Q6HRS PRN IVP ELEVATED BP, SEE COMMENTS Last administered on 03/08/17 21:13; Start 03/08/17 at 21:00 Hydralazine HCl (Apresoline) 100 mg TID PO Last administered on 03/12/17 21: 29; Start 03/08/17 at 21:00 Labetalol HCl (Trandate) 200 mg BID PO Last administered on 03/12/17 21:29; Start 03/08/17 at 21:00 Atorvastatin Calcium (Lipitor) 10 mg QHS PO Last administered on 03/12/17 21: 29; Start 03/09/17 at 21:00 Aspirin (Ecotrin) 81 mg DAILYWBKFT PO ; Start 03/10/17 at 08:00; Stop at 08:00; Status DC Labetalol HCl (Normodyne) 20 mg PRN Q2HR PRN IVP HYPERTENSION, SEE COMMENTS; Start 03/09/17 at 11:45 Aspirin (Ecotrin) 81 mg DAILYWBKFT PO ; Start 03/09/17 at 12:30; Stop at 12:30; Status DC Aspirin (Radha Aspirin) 325 mg DAILYWBKFT PO Last administered on 03/12/17 08 :40; Start 03/09/17 at 13:00; Stop 03/12/17 at 11:05; Status DC Clonidine HCl (Catapres) 0.2 mg TID PO Last administered on 03/12/17 21:29; Start 03/09/17 at 14:00 Insulin Aspart (NovoLOG) 5 units TIDAC SQ ; Start 03/09/17 at 16:30; Stop at 16:30; Status DC Linagliptin (Tradjenta) 5 mg DAILY PO Last administered on 03/12/17 08:40; Start 03/09/17 at 13:00 Insulin Detemir (Levemir) 10 units QHS SQ Last administered on 03/09/17 21:43 ; Start 03/09/17 at 21:00; Stop 03/10/17 at 12:34; Status DC Losartan Potassium (Cozaar) 100 mg DAILY PO Last administered on 03/12/17 08: 40; Start 03/09/17 at 13:00 Insulin Aspart (NovoLOG) 0-5 UNITS TIDWMEALS SQ ; Start 03/09/17 at 17:00; Stop 03/09/17 at 17:00; Status DC Dextrose (Dextrose 50%-Water Syringe) 12.5 gm PRN Q15MIN PRN IV SEE COMMENTS; Start 03/09/17 at 12:30 Enoxaparin Sodium (Lovenox 30mg Syringe) 30 mg Q24H SQ Last administered on 12:46; Start 03/09/17 at 13:00; Stop 03/10/17 at 22:33; Status DC Sodium Chloride 1,000 ml @ 30 mls/hr Q24H IV Last administered on 03/12/17 15:36; Start 03/10/17 at 11:00; Stop 03/12/17 at 20:00; Status DC Sodium Chloride 1,000 ml @ 75 mls/hr [id number] IV ; Start 03/10/17 at 12:00; Stop 03/10/17 at 12:00; Status DC Clopidogrel Bisulfate (Plavix) 75 mg DAILYWBKFT PO Last administered on 08:39; Start 03/11/17 at 08:00 Clopidogrel Bisulfate (Plavix) 75 mg 1X ONCE PO Last administered on 12:42; Start 03/10/17 at 12:30; Stop 03/10/17 at 12:31; Status DC Heparin Sodium/ Dextrose 500 ml @ 0 mls/hr CONT PRN IV SEE I/O RECORD Last administered on 03/12/17 06:41; Start 03/10/17 at 22:30 Heparin Sodium (Porcine) (Heparin Sodium) 1,750 unit PRN Q6HRS PRN IV FOR UFH LEVEL LESS THAN 0.2; Start 03/10/17 at 22:30 Info (Anti-Coagulation Monitoring By Pharmacy) 1 each PRN DAILY PRN MC SEE COMMENTS Last administered on 03/11/17 12:43; Start 03/11/17 at 08:00 Magnesium Sulfate/ Dextrose 50 ml @ 25 mls/hr PRN DAILY PRN IV for Mag < 1.7 on am labs; Start 03/11/17 at 09:00 Iron Sucrose 100 mg/Sodium Chloride 105 ml @ 55 mls/hr 3X/WEEK IV ; Start at 09:00; Stop 03/22/17 at 10:55; Status UNV Iron Sucrose 100 mg/Miscellaneous 5 ml @ 60 mls/hr 3X/WEEK IV Last administered on 03/12/17 10:11; Start 03/12/17 at 10:00; Stop 03/20/17 at 09 :04 Sodium Bicarbonate (Sodium Bicarbonate) 650 mg TID PO Last administered on 21:29; Start 03/12/17 at 14:00 Calcium Acetate (Phoslo) 1,334 mg TIDWMEALS PO Last administered on 03/12/17 17:21; Start 03/12/17 at 12:00 Cefpodoxime Proxetil (Vantin) 100 mg BID PO Last administered on 03/12/17 21: 29; Start 03/12/17 at 10:00 Lactobacillus Rhamnosus (Culturelle) 1 cap BID PO Last administered on 21:29; Start 03/12/17 at 21:00 Isosorbide Mononitrate (Imdur) 30 mg DAILY PO Last administered on 03/12/17 12:17; Start 03/12/17 at 11:30 Ondansetron HCl (Zofran) 4 mg PRN Q6HRS PRN IV NAUSEA/VOMITING; Start at 07:00; Stop 03/14/17 at 06:59 Fentanyl Citrate (Fentanyl 2ml Vial) 25 mcg PRN Q5MIN PRN IV MILD PAIN; Start 03/13/17 at 07:00; Stop 03/14/17 at 06:59 Fentanyl Citrate (Fentanyl 2ml Vial) 50 mcg PRN Q5MIN PRN IV MODERATE PAIN; Start 03/13/17 at 07:00; Stop 03/14/17 at 06:59 Morphine Sulfate 1 mg PRN Q10MIN PRN IV SEVERE PAIN; Start 03/13/17 at 07:00; Stop 03/14/17 at 06:59 Ringer's Solution 1,000 ml @ 30 mls/hr Q24H IV ; Start 03/13/17 at 07:00; Stop 03/13/17 at 18:59 Lidocaine HCl (Xylocaine-Mpf 1% Vial) 2 ml PRN 1X PRN ID IV START; Start 03/13 at 07:00; Stop 03/14/17 at 06:59 Hydromorphone HCl (Dilaudid) 0.5 mg PRN Q10MIN PRN IV SEV PAIN, Second choice; Start 03/13/17 at 07:00; Stop 03/14/17 at 06:59 Prochlorperazine Edisylate (Compazine) 5 mg PACU PRN PRN IV NAUSEA, MRX1; Start 03/13/17 at 07:00; Stop 03/14/17 at 06:59 Active Scripts Active Hydralazine Hcl 50 Mg Tablet 100 Mg PO TID 30 Days Aspirin 325 Mg Tablet 325 Mg PO DAILYWBKFT 30 Days Reported Novolog Flexpen (Insulin Aspart) 100 Unit/1 Ml Insuln.pen 5 Unit SQ TIDAC Tradjenta (Linagliptin) 5 Mg Tablet 1 Tab PO DAILY Clonidine Hcl 0.2 Mg Tablet 1 Tab PO TID Levemir (Insulin Detemir) 100 Unit/1 Ml Vial 10 Unit SQ HS Labetalol Hcl 200 Mg Tablet 1 Tab PO BID Losartan-Hctz 100-12.5 Mg Tab (Losartan/Hydrochlorothiazide) 1 Each Tablet PO DAILY Pravastatin Sodium 40 Mg Tablet 1 HS Vitals/I & O Vital Sign - Last 24 Hours 03/12/17 03/12/17 03/12/17 03/12/17 12:17 14:46 14:46 15:00 Temp 97.6 97.6 Pulse 72 65 64 62 Resp 16 B/P (MAP) 154/70 121/61 121/61 120/64 (82) Pulse Ox 100 O2 Delivery Room Air 03/12/17 03/12/17 03/12/17 03/12/17 18:45 20:22 21:29 21:29 Temp 98.3 98.3 Pulse 83 83 83 Resp 18 B/P (MAP) 128/58 (81) 128/58 128/58 Pulse Ox 98 O2 Delivery Room Air Room Air 03/12/17 03/12/17 03/13/17 03/13/17 21:29 23:25 03:50 07:00 Temp 98.2 98.4 97.9 98.2 98.4 97.9 Pulse 83 88 87 84 Resp 18 18 18 B/P (MAP) 128/58 154/68 (96) 148/75 (99) 136/70 (92) Pulse Ox 96 97 99 O2 Delivery Room Air Room Air Room Air Intake and Output 03/12/17 03/12/17 03/13/17 15:00 23:00 07:00 Intake Total 5 ml 918 ml 100 ml Output Total 25 ml 300 ml 750 ml Balance -20 ml 618 ml -650 ml EVELYN SALAS MD Mar 13, 2017 09:05
[2017-03-13] MEDS ORDERED: LIDOCAINE 2% TOPICAL JELLY 5GM TUBE. TP ONE ×2 (09:27→10:10)
[2017-03-13] MEDS ORDERED: LIDOCAINE 2% VISCOUS 15 ML SOLUTION. ONE (09:27)
[2017-03-13] MEDS ORDERED: BENZOCAINE ONE 20% MUCOSAL SPRAY. (09:27)
[2017-03-13] MEDS ORDERED: IV NORMAL SALINE 500ML BAG 500 ML IV ONE (09:45)
[2017-03-13] MEDS ORDERED: BENZOCAINE ONE 20% MUCOSAL SPRAY. MM (10:10)
--- NOTE | 2017-03-13 10:47 | PDOC ---
PROGRESS NOTES Subjective Subjective MERISSA today Objective Objective Vital Signs Date Time Temp Pulse Resp B/P (MAP) Pulse Ox O2 Delivery O2 Flow Rate FiO2 03/13/17 07:00 97.9 84 18 136/70 (92) 99 Room Air 97.9 Intake and Output 03/13/17 07:00 Intake Total 1023 ml Output Total 1075 ml Balance -52 ml Intake Oral 100 ml IV Total 923 ml Output Urine Total 1075 ml Physical Exam Abdomen: Normal bowel sounds Heart: Regular rate Extremities: No cyanosis, Other (right knee tenderness) General: No acute distress HEENT: Atraumatic, Mucous membr. moist/pink Lungs: Clear to auscultation MUSCULOSKELETAL: Osteoarthritic changes both hands, Other (right knee effusion) Neuro: Sensation intact Skin: No breakdown, No significant lesion COMMENT weak in legs, hands good strength Diagnosis Problem List Problems Medical Problems: (1) Accelerated hypertension Status: Acute (2) Acute on chronic renal failure Status: Acute (3) Elevated troponin Status: Acute (4) Fall from standing Status: Acute (5) Syncope Status: Acute Assessment Assessment Problems Medical Problems: (1) Accelerated hypertension Status: Acute (2) Acute on chronic renal failure Status: Acute (3) Elevated troponin Status: Acute (4) Fall from standing Status: Acute (5) Syncope Status: Acute FINAL IMPRESSION: new cva embolic biatrial thrombosis 1. Mechanical fall no injuries. 2. Questionable syncopal episode. 3. Accelerated hypertension. 4. Stage 5 renal failure. 5. Possible urinary tract infection. 6. General debility. PLAN: MERISSA today. snu screen and transfer MRI brain punctate infarcts embolic new Echo showed biatrial thrombosis. bridge with Lovenox+coumadin stat ct scan , no bleed neuro consult appreciated. blood sugars 150 . BP110/70 .p80 sat94% , no arrhythmias on monitor. Vantin for uti d/c iv fluids Problems: Plan Plan of Care Problems Medical Problems: (1) Accelerated hypertension Status: Acute (2) Acute on chronic renal failure Status: Acute (3) Elevated troponin Status: Acute (4) Fall from standing Status: Acute (5) Syncope Status: Acute Comment Review of Relevant I have reviewed the following items reji (where applicable) has been applied. Labs Laboratory Tests Test 03/12/17 20:58 03/13/17 06:00 Glucose (Fingerstick) 156 mg/dL (70-99) Heparin Anti-Xa Act, Unfractionated 0.16 IU/mL (0.30-0.70) Sodium Level 143 mmol/L (136-145) Potassium Level 4.5 mmol/L (3.5-5.1) Chloride Level 109 mmol/L (98-107) Carbon Dioxide Level 20 mmol/L (21-32) Anion Gap 14 (6-14) Blood Urea Nitrogen 71 mg/dL (7-20) Creatinine 4.6 mg/dL (0.6-1.0) Estimated GFR (Cockcroft-Gault) 11.3 Glucose Level 150 mg/dL (70-99) Calcium Level 8.0 mg/dL (8.5-10.1) Phosphorus Level 5.7 mg/dL (2.6-4.7) Magnesium Level 2.2 mg/dL (1.8-2.4) Albumin 2.2 g/dL (3.4-5.0) Microbiology 03/10/17 Urine Culture - Final, Complete 03/10/17 Urine Culture Result 1 (STANLEY) - Final, Complete Medications Current Medications Benzocaine (Hurricaine One) 1 spray [employer]-MED ONCE .ROUTE ; Start 03/13/17 at 09: 27; Stop 03/13/17 at 09:28; Status DC Benzocaine (Hurricaine One) 2 spray 1X ONCE MM Last administered on t 10:10; Start 03/13/17 at 10:10; Stop 03/13/17 at 10:39; Status DC Calcium Acetate (Phoslo) 1,334 mg TIDWMEALS PO Last administered on 03/12/17 17:21; Start 03/12/17 at 12:00 Fentanyl Citrate (Fentanyl 2ml Vial) 25 mcg PRN Q5MIN PRN IV MILD PAIN; Start 03/13/17 at 07:00; Stop 03/14/17 at 06:59 Fentanyl Citrate (Fentanyl 2ml Vial) 50 mcg PRN Q5MIN PRN IV MODERATE PAIN; Start 03/13/17 at 07:00; Stop 03/14/17 at 06:59 Hydromorphone HCl (Dilaudid) 0.5 mg PRN Q10MIN PRN IV SEV PAIN, Second choice; Start 03/13/17 at 07:00; Stop 03/14/17 at 06:59 Iron Sucrose 100 mg/Sodium Chloride 105 ml @ 55 mls/hr 3X/WEEK IV ; Start at 09:00; Stop 03/22/17 at 10:55; Status UNV Isosorbide Mononitrate (Imdur) 30 mg DAILY PO Last administered on 03/12/17 12:17; Start 03/12/17 at 11:30 Lactobacillus Rhamnosus (Culturelle) 1 cap BID PO Last administered on 21:29; Start 03/12/17 at 21:00 Lidocaine HCl (Viscous Lidocaine) 15 ml STK-MED ONCE .ROUTE ; Start 03/13/17 at 09:27; Stop 03/13/17 at 09:28; Status DC Lidocaine HCl (Xylocaine 2% Topical 5gm Tube) 2 mumtaz 1X ONCE TP Last administered on 03/13/17 10:10; Start 03/13/17 at 10:10; Stop 03/13/17 at 10 :39; Status DC Lidocaine HCl (Xylocaine 2% Topical 5gm Tube) 5 mumtaz STK-MED ONCE TP ; Start at 09:27; Stop 03/13/17 at 09:28; Status DC Lidocaine HCl (Xylocaine-Mpf 1% Vial) 2 ml PRN 1X PRN ID IV START; Start 03/13 at 07:00; Stop 03/14/17 at 06:59 Morphine Sulfate 1 mg PRN Q10MIN PRN IV SEVERE PAIN; Start 03/13/17 at 07:00; Stop 03/14/17 at 06:59 Ondansetron HCl (Zofran) 4 mg PRN Q6HRS PRN IV NAUSEA/VOMITING; Start at 07:00; Stop 03/14/17 at 06:59 Prochlorperazine Edisylate (Compazine) 5 mg PACU PRN PRN IV NAUSEA, MRX1; Start 03/13/17 at 07:00; Stop 03/14/17 at 06:59 Ringer's Solution 1,000 ml @ 30 mls/hr Q24H IV ; Start 03/13/17 at 07:00; Stop 03/13/17 at 18:59 Sodium Bicarbonate (Sodium Bicarbonate) 650 mg TID PO Last administered on 21:29; Start 03/12/17 at 14:00 Sodium Chloride 500 ml @ 0 mls/hr 1X ONCE IV Last administered on 03/13/17 09:41; Start 03/13/17 at 09:45; Stop 03/13/17 at 09:46; Status DC Vitals/I & O Vital Sign - Last 24 Hours 03/12/17 03/12/17 03/12/17 03/12/17 12:17 14:46 14:46 15:00 Temp 97.6 97.6 Pulse 72 65 64 62 Resp 16 B/P (MAP) 154/70 121/61 121/61 120/64 (82) Pulse Ox 100 O2 Delivery Room Air 03/12/17 03/12/17 03/12/17 03/12/17 18:45 20:22 21:29 21:29 Temp 98.3 98.3 Pulse 83 83 83 Resp 18 B/P (MAP) 128/58 (81) 128/58 128/58 Pulse Ox 98 O2 Delivery Room Air Room Air 03/12/17 03/12/17 03/13/17 03/13/17 21:29 23:25 03:50 07:00 Temp 98.2 98.4 97.9 98.2 98.4 97.9 Pulse 83 88 87 84 Resp 18 18 18 B/P (MAP) 128/58 154/68 (96) 148/75 (99) 136/70 (92) Pulse Ox 96 97 99 O2 Delivery Room Air Room Air Room Air Intake and Output 03/12/17 03/12/17 03/13/17 15:00 23:00 07:00 Intake Total 5 ml 918 ml 100 ml Output Total 25 ml 300 ml 750 ml Balance -20 ml 618 ml -650 ml GRAEME SERNA MD Mar 13, 2017 10:47
[2017-03-13] MEDS ORDERED: PROPOFOL 20 ML IV ONE (10:59)
[2017-03-13] MEDS: CALCIUM ACETATE 667 MG CAPSULE PO SCH ×3 (12:00→16:53)
[2017-03-13] MEDS: SODIUM BICARBONATE 650 MG TABLET. PO SCH ×3 (13:14→21:12)
[2017-03-13] MEDS: LOSARTAN POTASSIUM 50 MG TABLET. PO SCH (13:14)
[2017-03-13] MEDS: LACTOBACILLUS RHAMNOSUS GG 1 CAPSULE. PO SCH ×2 (13:14→21:12)
[2017-03-13] MEDS: LINAGLIPTIN 5 MG TABLET PO SCH (13:15)
[2017-03-13] MEDS: LABETALOL HCL 200 MG TABLET PO SCH ×2 (13:15→21:12)
[2017-03-13] MEDS: CLOPIDOGREL BISULFATE 75 MG TABLET PO SCH (13:15)
[2017-03-13] MEDS: cloNIDine HCL 0.2 MG TABLET PO SCH ×3 (13:15→21:13)
[2017-03-13] MEDS: ISOSORBIDE MONONITRATE ER 30 MG TAB.ER.24H PO SCH (13:15)
[2017-03-13] MEDS: CEFPODOXIME PROXETIL 100 MG TABLET. PO SCH ×2 (13:15→21:12)
--- NOTE | 2017-03-13 13:19 | PDOC ---
SUBJECTIVE ROS CKD V Feels well CVS: no Orthopnea, no CP RESP: no SOB, no MCCULLOUGH GI: no Nausea, no Vomiting : no Dysuria, no Urgency OBJECTIVE Vital Signs Vital Signs Date Time Temp Pulse Resp B/P (MAP) Pulse Ox O2 Delivery O2 Flow Rate FiO2 03/13/17 13:16 74 148/63 03/13/17 11:37 20 99 Nasal Cannula 2 03/13/17 11:06 98.5 98.5 I & 0 Intake and Output 03/13/17 07:00 Intake Total 1023 ml Output Total 1075 ml Balance -52 ml Intake Oral 100 ml IV Total 923 ml Output Urine Total 1075 ml PHYSICAL EXAM Physical Exam GEN: Awake, Oriented x 2, In no distress EYES: Vision Unchanged, Conjunctiva Normal EN: No EN Drainage, Mucous Membranes moist NECK: no JVD, no JVP, Supple, no Thyromegaly CVS: S1S2, soft Murmur, No Gallop, No Rub,no Edema RESP: no Rales, no Rhonchi,no Acc. Muscle Use GI: BS + ve, NO Bruit, Non Tender, Non Distended : no CVA tenderness, no Suprapubic Tenderness Left forearm AVF - appears too small to use right away DIAGNOSIS/ASSESSMENT Assessment & Plan: CKD V: No uremic s/s. current fluid and E-lyte status does not necessitate emergent need for dialysis. Pt not ready for same either. Will re-evaluate for dialysis in the am Met ACidosis - ct PO Bicarb for now, slightly better. If not > 22 then ^ dose again ^ed Phos - started Phoslo and trending down Proteinuria - 2 gms by Ratio. despite being on ARB - hesitant to Add Aldactone due to spotty OP F/up and reluctance to do HD Hypoalbuminemia - suspect due to Poor PO intake - ? Malnutrition form Advanced Renal failure ANEMIA; recheck Iron is low so IV Fe as ordered; start Aranesp once on anti- coag for 4 weeks HTN: Current BPs are adequately controlled on present meds as reviewed. Discussed Plan of Care with pt at bedside COMMENT/RELEVANT DATA Meds Current Medications Medications (Trade) Dose Ordered Sig/Nicolas Start Time Stop Time Status Last Admin Dose Admin Acetaminophen (Tylenol) 650 mg PRN Q4HRS PRN 03/08/17 17:00 03/09/17 16:59 DC Aspirin (Radha Aspirin) 325 mg DAILYWBKFT 03/09/17 13:00 03/12/17 11:05 DC 03/12/17 08:40 325 MG Aspirin (Ecotrin) 81 mg DAILYWBKFT 03/09/17 12:30 03/09/17 12:30 DC Atorvastatin Calcium (Lipitor) 10 mg QHS 03/09/17 21:00 03/12/17 21:29 10 MG Benzocaine (Hurricaine One) 2 spray 1X ONCE 03/13/17 10:10 03/13/17 10:39 DC 03/13/17 10:10 2 SPRAY Calcium Acetate (Phoslo) 1,334 mg TIDWMEALS 03/12/17 12:00 03/13/17 13:14 1,334 MG Cefpodoxime Proxetil (Vantin) 100 mg BID 03/12/17 10:00 03/13/17 13:15 100 MG Clonidine HCl (Catapres) 0.2 mg TID 03/09/17 14:00 03/13/17 13:15 0.2 MG Clopidogrel Bisulfate (Plavix) 75 mg 1X ONCE 03/10/17 12:30 03/10/17 12:31 DC 03/10/17 12:42 75 MG Dextrose (Dextrose 50%-Water Syringe) 12.5 gm PRN Q15MIN PRN 03/09/17 12:30 Enoxaparin Sodium (Lovenox 30mg Syringe) 30 mg Q24H 03/09/17 13:00 03/10/17 22:33 DC 03/10/17 12:46 30 MG Fentanyl Citrate (Fentanyl 2ml Vial) 50 mcg PRN Q5MIN PRN 03/13/17 07:00 03/14/17 06:59 Heparin Sodium (Porcine) (Heparin Sodium) 1,750 unit PRN Q6HRS PRN 03/10/17 22:30 Heparin Sodium/ Dextrose 500 ml @ 0 mls/hr CONT PRN 03/10/17 22:30 03/12/17 06:41 0 MLS/HR Hydralazine HCl (Apresoline Inj) 10 mg Q6HRS PRN 03/08/17 21:00 03/08/17 21:13 10 MG Hydralazine HCl (Apresoline) 100 mg TID 03/08/17 21:00 03/13/17 13:16 100 MG Hydromorphone HCl (Dilaudid) 0.5 mg PRN Q10MIN PRN 03/13/17 07:00 03/14/17 06:59 Info (Anti-Coagulation Monitoring By Pharmacy) 1 each PRN DAILY PRN 03/11/17 08:00 03/11/17 12:43 1 EACH Insulin Aspart (NovoLOG) 0-5 UNITS TIDWMEALS 03/09/17 17:00 03/09/17 17:00 DC Insulin Detemir (Levemir) 10 units QHS 03/09/17 21:00 03/10/17 12:34 DC 03/09/17 21:43 10 UNITS Iron Sucrose 100 mg/Miscellaneous 5 ml @ 60 mls/hr 3X/WEEK 03/12/17 10:00 03/20/17 09:04 03/12/17 10:11 60 MLS/HR Iron Sucrose 100 mg/Sodium Chloride 105 ml @ 55 mls/hr 3X/WEEK 03/13/17 09:00 03/22/17 10:55 UNV Isosorbide Mononitrate (Imdur) 30 mg DAILY 03/12/17 11:30 03/13/17 13:15 30 MG Labetalol HCl (Normodyne) 20 mg PRN Q2HR PRN 03/09/17 11:45 Labetalol HCl (Trandate) 200 mg BID 03/08/17 21:00 03/13/17 13:15 200 MG Lactobacillus Rhamnosus (Culturelle) 1 cap BID 03/12/17 21:00 03/13/17 13:14 1 CAP Lidocaine HCl (Viscous Lidocaine) 15 ml STK-MED ONCE 03/13/17 09:27 03/13/17 09:28 DC Lidocaine HCl (Xylocaine 2% Topical 5gm Tube) 2 mumtaz 1X ONCE 03/13/17 10:10 03/13/17 10:39 DC 03/13/17 10:10 2 MUMTAZ Lidocaine HCl (Xylocaine-Mpf 1% Vial) 2 ml PRN 1X PRN 03/13/17 07:00 03/14/17 06:59 Linagliptin (Tradjenta) 5 mg DAILY 03/09/17 13:00 12/20/17 13:15 5 MG Losartan Potassium (Cozaar) 100 mg DAILY 03/09/17 13:00 03/13/17 13:14 100 MG Magnesium Sulfate/ Dextrose 50 ml @ 25 mls/hr PRN DAILY PRN 03/11/17 09:00 Morphine Sulfate 1 mg PRN Q10MIN PRN 03/13/17 07:00 03/14/17 06:59 Ondansetron HCl (Zofran) 4 mg PRN Q6HRS PRN 03/13/17 07:00 03/14/17 06:59 Prochlorperazine Edisylate (Compazine) 5 mg PACU PRN PRN 03/13/17 07:00 03/14/17 06:59 Propofol 20 ml @ As Directed STK-MED ONCE 03/13/17 10:59 03/13/17 11:00 DC Ringer's Solution 1,000 ml @ 30 mls/hr Q24H 03/13/17 07:00 03/13/17 18:59 Sodium Bicarbonate (Sodium Bicarbonate) 650 mg TID 03/12/17 14:00 03/13/17 13:14 650 MG Sodium Chloride 500 ml @ 0 mls/hr 1X ONCE 03/13/17 09:45 03/13/17 09:46 DC 03/13/17 09:41 0 MLS/HR Lab Laboratory Tests Test 03/12/17 20:58 03/13/17 06:00 03/13/17 12:11 Glucose (Fingerstick) 156 mg/dL (70-99) 122 mg/dL (70-99) Heparin Anti-Xa Act, Unfractionated 0.16 IU/mL (0.30-0.70) Sodium Level 143 mmol/L (136-145) Potassium Level 4.5 mmol/L (3.5-5.1) Chloride Level 109 mmol/L (98-107) Carbon Dioxide Level 20 mmol/L (21-32) Anion Gap 14 (6-14) Blood Urea Nitrogen 71 mg/dL (7-20) Creatinine 4.6 mg/dL (0.6-1.0) Estimated GFR (Cockcroft-Gault) 11.3 Glucose Level 150 mg/dL (70-99) Calcium Level 8.0 mg/dL (8.5-10.1) Phosphorus Level 5.7 mg/dL (2.6-4.7) Magnesium Level 2.2 mg/dL (1.8-2.4) Albumin 2.2 g/dL (3.4-5.0) SHARMILA CONTRERAS MD Mar 13, 2017 13:19
--- NOTE | 2017-03-13 14:17 | CARD ---
MR#: [id number] Date of Study: 03/13/2017 Ordering Physician: MICHAEL SRIVASTAVA, Referring Physician: Miya ESCALERA: Bob Conn [facility] APPROVED REPORT EXAM: Two-dimensional and M-mode echocardiogram with Doppler and color Doppler. INDICATION Thrombus Reason For Test : Rule out Intracardiac Thrombus. PROCEDURE After obtaining informed consent, patient underwent transesophageal echo in the PACU. Sedation was administered by John Orantes. Sedation was achieved with Propofol 90mg intravenously. Transesophageal probe was inserted and advanced into esophagus by Horacio Lopez MD. Echo enhancement indication: R/O Septal defect. Echo enhancement agent administered: Agitated Saline The MERISSA was performed without complications. Throughout the procedure, the blood pressure, pulse oximetry, cardiac rhythm, and rate were monitored . The patient tolerated the procedure without adverse effects. Recovery from general anesthesia was une ventful and vital signs were stable. LEFT VENTRICLE The left ventricle is normal size. There is borderline concentric left ventricular hypertrophy. The l eft ventricular systolic function is normal and the ejection fraction is within normal range. Left ve ntricular ejection fraction is 55-60%. There is normal LV segmental wall motion. The left ventricular diastolic function and filling is normal for age. No left ventricle thrombus noted on this study. RIGHT VENTRICLE The right ventricle is normal size. There is normal right ventricular wall thickness. The right ventr icular systolic function is normal. ATRIA Hyperechoic structure which is part of the wall near the CHAGO. No evidence of thrumbus in the left atr ium. The right atrium size is normal. No evidence of thrumbus. The interatrial septum is intact with no evidence for an atrial septal defect or patent foramen ovale as noted on 2-D or Doppler imaging. N ormal bubble study. There is no thrombus noted in the left atrial appendage. AORTIC VALVE The aortic valve is thickened but opens well. Doppler and Color Flow revealed no significant aortic r egurgitation. There is no significant aortic valvular stenosis. There is no aortic valvular vegetatio n. MITRAL VALVE The mitral valve is normal in structure and function. There is no evidence of mitral valve prolapse. There is no mitral valve stenosis. Doppler and Color-flow revealed mild mitral regurgitation. TRICUSPID VALVE The tricuspid valve is normal in structure and function. Doppler and Color Flow revealed mild tricusp id regurgitation. There is no tricuspid valve prolapse or vegetation. There is no tricuspid valve elmer nosis. PULMONIC VALVE The pulmonary valve is normal in structure and function. Doppler and Color Flow revealed trace pulmon ic valvular regurgitation. There is no pulmonic valvular stenosis. PERICARDIAL EFFUSION There is no evidence of significant pericardial effusion. Critical Notification Critical Value: No <Conclusion> The left ventricle is normal size. The left ventricular systolic function is normal and the ejection fraction is within normal range. Left ventricular ejection fraction is 55-60%. Hyperechoic structure which is part of the wall near the CHAGO. No evidence of thrumbus in the left atrium. The right atrium size is normal. No evidence of thrumbus in the right atrium. The interatrial septum is intact with no evidence for an atrial septal defect or patent foramen ovale as noted on 2-D or Doppler imaging. Normal bubble study. There is no significant aortic valvular stenosis. Doppler and Color Flow revealed no significant aortic regurgitation. Doppler and Color-flow revealed mild mitral regurgitation. Doppler and Color Flow revealed mild tricuspid regurgitation. Signed by : Horacio Lopez MD Electronically Approved : 03/13/2017 14:16:39
--- NOTE | 2017-03-13 14:45 | PDOC ---
PROGRESS NOTES Assessment Assessment Suspect acute punctuate infarcts in bilateral frontal lobes. Metabolic encephalopathy. Right new on old hemiplegia. Right side facial numbness. Renal failure. 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 HTN HLD Thromboses in atria? Ruled out by Cardiology. RECOMMENDATIONS/PLAN: Continue Plavix 75 mg daily. Increase Lipitor from 10 mg to 20 mg HS. Treat medical diseases. OT/PT. Past Medical History Cardiovascular: HTN, Hyperlipidemia Pulmonary: No pertinent hx GI: Constipation Heme/Onc: Anemia NOS Hepatobiliary: No pertinent hx Psych: No pertinent hx Rheumatologic: No pertinent hx Renal/: Chronic renal insuff Endocrine: Diabetes, Hypothyroidism Family History Family History: Cancer, Coronary Artery Disease, Diabetes, Kidney Disease, Osteo Arthiritis Social History No ALCOHOL: none Drugs: None ALLERGY: NKDA Unknown MEDICATIONS: Refer to MAR REVIEW OF SYSTEMS: Constitutional: No malnutrition, weight loss, cachexia. Head: No traumatic brain or head injury. Skin: No edema, or rash. Ear: No infection. Eyes: No vision loss, or diplopia. Nose: No bleeding or purulent discharges. Hearing: Hearing loss. Neck: No injury. Breast: No history of cancer, masses, or discharges. Cardiac: HTN, HLD Pulmonary: No CPOD. GI: No GI Ulcer, GI bleeding Urinary/genital: UTI. Endocrine: No cousin face, craniofacial dysmorphism, polydactyly. Skeletomuscular: No muscular atrophy, deformity. Neurological: see HP. Psychiatric: Denies drug use/abuse. Otherwise, not [id number] review of systems. PHYSICAL EXAMINATION: General appearance in subacute distress. HEENT: Normocephalic and nontraumatic. Eyes, nose, ears, and throat are unremarkable. Hearing decrease. Neck is supple. No lymphadenopathy. No bruits are heard over the carotid artery. No Crepitus. Cardiovascular: S1, S2, regular rate and rhythm. Pulmonary: Clear to auscultation bilaterally. Abdomen: Bowel sounds are positive. Abdomen is soft, nontender, and nondistended. NEUROLOGICAL EXAMINATION: Awake. Not fully oriented to time, but knows place and person. PERRL. EOMI. 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 Muscle tone: increased in right side from old CVA. Muscle strength: 3+ right UE, 5- left UE, 2-3 LE. DTR: 1-2 Plantar reflex: Neutral response bilaterally Gait: not examined in chair. Sensory exam: no abnormal findings. No acute cerebellar signs elicited. F-T-N test fine left side. Objective Objective Vital Signs Date Time Temp Pulse Resp B/P (MAP) Pulse Ox O2 Delivery O2 Flow Rate FiO2 03/13/17 13:16 74 148/63 03/13/17 11:37 20 99 Nasal Cannula 2 03/13/17 11:06 98.5 98.5 Intake and Output 03/13/17 07:00 Intake Total 1023 ml Output Total 1075 ml Balance -52 ml Intake Oral 100 ml IV Total 923 ml Output Urine Total 1075 ml Vitals Signs Vitals VS - Last 72 Hours, by Label Date Time Temp Pulse Resp B/P (MAP) Pulse Ox O2 Delivery O2 Flow Rate FiO2 03/13/17 13:16 74 148/63 03/13/17 13:15 74 148/63 03/13/17 13:15 74 148/63 03/13/17 13:15 74 148/63 03/13/17 13:14 74 148/63 03/13/17 11:37 74 20 148/63 99 Nasal Cannula 2 03/13/17 11:22 75 20 134/54 99 Simple Mask 10 03/13/17 11:06 98.5 75 20 34/53 99 Nasal Cannula 2 98.5 03/13/17 10:54 78 20 150/71 98 Nasal Cannula 2 03/13/17 10:39 Nasal Cannula 2 03/13/17 10:39 98.4 80 20 157/72 97 Nasal Cannula 6 98.4 03/13/17 07:00 97.9 84 18 136/70 (92) 99 Room Air 97.9 03/13/17 03:50 98.4 87 18 148/75 (99) 97 Room Air 98.4 03/12/17 23:25 98.2 88 18 154/68 (96) 96 Room Air 98.2 03/12/17 21:29 83 128/58 03/12/17 21:29 83 128/58 03/12/17 21:29 83 128/58 03/12/17 20:22 Room Air 03/12/17 18:45 98.3 83 18 128/58 (81) 98 Room Air 98.3 03/12/17 15:00 97.6 62 16 120/64 (82) 100 Room Air 97.6 03/12/17 14:46 64 121/61 03/12/17 14:46 65 121/61 03/12/17 12:17 72 154/70 03/12/17 08:40 71 155/62 03/12/17 08:40 71 155/62 03/12/17 08:39 69 155/62 03/12/17 08:39 71 155/62 03/12/17 08:15 97.6 71 14 155/62 (93) 100 Room Air 97.6 03/12/17 07:49 Room Air Laboratory Laboratory Laboratory Tests Test 03/12/17 20:58 03/13/17 06:00 03/13/17 12:11 Glucose (Fingerstick) 156 mg/dL (70-99) 122 mg/dL (70-99) Heparin Anti-Xa Act, Unfractionated 0.16 IU/mL (0.30-0.70) Sodium Level 143 mmol/L (136-145) Potassium Level 4.5 mmol/L (3.5-5.1) Chloride Level 109 mmol/L (98-107) Carbon Dioxide Level 20 mmol/L (21-32) Anion Gap 14 (6-14) Blood Urea Nitrogen 71 mg/dL (7-20) Creatinine 4.6 mg/dL (0.6-1.0) Estimated GFR (Cockcroft-Gault) 11.3 Glucose Level 150 mg/dL (70-99) Calcium Level 8.0 mg/dL (8.5-10.1) Phosphorus Level 5.7 mg/dL (2.6-4.7) Magnesium Level 2.2 mg/dL (1.8-2.4) Albumin 2.2 g/dL (3.4-5.0) Microbiology 03/10/17 Urine Culture - Final, Complete 03/10/17 Urine Culture Result 1 (STANLEY) - Final, Complete Medication Medications Current Medications Benzocaine (Hurricaine One) 1 spray STK-MED ONCE .ROUTE ; Start 03/13/17 at 09: 27; Stop 03/13/17 at 09:28; Status DC Benzocaine (Hurricaine One) 2 spray 1X ONCE MM Last administered on t 10:10; Start 03/13/17 at 10:10; Stop 03/13/17 at 10:39; Status DC Fentanyl Citrate (Fentanyl 2ml Vial) 25 mcg PRN Q5MIN PRN IV MILD PAIN; Start 03/13/17 at 07:00; Stop 03/14/17 at 06:59 Fentanyl Citrate (Fentanyl 2ml Vial) 50 mcg PRN Q5MIN PRN IV MODERATE PAIN; Start 03/13/17 at 07:00; Stop 03/14/17 at 06:59 Hydromorphone HCl (Dilaudid) 0.5 mg PRN Q10MIN PRN IV SEV PAIN, Second choice; Start 03/13/17 at 07:00; Stop 03/14/17 at 06:59 Iron Sucrose 100 mg/Sodium Chloride 105 ml @ 55 mls/hr 3X/WEEK IV ; Start at 09:00; Stop 03/22/17 at 10:55; Status UNV Lactobacillus Rhamnosus (Culturelle) 1 cap BID PO Last administered on t 13:14; Start 03/12/17 at 21:00 Lidocaine HCl (Viscous Lidocaine) 15 ml STK-MED ONCE .ROUTE ; Start 03/13/17 at 09:27; Stop 03/13/17 at 09:28; Status DC Lidocaine HCl (Xylocaine 2% Topical 5gm Tube) 2 mumtaz 1X ONCE TP Last administered on 03/13/17t 10:10; Start 03/13/17 at 10:10; Stop 03/13/17 at 10 :39; Status DC Lidocaine HCl (Xylocaine 2% Topical 5gm Tube) 5 mumtaz STK-MED ONCE TP ; Start at 09:27; Stop 03/13/17 at 09:28; Status DC Lidocaine HCl (Xylocaine-Mpf 1% Vial) 2 ml PRN 1X PRN ID IV START; Start 03/13 at 07:00; Stop 03/14/17 at 06:59 Morphine Sulfate 1 mg PRN Q10MIN PRN IV SEVERE PAIN; Start 03/13/17 at 07:00; Stop 03/14/17 at 06:59 Ondansetron HCl (Zofran) 4 mg PRN Q6HRS PRN IV NAUSEA/VOMITING; Start at 07:00; Stop 03/14/17 at 06:59 Prochlorperazine Edisylate (Compazine) 5 mg PACU PRN PRN IV NAUSEA, MRX1; Start 03/13/17 at 07:00; Stop 03/14/17 at 06:59 Propofol 20 ml @ As Directed STK-MED ONCE IV ; Start 03/13/17 at 10:59; Stop 03/13/17 at 11:00; Status DC Ringer's Solution 1,000 ml @ 30 mls/hr Q24H IV ; Start 03/13/17 at 07:00; Stop 03/13/17 at 18:59 Sodium Chloride 500 ml @ 0 mls/hr 1X ONCE IV Last administered on 03/13/17t 09:41; Start 03/13/17 at 09:45; Stop 03/13/17 at 09:46; Status DC Comment Review of Relevant I have reviewed the following items reji (where applicable) has been applied. RUTH TORRES MD Mar 13, 2017 14:45
[2017-03-13 15:00] VITALS: BP 132/63
[2017-03-13] MEDS: IRON SUCROSE COMPLEX IV SCH (16:53)
[2017-03-13] MEDS: ASPIRIN CHEWABLE 81 MG TABLET. PO SCH (16:53)
[2017-03-13] MEDS: TOTAL VOLUME IV SCH (16:53)
[2017-03-13 19:00] VITALS: BP 153/66
[2017-03-13] MEDS: ATORVASTATIN CALCIUM 10 MG TABLET. PO SCH (21:12)
[2017-03-13 23:42] VITALS: BP 101/53
[2017-03-14 03:33] VITALS: BP 140/60
[2017-03-14 06:54] LABS: ALBUMIN 2.1 g/dL (3.4-5.0); CALCIUM 7.9 mg/dL (8.5-10.1); CREATININE 4.1 mg/dL (0.6-1.0); GFR 12.9; PHOSPHORUS 4.6 mg/dL (2.6-4.7); POTASSIUM 4.5 mmol/L (3.5-5.1)
[2017-03-14 07:00] VITALS: BP 164/72
[2017-03-14] MEDS: ISOSORBIDE MONONITRATE ER 30 MG TAB.ER.24H PO SCH (08:52)
[2017-03-14] MEDS: CALCIUM ACETATE 667 MG CAPSULE PO SCH ×3 (08:52→18:33)
[2017-03-14] MEDS: LABETALOL HCL 200 MG TABLET PO SCH ×2 (08:52→21:34)
[2017-03-14] MEDS: LOSARTAN POTASSIUM 50 MG TABLET. PO SCH (08:52)
[2017-03-14] MEDS: SODIUM BICARBONATE 650 MG TABLET. PO SCH ×3 (08:52→21:32)
[2017-03-14] MEDS: ASPIRIN CHEWABLE 81 MG TABLET. PO SCH (08:53)
[2017-03-14] MEDS: CEFPODOXIME PROXETIL 100 MG TABLET. PO SCH ×2 (08:53→21:32)
[2017-03-14] MEDS: cloNIDine HCL 0.2 MG TABLET PO SCH ×3 (08:53→21:33)
[2017-03-14] MEDS: CLOPIDOGREL BISULFATE 75 MG TABLET PO SCH (08:53)
[2017-03-14] MEDS: LINAGLIPTIN 5 MG TABLET PO SCH (08:53)
[2017-03-14] MEDS: LACTOBACILLUS RHAMNOSUS GG 1 CAPSULE. PO SCH ×2 (08:53→21:32)
--- NOTE | 2017-03-14 10:10 | PDOC ---
PROGRESS NOTES Subjective Subjective No new complaints. Objective Objective Vital Signs Date Time Temp Pulse Resp B/P (MAP) Pulse Ox O2 Delivery O2 Flow Rate FiO2 03/14/17 08:53 83 140/60 03/14/17 07:00 98.6 18 98 Room Air 98.6 03/13/17 11:37 2 Intake and Output 03/14/17 07:00 # Voids 5 Physical Exam Physical Exam She is supine in bed,lethargic but can easily awakened and she continues to require physical assistance for mobility and self care. Assessment Assessment Problems Medical Problems: (1) Accelerated hypertension Status: Acute (2) Acute on chronic renal failure Status: Acute (3) Elevated troponin Status: Acute (4) Fall from standing Status: Acute (5) Syncope Status: Acute Plan Plan of Care To SNF when medically stable. Comment Review of Relevant I have reviewed the following items reji (where applicable) has been applied. Labs Laboratory Tests Test 03/12/17 20:58 03/13/17 06:00 03/13/17 07:42 03/13/17 12:11 Glucose (Fingerstick) 156 mg/dL (70-99) 149 mg/dL (70-99) 122 mg/dL (70-99) Heparin Anti-Xa Act, Unfractionated 0.16 IU/mL (0.30-0.70) Sodium Level 143 mmol/L (136-145) Potassium Level 4.5 mmol/L (3.5-5.1) Chloride Level 109 mmol/L (98-107) Carbon Dioxide Level 20 mmol/L (21-32) Anion Gap 14 (6-14) Blood Urea Nitrogen 71 mg/dL (7-20) Creatinine 4.6 mg/dL (0.6-1.0) Estimated GFR (Cockcroft-Gault) 11.3 Glucose Level 150 mg/dL (70-99) Calcium Level 8.0 mg/dL (8.5-10.1) Phosphorus Level 5.7 mg/dL (2.6-4.7) Magnesium Level 2.2 mg/dL (1.8-2.4) Albumin 2.2 g/dL (3.4-5.0) Test 03/13/17 17:07 03/13/17 20:27 03/14/17 05:05 Glucose (Fingerstick) 191 mg/dL (70-99) 148 mg/dL (70-99) Sodium Level 142 mmol/L (136-145) Potassium Level 4.5 mmol/L (3.5-5.1) Chloride Level 110 mmol/L (98-107) Carbon Dioxide Level 21 mmol/L (21-32) Anion Gap 11 (6-14) Blood Urea Nitrogen 69 mg/dL (7-20) Creatinine 4.1 mg/dL (0.6-1.0) Estimated GFR (Cockcroft-Gault) 12.9 Glucose Level 127 mg/dL (70-99) Calcium Level 7.9 mg/dL (8.5-10.1) Phosphorus Level 4.6 mg/dL (2.6-4.7) Magnesium Level 2.0 mg/dL (1.8-2.4) Albumin 2.1 g/dL (3.4-5.0) Laboratory Tests Test 03/13/17 12:11 03/13/17 17:07 03/13/17 20:27 03/14/17 05:05 Glucose (Fingerstick) 122 mg/dL (70-99) 191 mg/dL (70-99) 148 mg/dL (70-99) Sodium Level 142 mmol/L (136-145) Potassium Level 4.5 mmol/L (3.5-5.1) Chloride Level 110 mmol/L (98-107) Carbon Dioxide Level 21 mmol/L (21-32) Anion Gap 11 (6-14) Blood Urea Nitrogen 69 mg/dL (7-20) Creatinine 4.1 mg/dL (0.6-1.0) Estimated GFR (Cockcroft-Gault) 12.9 Glucose Level 127 mg/dL (70-99) Calcium Level 7.9 mg/dL (8.5-10.1) Phosphorus Level 4.6 mg/dL (2.6-4.7) Magnesium Level 2.0 mg/dL (1.8-2.4) Albumin 2.1 g/dL (3.4-5.0) Microbiology 03/10/17 Urine Culture - Final, Complete 03/10/17 Urine Culture Result 1 (STANLEY) - Final, Complete Medications Current Medications Clonidine HCl (Catapres) 0.2 mg 1X ONCE PO Last administered on 03/08/17t 15: 23; Start 03/08/17 at 15:00; Stop 03/08/17 at 15:01; Status DC Ondansetron HCl (Zofran) 4 mg PRN Q8HRS PRN IV NAUSEA/VOMITING; Start at 17:00; Stop 03/09/17 at 16:59; Status DC Morphine Sulfate 2 mg PRN Q2HR PRN IV PAIN; Start 03/08/17 at 17:00; Stop at 16:59; Status DC Acetaminophen (Tylenol) 650 mg PRN Q4HRS PRN PO FEVER; Start 03/08/17 at 17:00 ; Stop 03/09/17 at 16:59; Status DC Insulin Aspart (NovoLOG) 0-7 UNITS TIDWMEALS SQ ; Start 03/08/17 at 17:00; Stop 03/09/17 at 12:29; Status DC Dextrose (Dextrose 50%-Water Syringe) 12.5 gm PRN Q15MIN PRN IV SEE COMMENTS; Start 03/08/17 at 17:00; Status Cancel Sodium Chloride 1,000 ml @ 75 mls/hr 1X ONCE IV ; Start 03/08/17 at 17:00; Stop 03/09/17 at 06:19; Status Cancel Labetalol HCl (Normodyne) 10 mg Q6HRS PRN IVP HYPERTENSION, SEE COMMENTS Last administered on 03/08/17 17:10; Start 03/08/17 at 17:00; Stop 03/09/17 at 12 :31; Status DC Hydralazine HCl (Apresoline Inj) 10 mg Q6HRS PRN IVP ELEVATED BP, SEE COMMENTS Last administered on 03/08/17 21:13; Start 03/08/17 at 21:00 Hydralazine HCl (Apresoline) 100 mg TID PO Last administered on 03/14/17 08: 53; Start 03/08/17 at 21:00 Labetalol HCl (Trandate) 200 mg BID PO Last administered on 03/14/17 08:52; Start 03/08/17 at 21:00 Atorvastatin Calcium (Lipitor) 10 mg QHS PO Last administered on 03/13/17 21: 12; Start 03/09/17 at 21:00 Aspirin (Ecotrin) 81 mg DAILYWBKFT PO ; Start 03/10/17 at 08:00; Stop at 08:00; Status DC Labetalol HCl (Normodyne) 20 mg PRN Q2HR PRN IVP HYPERTENSION, SEE COMMENTS; Start 03/09/17 at 11:45 Aspirin (Ecotrin) 81 mg DAILYWBKFT PO ; Start 03/09/17 at 12:30; Stop at 12:30; Status DC Aspirin (Radha Aspirin) 325 mg DAILYWBKFT PO Last administered on 03/12/17 08 :40; Start 03/09/17 at 13:00; Stop 03/12/17 at 11:05; Status DC Clonidine HCl (Catapres) 0.2 mg TID PO Last administered on 03/14/17 08:53; Start 03/09/17 at 14:00 Insulin Aspart (NovoLOG) 5 units TIDAC SQ ; Start 03/09/17 at 16:30; Stop at 16:30; Status DC Linagliptin (Tradjenta) 5 mg DAILY PO Last administered on 03/14/17 08:53; Start 03/09/17 at 13:00 Insulin Detemir (Levemir) 10 units QHS SQ Last administered on 03/09/17 21:43 ; Start 03/09/17 at 21:00; Stop 03/10/17 at 12:34; Status DC Losartan Potassium (Cozaar) 100 mg DAILY PO Last administered on 03/14/17 08: 52; Start 03/09/17 at 13:00 Insulin Aspart (NovoLOG) 0-5 UNITS TIDWMEALS SQ ; Start 03/09/17 at 17:00; Stop 03/09/17 at 17:00; Status DC Dextrose (Dextrose 50%-Water Syringe) 12.5 gm PRN Q15MIN PRN IV SEE COMMENTS; Start 03/09/17 at 12:30 Enoxaparin Sodium (Lovenox 30mg Syringe) 30 mg Q24H SQ Last administered on 12:46; Start 03/09/17 at 13:00; Stop 03/10/17 at 22:33; Status DC Sodium Chloride 1,000 ml @ 30 mls/hr Q24H IV Last administered on 03/12/17 15:36; Start 03/10/17 at 11:00; Stop 03/12/17 at 20:00; Status DC Sodium Chloride 1,000 ml @ 75 mls/hr [id number] IV ; Start 03/10/17 at 12:00; Stop 03/10/17 at 12:00; Status DC Clopidogrel Bisulfate (Plavix) 75 mg DAILYWBKFT PO Last administered on 08:53; Start 03/11/17 at 08:00 Clopidogrel Bisulfate (Plavix) 75 mg 1X ONCE PO Last administered on 12:42; Start 03/10/17 at 12:30; Stop 03/10/17 at 12:31; Status DC Heparin Sodium/ Dextrose 500 ml @ 0 mls/hr CONT PRN IV SEE I/O RECORD Last administered on 03/12/17 06:41; Start 03/10/17 at 22:30; Stop 03/13/17 at 14 :52; Status DC Heparin Sodium (Porcine) (Heparin Sodium) 1,750 unit PRN Q6HRS PRN IV FOR UFH LEVEL LESS THAN 0.2; Start 03/10/17 at 22:30; Stop 03/13/17 at 14:53; Status DC Info (Anti-Coagulation Monitoring By Pharmacy) 1 each PRN DAILY PRN MC SEE COMMENTS Last administered on 03/11/17 12:43; Start 03/11/17 at 08:00; Stop 03/14/17 at 07:52; Status DC Magnesium Sulfate/ Dextrose 50 ml @ 25 mls/hr PRN DAILY PRN IV for Mag < 1.7 on am labs; Start 03/11/17 at 09:00 Iron Sucrose 100 mg/Sodium Chloride 105 ml @ 55 mls/hr 3X/WEEK IV ; Start at 09:00; Stop 03/22/17 at 10:55; Status UNV Iron Sucrose 100 mg/Miscellaneous 5 ml @ 60 mls/hr 3X/WEEK IV Last administered on 03/13/17 16:53; Start 03/12/17 at 10:00; Stop 03/20/17 at 09 :04 Sodium Bicarbonate (Sodium Bicarbonate) 650 mg TID PO Last administered on 08:52; Start 03/12/17 at 14:00 Calcium Acetate (Phoslo) 1,334 mg TIDWMEALS PO Last administered on 03/14/17 08:52; Start 03/12/17 at 12:00 Cefpodoxime Proxetil (Vantin) 100 mg BID PO Last administered on 03/14/17 08: 53; Start 03/12/17 at 10:00 Lactobacillus Rhamnosus (Culturelle) 1 cap BID PO Last administered on 08:53; Start 03/12/17 at 21:00 Isosorbide Mononitrate (Imdur) 30 mg DAILY PO Last administered on 03/14/17 08:52; Start 03/12/17 at 11:30 Ondansetron HCl (Zofran) 4 mg PRN Q6HRS PRN IV NAUSEA/VOMITING; Start at 07:00; Stop 03/14/17 at 06:59; Status DC Fentanyl Citrate (Fentanyl 2ml Vial) 25 mcg PRN Q5MIN PRN IV MILD PAIN; Start 03/13/17 at 07:00; Stop 03/14/17 at 06:59; Status DC Fentanyl Citrate (Fentanyl 2ml Vial) 50 mcg PRN Q5MIN PRN IV MODERATE PAIN; Start 03/13/17 at 07:00; Stop 03/14/17 at 06:59; Status DC Morphine Sulfate 1 mg PRN Q10MIN PRN IV SEVERE PAIN; Start 03/13/17 at 07:00; Stop 03/14/17 at 06:59; Status DC Ringer's Solution 1,000 ml @ 30 mls/hr Q24H IV ; Start 03/13/17 at 07:00; Stop 03/13/17 at 18:59; Status DC Lidocaine HCl (Xylocaine-Mpf 1% Vial) 2 ml PRN 1X PRN ID IV START; Start 03/13 at 07:00; Stop 03/14/17 at 06:59; Status DC Hydromorphone HCl (Dilaudid) 0.5 mg PRN Q10MIN PRN IV SEV PAIN, Second choice; Start 03/13/17 at 07:00; Stop 03/14/17 at 06:59; Status DC Prochlorperazine Edisylate (Compazine) 5 mg PACU PRN PRN IV NAUSEA, MRX1; Start 03/13/17 at 07:00; Stop 03/14/17 at 06:59; Status DC Lidocaine HCl (Viscous Lidocaine) 15 ml STK-MED ONCE .ROUTE ; Start 03/13/17 at 09:27; Stop 03/13/17 at 09:28; Status DC Benzocaine (Hurricaine One) 1 spray STK-MED ONCE .ROUTE ; Start 03/13/17 at 09: 27; Stop 03/13/17 at 09:28; Status DC Lidocaine HCl (Xylocaine 2% Topical 5gm Tube) 5 mumtaz STK-MED ONCE TP ; Start at 09:27; Stop 03/13/17 at 09:28; Status DC Sodium Chloride 500 ml @ 0 mls/hr 1X ONCE IV Last administered on 03/13/17 09:41; Start 03/13/17 at 09:45; Stop 03/13/17 at 09:46; Status DC Benzocaine (Hurricaine One) 2 spray 1X ONCE MM Last administered on 10:10; Start 03/13/17 at 10:10; Stop 03/13/17 at 10:39; Status DC Lidocaine HCl (Xylocaine 2% Topical 5gm Tube) 2 mumtaz 1X ONCE TP Last administered on 03/13/17 10:10; Start 03/13/17 at 10:10; Stop 03/13/17 at 10 :39; Status DC Propofol 20 ml @ As Directed STK-MED ONCE IV ; Start 03/13/17 at 10:59; Stop 03/13/17 at 11:00; Status DC Aspirin (Children'S Aspirin) 81 mg DAILYWBKFT PO Last administered on 08:53; Start 03/13/17 at 16:00 Active Scripts Active Hydralazine Hcl 50 Mg Tablet 100 Mg PO TID 30 Days Aspirin 325 Mg Tablet 325 Mg PO DAILYWBKFT 30 Days Reported Novolog Flexpen (Insulin Aspart) 100 Unit/1 Ml Insuln.pen 5 Unit SQ TIDAC Tradjenta (Linagliptin) 5 Mg Tablet 1 Tab PO DAILY Clonidine Hcl 0.2 Mg Tablet 1 Tab PO TID Levemir (Insulin Detemir) 100 Unit/1 Ml Vial 10 Unit SQ HS Labetalol Hcl 200 Mg Tablet 1 Tab PO BID Losartan-Hctz 100-12.5 Mg Tab (Losartan/Hydrochlorothiazide) 1 Each Tablet PO DAILY Pravastatin Sodium 40 Mg Tablet 1 HS Vitals/I & O Vital Sign - Last 24 Hours 03/13/17 03/13/17 03/13/17 03/13/17 10:39 10:39 10:54 11:06 Temp 98.4 98.5 98.4 98.5 Pulse 80 78 75 Resp 20 20 20 B/P (MAP) 157/72 150/71 34/53 Pulse Ox 97 98 99 O2 Delivery Nasal Cannula Nasal Cannula Nasal Cannula Nasal Cannula O2 Flow Rate 6 2 2 2 03/13/17 03/13/17 03/13/17 03/13/17 11:22 11:37 13:14 13:15 Pulse 75 74 74 74 Resp 20 20 B/P (MAP) 134/54 148/63 148/63 148/63 Pulse Ox 99 99 O2 Delivery Simple Mask Nasal Cannula O2 Flow Rate 10 2 03/13/17 03/13/17 03/13/17 03/13/17 13:15 13:15 13:16 15:00 Temp 98.3 98.3 Pulse 74 74 74 81 Resp 18 B/P (MAP) 148/63 148/63 148/63 132/63 (86) Pulse Ox 97 O2 Delivery Room Air 03/13/17 03/13/17 03/13/17 03/13/17 19:00 20:19 21:12 21:13 Temp 98.1 98.1 Pulse 84 84 84 Resp 18 B/P (MAP) 153/66 (95) 153/66 153/66 Pulse Ox 95 O2 Delivery Room Air Room Air 03/13/17 03/13/17 03/14/17 03/14/17 21:13 23:42 03:33 07:00 Temp 98.8 98.9 98.6 98.8 98.9 98.6 Pulse 84 83 83 80 Resp 18 16 18 B/P (MAP) 153/66 101/53 (69) 140/60 (86) 164/72 (102) Pulse Ox 96 94 98 O2 Delivery Room Air Room Air Room Air 03/14/17 03/14/17 03/14/17 03/14/17 08:52 08:52 08:52 08:53 Pulse 83 83 83 83 B/P (MAP) 140/60 140/60 140/60 140/60 03/14/17 08:53 Pulse 83 B/P (MAP) 140/60 EVELYN SALAS MD Mar 14, 2017 10:10
[2017-03-14 11:00] VITALS: BP 124/57
--- NOTE | 2017-03-14 11:07 | PDOC ---
IM PROGRESS NOTES- Subjective Subjective Sleeping.Unable to wake her up. Objective Vitals Vital Signs Date Time Temp Pulse Resp B/P (MAP) Pulse Ox O2 Delivery O2 Flow Rate FiO2 03/14/17 08:53 83 140/60 03/14/17 07:00 98.6 18 98 Room Air 98.6 03/13/17 11:37 2 Input & Output Intake and Output 03/14/17 06:59 # Voids 5 Physical Exam Physical Exam General appearance - sleeping, and in no distress Head - normal Chest - clear to auscultation, no wheezes, rales or rhonchi, symmetric air entry Heart - S1 and S2 normal Abdomen - soft, nontender, nondistended, no masses or organomegaly Neurological - alert and oriented Musculoskeletal - no muscular tenderness noted Extremities - trace pedal edema Skin - warm and dry Labs Laboratory Tests Test 03/12/17 20:58 03/13/17 06:00 03/13/17 07:42 03/13/17 12:11 Glucose (Fingerstick) 156 mg/dL (70-99) 149 mg/dL (70-99) 122 mg/dL (70-99) Heparin Anti-Xa Act, Unfractionated 0.16 IU/mL (0.30-0.70) Sodium Level 143 mmol/L (136-145) Potassium Level 4.5 mmol/L (3.5-5.1) Chloride Level 109 mmol/L (98-107) Carbon Dioxide Level 20 mmol/L (21-32) Anion Gap 14 (6-14) Blood Urea Nitrogen 71 mg/dL (7-20) Creatinine 4.6 mg/dL (0.6-1.0) Estimated GFR (Cockcroft-Gault) 11.3 Glucose Level 150 mg/dL (70-99) Calcium Level 8.0 mg/dL (8.5-10.1) Phosphorus Level 5.7 mg/dL (2.6-4.7) Magnesium Level 2.2 mg/dL (1.8-2.4) Albumin 2.2 g/dL (3.4-5.0) Test 03/13/17 17:07 03/13/17 20:27 03/14/17 05:05 03/14/17 08:12 Glucose (Fingerstick) 191 mg/dL (70-99) 148 mg/dL (70-99) 139 mg/dL (70-99) Sodium Level 142 mmol/L (136-145) Potassium Level 4.5 mmol/L (3.5-5.1) Chloride Level 110 mmol/L (98-107) Carbon Dioxide Level 21 mmol/L (21-32) Anion Gap 11 (6-14) Blood Urea Nitrogen 69 mg/dL (7-20) Creatinine 4.1 mg/dL (0.6-1.0) Estimated GFR (Cockcroft-Gault) 12.9 Glucose Level 127 mg/dL (70-99) Calcium Level 7.9 mg/dL (8.5-10.1) Phosphorus Level 4.6 mg/dL (2.6-4.7) Magnesium Level 2.0 mg/dL (1.8-2.4) Albumin 2.1 g/dL (3.4-5.0) Laboratory Tests Test 03/13/17 12:11 03/13/17 17:07 03/13/17 20:27 03/14/17 05:05 Glucose (Fingerstick) 122 mg/dL (70-99) 191 mg/dL (70-99) 148 mg/dL (70-99) Sodium Level 142 mmol/L (136-145) Potassium Level 4.5 mmol/L (3.5-5.1) Chloride Level 110 mmol/L (98-107) Carbon Dioxide Level 21 mmol/L (21-32) Anion Gap 11 (6-14) Blood Urea Nitrogen 69 mg/dL (7-20) Creatinine 4.1 mg/dL (0.6-1.0) Estimated GFR (Cockcroft-Gault) 12.9 Glucose Level 127 mg/dL (70-99) Calcium Level 7.9 mg/dL (8.5-10.1) Phosphorus Level 4.6 mg/dL (2.6-4.7) Magnesium Level 2.0 mg/dL (1.8-2.4) Albumin 2.1 g/dL (3.4-5.0) Test 03/14/17 08:12 Glucose (Fingerstick) 139 mg/dL (70-99) Meds Current Medications Aspirin (Children'S Aspirin) 81 mg DAILYWBKFT PO Last administered on t 08:53; Start 03/13/17 at 16:00 Assessment Assessment Problems Medical Problems: (1) Accelerated hypertension Status: Acute (2) Acute on chronic renal failure Status: Acute (3) Elevated troponin Status: Acute (4) Fall from standing Status: Acute (5) Syncope Status: Acute FINAL IMPRESSION: new cva embolic biatrial thrombosis 1. Mechanical fall no injuries. 2. Questionable syncopal episode. 3. Accelerated hypertension. 4. Stage 5 renal failure. 5. Possible urinary tract infection. 6. General debility. PLAN: MERISSA negative for thrombus. MRI brain punctate infarcts embolic new Echo showed biatrial thrombosis. stat ct scan , no bleed DM stable. Discharge to SNF today. On Plavix and ASA. Discharge Management - 35 minutes. Plan Plan For more details regarding further plans, please refer to the orders. FAHEEM OBRIEN MD Mar 14, 2017 11:07
--- NOTE | 2017-03-14 12:49 | PDOC ---
SUBJECTIVE ROS CKD IV/ V DOing same, no new complaints - " I don't feel bad" CVS: no Orthopnea, no CP RESP: no SOB, no MCCULLOUGH GI: no Nausea, no Vomiting : no Dysuria, no Urgency OBJECTIVE Vital Signs Vital Signs Date Time Temp Pulse Resp B/P (MAP) Pulse Ox O2 Delivery O2 Flow Rate FiO2 03/14/17 11:00 98.0 81 18 124/57 (79) 98 Room Air 98.0 03/13/17 11:37 2 I & 0 Intake and Output 03/14/17 07:00 # Voids 5 PHYSICAL EXAM Physical Exam GEN: Awake, Oriented x 2, In no distress EYES: Vision Unchanged, Conjunctiva Normal EN: No EN Drainage, Mucous Membranes moist NECK: no JVD, no JVP, Supple, no Thyromegaly CVS: S1S2, soft Murmur, No Gallop, No Rub,no Edema RESP: no Rales, no Rhonchi,no Acc. Muscle Use GI: BS + ve, NO Bruit, Non Tender, Non Distended : no CVA tenderness, no Suprapubic Tenderness Left forearm AVF - appears too small to use right away DIAGNOSIS/ASSESSMENT Assessment & Plan: CKD V: No uremic s/s. current fluid and E-lyte status does not necessitate emergent need for dialysis. Pt not ready for same either. Will re-evaluate for dialysis in the am Met ACidosis - better with PO Bicarb for now, ^ed Phos - better now after starting Phoslo Proteinuria - 2 gms by Ratio. despite being on ARB - hesitant to Add Aldactone due to spotty OP F/up and reluctance to do HD Hypoalbuminemia - suspect due to Poor PO intake - ? Malnutrition from Advanced Renal failure - she appears to be eating well currently (? neglect at home) ANEMIA; (Fe def) IV Fe as ordered; start Aranesp once on anti-coag for 4 weeks after recent CBVA HTN: Current BPs are adequately controlled on present meds as reviewed. Discussed Plan of Care with pt at bedside and Dr Lamont GUERRA to D/c from renal standpoint - F/up in 4 weeks with us COMMENT/RELEVANT DATA Meds Current Medications Medications (Trade) Dose Ordered Sig/Nicolas Start Time Stop Time Status Last Admin Dose Admin Acetaminophen (Tylenol) 650 mg PRN Q4HRS PRN 03/08/17 17:00 03/09/17 16:59 DC Aspirin (Radha Aspirin) 325 mg DAILYWBKFT 03/09/17 13:00 03/12/17 11:05 DC 03/12/17 08:40 325 MG Aspirin (Children'S Aspirin) 81 mg DAILYWBKFT 03/13/17 16:00 03/14/17 08:53 81 MG Aspirin (Ecotrin) 81 mg DAILYWBKFT 03/09/17 12:30 03/09/17 12:30 DC Atorvastatin Calcium (Lipitor) 10 mg QHS 03/09/17 21:00 03/13/17 21:12 10 MG Benzocaine (Hurricaine One) 2 spray 1X ONCE 03/13/17 10:10 03/13/17 10:39 DC 03/13/17 10:10 2 SPRAY Calcium Acetate (Phoslo) 1,334 mg TIDWMEALS 03/12/17 12:00 03/14/17 08:52 1,334 MG Cefpodoxime Proxetil (Vantin) 100 mg BID 03/12/17 10:00 03/14/17 08:53 100 MG Clonidine HCl (Catapres) 0.2 mg TID 03/09/17 14:00 03/14/17 08:53 0.2 MG Clopidogrel Bisulfate (Plavix) 75 mg 1X ONCE 03/10/17 12:30 03/10/17 12:31 DC 03/10/17 12:42 75 MG Dextrose (Dextrose 50%-Water Syringe) 12.5 gm PRN Q15MIN PRN 03/09/17 12:30 Enoxaparin Sodium (Lovenox 30mg Syringe) 30 mg Q24H 03/09/17 13:00 03/10/17 22:33 DC 03/10/17 12:46 30 MG Fentanyl Citrate (Fentanyl 2ml Vial) 50 mcg PRN Q5MIN PRN 03/13/17 07:00 03/14/17 06:59 DC Heparin Sodium (Porcine) (Heparin Sodium) 1,750 unit PRN Q6HRS PRN 03/10/17 22:30 03/13/17 14:53 DC Heparin Sodium/ Dextrose 500 ml @ 0 mls/hr CONT PRN 03/10/17 22:30 03/13/17 14:52 DC 03/12/17 06:41 0 MLS/HR Hydralazine HCl (Apresoline Inj) 10 mg Q6HRS PRN 03/08/17 21:00 03/08/17 21:13 10 MG Hydralazine HCl (Apresoline) 100 mg TID 03/08/17 21:00 03/14/17 08:53 100 MG Hydromorphone HCl (Dilaudid) 0.5 mg PRN Q10MIN PRN 03/13/17 07:00 03/14/17 06:59 DC Info (Anti-Coagulation Monitoring By Pharmacy) 1 each PRN DAILY PRN 03/11/17 08:00 03/14/17 07:52 DC 03/11/17 12:43 1 EACH Insulin Aspart (NovoLOG) 0-5 UNITS TIDWMEALS 03/09/17 17:00 03/09/17 17:00 DC Insulin Detemir (Levemir) 10 units QHS 03/09/17 21:00 03/10/17 12:34 DC 03/09/17 21:43 10 UNITS Iron Sucrose 100 mg/Miscellaneous 5 ml @ 60 mls/hr 3X/WEEK 03/12/17 10:00 03/20/17 09:04 03/13/17 16:53 60 MLS/HR Iron Sucrose 100 mg/Sodium Chloride 105 ml @ 55 mls/hr 3X/WEEK 03/13/17 09:00 03/22/17 10:55 UNV Isosorbide Mononitrate (Imdur) 30 mg DAILY 03/12/17 11:30 03/14/17 08:52 30 MG Labetalol HCl (Normodyne) 20 mg PRN Q2HR PRN 03/09/17 11:45 Labetalol HCl (Trandate) 200 mg BID 03/08/17 21:00 03/14/17 08:52 200 MG Lactobacillus Rhamnosus (Culturelle) 1 cap BID 03/12/17 21:00 03/14/17 08:53 1 CAP Lidocaine HCl (Viscous Lidocaine) 15 ml STK-MED ONCE 03/13/17 09:27 03/13/17 09:28 DC Lidocaine HCl (Xylocaine 2% Topical 5gm Tube) 2 mumtaz 1X ONCE 03/13/17 10:10 03/13/17 10:39 DC 03/13/17 10:10 2 MUMTAZ Lidocaine HCl (Xylocaine-Mpf 1% Vial) 2 ml PRN 1X PRN 03/13/17 07:00 03/14/17 06:59 DC Linagliptin (Tradjenta) 5 mg DAILY 03/09/17 13:00 03/14/17 08:53 5 MG Losartan Potassium (Cozaar) 100 mg DAILY 03/09/17 13:00 03/14/17 08:52 100 MG Magnesium Sulfate/ Dextrose 50 ml @ 25 mls/hr PRN DAILY PRN 03/11/17 09:00 Morphine Sulfate 1 mg PRN Q10MIN PRN 03/13/17 07:00 03/14/17 06:59 DC Ondansetron HCl (Zofran) 4 mg PRN Q6HRS PRN 03/13/17 07:00 03/14/17 06:59 DC Prochlorperazine Edisylate (Compazine) 5 mg PACU PRN PRN 03/13/17 07:00 03/14/17 06:59 DC Propofol 20 ml @ As Directed STK-MED ONCE 03/13/17 10:59 03/13/17 11:00 DC Ringer's Solution 1,000 ml @ 30 mls/hr Q24H 03/13/17 07:00 03/13/17 18:59 DC Sodium Bicarbonate (Sodium Bicarbonate) 650 mg TID 03/12/17 14:00 03/14/17 08:52 650 MG Sodium Chloride 500 ml @ 0 mls/hr 1X ONCE 03/13/17 09:45 03/13/17 09:46 DC 03/13/17 09:41 0 MLS/HR Lab Laboratory Tests Test 03/13/17 17:07 03/13/17 20:27 03/14/17 05:05 03/14/17 08:12 Glucose (Fingerstick) 191 mg/dL (70-99) 148 mg/dL (70-99) 139 mg/dL (70-99) Sodium Level 142 mmol/L (136-145) Potassium Level 4.5 mmol/L (3.5-5.1) Chloride Level 110 mmol/L (98-107) Carbon Dioxide Level 21 mmol/L (21-32) Anion Gap 11 (6-14) Blood Urea Nitrogen 69 mg/dL (7-20) Creatinine 4.1 mg/dL (0.6-1.0) Estimated GFR (Cockcroft-Gault) 12.9 Glucose Level 127 mg/dL (70-99) Calcium Level 7.9 mg/dL (8.5-10.1) Phosphorus Level 4.6 mg/dL (2.6-4.7) Magnesium Level 2.0 mg/dL (1.8-2.4) Albumin 2.1 g/dL (3.4-5.0) Test 03/14/17 11:07 Glucose (Fingerstick) 165 mg/dL (70-99) SHARMILA CONTRERAS MD Mar 14, 2017 12:49
[2017-03-14 15:00] VITALS: BP 132/62
--- NOTE | 2017-03-14 16:13 | PDOC ---
PROGRESS NOTES Assessment Assessment Suspect acute punctuate infarcts in bilateral frontal lobes. Metabolic encephalopathy. 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 Right side facial numbness. Renal failure. 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 HTN HLD Thromboses in atria are ruled out by Cardiology. RECOMMENDATIONS/PLAN: Continue Plavix 75 mg daily. Continue Lipitor 20 mg HS. Treat medical diseases. OT/PT. Past Medical History Cardiovascular: HTN, Hyperlipidemia Pulmonary: No pertinent hx GI: Constipation Heme/Onc: Anemia NOS Hepatobiliary: No pertinent hx Psych: No pertinent hx Rheumatologic: No pertinent hx Renal/: Chronic renal insuff Endocrine: Diabetes, Hypothyroidism Family History Family History: Cancer, Coronary Artery Disease, Diabetes, Kidney Disease, Osteo Arthiritis Social History No ALCOHOL: none Drugs: None ALLERGY: NKDA Unknown MEDICATIONS: Refer to MAR REVIEW OF SYSTEMS: Constitutional: No malnutrition, weight loss, cachexia. Head: No traumatic brain or head injury. Skin: No edema, or rash. Ear: No infection. Eyes: No vision loss, or diplopia. Nose: No bleeding or purulent discharges. Hearing: Hearing loss. Neck: No injury. Breast: No history of cancer, masses, or discharges. Cardiac: HTN, HLD Pulmonary: No CPOD. GI: No GI Ulcer, GI bleeding Urinary/genital: UTI. Endocrine: No cousin face, craniofacial dysmorphism, polydactyly. Skeletomuscular: No muscular atrophy, deformity. Neurological: see HP. Psychiatric: Denies drug use/abuse. Otherwise, not -nbfkk review of systems. PHYSICAL EXAMINATION: General appearance in subacute distress. HEENT: Normocephalic and nontraumatic. Eyes, nose, ears, and throat are unremarkable. Hearing decrease. Neck is supple. No lymphadenopathy. No bruits are heard over the carotid artery. No Crepitus. Cardiovascular: S1, S2, regular rate and rhythm. Pulmonary: Clear to auscultation bilaterally. Abdomen: Bowel sounds are positive. Abdomen is soft, nontender, and nondistended. NEUROLOGICAL EXAMINATION: Awake. Not fully oriented to time, but knows place and person. PERRL. EOMI. 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 Muscle tone: increased in right side from old CVA. Muscle strength: 3+ right UE, 5- left UE, 2-3 LE. DTR: 1-2 Plantar reflex: Neutral response bilaterally Gait: not examined in chair. Sensory exam: no abnormal findings. No acute cerebellar signs elicited. F-T-N test fine left side. Objective Objective Vital Signs Date Time Temp Pulse Resp B/P (MAP) Pulse Ox O2 Delivery O2 Flow Rate FiO2 03/14/17 14:08 81 124/57 03/14/17 11:00 98.0 18 98 Room Air 98.0 03/13/17 11:37 2 Intake and Output 03/14/17 07:00 # Voids 5 Vitals Signs Vitals VS - Last 72 Hours, by Label Date Time Temp Pulse Resp B/P (MAP) Pulse Ox O2 Delivery O2 Flow Rate FiO2 03/14/17 14:08 81 124/57 03/14/17 14:08 81 124/57 03/14/17 11:00 98.0 81 18 124/57 (79) 98 Room Air 98.0 03/14/17 08:53 83 140/60 03/14/17 08:53 83 140/60 03/14/17 08:52 83 140/60 03/14/17 08:52 83 140/60 03/14/17 08:52 83 140/60 03/14/17 07:00 98.6 80 18 164/72 (102) 98 Room Air 98.6 03/14/17 03:33 98.9 83 16 140/60 (86) 94 Room Air 98.9 03/13/17 23:42 98.8 83 18 101/53 (69) 96 Room Air 98.8 03/13/17 21:13 84 153/66 03/13/17 21:13 84 153/66 03/13/17 21:12 84 153/66 03/13/17 20:19 Room Air 03/13/17 19:00 98.1 84 18 153/66 (95) 95 Room Air 98.1 03/13/17 15:00 98.3 81 18 132/63 (86) 97 Room Air 98.3 03/13/17 13:16 74 148/63 03/13/17 13:15 74 148/63 03/13/17 13:15 74 148/63 03/13/17 13:15 74 148/63 03/13/17 13:14 74 148/63 03/13/17 11:37 74 20 148/63 99 Nasal Cannula 2 03/13/17 11:22 75 20 134/54 99 Simple Mask 10 03/13/17 11:06 98.5 75 20 34/53 99 Nasal Cannula 2 98.5 03/13/17 10:54 78 20 150/71 98 Nasal Cannula 2 03/13/17 10:39 Nasal Cannula 2 03/13/17 10:39 98.4 80 20 157/72 97 Nasal Cannula 6 98.4 03/13/17 07:00 97.9 84 18 136/70 (92) 99 Room Air 97.9 Laboratory Laboratory Laboratory Tests Test 03/13/17 17:07 03/13/17 20:27 03/14/17 05:05 03/14/17 08:12 Glucose (Fingerstick) 191 mg/dL (70-99) 148 mg/dL (70-99) 139 mg/dL (70-99) Sodium Level 142 mmol/L (136-145) Potassium Level 4.5 mmol/L (3.5-5.1) Chloride Level 110 mmol/L (98-107) Carbon Dioxide Level 21 mmol/L (21-32) Anion Gap 11 (6-14) Blood Urea Nitrogen 69 mg/dL (7-20) Creatinine 4.1 mg/dL (0.6-1.0) Estimated GFR (Cockcroft-Gault) 12.9 Glucose Level 127 mg/dL (70-99) Calcium Level 7.9 mg/dL (8.5-10.1) Phosphorus Level 4.6 mg/dL (2.6-4.7) Magnesium Level 2.0 mg/dL (1.8-2.4) Albumin 2.1 g/dL (3.4-5.0) Test 03/14/17 11:07 Glucose (Fingerstick) 165 mg/dL (70-99) Microbiology 03/10/17 Urine Culture - Final, Complete 03/10/17 Urine Culture Result 1 (STANLEY) - Final, Complete Comment Review of Relevant I have reviewed the following items reji (where applicable) has been applied. RUTH TORRES MD Mar 14, 2017 16:13
--- NOTE | 2017-03-14 17:28 | PDOC ---
PROGRESS NOTES Subjective Subjective Patient seen and examined The patient is feeling better today. Objective Objective Vital Signs Date Time Temp Pulse Resp B/P (MAP) Pulse Ox O2 Delivery O2 Flow Rate FiO2 03/14/17 15:00 98.2 94 18 132/62 (85) 98 Room Air 98.2 03/13/17 11:37 2 Intake and Output 03/14/17 07:00 # Voids 5 Physical Exam Abdomen: Normal bowel sounds Heart: Regular rate General: mild distress Lungs: Other (minimally decreased breath sounds) Assessment Assessment Problems Medical Problems: (1) Accelerated hypertension Status: Acute (2) Acute on chronic renal failure Status: Acute (3) Elevated troponin Status: Acute (4) Fall from standing Status: Acute (5) Syncope Status: Acute 1. Malignant HTN: Continues to improve. Continue medications. 2. New CVA: hx of prior CVA with right side hemiparesis. Neurology 3. ECHO suggested thrombus in the atria. MERISSA yesterday showed no thrombus on technically good images. Bubble study was normal. Anticoagulation has been discontinued. 4. CKD5; as per renal 5. Elevated troponin: peaked at 0.09, likely type 2, due to above. No cardiac symptoms. 6. DM2/HLP 7. Anemia of chronic disease: stable at 7.9 Comment Review of Relevant I have reviewed the following items reji (where applicable) has been applied. Labs Laboratory Tests Test 03/12/17 20:58 03/13/17 06:00 03/13/17 07:42 03/13/17 12:11 Glucose (Fingerstick) 156 mg/dL (70-99) 149 mg/dL (70-99) 122 mg/dL (70-99) Heparin Anti-Xa Act, Unfractionated 0.16 IU/mL (0.30-0.70) Sodium Level 143 mmol/L (136-145) Potassium Level 4.5 mmol/L (3.5-5.1) Chloride Level 109 mmol/L (98-107) Carbon Dioxide Level 20 mmol/L (21-32) Anion Gap 14 (6-14) Blood Urea Nitrogen 71 mg/dL (7-20) Creatinine 4.6 mg/dL (0.6-1.0) Estimated GFR (Cockcroft-Gault) 11.3 Glucose Level 150 mg/dL (70-99) Calcium Level 8.0 mg/dL (8.5-10.1) Phosphorus Level 5.7 mg/dL (2.6-4.7) Magnesium Level 2.2 mg/dL (1.8-2.4) Albumin 2.2 g/dL (3.4-5.0) Test 03/13/17 17:07 03/13/17 20:27 03/14/17 05:05 03/14/17 08:12 Glucose (Fingerstick) 191 mg/dL (70-99) 148 mg/dL (70-99) 139 mg/dL (70-99) Sodium Level 142 mmol/L (136-145) Potassium Level 4.5 mmol/L (3.5-5.1) Chloride Level 110 mmol/L (98-107) Carbon Dioxide Level 21 mmol/L (21-32) Anion Gap 11 (6-14) Blood Urea Nitrogen 69 mg/dL (7-20) Creatinine 4.1 mg/dL (0.6-1.0) Estimated GFR (Cockcroft-Gault) 12.9 Glucose Level 127 mg/dL (70-99) Calcium Level 7.9 mg/dL (8.5-10.1) Phosphorus Level 4.6 mg/dL (2.6-4.7) Magnesium Level 2.0 mg/dL (1.8-2.4) Albumin 2.1 g/dL (3.4-5.0) Test 03/14/17 11:07 Glucose (Fingerstick) 165 mg/dL (70-99) Laboratory Tests Test 03/13/17 20:27 03/14/17 05:05 03/14/17 08:12 03/14/17 11:07 Glucose (Fingerstick) 148 mg/dL (70-99) 139 mg/dL (70-99) 165 mg/dL (70-99) Sodium Level 142 mmol/L (136-145) Potassium Level 4.5 mmol/L (3.5-5.1) Chloride Level 110 mmol/L (98-107) Carbon Dioxide Level 21 mmol/L (21-32) Anion Gap 11 (6-14) Blood Urea Nitrogen 69 mg/dL (7-20) Creatinine 4.1 mg/dL (0.6-1.0) Estimated GFR (Cockcroft-Gault) 12.9 Glucose Level 127 mg/dL (70-99) Calcium Level 7.9 mg/dL (8.5-10.1) Phosphorus Level 4.6 mg/dL (2.6-4.7) Magnesium Level 2.0 mg/dL (1.8-2.4) Albumin 2.1 g/dL (3.4-5.0) Microbiology 03/10/17 Urine Culture - Final, Complete 03/10/17 Urine Culture Result 1 (STANLEY) - Final, Complete Medications Current Medications Clonidine HCl (Catapres) 0.2 mg 1X ONCE PO Last administered on 03/08/17 15: 23; Start 03/08/17 at 15:00; Stop 03/08/17 at 15:01; Status DC Ondansetron HCl (Zofran) 4 mg PRN Q8HRS PRN IV NAUSEA/VOMITING; Start at 17:00; Stop 03/09/17 at 16:59; Status DC Morphine Sulfate 2 mg PRN Q2HR PRN IV PAIN; Start 03/08/17 at 17:00; Stop at 16:59; Status DC Acetaminophen (Tylenol) 650 mg PRN Q4HRS PRN PO FEVER; Start 03/08/17 at 17:00 ; Stop 03/09/17 at 16:59; Status DC Insulin Aspart (NovoLOG) 0-7 UNITS TIDWMEALS SQ ; Start 03/08/17 at 17:00; Stop 03/09/17 at 12:29; Status DC Dextrose (Dextrose 50%-Water Syringe) 12.5 gm PRN Q15MIN PRN IV SEE COMMENTS; Start 03/08/17 at 17:00; Status Cancel Sodium Chloride 1,000 ml @ 75 mls/hr 1X ONCE IV ; Start 03/08/17 at 17:00; Stop 03/09/17 at 06:19; Status Cancel Labetalol HCl (Normodyne) 10 mg Q6HRS PRN IVP HYPERTENSION, SEE COMMENTS Last administered on 03/08/17 17:10; Start 03/08/17 at 17:00; Stop 03/09/17 at 12 :31; Status DC Hydralazine HCl (Apresoline Inj) 10 mg Q6HRS PRN IVP ELEVATED BP, SEE COMMENTS Last administered on 03/08/17 21:13; Start 03/08/17 at 21:00 Hydralazine HCl (Apresoline) 100 mg TID PO Last administered on 03/14/17 14: 08; Start 03/08/17 at 21:00 Labetalol HCl (Trandate) 200 mg BID PO Last administered on 03/14/17 08:52; Start 03/08/17 at 21:00 Atorvastatin Calcium (Lipitor) 10 mg QHS PO Last administered on 03/13/17 21: 12; Start 03/09/17 at 21:00 Aspirin (Ecotrin) 81 mg DAILYWBKFT PO ; Start 03/10/17 at 08:00; Stop at 08:00; Status DC Labetalol HCl (Normodyne) 20 mg PRN Q2HR PRN IVP HYPERTENSION, SEE COMMENTS; Start 03/09/17 at 11:45 Aspirin (Ecotrin) 81 mg DAILYWBKFT PO ; Start 03/09/17 at 12:30; Stop at 12:30; Status DC Aspirin (Radha Aspirin) 325 mg DAILYWBKFT PO Last administered on 03/12/17 08 :40; Start 03/09/17 at 13:00; Stop 03/12/17 at 11:05; Status DC Clonidine HCl (Catapres) 0.2 mg TID PO Last administered on 03/14/17 14:08; Start 03/09/17 at 14:00 Insulin Aspart (NovoLOG) 5 units TIDAC SQ ; Start 03/09/17 at 16:30; Stop at 16:30; Status DC Linagliptin (Tradjenta) 5 mg DAILY PO Last administered on 03/14/17 08:53; Start 03/09/17 at 13:00 Insulin Detemir (Levemir) 10 units QHS SQ Last administered on 03/09/17 21:43 ; Start 03/09/17 at 21:00; Stop 03/10/17 at 12:34; Status DC Losartan Potassium (Cozaar) 100 mg DAILY PO Last administered on 03/14/17 08: 52; Start 03/09/17 at 13:00 Insulin Aspart (NovoLOG) 0-5 UNITS TIDWMEALS SQ ; Start 03/09/17 at 17:00; Stop 03/09/17 at 17:00; Status DC Dextrose (Dextrose 50%-Water Syringe) 12.5 gm PRN Q15MIN PRN IV SEE COMMENTS; Start 03/09/17 at 12:30 Enoxaparin Sodium (Lovenox 30mg Syringe) 30 mg Q24H SQ Last administered on 12:46; Start 03/09/17 at 13:00; Stop 03/10/17 at 22:33; Status DC Sodium Chloride 1,000 ml @ 30 mls/hr Q24H IV Last administered on 03/12/17 15:36; Start 03/10/17 at 11:00; Stop 03/12/17 at 20:00; Status DC Sodium Chloride 1,000 ml @ 75 mls/hr [id number] IV ; Start 03/10/17 at 12:00; Stop 03/10/17 at 12:00; Status DC Clopidogrel Bisulfate (Plavix) 75 mg DAILYWBKFT PO Last administered on 08:53; Start 03/11/17 at 08:00 Clopidogrel Bisulfate (Plavix) 75 mg 1X ONCE PO Last administered on 12:42; Start 03/10/17 at 12:30; Stop 03/10/17 at 12:31; Status DC Heparin Sodium/ Dextrose 500 ml @ 0 mls/hr CONT PRN IV SEE I/O RECORD Last administered on 03/12/17 06:41; Start 03/10/17 at 22:30; Stop 03/13/17 at 14 :52; Status DC Heparin Sodium (Porcine) (Heparin Sodium) 1,750 unit PRN Q6HRS PRN IV FOR UFH LEVEL LESS THAN 0.2; Start 03/10/17 at 22:30; Stop 03/13/17 at 14:53; Status DC Info (Anti-Coagulation Monitoring By Pharmacy) 1 each PRN DAILY PRN MC SEE COMMENTS Last administered on 03/11/17 12:43; Start 03/11/17 at 08:00; Stop 03/14/17 at 07:52; Status DC Magnesium Sulfate/ Dextrose 50 ml @ 25 mls/hr PRN DAILY PRN IV for Mag < 1.7 on am labs; Start 03/11/17 at 09:00 Iron Sucrose 100 mg/Sodium Chloride 105 ml @ 55 mls/hr 3X/WEEK IV ; Start at 09:00; Stop 03/22/17 at 10:55; Status UNV Iron Sucrose 100 mg/Miscellaneous 5 ml @ 60 mls/hr 3X/WEEK IV Last administered on 03/13/17 16:53; Start 03/12/17 at 10:00; Stop 03/20/17 at 09 :04 Sodium Bicarbonate (Sodium Bicarbonate) 650 mg TID PO Last administered on 14:08; Start 03/12/17 at 14:00 Calcium Acetate (Phoslo) 1,334 mg TIDWMEALS PO Last administered on 03/14/17 14:08; Start 03/12/17 at 12:00 Cefpodoxime Proxetil (Vantin) 100 mg BID PO Last administered on 03/14/17 08: 53; Start 03/12/17 at 10:00 Lactobacillus Rhamnosus (Culturelle) 1 cap BID PO Last administered on 08:53; Start 03/12/17 at 21:00 Isosorbide Mononitrate (Imdur) 30 mg DAILY PO Last administered on 03/14/17 08:52; Start 03/12/17 at 11:30 Ondansetron HCl (Zofran) 4 mg PRN Q6HRS PRN IV NAUSEA/VOMITING; Start at 07:00; Stop 03/14/17 at 06:59; Status DC Fentanyl Citrate (Fentanyl 2ml Vial) 25 mcg PRN Q5MIN PRN IV MILD PAIN; Start 03/13/17 at 07:00; Stop 03/14/17 at 06:59; Status DC Fentanyl Citrate (Fentanyl 2ml Vial) 50 mcg PRN Q5MIN PRN IV MODERATE PAIN; Start 03/13/17 at 07:00; Stop 03/14/17 at 06:59; Status DC Morphine Sulfate 1 mg PRN Q10MIN PRN IV SEVERE PAIN; Start 03/13/17 at 07:00; Stop 03/14/17 at 06:59; Status DC Ringer's Solution 1,000 ml @ 30 mls/hr Q24H IV ; Start 03/13/17 at 07:00; Stop 03/13/17 at 18:59; Status DC Lidocaine HCl (Xylocaine-Mpf 1% Vial) 2 ml PRN 1X PRN ID IV START; Start 03/13 at 07:00; Stop 03/14/17 at 06:59; Status DC Hydromorphone HCl (Dilaudid) 0.5 mg PRN Q10MIN PRN IV SEV PAIN, Second choice; Start 03/13/17 at 07:00; Stop 03/14/17 at 06:59; Status DC Prochlorperazine Edisylate (Compazine) 5 mg PACU PRN PRN IV NAUSEA, MRX1; Start 03/13/17 at 07:00; Stop 03/14/17 at 06:59; Status DC Lidocaine HCl (Viscous Lidocaine) 15 ml STK-MED ONCE .ROUTE ; Start 03/13/17 at 09:27; Stop 03/13/17 at 09:28; Status DC Benzocaine (Hurricaine One) 1 spray STK-MED ONCE .ROUTE ; Start 03/13/17 at 09: 27; Stop 03/13/17 at 09:28; Status DC Lidocaine HCl (Xylocaine 2% Topical 5gm Tube) 5 mumtaz STK-MED ONCE TP ; Start at 09:27; Stop 03/13/17 at 09:28; Status DC Sodium Chloride 500 ml @ 0 mls/hr 1X ONCE IV Last administered on 03/13/17 09:41; Start 03/13/17 at 09:45; Stop 03/13/17 at 09:46; Status DC Benzocaine (Hurricaine One) 2 spray 1X ONCE MM Last administered on 10:10; Start 03/13/17 at 10:10; Stop 03/13/17 at 10:39; Status DC Lidocaine HCl (Xylocaine 2% Topical 5gm Tube) 2 mumtaz 1X ONCE TP Last administered on 03/13/17 10:10; Start 03/13/17 at 10:10; Stop 03/13/17 at 10 :39; Status DC Propofol 20 ml @ As Directed STK-MED ONCE IV ; Start 03/13/17 at 10:59; Stop 03/13/17 at 11:00; Status DC Aspirin (Children'S Aspirin) 81 mg DAILYWBKFT PO Last administered on 12/21/ 17at 08:53; Start 03/13/17 at 16:00 Active Scripts Active Hydralazine Hcl 50 Mg Tablet 100 Mg PO TID 30 Days Aspirin 325 Mg Tablet 325 Mg PO DAILYWBKFT 30 Days Reported Novolog Flexpen (Insulin Aspart) 100 Unit/1 Ml Insuln.pen 5 Unit SQ TIDAC Tradjenta (Linagliptin) 5 Mg Tablet 1 Tab PO DAILY Clonidine Hcl 0.2 Mg Tablet 1 Tab PO TID Levemir (Insulin Detemir) 100 Unit/1 Ml Vial 10 Unit SQ HS Labetalol Hcl 200 Mg Tablet 1 Tab PO BID Losartan-Hctz 100-12.5 Mg Tab (Losartan/Hydrochlorothiazide) 1 Each Tablet PO DAILY Pravastatin Sodium 40 Mg Tablet 1 HS Vitals/I & O Vital Sign - Last 24 Hours 03/13/17 03/13/17 03/13/17 03/13/17 19:00 20:19 21:12 21:13 Temp 98.1 98.1 Pulse 84 84 84 Resp 18 B/P (MAP) 153/66 (95) 153/66 153/66 Pulse Ox 95 O2 Delivery Room Air Room Air 03/13/17 03/13/17 03/14/17 03/14/17 21:13 23:42 03:33 07:00 Temp 98.8 98.9 98.6 98.8 98.9 98.6 Pulse 84 83 83 80 Resp 18 16 18 B/P (MAP) 153/66 101/53 (69) 140/60 (86) 164/72 (102) Pulse Ox 96 94 98 O2 Delivery Room Air Room Air Room Air 03/14/17 03/14/17 03/14/17 03/14/17 08:52 08:52 08:52 08:53 Pulse 83 83 83 83 B/P (MAP) 140/60 140/60 140/60 140/60 03/14/17 03/14/17 03/14/17 03/14/17 08:53 11:00 14:08 14:08 Temp 98.0 98.0 Pulse 83 81 81 81 Resp 18 B/P (MAP) 140/60 124/57 (79) 124/57 124/57 Pulse Ox 98 O2 Delivery Room Air 03/14/17 15:00 Temp 98.2 98.2 Pulse 94 Resp 18 B/P (MAP) 132/62 (85) Pulse Ox 98 O2 Delivery Room Air CHARO AL MD Mar 14, 2017 17:28
[2017-03-14 19:19] VITALS: BP 180/75
[2017-03-14] MEDS: ATORVASTATIN CALCIUM 10 MG TABLET. PO SCH (21:32)
[2017-03-14 23:40] VITALS: BP 173/72
[2017-03-15 03:22] VITALS: BP 144/71
[2017-03-15 05:59] LABS: ALBUMIN 2.1 g/dL (3.4-5.0); CALCIUM 8.1 mg/dL (8.5-10.1); CREATININE 4.4 mg/dL (0.6-1.0); GFR 11.9; PHOSPHORUS 4.8 mg/dL (2.6-4.7); POTASSIUM 4.8 mmol/L (3.5-5.1)
[2017-03-15 07:08] VITALS: BP 145/67
[2017-03-15] MEDS: SODIUM BICARBONATE 650 MG TABLET. PO SCH (10:05)
[2017-03-15] MEDS: LABETALOL HCL 200 MG TABLET PO SCH (10:07)
[2017-03-15] MEDS: CLOPIDOGREL BISULFATE 75 MG TABLET PO SCH (10:07)
[2017-03-15] MEDS: CEFPODOXIME PROXETIL 100 MG TABLET. PO SCH (10:08)
[2017-03-15] MEDS: LOSARTAN POTASSIUM 50 MG TABLET. PO SCH (10:08)
[2017-03-15] MEDS: ISOSORBIDE MONONITRATE ER 30 MG TAB.ER.24H PO SCH (10:08)
[2017-03-15] MEDS: LACTOBACILLUS RHAMNOSUS GG 1 CAPSULE. PO SCH (10:08)
[2017-03-15] MEDS: CALCIUM ACETATE 667 MG CAPSULE PO SCH ×2 (10:09→12:49)
[2017-03-15] MEDS: cloNIDine HCL 0.2 MG TABLET PO SCH (10:09)
[2017-03-15] MEDS: LINAGLIPTIN 5 MG TABLET PO SCH (10:11)
[2017-03-15] MEDS: ASPIRIN CHEWABLE 81 MG TABLET. PO SCH (10:12)
[2017-03-15] MEDS: IRON SUCROSE COMPLEX IV SCH (10:17)
[2017-03-15] MEDS: TOTAL VOLUME IV SCH (10:17)
--- NOTE | 2017-03-15 10:28 | PDOC ---
PROGRESS NOTES Subjective Subjective She feel better. Objective Objective Vital Signs Date Time Temp Pulse Resp B/P (MAP) Pulse Ox O2 Delivery O2 Flow Rate FiO2 03/15/17 10:09 83 145/67 03/15/17 07:08 98.8 18 98 Room Air 98.8 03/13/17 11:37 2 Intake and Output 03/15/17 07:00 Intake Total 600 ml Balance 600 ml Intake Oral 600 ml # Voids 4 Physical Exam Physical Exam She is sitting up in bed with head end of bed elevated and eating breakfast and as for therapy notes her right knee pain is interfering with her mobility. Assessment Assessment Problems Medical Problems: (1) Accelerated hypertension Status: Acute (2) Acute on chronic renal failure Status: Acute (3) Elevated troponin Status: Acute (4) Fall from standing Status: Acute (5) Syncope Status: Acute Plan Plan of Care To proceed with injecting her right knee before transfer to SNF. Comment Review of Relevant I have reviewed the following items reji (where applicable) has been applied. Labs Laboratory Tests Test 03/13/17 12:11 03/13/17 17:07 03/13/17 20:27 03/14/17 05:05 Glucose (Fingerstick) 122 mg/dL (70-99) 191 mg/dL (70-99) 148 mg/dL (70-99) Sodium Level 142 mmol/L (136-145) Potassium Level 4.5 mmol/L (3.5-5.1) Chloride Level 110 mmol/L (98-107) Carbon Dioxide Level 21 mmol/L (21-32) Anion Gap 11 (6-14) Blood Urea Nitrogen 69 mg/dL (7-20) Creatinine 4.1 mg/dL (0.6-1.0) Estimated GFR (Cockcroft-Gault) 12.9 Glucose Level 127 mg/dL (70-99) Calcium Level 7.9 mg/dL (8.5-10.1) Phosphorus Level 4.6 mg/dL (2.6-4.7) Magnesium Level 2.0 mg/dL (1.8-2.4) Albumin 2.1 g/dL (3.4-5.0) Test 03/14/17 08:12 03/14/17 11:07 03/14/17 17:41 03/14/17 21:05 Glucose (Fingerstick) 139 mg/dL (70-99) 165 mg/dL (70-99) 118 mg/dL (70-99) 134 mg/dL (70-99) Test 03/15/17 05:00 03/15/17 07:10 Sodium Level 137 mmol/L (136-145) Potassium Level 4.8 mmol/L (3.5-5.1) Chloride Level 106 mmol/L (98-107) Carbon Dioxide Level 20 mmol/L (21-32) Anion Gap 11 (6-14) Blood Urea Nitrogen 74 mg/dL (7-20) Creatinine 4.4 mg/dL (0.6-1.0) Estimated GFR (Cockcroft-Gault) 11.9 Glucose Level 126 mg/dL (70-99) Calcium Level 8.1 mg/dL (8.5-10.1) Phosphorus Level 4.8 mg/dL (2.6-4.7) Magnesium Level 2.0 mg/dL (1.8-2.4) Albumin 2.1 g/dL (3.4-5.0) Glucose (Fingerstick) 119 mg/dL (70-99) Laboratory Tests Test 03/14/17 11:07 03/14/17 17:41 03/14/17 21:05 03/15/17 05:00 Glucose (Fingerstick) 165 mg/dL (70-99) 118 mg/dL (70-99) 134 mg/dL (70-99) Sodium Level 137 mmol/L (136-145) Potassium Level 4.8 mmol/L (3.5-5.1) Chloride Level 106 mmol/L (98-107) Carbon Dioxide Level 20 mmol/L (21-32) Anion Gap 11 (6-14) Blood Urea Nitrogen 74 mg/dL (7-20) Creatinine 4.4 mg/dL (0.6-1.0) Estimated GFR (Cockcroft-Gault) 11.9 Glucose Level 126 mg/dL (70-99) Calcium Level 8.1 mg/dL (8.5-10.1) Phosphorus Level 4.8 mg/dL (2.6-4.7) Magnesium Level 2.0 mg/dL (1.8-2.4) Albumin 2.1 g/dL (3.4-5.0) Test 03/15/17 07:10 Glucose (Fingerstick) 119 mg/dL (70-99) Microbiology 03/10/17 Urine Culture - Final, Complete 03/10/17 Urine Culture Result 1 (STANLEY) - Final, Complete Medications Current Medications Clonidine HCl (Catapres) 0.2 mg 1X ONCE PO Last administered on 03/08/17 15: 23; Start 03/08/17 at 15:00; Stop 03/08/17 at 15:01; Status DC Ondansetron HCl (Zofran) 4 mg PRN Q8HRS PRN IV NAUSEA/VOMITING; Start at 17:00; Stop 03/09/17 at 16:59; Status DC Morphine Sulfate 2 mg PRN Q2HR PRN IV PAIN; Start 03/08/17 at 17:00; Stop at 16:59; Status DC Acetaminophen (Tylenol) 650 mg PRN Q4HRS PRN PO FEVER; Start 03/08/17 at 17:00 ; Stop 03/09/17 at 16:59; Status DC Insulin Aspart (NovoLOG) 0-7 UNITS TIDWMEALS SQ ; Start 03/08/17 at 17:00; Stop 03/09/17 at 12:29; Status DC Dextrose (Dextrose 50%-Water Syringe) 12.5 gm PRN Q15MIN PRN IV SEE COMMENTS; Start 03/08/17 at 17:00; Status Cancel Sodium Chloride 1,000 ml @ 75 mls/hr 1X ONCE IV ; Start 03/08/17 at 17:00; Stop 03/09/17 at 06:19; Status Cancel Labetalol HCl (Normodyne) 10 mg Q6HRS PRN IVP HYPERTENSION, SEE COMMENTS Last administered on 03/08/17 17:10; Start 03/08/17 at 17:00; Stop 03/09/17 at 12 :31; Status DC Hydralazine HCl (Apresoline Inj) 10 mg Q6HRS PRN IVP ELEVATED BP, SEE COMMENTS Last administered on 03/08/17 21:13; Start 03/08/17 at 21:00 Hydralazine HCl (Apresoline) 100 mg TID PO Last administered on 03/15/17 10: 07; Start 03/08/17 at 21:00 Labetalol HCl (Trandate) 200 mg BID PO Last administered on 03/15/17 10:07; Start 03/08/17 at 21:00 Atorvastatin Calcium (Lipitor) 10 mg QHS PO Last administered on 03/14/17 21: 32; Start 03/09/17 at 21:00 Aspirin (Ecotrin) 81 mg DAILYWBKFT PO ; Start 03/10/17 at 08:00; Stop at 08:00; Status DC Labetalol HCl (Normodyne) 20 mg PRN Q2HR PRN IVP HYPERTENSION, SEE COMMENTS Last administered on 03/14/17 19:54; Start 03/09/17 at 11:45 Aspirin (Ecotrin) 81 mg DAILYWBKFT PO ; Start 03/09/17 at 12:30; Stop at 12:30; Status DC Aspirin (Radha Aspirin) 325 mg DAILYWBKFT PO Last administered on 03/12/17 08 :40; Start 03/09/17 at 13:00; Stop 03/12/17 at 11:05; Status DC Clonidine HCl (Catapres) 0.2 mg TID PO Last administered on 03/15/17 10:09; Start 03/09/17 at 14:00 Insulin Aspart (NovoLOG) 5 units TIDAC SQ ; Start 03/09/17 at 16:30; Stop at 16:30; Status DC Linagliptin (Tradjenta) 5 mg DAILY PO Last administered on 03/15/17 10:11; Start 03/09/17 at 13:00 Insulin Detemir (Levemir) 10 units QHS SQ Last administered on 03/09/17 21:43 ; Start 03/09/17 at 21:00; Stop 03/10/17 at 12:34; Status DC Losartan Potassium (Cozaar) 100 mg DAILY PO Last administered on 03/15/17 10: 08; Start 03/09/17 at 13:00 Insulin Aspart (NovoLOG) 0-5 UNITS TIDWMEALS SQ ; Start 03/09/17 at 17:00; Stop 03/09/17 at 17:00; Status DC Dextrose (Dextrose 50%-Water Syringe) 12.5 gm PRN Q15MIN PRN IV SEE COMMENTS; Start 03/09/17 at 12:30 Enoxaparin Sodium (Lovenox 30mg Syringe) 30 mg Q24H SQ Last administered on 12:46; Start 03/09/17 at 13:00; Stop 03/10/17 at 22:33; Status DC Sodium Chloride 1,000 ml @ 30 mls/hr Q24H IV Last administered on 03/12/17 15:36; Start 03/10/17 at 11:00; Stop 03/12/17 at 20:00; Status DC Sodium Chloride 1,000 ml @ 75 mls/hr [id number] IV ; Start 03/10/17 at 12:00; Stop 03/10/17 at 12:00; Status DC Clopidogrel Bisulfate (Plavix) 75 mg DAILYWBKFT PO Last administered on 10:07; Start 03/11/17 at 08:00 Clopidogrel Bisulfate (Plavix) 75 mg 1X ONCE PO Last administered on 12:42; Start 03/10/17 at 12:30; Stop 03/10/17 at 12:31; Status DC Heparin Sodium/ Dextrose 500 ml @ 0 mls/hr CONT PRN IV SEE I/O RECORD Last administered on 03/12/17 06:41; Start 03/10/17 at 22:30; Stop 03/13/17 at 14 :52; Status DC Heparin Sodium (Porcine) (Heparin Sodium) 1,750 unit PRN Q6HRS PRN IV FOR UFH LEVEL LESS THAN 0.2; Start 03/10/17 at 22:30; Stop 03/13/17 at 14:53; Status DC Info (Anti-Coagulation Monitoring By Pharmacy) 1 each PRN DAILY PRN MC SEE COMMENTS Last administered on 03/11/17 12:43; Start 03/11/17 at 08:00; Stop 03/14/17 at 07:52; Status DC Magnesium Sulfate/ Dextrose 50 ml @ 25 mls/hr PRN DAILY PRN IV for Mag < 1.7 on am labs; Start 03/11/17 at 09:00 Iron Sucrose 100 mg/Sodium Chloride 105 ml @ 55 mls/hr 3X/WEEK IV ; Start at 09:00; Stop 03/22/17 at 10:55; Status UNV Iron Sucrose 100 mg/Miscellaneous 5 ml @ 60 mls/hr 3X/WEEK IV Last administered on 03/15/17 10:17; Start 03/12/17 at 10:00; Stop 03/20/17 at 09 :04 Sodium Bicarbonate (Sodium Bicarbonate) 650 mg TID PO Last administered on 10:05; Start 03/12/17 at 14:00 Calcium Acetate (Phoslo) 1,334 mg TIDWMEALS PO Last administered on 03/15/17 10:09; Start 03/12/17 at 12:00 Cefpodoxime Proxetil (Vantin) 100 mg BID PO Last administered on 03/15/17 10: 08; Start 03/12/17 at 10:00 Lactobacillus Rhamnosus (Culturelle) 1 cap BID PO Last administered on 10:08; Start 03/12/17 at 21:00 Isosorbide Mononitrate (Imdur) 30 mg DAILY PO Last administered on 03/15/17 10:08; Start 03/12/17 at 11:30 Ondansetron HCl (Zofran) 4 mg PRN Q6HRS PRN IV NAUSEA/VOMITING; Start at 07:00; Stop 03/14/17 at 06:59; Status DC Fentanyl Citrate (Fentanyl 2ml Vial) 25 mcg PRN Q5MIN PRN IV MILD PAIN; Start 03/13/17 at 07:00; Stop 03/14/17 at 06:59; Status DC Fentanyl Citrate (Fentanyl 2ml Vial) 50 mcg PRN Q5MIN PRN IV MODERATE PAIN; Start 03/13/17 at 07:00; Stop 03/14/17 at 06:59; Status DC Morphine Sulfate 1 mg PRN Q10MIN PRN IV SEVERE PAIN; Start 03/13/17 at 07:00; Stop 03/14/17 at 06:59; Status DC Ringer's Solution 1,000 ml @ 30 mls/hr Q24H IV ; Start 03/13/17 at 07:00; Stop 03/13/17 at 18:59; Status DC Lidocaine HCl (Xylocaine-Mpf 1% Vial) 2 ml PRN 1X PRN ID IV START; Start 03/13 at 07:00; Stop 03/14/17 at 06:59; Status DC Hydromorphone HCl (Dilaudid) 0.5 mg PRN Q10MIN PRN IV SEV PAIN, Second choice; Start 03/13/17 at 07:00; Stop 03/14/17 at 06:59; Status DC Prochlorperazine Edisylate (Compazine) 5 mg PACU PRN PRN IV NAUSEA, MRX1; Start 03/13/17 at 07:00; Stop 03/14/17 at 06:59; Status DC Lidocaine HCl (Viscous Lidocaine) 15 ml STK-MED ONCE .ROUTE ; Start 03/13/17 at 09:27; Stop 03/13/17 at 09:28; Status DC Benzocaine (Hurricaine One) 1 spray STK-MED ONCE .ROUTE ; Start 03/13/17 at 09: 27; Stop 03/13/17 at 09:28; Status DC Lidocaine HCl (Xylocaine 2% Topical 5gm Tube) 5 mumtaz STK-MED ONCE TP ; Start at 09:27; Stop 03/13/17 at 09:28; Status DC Sodium Chloride 500 ml @ 0 mls/hr 1X ONCE IV Last administered on 03/13/17 09:41; Start 03/13/17 at 09:45; Stop 03/13/17 at 09:46; Status DC Benzocaine (Hurricaine One) 2 spray 1X ONCE MM Last administered on 10:10; Start 03/13/17 at 10:10; Stop 03/13/17 at 10:39; Status DC Lidocaine HCl (Xylocaine 2% Topical 5gm Tube) 2 mumtaz 1X ONCE TP Last administered on 03/13/17 10:10; Start 03/13/17 at 10:10; Stop 03/13/17 at 10 :39; Status DC Propofol 20 ml @ As Directed STK-MED ONCE IV ; Start 03/13/17 at 10:59; Stop 03/13/17 at 11:00; Status DC Aspirin (Children'S Aspirin) 81 mg DAILYWBKFT PO Last administered on 10:12; Start 03/13/17 at 16:00 Active Scripts Active Hydralazine Hcl 50 Mg Tablet 100 Mg PO TID 30 Days Aspirin 325 Mg Tablet 325 Mg PO DAILYWBKFT 30 Days Reported Novolog Flexpen (Insulin Aspart) 100 Unit/1 Ml Insuln.pen 5 Unit SQ TIDAC Tradjenta (Linagliptin) 5 Mg Tablet 1 Tab PO DAILY Clonidine Hcl 0.2 Mg Tablet 1 Tab PO TID Levemir (Insulin Detemir) 100 Unit/1 Ml Vial 10 Unit SQ HS Labetalol Hcl 200 Mg Tablet 1 Tab PO BID Losartan-Hctz 100-12.5 Mg Tab (Losartan/Hydrochlorothiazide) 1 Each Tablet PO DAILY Pravastatin Sodium 40 Mg Tablet 1 HS Vitals/I & O Vital Sign - Last 24 Hours 03/14/17 03/14/17 03/14/17 03/14/17 11:00 14:08 14:08 15:00 Temp 98.0 98.2 98.0 98.2 Pulse 81 81 81 94 Resp 18 18 B/P (MAP) 124/57 (79) 124/57 124/57 132/62 (85) Pulse Ox 98 98 O2 Delivery Room Air Room Air 03/14/17 03/14/17 03/14/17 03/14/17 19:19 19:54 20:00 21:33 Temp 97.8 97.8 Pulse 74 74 Resp 18 B/P (MAP) 180/75 (110) 180/75 206/95 Pulse Ox 99 O2 Delivery Room Air Room Air 03/14/17 03/14/17 03/14/17 03/15/17 21:34 21:34 23:40 03:22 Temp 98.4 98.9 98.4 98.9 Pulse 76 83 Resp 18 16 B/P (MAP) 206/95 206/95 173/72 (105) 144/71 (95) Pulse Ox 97 99 O2 Delivery Room Air Room Air 03/15/17 03/15/17 03/15/17 03/15/17 07:08 10:07 10:07 10:08 Temp 98.8 98.8 Pulse 83 83 83 83 Resp 18 B/P (MAP) 145/67 (93) 145/67 145/67 145/67 Pulse Ox 98 O2 Delivery Room Air 03/15/17 03/15/17 10:08 10:09 Pulse 83 83 B/P (MAP) 145/67 145/67 Intake and Output 03/14/17 03/14/17 03/15/17 15:00 23:00 07:00 Intake Total 500 ml 100 ml Balance 500 ml 100 ml EVELYN SALAS MD Mar 15, 2017 10:27
[2017-03-15 10:30] VITALS: BP 148/64
[2017-03-15] MEDS ORDERED: methylPREDNISolone ACETATE 40 MG/ML VIAL. IM ONE (10:30)
[2017-03-15] MEDS ORDERED: BUPIVACAINE MPF 0.25% 10 ML VIAL. IJ ONE (10:30)
--- NOTE | 2017-03-15 11:32 | PDOC ---
IM PROGRESS NOTES- Subjective Subjective No dyspnea. Objective Vitals Vital Signs Date Time Temp Pulse Resp B/P (MAP) Pulse Ox O2 Delivery O2 Flow Rate FiO2 03/15/17 10:30 99.7 83 20 148/64 (92) 90 Room Air 99.7 Input & Output Intake and Output 03/15/17 07:00 Intake Total 600 ml Balance 600 ml Intake Oral 600 ml # Voids 4 Physical Exam Physical Exam General appearance - alert and in no distress Head - normal Chest - clear to auscultation, no wheezes, rales or rhonchi, symmetric air entry Heart - S1 and S2 normal Abdomen - soft, nontender, nondistended, no masses or organomegaly Neurological - alert and oriented Musculoskeletal - no muscular tenderness noted Extremities - trace pedal edema Skin - warm and dry Labs Laboratory Tests Test 03/13/17 12:11 03/13/17 17:07 03/13/17 20:27 03/14/17 05:05 Glucose (Fingerstick) 122 mg/dL (70-99) 191 mg/dL (70-99) 148 mg/dL (70-99) Sodium Level 142 mmol/L (136-145) Potassium Level 4.5 mmol/L (3.5-5.1) Chloride Level 110 mmol/L (98-107) Carbon Dioxide Level 21 mmol/L (21-32) Anion Gap 11 (6-14) Blood Urea Nitrogen 69 mg/dL (7-20) Creatinine 4.1 mg/dL (0.6-1.0) Estimated GFR (Cockcroft-Gault) 12.9 Glucose Level 127 mg/dL (70-99) Calcium Level 7.9 mg/dL (8.5-10.1) Phosphorus Level 4.6 mg/dL (2.6-4.7) Magnesium Level 2.0 mg/dL (1.8-2.4) Albumin 2.1 g/dL (3.4-5.0) Test 03/14/17 08:12 03/14/17 11:07 03/14/17 17:41 03/14/17 21:05 Glucose (Fingerstick) 139 mg/dL (70-99) 165 mg/dL (70-99) 118 mg/dL (70-99) 134 mg/dL (70-99) Test 03/15/17 05:00 03/15/17 07:10 Sodium Level 137 mmol/L (136-145) Potassium Level 4.8 mmol/L (3.5-5.1) Chloride Level 106 mmol/L (98-107) Carbon Dioxide Level 20 mmol/L (21-32) Anion Gap 11 (6-14) Blood Urea Nitrogen 74 mg/dL (7-20) Creatinine 4.4 mg/dL (0.6-1.0) Estimated GFR (Cockcroft-Gault) 11.9 Glucose Level 126 mg/dL (70-99) Calcium Level 8.1 mg/dL (8.5-10.1) Phosphorus Level 4.8 mg/dL (2.6-4.7) Magnesium Level 2.0 mg/dL (1.8-2.4) Albumin 2.1 g/dL (3.4-5.0) Glucose (Fingerstick) 119 mg/dL (70-99) Laboratory Tests Test 03/14/17 17:41 03/14/17 21:05 03/15/17 05:00 03/15/17 07:10 Glucose (Fingerstick) 118 mg/dL (70-99) 134 mg/dL (70-99) 119 mg/dL (70-99) Sodium Level 137 mmol/L (136-145) Potassium Level 4.8 mmol/L (3.5-5.1) Chloride Level 106 mmol/L (98-107) Carbon Dioxide Level 20 mmol/L (21-32) Anion Gap 11 (6-14) Blood Urea Nitrogen 74 mg/dL (7-20) Creatinine 4.4 mg/dL (0.6-1.0) Estimated GFR (Cockcroft-Gault) 11.9 Glucose Level 126 mg/dL (70-99) Calcium Level 8.1 mg/dL (8.5-10.1) Phosphorus Level 4.8 mg/dL (2.6-4.7) Magnesium Level 2.0 mg/dL (1.8-2.4) Albumin 2.1 g/dL (3.4-5.0) Meds Current Medications Bupivacaine HCl (Sensorcaine-Mpf 0.25%) 10 ml 1X ONCE IJ ; Start 03/15/17 at 10:30; Stop 03/15/17 at 10:31; Status DC Methylprednisolone Acetate (DEPO-Medrol 40MG VIAL) 40 mg 1X ONCE IM ; Start at 10:30; Stop 03/15/17 at 10:31; Status DC Assessment Assessment Problems Medical Problems: (1) Accelerated hypertension Status: Acute (2) Acute on chronic renal failure Status: Acute (3) Elevated troponin Status: Acute (4) Fall from standing Status: Acute (5) Syncope Status: Acute FINAL IMPRESSION: new cva embolic biatrial thrombosis 1. Mechanical fall no injuries. 2. Questionable syncopal episode. 3. Accelerated hypertension. 4. Stage 5 renal failure. 5. Possible urinary tract infection. 6. General debility. PLAN: MERISSA negative for thrombus. MRI brain punctate infarcts embolic new Echo showed biatrial thrombosis. stat ct scan , no bleed DM stable. Discharge to SNF today. On Plavix and ASA. Discharge Management - 35 minutes. Plan Plan For more details regarding further plans, please refer to the orders. FAHEEM OBRIEN MD Mar 15, 2017 11:32
--- NOTE | 2017-03-15 14:23 | PDOC ---
PROGRESS NOTES Assessment Assessment Suspect acute punctuate infarcts in bilateral frontal lobes. Metabolic encephalopathy. 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 Right side facial numbness. Renal failure. 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 HTN HLD Thromboses in atria are ruled out by Cardiology. RECOMMENDATIONS/PLAN: Continue Plavix 75 mg daily. Continue Lipitor 20 mg HS. Treat medical diseases. OT/PT. Past Medical History Cardiovascular: HTN, Hyperlipidemia Pulmonary: No pertinent hx GI: Constipation Heme/Onc: Anemia NOS Hepatobiliary: No pertinent hx Psych: No pertinent hx Rheumatologic: No pertinent hx Renal/: Chronic renal insuff Endocrine: Diabetes, Hypothyroidism Family History Family History: Cancer, Coronary Artery Disease, Diabetes, Kidney Disease, Osteo Arthiritis Social History No ALCOHOL: none Drugs: None ALLERGY: NKDA Unknown MEDICATIONS: Refer to MAR REVIEW OF SYSTEMS: Constitutional: No malnutrition, weight loss, cachexia. Head: No traumatic brain or head injury. Skin: No edema, or rash. Ear: No infection. Eyes: No vision loss, or diplopia. Nose: No bleeding or purulent discharges. Hearing: Hearing loss. Neck: No injury. Breast: No history of cancer, masses, or discharges. Cardiac: HTN, HLD Pulmonary: No CPOD. GI: No GI Ulcer, GI bleeding Urinary/genital: UTI. Endocrine: No cousin face, craniofacial dysmorphism, polydactyly. Skeletomuscular: No muscular atrophy, deformity. Neurological: see HP. Psychiatric: Denies drug use/abuse. Otherwise, not -hcqpe review of systems. PHYSICAL EXAMINATION: General appearance in subacute distress. HEENT: Normocephalic and nontraumatic. Eyes, nose, ears, and throat are unremarkable. Hearing decrease. Neck is supple. No lymphadenopathy. No bruits are heard over the carotid artery. No Crepitus. Cardiovascular: S1, S2, regular rate and rhythm. Pulmonary: Clear to auscultation bilaterally. Abdomen: Bowel sounds are positive. Abdomen is soft, nontender, and nondistended. NEUROLOGICAL EXAMINATION: Awake. Not fully oriented to time, but knows place and person. PERRL. EOMI. 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 Muscle tone: increased in right side from old CVA. Muscle strength: 4 right UE, 5- left UE, 3+ LE. DTR: 1-2 Plantar reflex: Neutral response bilaterally Gait: not examined in chair. Sensory exam: no abnormal findings. No acute cerebellar signs elicited. F-T-N test fine left side. Objective Objective Vital Signs Date Time Temp Pulse Resp B/P (MAP) Pulse Ox O2 Delivery O2 Flow Rate FiO2 03/15/17 10:30 99.7 83 20 148/64 (92) 90 Room Air 99.7 Intake and Output 03/15/17 07:00 Intake Total 600 ml Balance 600 ml Intake Oral 600 ml # Voids 4 Vitals Signs Vitals VS - Last 72 Hours, by Label Date Time Temp Pulse Resp B/P (MAP) Pulse Ox O2 Delivery O2 Flow Rate FiO2 03/15/17 10:30 99.7 83 20 148/64 (92) 90 Room Air 99.7 03/15/17 10:09 83 145/67 03/15/17 10:08 83 145/67 03/15/17 10:08 83 145/67 03/15/17 10:07 83 145/67 03/15/17 10:07 83 145/67 03/15/17 07:08 98.8 83 18 145/67 (93) 98 Room Air 98.8 03/15/17 03:22 98.9 83 16 144/71 (95) 99 Room Air 98.9 03/14/17 23:40 98.4 76 18 173/72 (105) 97 Room Air 98.4 03/14/17 21:34 206/95 03/14/17 21:34 206/95 03/14/17 21:33 206/95 03/14/17 20:00 Room Air 03/14/17 19:54 74 180/75 03/14/17 19:19 97.8 74 18 180/75 (110) 99 Room Air 97.8 03/14/17 15:00 98.2 94 18 132/62 (85) 98 Room Air 98.2 03/14/17 14:08 81 124/57 03/14/17 14:08 81 124/57 03/14/17 11:00 98.0 81 18 124/57 (79) 98 Room Air 98.0 03/14/17 08:53 83 140/60 03/14/17 08:53 83 140/60 03/14/17 08:52 83 140/60 03/14/17 08:52 83 140/60 03/14/17 08:52 83 140/60 03/14/17 07:00 98.6 80 18 164/72 (102) 98 Room Air 98.6 Laboratory Laboratory Laboratory Tests Test 03/14/17 17:41 03/14/17 21:05 03/15/17 05:00 03/15/17 07:10 Glucose (Fingerstick) 118 mg/dL (70-99) 134 mg/dL (70-99) 119 mg/dL (70-99) Sodium Level 137 mmol/L (136-145) Potassium Level 4.8 mmol/L (3.5-5.1) Chloride Level 106 mmol/L (98-107) Carbon Dioxide Level 20 mmol/L (21-32) Anion Gap 11 (6-14) Blood Urea Nitrogen 74 mg/dL (7-20) Creatinine 4.4 mg/dL (0.6-1.0) Estimated GFR (Cockcroft-Gault) 11.9 Glucose Level 126 mg/dL (70-99) Calcium Level 8.1 mg/dL (8.5-10.1) Phosphorus Level 4.8 mg/dL (2.6-4.7) Magnesium Level 2.0 mg/dL (1.8-2.4) Albumin 2.1 g/dL (3.4-5.0) Test 03/15/17 11:48 Glucose (Fingerstick) 153 mg/dL (70-99) Microbiology 03/10/17 Urine Culture - Final, Complete 03/10/17 Urine Culture Result 1 (STANLEY) - Final, Complete Medication Medications Current Medications Bupivacaine HCl (Sensorcaine-Mpf 0.25%) 10 ml 1X ONCE IJ Last administered on 03/15/17 10:30; Start 03/15/17 at 10:30; Stop 03/15/17 at 10:31; Status DC Methylprednisolone Acetate (DEPO-Medrol 40MG VIAL) 40 mg 1X ONCE IM Last administered on 03/15/17 10:30; Start 03/15/17 at 10:30; Stop 03/15/17 at 10 :31; Status DC Comment Review of Relevant I have reviewed the following items reji (where applicable) has been applied. RUTH TORRES MD Mar 15, 2017 14:23
--- NOTE | 2017-03-15 15:30 | PDOC4 ---
PROCEDURE Procedure At her request,I have injected painful right knee joint under aseptic skin technique with marcaine and depmedrol solution and she tolerated the procedure satisfactorily without any side effects.She had mild right knee joint effusion but I did not aspirate her knee today. EVELYN SALAS MD Mar 15, 2017 15:30
--- NOTE | 2017-03-15 16:04 | PDOC ---
SUBJECTIVE ROS CKD IV doing well - CVS: no Orthopnea, no CP RESP: no SOB, no MCCULLOUGH GI: no Nausea, no Vomiting : no Dysuria, no Urgency OBJECTIVE Vital Signs Vital Signs Date Time Temp Pulse Resp B/P (MAP) Pulse Ox O2 Delivery O2 Flow Rate FiO2 03/15/17 10:30 99.7 83 20 148/64 (92) 90 Room Air 99.7 I & 0 Intake and Output 03/15/17 07:00 Intake Total 600 ml Balance 600 ml Intake Oral 600 ml # Voids 4 PHYSICAL EXAM Physical Exam GEN: Awake, Oriented x 2, In no distress EYES: Vision Unchanged, Conjunctiva Normal EN: No EN Drainage, Mucous Membranes moist NECK: no JVD, no JVP, Supple, no Thyromegaly CVS: S1S2, soft Murmur, No Gallop, No Rub,no Edema RESP: no Rales, no Rhonchi,no Acc. Muscle Use GI: BS + ve, NO Bruit, Non Tender, Non Distended : no CVA tenderness, no Suprapubic Tenderness Left forearm AVF - appears too small to use right away DIAGNOSIS/ASSESSMENT Assessment & Plan: CKD V: No uremic s/s. current fluid and E-lyte status does not necessitate emergent need for dialysis. Pt not ready for same either. Will re-evaluate for dialysis in the am Met ACidosis - ct PO Bicarb for now, ^ed Phos - better now after starting Phoslo Proteinuria - 2 gms by Ratio. despite being on ARB - hesitant to Add Aldactone due to spotty OP F/up and reluctance to do HD Hypoalbuminemia - suspect due to Poor PO intake - ? Malnutrition from Advanced Renal failure - she appears to be eating well currently (? neglect at home) ANEMIA; (Fe def) IV Fe as ordered; start Aranesp once on anti-coag for 4 weeks after recent CBVA HTN: Current BPs are adequately controlled on present meds as reviewed. OK to D/c from renal standpoint - F/up in 4 weeks with us COMMENT/RELEVANT DATA Meds Current Medications Medications (Trade) Dose Ordered Sig/Nicolas Start Time Stop Time Status Last Admin Dose Admin Acetaminophen (Tylenol) 650 mg PRN Q4HRS PRN 03/08/17 17:00 03/09/17 16:59 DC Aspirin (Radha Aspirin) 325 mg [id number] 03/09/17 13:00 03/12/17 11:05 DC 03/12/17 08:40 325 MG Aspirin (Children'S Aspirin) 81 mg DAILYWBKFT 03/13/17 16:00 03/15/17 10:12 81 MG Aspirin (Ecotrin) 81 mg DAILYWBKFT 03/09/17 12:30 03/09/17 12:30 DC Atorvastatin Calcium (Lipitor) 10 mg QHS 03/09/17 21:00 03/14/17 21:32 10 MG Benzocaine (Hurricaine One) 2 spray 1X ONCE 03/13/17 10:10 03/13/17 10:39 DC 03/13/17 10:10 2 SPRAY Bupivacaine HCl (Sensorcaine-Mpf 0.25%) 10 ml 1X ONCE 03/15/17 10:30 03/15/17 10:31 DC 03/15/17 10:30 10 ML Calcium Acetate (Phoslo) 1,334 mg TIDWMEALS 03/12/17 12:00 03/15/17 12:49 1,334 MG Cefpodoxime Proxetil (Vantin) 100 mg BID 03/12/17 10:00 03/15/17 10:08 100 MG Clonidine HCl (Catapres) 0.2 mg TID 03/09/17 14:00 03/15/17 10:09 0.2 MG Clopidogrel Bisulfate (Plavix) 75 mg 1X ONCE 03/10/17 12:30 03/10/17 12:31 DC 03/10/17 12:42 75 MG Dextrose (Dextrose 50%-Water Syringe) 12.5 gm PRN Q15MIN PRN 03/09/17 12:30 Enoxaparin Sodium (Lovenox 30mg Syringe) 30 mg Q24H 03/09/17 13:00 03/10/17 22:33 DC 03/10/17 12:46 30 MG Fentanyl Citrate (Fentanyl 2ml Vial) 50 mcg PRN Q5MIN PRN 03/13/17 07:00 03/14/17 06:59 DC Heparin Sodium (Porcine) (Heparin Sodium) 1,750 unit PRN Q6HRS PRN 03/10/17 22:30 03/13/17 14:53 DC Heparin Sodium/ Dextrose 500 ml @ 0 mls/hr CONT PRN 03/10/17 22:30 03/13/17 14:52 DC 03/12/17 06:41 0 MLS/HR Hydralazine HCl (Apresoline Inj) 10 mg Q6HRS PRN 03/08/17 21:00 03/08/17 21:13 10 MG Hydralazine HCl (Apresoline) 100 mg TID 03/08/17 21:00 03/15/17 10:07 100 MG Hydromorphone HCl (Dilaudid) 0.5 mg PRN Q10MIN PRN 03/13/17 07:00 03/14/17 06:59 DC Info (Anti-Coagulation Monitoring By Pharmacy) 1 each PRN DAILY PRN 03/11/17 08:00 03/14/17 07:52 DC 03/11/17 12:43 1 EACH Insulin Aspart (NovoLOG) 0-5 UNITS TIDWMEALS 03/09/17 17:00 03/09/17 17:00 DC Insulin Detemir (Levemir) 10 units QHS 03/09/17 21:00 03/10/17 12:34 DC 03/09/17 21:43 10 UNITS Iron Sucrose 100 mg/Miscellaneous 5 ml @ 60 mls/hr 3X/WEEK 03/12/17 10:00 03/20/17 09:04 03/15/17 10:17 60 MLS/HR Iron Sucrose 100 mg/Sodium Chloride 105 ml @ 55 mls/hr 3X/WEEK 03/13/17 09:00 03/22/17 10:55 UNV Isosorbide Mononitrate (Imdur) 30 mg DAILY 03/12/17 11:30 03/15/17 10:08 30 MG Labetalol HCl (Normodyne) 20 mg PRN Q2HR PRN 03/09/17 11:45 03/14/17 19:54 20 MG Labetalol HCl (Trandate) 200 mg BID 03/08/17 21:00 03/15/17 10:07 200 MG Lactobacillus Rhamnosus (Culturelle) 1 cap BID 03/12/17 21:00 03/15/17 10:08 1 CAP Lidocaine HCl (Viscous Lidocaine) 15 ml STK-MED ONCE 03/13/17 09:27 03/13/17 09:28 DC Lidocaine HCl (Xylocaine 2% Topical 5gm Tube) 2 mumtaz 1X ONCE 03/13/17 10:10 03/13/17 10:39 DC 03/13/17 10:10 2 MUMTAZ Lidocaine HCl (Xylocaine-Mpf 1% Vial) 2 ml PRN 1X PRN 03/13/17 07:00 03/14/17 06:59 DC Linagliptin (Tradjenta) 5 mg DAILY 03/09/17 13:00 03/15/17 10:11 5 MG Losartan Potassium (Cozaar) 100 mg DAILY 03/09/17 13:00 03/15/17 10:08 100 MG Magnesium Sulfate/ Dextrose 50 ml @ 25 mls/hr PRN DAILY PRN 03/11/17 09:00 Methylprednisolone Acetate (DEPO-Medrol 40MG VIAL) 40 mg 1X ONCE 03/15/17 10:30 03/15/17 10:31 DC 03/15/17 10:30 40 MG Morphine Sulfate 1 mg PRN Q10MIN PRN 03/13/17 07:00 03/14/17 06:59 DC Ondansetron HCl (Zofran) 4 mg PRN Q6HRS PRN 03/13/17 07:00 03/14/17 06:59 DC Prochlorperazine Edisylate (Compazine) 5 mg PACU PRN PRN 03/13/17 07:00 03/14/17 06:59 DC Propofol 20 ml @ As Directed STK-MED ONCE 03/13/17 10:59 03/13/17 11:00 DC Ringer's Solution 1,000 ml @ 30 mls/hr Q24H 03/13/17 07:00 03/13/17 18:59 DC Sodium Bicarbonate (Sodium Bicarbonate) 650 mg TID 03/12/17 14:00 03/15/17 10:05 650 MG Sodium Chloride 500 ml @ 0 mls/hr 1X ONCE 03/13/17 09:45 03/13/17 09:46 DC 03/13/17 09:41 0 MLS/HR Lab Laboratory Tests Test 03/14/17 17:41 03/14/17 21:05 03/15/17 05:00 03/15/17 07:10 Glucose (Fingerstick) 118 mg/dL (70-99) 134 mg/dL (70-99) 119 mg/dL (70-99) Sodium Level 137 mmol/L (136-145) Potassium Level 4.8 mmol/L (3.5-5.1) Chloride Level 106 mmol/L (98-107) Carbon Dioxide Level 20 mmol/L (21-32) Anion Gap 11 (6-14) Blood Urea Nitrogen 74 mg/dL (7-20) Creatinine 4.4 mg/dL (0.6-1.0) Estimated GFR (Cockcroft-Gault) 11.9 Glucose Level 126 mg/dL (70-99) Calcium Level 8.1 mg/dL (8.5-10.1) Phosphorus Level 4.8 mg/dL (2.6-4.7) Magnesium Level 2.0 mg/dL (1.8-2.4) Albumin 2.1 g/dL (3.4-5.0) Test 03/15/17 11:48 Glucose (Fingerstick) 153 mg/dL (70-99) SHARMILA CONTRERAS MD Mar 15, 2017 16:04
== END 2017-03-15 13:00 | DRG 64 ==
LOC: ER 13:56 → 2 SOUTH 16:41 → 1 WEST ICU 03-10 12:37 → 2 SOUTH 03-12 17:52
PROVIDERS: ADMIT Internal Medicine; ATTEND Internal Medicine
PROC: B24BZZ4 Ultrasonography of Heart with Aorta, Transesophageal (ICD-10-PCS; 2017-03-13)
PROC: 3E0U33Z Introduction of Anti-inflammatory into Joints, Percutaneous Approach (ICD-10-PCS; principal; 2017-03-15)
PROC: 3E0U3BZ Introduction of Anesthetic Agent into Joints, Percutaneous Approach (ICD-10-PCS; 2017-03-15)
DX: I63.40 Cerebral infarction due to embolism of unspecified cerebral artery (principal); N18.6 End stage renal disease; G93.41 Metabolic encephalopathy; N17.9 Acute kidney failure, unspecified; E10.22 Type 1 diabetes mellitus with diabetic chronic kidney disease; I12.0 Hypertensive chronic kidney disease with stage 5 chronic kidney disease or end stage renal disease; I24.8 Other forms of acute ischemic heart disease; E10.42 Type 1 diabetes mellitus with diabetic polyneuropathy; I69.351 Hemiplegia and hemiparesis following cerebral infarction affecting right dominant side; W01.0XXA Fall on same level from slipping, tripping and stumbling without subsequent striking against object, initial encounter; E78.5 Hyperlipidemia, unspecified; E03.9 Hypothyroidism, unspecified; D64.9 Anemia, unspecified; K59.00 Constipation, unspecified; I44.7 Left bundle-branch block, unspecified; D63.1 Anemia in chronic kidney disease; M19.90 Unspecified osteoarthritis, unspecified site; M75.00 Adhesive capsulitis of unspecified shoulder; R29.6 Repeated falls; M25.461 Effusion, right knee; Z82.49 Family history of ischemic heart disease and other diseases of the circulatory system; Z84.1 Family history of disorders of kidney and ureter; Z79.4 Long term (current) use of insulin; Z91.041 Radiographic dye allergy status; Y93.89 Activity, other specified; Y92.009 Unspecified place in unspecified non-institutional (private) residence as the place of occurrence of the external cause; Y99.8 Other external cause status; Z83.3 Family history of diabetes mellitus; Z79.899 Other long term (current) drug therapy; Z79.02 Long term (current) use of antithrombotics/antiplatelets; Z79.01 Long term (current) use of anticoagulants
CPT/HCPCS: 93325; 99285; C8929; 36415; 70450; 70551; 71010; 73564; 80048; 80053; 80061; 80069; 80307; 81001; 82553; 82570; 82728; 82962; 83540; 83550; 83605; 83690; 83735; 83880; 84156; 84443; 84484; 85018; 85025; 85045; 85520; 87086; 87186; 87641; 93005; 93312; 93880; 96374; J0360; J1030; J1650; J1756; J1815; J2704; J3490; J7030; J7040; 97110; 97530; G0479

== ENCOUNTER 2017-03-28 12:25 | Inpatient (IN) | payer OTHER ==
[2017-03-28] MEDS ORDERED: NITROGLYCERIN SUBLINGUAL 0.4 MG BOTTLE OF 25. SL (12:30)
[2017-03-28] MEDS: NITROGLYCERIN SUBLINGUAL 0.4 MG BOTTLE OF 25. SL ×2 (12:32→12:37)
[2017-03-28] MEDS ORDERED: FUROSEMIDE 100 MG/10 ML VIAL. (12:33)
[2017-03-28] MEDS ORDERED: LIDOCAINE 2% 100 MG/5 ML SYRINGE. (12:34)
[2017-03-28] MEDS ORDERED: LIDOCAINE 2% 20 ML VIAL. (12:34)
[2017-03-28] MEDS: FUROSEMIDE 100 MG/10 ML VIAL. IVP (12:38)
[2017-03-28 12:59] LABS: ADD MAN DIFF? NO
[2017-03-28] MEDS: LIDOCAINE 2% 100 MG/5 ML SYRINGE. IV (13:00)
[2017-03-28 13:05] LABS: BASO # 0.1 x10^3/uL (0.0-0.2); BASO % 1 % (0-3); EOS # 0.1 x10^3/uL (0.0-0.7); EOS % 1 % (0-3); HEMOGLOBIN 8.3 g/dL (12.0-15.5); LYMPH # 2.9 x10^3/uL (1.0-4.8); LYMPH % 22 % (24-48); MEAN CORPUSCULAR HEMOGLOBIN 28 pg (25-35); MEAN CORPUSCULAR HGB CONC 32 g/dL (31-37); MEAN CORPUSCULAR VOLUME 88 fL (79-100); MONO # 1.5 x10^3/uL (0.0-1.1); MONO % 11 % (0-9); NEUT # 8.5 x10^3uL (1.8-7.7); NEUT % 65 % (31-73); PLATELET COUNT 311 x10^3/uL (140-400); RED BLOOD COUNT 2.97 x10^6/uL (3.50-5.40); RED CELL DISTRIBUTION WIDTH 17.3 % (11.5-14.5)
[2017-03-28 13:19] LABS: ANION GAP 18 (6-14); BLOOD UREA NITROGEN 72 mg/dL (7-20); BUN/CREATININE RATIO 18 (6-20); CALCIUM 9.2 mg/dL (8.5-10.1); CARBON DIOXIDE 20 mmol/L (21-32); CHLORIDE 105 mmol/L (98-107); CREATININE 3.9 mg/dL (0.6-1.0); GFR 13.6; GLUCOSE 259 mg/dL (70-99); POTASSIUM 5.2 mmol/L (3.5-5.1); SODIUM 143 mmol/L (136-145)
[2017-03-28 13:27] LABS: TROPONINI 1.152 ng/mL (0.000-0.055)
[2017-03-28 13:27] LABS: ALBUMIN 2.8 g/dL (3.4-5.0); ALBUMIN/GLOBULIN RATIO 0.6 (1.0-1.7); ALK PHOS 92 U/L (46-116); ALT (SGPT) 29 U/L (14-59); AST (SGOT) 32 U/L (15-37); TOTAL BILIRUBIN 0.3 mg/dL (0.2-1.0); TOTAL PROTEIN 7.4 g/dL (6.4-8.2)
[2017-03-28 13:34] LABS: INFLUENZA A PATIENT POSITIVE (NEGATIVE); INFLUENZA B PATIENT NEGATIVE (NEGATIVE); OBC FLU VALID
[2017-03-28 13:35] LABS: CKMB INDEX 2.2 % (0-4); CKMB MASS 3.1 ng/mL (0.0-3.6); CREATINE KINASE 140 U/L (26-192)
[2017-03-28 13:35] LABS: NT-PRO BNP 4031 pg/mL (0-124)
[2017-03-28 13:42] LABS: BASE EXCESS COOX -6 mmol/L (-3-3); CARBON MONOXIDE 0.3 % (0.0-1.9); HCO3 COOX 19 mmol/L (21-28); METHEMOGLOBIN 0.5 % (0.0-1.9); OXYHEMOGLOBIN 88.4 %; PCO2 COOX 38 mmHg (35-46); PH COOX 7.33 (7.35-7.45); PO2 COOX 65 mmHg (65-108); SAT O2 COOX 89 % (92-99)
[2017-03-28 13:43] LABS: FIO2 COOX 100
[2017-03-28] MEDS ORDERED: HEPARIN for IV BOLUS 10,000 UNIT/10 ML VIAL. (14:09)
[2017-03-28] MEDS ORDERED: LIDOCAINE WITH 8.4% SOD BICARB 3 ML DISP.SYRIN. IJ (14:09)
[2017-03-28] MEDS: LIDOCAINE WITH 8.4% SOD BICARB 3 ML DISP.SYRIN. IJ (14:34)
[2017-03-28] MEDS ORDERED: IV NORMAL SALINE 1000ML BAG 1,000 ML IV ×2 (16:31)
[2017-03-28] MEDS ORDERED: DIALYSIS PATIENT. MC ×2 (16:45)
[2017-03-28] MEDS ORDERED: 0.9 % SODIUM CHLORIDE 10 ML DISP.SYRIN. IV ×2 (16:45)
[2017-03-28 17:45] LABS: POC GLUCOSE 113 mg/dL (70-99)
[2017-03-28] MEDS ORDERED: MAGNESIUM SULFATE 2GM 50 ML IV (18:00)
[2017-03-28] MEDS: VANCOMYCIN PER PHARMACY MC (20:45)
[2017-03-28] MEDS: OSELTAMIVIR 30 MG CAPSULE PO ×2 (21:00→21:36)
[2017-03-28] MEDS: VANCOMYCIN 1.75 GM in IV DEXTROSE 5 %-0.2 % NACL 500 ML IV (21:35)
[2017-03-28 21:36] LABS: LACTIC ACID 2.6 mmol/L (0.4-2.0)
[2017-03-28] MEDS: DARBEPOETIN ALFA 60 MCG/0.3 ML DISP.SYRIN. SQ (21:36)
[2017-03-28 23:49] LABS: POC GLUCOSE 90 mg/dL (70-99)
[2017-03-29] MEDS ORDERED: PIPERACILLIN/TAZOBACTAM 2.25 GM in IV DEXTROSE 5% 50 ML IV
[2017-03-29] MEDS: PIPERACILLIN/TAZO IV Push 2.25 GM VIAL. IVP ×4 (00:47→16:45)
[2017-03-29] MEDS: VANCOMYCIN PER PHARMACY MC ×3 (00:53→17:13)
[2017-03-29 01:55] LABS: LACTIC ACID 1.7 mmol/L (0.4-2.0)
[2017-03-29 03:19] LABS: HEP B SURFACE ABDY Non Reactive (.); HEP B SURFACE AG Negative (Negative)
[2017-03-29 05:19] LABS: HEMOGLOBIN 7.2 g/dL (12.0-15.5)
[2017-03-29 05:21] LABS: ALBUMIN 2.4 g/dL (3.4-5.0); ANION GAP 12 (6-14); BLOOD UREA NITROGEN 50 mg/dL (7-20); CARBON DIOXIDE 26 mmol/L (21-32); CHLORIDE 103 mmol/L (98-107); GFR 18.5; GLUCOSE 97 mg/dL (70-99); MAGNESIUM 1.6 mg/dL (1.8-2.4); PHOSPHORUS 4.3 mg/dL (2.6-4.7); POTASSIUM 4.2 mmol/L (3.5-5.1); SODIUM 141 mmol/L (136-145)
[2017-03-29] MEDS: ACETAMINOPHEN 325 MG SUPP.RECT. PR (07:26)
[2017-03-29 08:20] LABS: BASE EXCESS ABG -2 mmol/L (-3-3); HCO3 ABG 21 mmol/L (21-28); PCO2 ABG 30 mmHg (35-46); PH ABG 7.47 (7.35-7.45); PO2 ABG 66 mmHg (65-108); SAT O2 ABG 91 % (92-99)
[2017-03-29] MEDS ORDERED: IV NORMAL SALINE 1000ML BAG 1,000 ML IV (09:01)
[2017-03-29 09:02] LABS: CLARITY,URINE CLEAR
[2017-03-29 09:05] LABS: GLUCOSE,URINE NEGATIVE (NEG)
[2017-03-29 09:06] LABS: BILIRUBIN,URINE NEGATIVE (NEG); PH,URINE 8.5
[2017-03-29 09:07] LABS: NITRITE,URINE NEGATIVE (NEG); PROTEIN,URINE >=300 mg/dL (NEG-TRACE); UROBILINOGEN,URINE 0.2 mg/dL (0.2 mg/dL)
[2017-03-29 09:08] LABS: COLOR,URINE YELLOW
[2017-03-29 09:09] LABS: BACTERIA,URINE FEW /HPF (0-FEW)
[2017-03-29] MEDS ORDERED: 0.9 % SODIUM CHLORIDE 10 ML DISP.SYRIN. IV ×2 (09:15)
[2017-03-29] MEDS ORDERED: DIALYSIS PATIENT. MC (09:15)
[2017-03-29 09:34] LABS: FIO2 ABG 60
[2017-03-29] MEDS: MAGNESIUM SULFATE 2GM 50 ML IV (10:28)
[2017-03-29] MEDS: OSELTAMIVIR 30 MG CAPSULE PO (10:28)
[2017-03-29] MEDS ORDERED: ALBUTEROL SULFATE 2.5 MG/3 ML NEBU. NEB (10:30)
[2017-03-29] MEDS ORDERED: DEXTROSE 50% 25 GM / 50ML DISP.SYRIN. IV (10:45)
[2017-03-29] MEDS ORDERED: IPRATRPIUM/ALBUTEROL 0.5/2.5MG 3 ML NEBU. NEB ×2 (10:45→12:00)
[2017-03-29] MEDS ORDERED: cloNIDine HCL 0.2 MG TABLET PO (10:45)
[2017-03-29] MEDS ORDERED: hydrALAZINE 20 MG/ML VIAL. IVP (10:45)
[2017-03-29] MEDS ORDERED: BISACODYL 10 MG SUPP.RECT. RC (10:45)
[2017-03-29] MEDS: LABETALOL HCL 200 MG TABLET PO ×2 (11:00→21:43)
[2017-03-29] MEDS ORDERED: ENOXAPARIN 40 MG/0.4 ML SYRINGE. SQ (11:00)
[2017-03-29] MEDS ORDERED: MAG HYDROX/ALUMINUM HYD/SIMETH 30 ML ORAL.SUSP PO (11:15)
[2017-03-29] MEDS: INSULIN ASPART 300 UNITS/3 ML INSULN.PEN SQ ×2 (11:37→17:21)
[2017-03-29] MEDS: IPRATRPIUM/ALBUTEROL 0.5/2.5MG 3 ML NEBU. NEB ×3 (11:52→19:54)
[2017-03-29] MEDS: CLOPIDOGREL BISULFATE 75 MG TABLET PO (11:58)
[2017-03-29] MEDS: CALCIUM ACETATE 667 MG CAPSULE PO ×2 (11:58→16:45)
[2017-03-29] MEDS: ASPIRIN 325 MG TABLET PO (11:58)
[2017-03-29] MEDS: BUMETANIDE 1 MG TABLET. PO (11:58)
[2017-03-29] MEDS: CYANOCOBALAMIN (VITAMIN B-12) 1,000 MCG TABLET. PO (11:58)
[2017-03-29] MEDS: LINAGLIPTIN 5 MG TABLET PO (11:59)
[2017-03-29] MEDS: LOSARTAN POTASSIUM 50 MG TABLET. PO (12:00)
[2017-03-29] MEDS: ISOSORBIDE MONONITRATE ER 30 MG TAB.ER.24H PO (12:00)
[2017-03-29] MEDS: amLODIPine BESYLATE 10 MG TABLET PO (12:01)
[2017-03-29 12:39] LABS: POC GLUCOSE 80 mg/dL (70-99)
[2017-03-29] MEDS: SODIUM BICARBONATE 650 MG TABLET. PO ×2 (14:29→21:43)
[2017-03-29] MEDS: HEPARIN PF for SUB-Q USE 5,000 UNIT/0.5 ML VIAL. SQ ×2 (14:31→21:44)
[2017-03-29] MEDS: VANCOMYCIN RANDOM LEVEL. MC (16:00)
[2017-03-29] MEDS: ACETAMINOPHEN 650 MG/20.3 ML SOLUTION. PEG (16:45)
[2017-03-29 16:53] LABS: POC GLUCOSE 153 mg/dL (70-99)
[2017-03-29 17:16] LABS: MRSA BY PCR Negative (Negative)
[2017-03-29] MEDS: ATORVASTATIN CALCIUM 10 MG TABLET. PO (21:42)
[2017-03-30] MEDS: PIPERACILLIN/TAZO IV Push 2.25 GM VIAL. IVP ×5 (00:14→23:43)
[2017-03-30] MEDS: INSULIN ASPART 300 UNITS/3 ML INSULN.PEN SQ ×5 (00:15→23:48)
[2017-03-30] MEDS: ACETAMINOPHEN 650 MG/20.3 ML SOLUTION. PEG ×2 (00:16→21:47)
[2017-03-30 00:31] LABS: POC GLUCOSE 201 mg/dL (70-99)
[2017-03-30 06:12] LABS: POC GLUCOSE 154 mg/dL (70-99)
[2017-03-30] MEDS: HEPARIN PF for SUB-Q USE 5,000 UNIT/0.5 ML VIAL. SQ ×3 (06:18→21:52)
[2017-03-30 06:28] LABS: ADD MAN DIFF? NO
[2017-03-30 07:15] LABS: MAGNESIUM 2.4 mg/dL (1.8-2.4)
[2017-03-30 07:16] LABS: ALBUMIN 2.2 g/dL (3.4-5.0); ANION GAP 12 (6-14); BLOOD UREA NITROGEN 49 mg/dL (7-20); CALCIUM 8.3 mg/dL (8.5-10.1); CARBON DIOXIDE 28 mmol/L (21-32); CHLORIDE 100 mmol/L (98-107); CREATININE 3.6 mg/dL (0.6-1.0); GLUCOSE 162 mg/dL (70-99); PHOSPHORUS 2.3 mg/dL (2.6-4.7); POTASSIUM 3.4 mmol/L (3.5-5.1); SODIUM 140 mmol/L (136-145)
[2017-03-30 07:19] LABS: BASO % 0 % (0-3); EOS % 0 % (0-3); LYMPH # 0.9 x10^3/uL (1.0-4.8); LYMPH % 6 % (24-48); MEAN CORPUSCULAR HEMOGLOBIN 28 pg (25-35); MEAN CORPUSCULAR HGB CONC 33 g/dL (31-37); MEAN CORPUSCULAR VOLUME 84 fL (79-100); MONO # 0.7 x10^3/uL (0.0-1.1); MONO % 4 % (0-9); NEUT # 14.9 x10^3uL (1.8-7.7); NEUT % 90 % (31-73); PLATELET COUNT 211 x10^3/uL (140-400); RED CELL DISTRIBUTION WIDTH 16.8 % (11.5-14.5); WHITE BLOOD COUNT 16.6 x10^3/uL (4.0-11.0)
[2017-03-30 07:31] LABS: HEMATOCRIT 19.3 % (36.0-47.0); HEMOGLOBIN 6.4 g/dL (12.0-15.5)
[2017-03-30] MEDS: CALCIUM ACETATE 667 MG CAPSULE PO ×3 (08:00→17:33)
[2017-03-30] MEDS: IPRATRPIUM/ALBUTEROL 0.5/2.5MG 3 ML NEBU. NEB ×4 (08:07→19:46)
[2017-03-30 08:24] LABS: BASE EXCESS ABG 3 mmol/L (-3-3); HCO3 ABG 26 mmol/L (21-28); PCO2 ABG 34 mmHg (35-46); PO2 ABG 94 mmHg (65-108); SAT O2 ABG 97 % (92-99)
[2017-03-30 08:26] LABS: FIO2 ABG 40
[2017-03-30] MEDS: POTASSIUM PHOSPHATE DIBASIC IV ×6 (08:32→23:43)
[2017-03-30] MEDS: DEXTROSE 5% IV ×6 (08:32→23:43)
[2017-03-30] MEDS: SODIUM BICARBONATE 650 MG TABLET. PO ×3 (09:00→21:46)
[2017-03-30] MEDS: LABETALOL HCL 200 MG TABLET PO ×2 (09:00→21:46)
[2017-03-30] MEDS: LOSARTAN POTASSIUM 50 MG TABLET. PO (09:00)
[2017-03-30] MEDS: amLODIPine BESYLATE 10 MG TABLET PO (09:00)
[2017-03-30] MEDS: ISOSORBIDE MONONITRATE ER 30 MG TAB.ER.24H PO (09:00)
[2017-03-30] MEDS: BUMETANIDE 1 MG TABLET. PO (09:00)
[2017-03-30] MEDS ORDERED: ALBUMIN HUMAN 25% 200 ML IV (10:45)
[2017-03-30] MEDS ORDERED: diphenhydrAMINE 50 MG/ML VIAL IV (10:45)
[2017-03-30] MEDS ORDERED: IV NORMAL SALINE 1000ML BAG 1,000 ML IV (10:45)
[2017-03-30] MEDS ORDERED: DIALYSIS PATIENT. MC ×2 (10:45)
[2017-03-30] MEDS ORDERED: ACETAMINOPHEN 500 MG TABLET PO (10:45)
[2017-03-30 10:59] LABS: IMMEDIATE SPIN CROSSMATCH 1 2
[2017-03-30 12:22] LABS: POC GLUCOSE 125 mg/dL (70-99)
[2017-03-30] MEDS: CLOPIDOGREL BISULFATE 75 MG TABLET PO (12:52)
[2017-03-30] MEDS: ASPIRIN 325 MG TABLET PO (12:52)
[2017-03-30] MEDS: LINAGLIPTIN 5 MG TABLET PO (12:52)
[2017-03-30] MEDS: CYANOCOBALAMIN (VITAMIN B-12) 1,000 MCG TABLET. PO (12:52)
[2017-03-30] MEDS: OSELTAMIVIR 30 MG CAPSULE PO (12:53)
[2017-03-30] MEDS: VANCOMYCIN PER PHARMACY MC (13:29)
[2017-03-30] MEDS: VANCOMYCIN 500 MG in IV DEXTROSE 5% 100 ML IV (16:37)
[2017-03-30 17:42] LABS: POC GLUCOSE 167 mg/dL (70-99)
[2017-03-30 17:53] LABS: ANION GAP 11 (6-14); BLOOD UREA NITROGEN 30 mg/dL (7-20); CALCIUM 8.6 mg/dL (8.5-10.1); CARBON DIOXIDE 28 mmol/L (21-32); CHLORIDE 99 mmol/L (98-107); CREATININE 2.5 mg/dL (0.6-1.0); GFR 22.8; GLUCOSE 181 mg/dL (70-99); POTASSIUM 3.6 mmol/L (3.5-5.1); SODIUM 138 mmol/L (136-145)
[2017-03-30 18:47] LABS: PHOSPHORUS 1.7 mg/dL (2.6-4.7)
[2017-03-30] MEDS: ATORVASTATIN CALCIUM 10 MG TABLET. PO (21:46)
[2017-03-31 02:58] LABS: POC GLUCOSE 165 mg/dL (70-99)
[2017-03-31] MEDS: INSULIN ASPART 300 UNITS/3 ML INSULN.PEN SQ ×4 (06:00→21:45)
[2017-03-31] MEDS: HEPARIN PF for SUB-Q USE 5,000 UNIT/0.5 ML VIAL. SQ ×3 (06:01→21:46)
[2017-03-31] MEDS: PIPERACILLIN/TAZO IV Push 2.25 GM VIAL. IVP ×2 (06:07→11:36)
[2017-03-31 06:15] LABS: POC GLUCOSE 129 mg/dL (70-99)
[2017-03-31 06:17] LABS: ADD MAN DIFF? NO
[2017-03-31 06:24] LABS: BASO % 0 % (0-3); EOS # 0.1 x10^3/uL (0.0-0.7); EOS % 0 % (0-3); HEMOGLOBIN 8.7 g/dL (12.0-15.5); LYMPH # 1.1 x10^3/uL (1.0-4.8); LYMPH % 7 % (24-48); MEAN CORPUSCULAR HEMOGLOBIN 28 pg (25-35); MEAN CORPUSCULAR HGB CONC 34 g/dL (31-37); MEAN CORPUSCULAR VOLUME 85 fL (79-100); MONO # 1.2 x10^3/uL (0.0-1.1); MONO % 7 % (0-9); NEUT # 14.6 x10^3uL (1.8-7.7); NEUT % 86 % (31-73); PLATELET COUNT 192 x10^3/uL (140-400); RED BLOOD COUNT 3.06 x10^6/uL (3.50-5.40); RED CELL DISTRIBUTION WIDTH 17.4 % (11.5-14.5)
[2017-03-31 06:48] LABS: MAGNESIUM 2.3 mg/dL (1.8-2.4)
[2017-03-31 06:50] LABS: ALBUMIN 2.3 g/dL (3.4-5.0); ANION GAP 12 (6-14); BLOOD UREA NITROGEN 45 mg/dL (7-20); CALCIUM 8.3 mg/dL (8.5-10.1); CARBON DIOXIDE 27 mmol/L (21-32); CHLORIDE 99 mmol/L (98-107); CREATININE 3.5 mg/dL (0.6-1.0); GFR 15.4; GLUCOSE 133 mg/dL (70-99); PHOSPHORUS 4.3 mg/dL (2.6-4.7); SODIUM 138 mmol/L (136-145)
[2017-03-31] MEDS: OSELTAMIVIR 30 MG CAPSULE PO (07:17)
[2017-03-31] MEDS: CALCIUM ACETATE 667 MG CAPSULE PO ×3 (07:18→17:00)
[2017-03-31] MEDS: CYANOCOBALAMIN (VITAMIN B-12) 1,000 MCG TABLET. PO (07:19)
[2017-03-31] MEDS: ASPIRIN 325 MG TABLET PO (07:19)
[2017-03-31] MEDS: SODIUM BICARBONATE 650 MG TABLET. PO ×3 (07:20→21:44)
[2017-03-31] MEDS: CLOPIDOGREL BISULFATE 75 MG TABLET PO (07:20)
[2017-03-31] MEDS: BUMETANIDE 1 MG TABLET. PO (07:21)
[2017-03-31] MEDS: ISOSORBIDE MONONITRATE ER 30 MG TAB.ER.24H PO (07:21)
[2017-03-31] MEDS: LABETALOL HCL 200 MG TABLET PO ×2 (07:22→21:44)
[2017-03-31] MEDS: LINAGLIPTIN 5 MG TABLET PO (07:22)
[2017-03-31] MEDS: amLODIPine BESYLATE 10 MG TABLET PO (07:23)
[2017-03-31] MEDS: LOSARTAN POTASSIUM 50 MG TABLET. PO (07:24)
[2017-03-31] MEDS: IPRATRPIUM/ALBUTEROL 0.5/2.5MG 3 ML NEBU. NEB ×4 (09:01→20:53)
[2017-03-31 11:55] LABS: POC GLUCOSE 126 mg/dL (70-99)
[2017-03-31] MEDS ORDERED: MEROPENEM 500 MG in IV NORMAL SALINE 50ML 50 ML IV (14:00)
[2017-03-31] MEDS: MEROPENEM IV Push 500 MG VIAL. IVP ×2 (14:18→23:43)
[2017-03-31] MEDS ORDERED: VANCOMYCIN 500 MG in IV NORMAL SALINE 100ML 100 ML IV (16:00)
[2017-03-31 18:45] LABS: POC GLUCOSE 92 mg/dL (70-99)
[2017-03-31 21:38] LABS: POC GLUCOSE 110 mg/dL (70-99)
[2017-03-31] MEDS: ATORVASTATIN CALCIUM 10 MG TABLET. PO (21:44)
[2017-04-01] MEDS: MEROPENEM IV Push 500 MG VIAL. IVP ×2 (06:05→21:10)
[2017-04-01] MEDS: HEPARIN PF for SUB-Q USE 5,000 UNIT/0.5 ML VIAL. SQ ×2 (06:06→14:00)
[2017-04-01 06:25] LABS: ADD MAN DIFF? NO
[2017-04-01 06:35] LABS: BASO % 0 % (0-3); EOS # 0.1 x10^3/uL (0.0-0.7); EOS % 1 % (0-3); HEMATOCRIT 29.3 % (36.0-47.0); HEMOGLOBIN 9.5 g/dL (12.0-15.5); LYMPH # 1.1 x10^3/uL (1.0-4.8); LYMPH % 10 % (24-48); MEAN CORPUSCULAR HEMOGLOBIN 28 pg (25-35); MEAN CORPUSCULAR HGB CONC 32 g/dL (31-37); MEAN CORPUSCULAR VOLUME 86 fL (79-100); MONO # 1.3 x10^3/uL (0.0-1.1); MONO % 12 % (0-9); NEUT # 8.4 x10^3uL (1.8-7.7); NEUT % 76 % (31-73); PLATELET COUNT 188 x10^3/uL (140-400); RED BLOOD COUNT 3.42 x10^6/uL (3.50-5.40); RED CELL DISTRIBUTION WIDTH 17.3 % (11.5-14.5)
[2017-04-01 07:01] LABS: ALBUMIN 2.2 g/dL (3.4-5.0); ANION GAP 13 (6-14); BLOOD UREA NITROGEN 61 mg/dL (7-20); CALCIUM 7.9 mg/dL (8.5-10.1); CARBON DIOXIDE 26 mmol/L (21-32); CHLORIDE 98 mmol/L (98-107); CREATININE 5.1 mg/dL (0.6-1.0); GLUCOSE 120 mg/dL (70-99); MAGNESIUM 2.2 mg/dL (1.8-2.4); PHOSPHORUS 3.3 mg/dL (2.6-4.7); POTASSIUM 3.9 mmol/L (3.5-5.1); SODIUM 137 mmol/L (136-145)
[2017-04-01] MEDS: INSULIN ASPART 300 UNITS/3 ML INSULN.PEN SQ ×4 (07:30→21:00)
[2017-04-01] MEDS ORDERED: IV NORMAL SALINE 1000ML BAG 1,000 ML IV ×2 (07:53)
[2017-04-01] MEDS ORDERED: DIALYSIS PATIENT. MC ×4 (08:00→16:45)
[2017-04-01] MEDS: IPRATRPIUM/ALBUTEROL 0.5/2.5MG 3 ML NEBU. NEB ×4 (08:06→20:06)
[2017-04-01 08:53] LABS: POC GLUCOSE 114 mg/dL (70-99)
[2017-04-01] MEDS: BUMETANIDE 1 MG TABLET. PO (09:03)
[2017-04-01] MEDS: CALCIUM ACETATE 667 MG CAPSULE PO ×3 (09:04→21:11)
[2017-04-01] MEDS: ASPIRIN 325 MG TABLET PO (09:04)
[2017-04-01] MEDS: CLOPIDOGREL BISULFATE 75 MG TABLET PO (09:04)
[2017-04-01] MEDS: LINAGLIPTIN 5 MG TABLET PO (09:04)
[2017-04-01] MEDS: SODIUM BICARBONATE 650 MG TABLET. PO ×3 (09:04→21:11)
[2017-04-01] MEDS: LOSARTAN POTASSIUM 50 MG TABLET. PO (09:04)
[2017-04-01] MEDS: LABETALOL HCL 200 MG TABLET PO ×2 (09:05→21:12)
[2017-04-01] MEDS: CYANOCOBALAMIN (VITAMIN B-12) 1,000 MCG TABLET. PO (09:05)
[2017-04-01] MEDS: OSELTAMIVIR 30 MG CAPSULE PO (09:05)
[2017-04-01] MEDS: ISOSORBIDE MONONITRATE ER 30 MG TAB.ER.24H PO (09:05)
[2017-04-01] MEDS: amLODIPine BESYLATE 10 MG TABLET PO (09:06)
[2017-04-01] MEDS: cefTRIAXone IV Push 1 GM VIAL. IVP (10:00)
[2017-04-01 12:23] LABS: POC GLUCOSE 126 mg/dL (70-99)
[2017-04-01] MEDS: VANCOMYCIN PER PHARMACY MC (13:20)
[2017-04-01] MEDS: VANCOMYCIN 500 MG in IV NORMAL SALINE 100ML 100 ML IV (21:09)
[2017-04-01] MEDS: ATORVASTATIN CALCIUM 10 MG TABLET. PO (21:10)
[2017-04-01] MEDS: LACTOBACILLUS RHAMNOSUS GG 1 CAPSULE. PO (21:11)
[2017-04-02] MEDS: HEPARIN PF for SUB-Q USE 5,000 UNIT/0.5 ML VIAL. SQ ×4 (00:23→21:45)
[2017-04-02 05:35] LABS: BASO % 0 % (0-3); EOS # 0.2 x10^3/uL (0.0-0.7); EOS % 2 % (0-3); HEMATOCRIT 27.6 % (36.0-47.0); HEMOGLOBIN 9.1 g/dL (12.0-15.5); LYMPH # 1.3 x10^3/uL (1.0-4.8); LYMPH % 14 % (24-48); MEAN CORPUSCULAR HEMOGLOBIN 28 pg (25-35); MEAN CORPUSCULAR HGB CONC 33 g/dL (31-37); MEAN CORPUSCULAR VOLUME 85 fL (79-100); MONO # 1.8 x10^3/uL (0.0-1.1); MONO % 21 % (0-9); NEUT # 5.6 x10^3uL (1.8-7.7); NEUT % 63 % (31-73); PLATELET COUNT 216 x10^3/uL (140-400); RED BLOOD COUNT 3.27 x10^6/uL (3.50-5.40); RED CELL DISTRIBUTION WIDTH 17.6 % (11.5-14.5); WHITE BLOOD COUNT 8.9 x10^3/uL (4.0-11.0)
[2017-04-02 05:40] LABS: ADD MAN DIFF? YES
[2017-04-02 05:56] LABS: ALBUMIN 2.5 g/dL (3.4-5.0); ANION GAP 12 (6-14); BLOOD UREA NITROGEN 35 mg/dL (7-20); CALCIUM 8.6 mg/dL (8.5-10.1); CARBON DIOXIDE 29 mmol/L (21-32); CHLORIDE 99 mmol/L (98-107); CREATININE 3.4 mg/dL (0.6-1.0); GLUCOSE 145 mg/dL (70-99); MAGNESIUM 2.2 mg/dL (1.8-2.4); POTASSIUM 4.4 mmol/L (3.5-5.1); SODIUM 140 mmol/L (136-145)
[2017-04-02] MEDS: INSULIN ASPART 300 UNITS/3 ML INSULN.PEN SQ ×4 (07:30→21:00)
[2017-04-02 07:55] LABS: % BANDS 4 % (0-9); % EOS 1 % (0-5); % LYMPHS 20 % (24-48); % METAS 3 % (0-0); % MONOS 11 % (0-10); % MYELOS 4 % (0-0); % SEGS 57 % (35-66)
[2017-04-02 07:56] LABS: PLT ESTIMATE ADEQUATE (ADEQUATE)
[2017-04-02 07:57] LABS: ANISOCYTOSIS SLIGHT
[2017-04-02] MEDS: IPRATRPIUM/ALBUTEROL 0.5/2.5MG 3 ML NEBU. NEB ×4 (08:25→20:19)
[2017-04-02 09:18] LABS: POC GLUCOSE 129 mg/dL (70-99)
[2017-04-02] MEDS: LACTOBACILLUS RHAMNOSUS GG 1 CAPSULE. PO ×2 (09:21→21:33)
[2017-04-02] MEDS: ASPIRIN 325 MG TABLET PO (09:21)
[2017-04-02] MEDS: LOSARTAN POTASSIUM 50 MG TABLET. PO (09:22)
[2017-04-02] MEDS: CYANOCOBALAMIN (VITAMIN B-12) 1,000 MCG TABLET. PO (09:22)
[2017-04-02] MEDS: OSELTAMIVIR 30 MG CAPSULE PO (09:22)
[2017-04-02] MEDS: LABETALOL HCL 200 MG TABLET PO ×2 (09:23→21:37)
[2017-04-02] MEDS: CALCIUM ACETATE 667 MG CAPSULE PO ×3 (09:23→18:07)
[2017-04-02] MEDS: LINAGLIPTIN 5 MG TABLET PO (09:23)
[2017-04-02] MEDS: amLODIPine BESYLATE 10 MG TABLET PO (09:23)
[2017-04-02] MEDS: SODIUM BICARBONATE 650 MG TABLET. PO ×3 (09:24→21:32)
[2017-04-02] MEDS: ISOSORBIDE MONONITRATE ER 30 MG TAB.ER.24H PO (09:24)
[2017-04-02] MEDS: BUMETANIDE 1 MG TABLET. PO (09:24)
[2017-04-02] MEDS: CLOPIDOGREL BISULFATE 75 MG TABLET PO (09:24)
[2017-04-02 12:12] LABS: INR 1.1 (0.8-1.1); PROTHROMBIN TIME PATIENT 13.4 SEC (11.7-14.0)
[2017-04-02 12:13] LABS: PARTIAL THROMBOPLASTIN TIME 47 SEC (24-38)
[2017-04-02 12:31] LABS: POC GLUCOSE 220 mg/dL (70-99)
[2017-04-02] MEDS ORDERED: LIDOCAINE 2%/EPI 1:100,000 20 ML VIAL. (14:28)
[2017-04-02] MEDS ORDERED: HEPARIN for IV BOLUS 10,000 UNIT/10 ML VIAL. (14:29)
[2017-04-02] MEDS ORDERED: MIDAZOLAM HCL/PF 2 MG/2 ML VIAL. (15:00)
[2017-04-02] MEDS ORDERED: fentaNYL PF VIAL 100 MCG/2 ML VIAL (15:01)
[2017-04-02] MEDS: MIDAZOLAM HCL/PF 2 MG/2 ML VIAL. IV (15:30)
[2017-04-02] MEDS: LIDOCAINE 1%/EPI 1:100,000 20 ML VIAL. IJ (15:30)
[2017-04-02] MEDS: fentaNYL PF VIAL 100 MCG/2 ML VIAL IV (15:30)
[2017-04-02 17:27] LABS: POC GLUCOSE 131 mg/dL (70-99)
[2017-04-02] MEDS: MEROPENEM IV Push 500 MG VIAL. IVP (21:00)
[2017-04-02] MEDS: ATORVASTATIN CALCIUM 10 MG TABLET. PO (21:35)
[2017-04-02 21:51] LABS: POC GLUCOSE 203 mg/dL (70-99)
[2017-04-03 05:55] LABS: ADD MAN DIFF? NO
[2017-04-03] MEDS: HEPARIN PF for SUB-Q USE 5,000 UNIT/0.5 ML VIAL. SQ ×3 (06:00→22:00)
[2017-04-03 06:05] LABS: BASO % 0 % (0-3); EOS # 0.3 x10^3/uL (0.0-0.7); EOS % 3 % (0-3); HEMATOCRIT 25.1 % (36.0-47.0); HEMOGLOBIN 8.2 g/dL (12.0-15.5); LYMPH # 2.1 x10^3/uL (1.0-4.8); LYMPH % 20 % (24-48); MEAN CORPUSCULAR HEMOGLOBIN 28 pg (25-35); MEAN CORPUSCULAR HGB CONC 33 g/dL (31-37); MEAN CORPUSCULAR VOLUME 86 fL (79-100); MONO # 2.6 x10^3/uL (0.0-1.1); MONO % 24 % (0-9); NEUT # 5.6 x10^3uL (1.8-7.7); NEUT % 53 % (31-73); PLATELET COUNT 221 x10^3/uL (140-400); RED BLOOD COUNT 2.91 x10^6/uL (3.50-5.40); RED CELL DISTRIBUTION WIDTH 17.8 % (11.5-14.5); WHITE BLOOD COUNT 10.6 x10^3/uL (4.0-11.0)
[2017-04-03 06:47] LABS: ALBUMIN 2.4 g/dL (3.4-5.0); ANION GAP 13 (6-14); BLOOD UREA NITROGEN 56 mg/dL (7-20); CALCIUM 7.8 mg/dL (8.5-10.1); CARBON DIOXIDE 26 mmol/L (21-32); CHLORIDE 97 mmol/L (98-107); CREATININE 5.4 mg/dL (0.6-1.0); GFR 9.4; GLUCOSE 104 mg/dL (70-99); PHOSPHORUS 3.5 mg/dL (2.6-4.7); POTASSIUM 4.8 mmol/L (3.5-5.1); SODIUM 136 mmol/L (136-145)
[2017-04-03] MEDS: INSULIN ASPART 300 UNITS/3 ML INSULN.PEN SQ ×4 (07:30→21:00)
[2017-04-03] MEDS: IPRATRPIUM/ALBUTEROL 0.5/2.5MG 3 ML NEBU. NEB ×4 (08:59→20:14)
[2017-04-03] MEDS: CLOPIDOGREL BISULFATE 75 MG TABLET PO (09:29)
[2017-04-03] MEDS: ASPIRIN 325 MG TABLET PO (09:29)
[2017-04-03] MEDS: SODIUM BICARBONATE 650 MG TABLET. PO ×3 (09:29→21:58)
[2017-04-03] MEDS: CALCIUM ACETATE 667 MG CAPSULE PO ×3 (09:29→17:00)
[2017-04-03] MEDS: CYANOCOBALAMIN (VITAMIN B-12) 1,000 MCG TABLET. PO (09:29)
[2017-04-03] MEDS: BUMETANIDE 1 MG TABLET. PO (09:29)
[2017-04-03] MEDS: LABETALOL HCL 200 MG TABLET PO ×2 (09:30→21:00)
[2017-04-03] MEDS: LACTOBACILLUS RHAMNOSUS GG 1 CAPSULE. PO ×2 (09:30→21:58)
[2017-04-03] MEDS: ISOSORBIDE MONONITRATE ER 30 MG TAB.ER.24H PO (09:31)
[2017-04-03] MEDS: LOSARTAN POTASSIUM 50 MG TABLET. PO (09:31)
[2017-04-03] MEDS: amLODIPine BESYLATE 10 MG TABLET PO (09:32)
[2017-04-03] MEDS: LINAGLIPTIN 5 MG TABLET PO (09:32)
[2017-04-03 09:43] LABS: POC GLUCOSE 130 mg/dL (70-99)
[2017-04-03 12:05] LABS: POC GLUCOSE 155 mg/dL (70-99)
[2017-04-03] MEDS ORDERED: IV NORMAL SALINE 1000ML BAG 1,000 ML IV (16:02)
[2017-04-03] MEDS ORDERED: DIALYSIS PATIENT. MC (16:15)
[2017-04-03] MEDS ORDERED: ALBUMIN HUMAN 25% 200 ML IV (16:15)
[2017-04-03 21:08] LABS: POC GLUCOSE 141 mg/dL (70-99)
[2017-04-03] MEDS: ATORVASTATIN CALCIUM 10 MG TABLET. PO (21:58)
[2017-04-04 04:59] LABS: ALBUMIN 2.6 g/dL (3.4-5.0); ANION GAP 10 (6-14); BLOOD UREA NITROGEN 32 mg/dL (7-20); CALCIUM 8.5 mg/dL (8.5-10.1); CARBON DIOXIDE 29 mmol/L (21-32); CHLORIDE 98 mmol/L (98-107); CREATININE 3.7 mg/dL (0.6-1.0); GFR 14.5; GLUCOSE 122 mg/dL (70-99); PHOSPHORUS 3.4 mg/dL (2.6-4.7); POTASSIUM 4.3 mmol/L (3.5-5.1); SODIUM 137 mmol/L (136-145)
[2017-04-04] MEDS: HEPARIN PF for SUB-Q USE 5,000 UNIT/0.5 ML VIAL. SQ ×2 (05:54→14:50)
[2017-04-04] MEDS: IPRATRPIUM/ALBUTEROL 0.5/2.5MG 3 ML NEBU. NEB ×2 (06:19→11:29)
[2017-04-04] MEDS: INSULIN ASPART 300 UNITS/3 ML INSULN.PEN SQ ×2 (07:30→11:30)
[2017-04-04 08:16] LABS: POC GLUCOSE 122 mg/dL (70-99)
[2017-04-04] MEDS: SODIUM BICARBONATE 650 MG TABLET. PO ×2 (09:57→14:49)
[2017-04-04] MEDS: CLOPIDOGREL BISULFATE 75 MG TABLET PO (09:57)
[2017-04-04] MEDS: LACTOBACILLUS RHAMNOSUS GG 1 CAPSULE. PO (09:58)
[2017-04-04] MEDS: amLODIPine BESYLATE 10 MG TABLET PO (09:58)
[2017-04-04] MEDS: LOSARTAN POTASSIUM 50 MG TABLET. PO (09:59)
[2017-04-04] MEDS: BUMETANIDE 1 MG TABLET. PO (10:00)
[2017-04-04] MEDS: CALCIUM ACETATE 667 MG CAPSULE PO ×2 (10:00→12:27)
[2017-04-04] MEDS: ISOSORBIDE MONONITRATE ER 30 MG TAB.ER.24H PO (10:00)
[2017-04-04] MEDS: CYANOCOBALAMIN (VITAMIN B-12) 1,000 MCG TABLET. PO (10:00)
[2017-04-04] MEDS: ASPIRIN 325 MG TABLET PO (10:00)
[2017-04-04] MEDS: LINAGLIPTIN 5 MG TABLET PO (10:00)
[2017-04-04] MEDS: LABETALOL HCL 200 MG TABLET PO (10:01)
[2017-04-04 11:47] LABS: POC GLUCOSE 123 mg/dL (70-99)
[2017-04-04] MEDS: BUPIVACAINE MPF 0.25% 10 ML VIAL. IJ (13:00)
[2017-04-04] MEDS: methylPREDNISolone ACETATE 40 MG/ML VIAL. IM (13:00)
[2017-04-05] MEDS ORDERED: DARBEPOETIN ALFA 40 MCG/0.4 ML DISP.SYRIN. SQ ×2 (09:00→21:00)
== END 2017-04-04 17:21 | disposition home or self-care (01) | DRG 871 ==
LOC: 6 SOUTH 03-31 18:12 → ER 12:25 → 1 WEST ICU 13:10
PROC: 02HV33Z Insertion of Infusion Device into Superior Vena Cava, Percutaneous Approach (ICD-10-PCS; 2017-03-28)
PROC: B548ZZA Ultrasonography of Superior Vena Cava, Guidance (ICD-10-PCS; 2017-03-28)
PROC: 5A1D70Z Performance of Urinary Filtration, Intermittent, Less than 6 Hours Per Day (ICD-10-PCS; 2017-03-28)
PROC: 5A09457 Assistance with Respiratory Ventilation, 24-96 Consecutive Hours, Continuous Positive Airway Pressure (ICD-10-PCS; 2017-03-28)
PROC: 5A1D70Z Performance of Urinary Filtration, Intermittent, Less than 6 Hours Per Day (ICD-10-PCS; 2017-03-29)
PROC: 30233N1 Transfusion of Nonautologous Red Blood Cells into Peripheral Vein, Percutaneous Approach (ICD-10-PCS; principal; 2017-03-30)
PROC: 5A1D70Z Performance of Urinary Filtration, Intermittent, Less than 6 Hours Per Day (ICD-10-PCS; 2017-03-30)
PROC: 5A1D70Z Performance of Urinary Filtration, Intermittent, Less than 6 Hours Per Day (ICD-10-PCS; 2017-04-01)
PROC: 0JH63XZ Insertion of Tunneled Vascular Access Device into Chest Subcutaneous Tissue and Fascia, Percutaneous Approach (ICD-10-PCS; 2017-04-02)
PROC: 02HV33Z Insertion of Infusion Device into Superior Vena Cava, Percutaneous Approach (ICD-10-PCS; 2017-04-02)
PROC: 5A1D70Z Performance of Urinary Filtration, Intermittent, Less than 6 Hours Per Day (ICD-10-PCS; 2017-04-03)
PROC: 3E0U3BZ Introduction of Anesthetic Agent into Joints, Percutaneous Approach (ICD-10-PCS; 2017-04-04)
PROC: 3E0U33Z Introduction of Anti-inflammatory into Joints, Percutaneous Approach (ICD-10-PCS; 2017-04-04)
DX: A41.9 Sepsis, unspecified organism (principal); J15.6 Pneumonia due to other Gram-negative bacteria; J96.01 Acute respiratory failure with hypoxia; J10.00 Influenza due to other identified influenza virus with unspecified type of pneumonia; N17.9 Acute kidney failure, unspecified; I13.2 Hypertensive heart and chronic kidney disease with heart failure and with stage 5 chronic kidney disease, or end stage renal disease; G92 Toxic encephalopathy; N18.6 End stage renal disease; I24.8 Other forms of acute ischemic heart disease; I50.9 Heart failure, unspecified; N39.0 Urinary tract infection, site not specified; E10.22 Type 1 diabetes mellitus with diabetic chronic kidney disease; E10.42 Type 1 diabetes mellitus with diabetic polyneuropathy; D64.9 Anemia, unspecified; E03.9 Hypothyroidism, unspecified; E78.5 Hyperlipidemia, unspecified; J10.1 Influenza due to other identified influenza virus with other respiratory manifestations; M19.90 Unspecified osteoarthritis, unspecified site; Z79.4 Long term (current) use of insulin; Z82.49 Family history of ischemic heart disease and other diseases of the circulatory system; Z83.3 Family history of diabetes mellitus; Z87.440 Personal history of urinary (tract) infections; Z91.041 Radiographic dye allergy status; Z99.2 Dependence on renal dialysis; Z86.73 Personal history of transient ischemic attack (TIA), and cerebral infarction without residual deficits; Z90.49 Acquired absence of other specified parts of digestive tract
CPT/HCPCS: 36415; 36556; 36581; 36600; 71045; 74018; 76937; 77001; 80048; 80053; 80069; 80202; 81001; 82553; 82805; 82962; 83605; 83735; 83880; 84100; 84484; 85007; 85018; 85025; 85610; 85730; 86704; 86706; 86850; 86900; 86901; 86920; 87040; 87086; 87186; 87340; 87641; 87804; 87804-59; 93005; 94640; 94660; 94760; 96374; 97162-GP; 97166-GO; 99152; 99153; 99285; 99285-25; C1750; C1769; C1892; J0690; J0881; J1030; J1815; J2185; J2250; J2543; J3010; J3370; J3490; J7060; J7620; P9016

== ENCOUNTER 2017-05-10 12:15 | Inpatient (IN) | payer OTHER ==
[2017-05-10 14:02] LABS: ADD MAN DIFF? NO
[2017-05-10 14:14] LABS: BASO # 0.1 x10^3/uL (0.0-0.2); BASO % 1 % (0-3); EOS # 0.1 x10^3/uL (0.0-0.7); EOS % 1 % (0-3); HEMATOCRIT 26.9 % (36.0-47.0); LYMPH # 1.6 x10^3/uL (1.0-4.8); LYMPH % 20 % (24-48); MEAN CORPUSCULAR HEMOGLOBIN 30 pg (25-35); MEAN CORPUSCULAR HGB CONC 34 g/dL (31-37); MEAN CORPUSCULAR VOLUME 89 fL (79-100); MONO # 1.2 x10^3/uL (0.0-1.1); MONO % 15 % (0-9); NEUT # 5.3 x10^3uL (1.8-7.7); NEUT % 64 % (31-73); PLATELET COUNT 369 x10^3/uL (140-400); RED BLOOD COUNT 3.04 x10^6/uL (3.50-5.40); RED CELL DISTRIBUTION WIDTH 20.7 % (11.5-14.5); WHITE BLOOD COUNT 8.3 x10^3/uL (4.0-11.0)
[2017-05-10 14:22] LABS: ANION GAP 11 (6-14); BLOOD UREA NITROGEN 30 mg/dL (7-20); CALCIUM 9.1 mg/dL (8.5-10.1); CARBON DIOXIDE 29 mmol/L (21-32); CHLORIDE 96 mmol/L (98-107); CREATININE 3.9 mg/dL (0.6-1.0); GFR 13.6; GLUCOSE 199 mg/dL (70-99); POTASSIUM 4.2 mmol/L (3.5-5.1); SODIUM 136 mmol/L (136-145)
[2017-05-10 14:28] LABS: ALK PHOS 79 U/L (46-116); ALT (SGPT) 20 U/L (14-59); AST (SGOT) 21 U/L (15-37); DIRECT BILIRUBIN 0.1 mg/dL (0.0-0.2); LIPASE 144 U/L (73-393); MAGNESIUM 2.1 mg/dL (1.8-2.4); TOTAL BILIRUBIN 0.4 mg/dL (0.2-1.0); TOTAL PROTEIN 7.2 g/dL (6.4-8.2)
[2017-05-10 14:29] LABS: TROPONINI 0.042 ng/mL (0.000-0.055)
[2017-05-10 14:33] LABS: CKMB INDEX 0.4 % (0-4); CKMB MASS 1.4 ng/mL (0.0-3.6); CREATINE KINASE 368 U/L (26-192)
[2017-05-10 14:33] LABS: NT-PRO BNP 721 pg/mL (0-124)
[2017-05-10] MEDS ORDERED: ONDANSETRON PF 4 MG/2 ML VIAL. IV (15:45)
[2017-05-10] MEDS: ASPIRIN 325 MG TABLET PO (15:58)
[2017-05-10 17:02] LABS: PLT ESTIMATE INCREASED (ADEQUATE)
[2017-05-10 17:03] LABS: ANISOCYTOSIS SLIGHT; OVALOCYTES OCC; POLYCHROMASIA SLIGHT
[2017-05-10 19:48] LABS: TROPONINI 0.036 ng/mL (0.000-0.055)
[2017-05-10 20:41] LABS: POC GLUCOSE 169 mg/dL (70-99)
[2017-05-10 21:42] LABS: TROPONINI 0.031 ng/mL (0.000-0.055)
[2017-05-11 06:42] LABS: ADD MAN DIFF? NO
[2017-05-11 06:57] LABS: BASO # 0.1 x10^3/uL (0.0-0.2); BASO % 1 % (0-3); EOS # 0.3 x10^3/uL (0.0-0.7); EOS % 3 % (0-3); HEMATOCRIT 26.8 % (36.0-47.0); HEMOGLOBIN 8.8 g/dL (12.0-15.5); LYMPH # 2.5 x10^3/uL (1.0-4.8); LYMPH % 30 % (24-48); MEAN CORPUSCULAR HEMOGLOBIN 30 pg (25-35); MEAN CORPUSCULAR HGB CONC 33 g/dL (31-37); MEAN CORPUSCULAR VOLUME 90 fL (79-100); MONO # 1.3 x10^3/uL (0.0-1.1); MONO % 16 % (0-9); NEUT # 4.1 x10^3uL (1.8-7.7); NEUT % 50 % (31-73); PLATELET COUNT 366 x10^3/uL (140-400); RED BLOOD COUNT 2.98 x10^6/uL (3.50-5.40); RED CELL DISTRIBUTION WIDTH 20.9 % (11.5-14.5); WHITE BLOOD COUNT 8.3 x10^3/uL (4.0-11.0)
[2017-05-11 07:12] LABS: ANION GAP 9 (6-14); BLOOD UREA NITROGEN 41 mg/dL (7-20); CALCIUM 8.7 mg/dL (8.5-10.1); CARBON DIOXIDE 32 mmol/L (21-32); CHLORIDE 97 mmol/L (98-107); CREATININE 4.7 mg/dL (0.6-1.0); GLUCOSE 116 mg/dL (70-99); POTASSIUM 4.4 mmol/L (3.5-5.1); SODIUM 138 mmol/L (136-145)
[2017-05-11 07:33] LABS: TROPONINI 0.025 ng/mL (0.000-0.055)
[2017-05-11 07:52] LABS: POC GLUCOSE 128 mg/dL (70-99)
[2017-05-11] MEDS ORDERED: ONDANSETRON PF 4 MG/2 ML VIAL. IV (10:30)
[2017-05-11] MEDS: cloNIDine HCL 0.2 MG TABLET PO ×3 (11:00→21:00)
[2017-05-11] MEDS ORDERED: LABETALOL HCL 200 MG TABLET PO (11:00)
[2017-05-11] MEDS: ALBUTEROL SULFATE 2.5 MG/3 ML NEBU. NEB ×3 (12:00→20:20)
[2017-05-11 13:05] LABS: POC GLUCOSE 176 mg/dL (70-99)
[2017-05-11] MEDS: LOSARTAN POTASSIUM 50 MG TABLET. PO (13:18)
[2017-05-11] MEDS: CYANOCOBALAMIN (VITAMIN B-12) 1,000 MCG TABLET. PO (13:18)
[2017-05-11] MEDS: ASPIRIN 325 MG TABLET PO (13:19)
[2017-05-11] MEDS: SODIUM BICARBONATE 650 MG TABLET. PO ×2 (13:19→20:34)
[2017-05-11] MEDS: LACTOBACILLUS RHAMNOSUS GG 1 CAPSULE. PO ×2 (13:19→20:34)
[2017-05-11] MEDS: FERROUS SULFATE 325 MG TABLET. PO (13:20)
[2017-05-11] MEDS: LINAGLIPTIN 5 MG TABLET PO (13:20)
[2017-05-11] MEDS: LABETALOL HCL 200 MG TABLET PO ×2 (13:20→21:00)
[2017-05-11] MEDS: ISOSORBIDE MONONITRATE ER 30 MG TAB.ER.24H PO (13:21)
[2017-05-11] MEDS: BUMETANIDE 1 MG TABLET. PO (13:21)
[2017-05-11] MEDS: CALCIUM ACETATE 667 MG CAPSULE PO ×2 (13:22→17:23)
[2017-05-11] MEDS: CLOPIDOGREL BISULFATE 75 MG TABLET PO (13:22)
[2017-05-11] MEDS ORDERED: IV NORMAL SALINE 1000ML BAG 1,000 ML IV (14:39)
[2017-05-11] MEDS ORDERED: DIALYSIS PATIENT. MC ×2 (14:45)
[2017-05-11] MEDS ORDERED: 0.9 % SODIUM CHLORIDE 10 ML DISP.SYRIN. IV ×2 (14:45)
[2017-05-11 15:54] LABS: BILIRUBIN,URINE NEGATIVE (NEG); CLARITY,URINE CLEAR; COLOR,URINE YELLOW; GLUCOSE,URINE NEGATIVE (NEG); NITRITE,URINE NEGATIVE (NEG); PROTEIN,URINE 100 mg/dL (NEG-TRACE); UROBILINOGEN,URINE 0.2 mg/dL (0.2 mg/dL)
[2017-05-11 16:03] LABS: BACTERIA,URINE MANY /HPF (0-FEW); HYALINE CASTS, URINE FEW /HPF; RBC,URINE 0 /HPF (0-2); SQUAMOUS EPITHELIAL CELL,UR FEW /LPF; YEAST,URINE PRESENT /HPF
[2017-05-11 17:06] LABS: POC GLUCOSE 167 mg/dL (70-99)
[2017-05-11] MEDS: ATORVASTATIN CALCIUM 10 MG TABLET. PO (20:34)
[2017-05-11 21:04] LABS: POC GLUCOSE 129 mg/dL (70-99)
[2017-05-11] MEDS: INSULIN DETEMIR 300 UNITS/3 ML INSULN.PEN. SQ (22:04)
[2017-05-12 04:09] LABS: ADD MAN DIFF? NO
[2017-05-12 04:16] LABS: BASO # 0.1 x10^3/uL (0.0-0.2); BASO % 1 % (0-3); EOS # 0.3 x10^3/uL (0.0-0.7); EOS % 4 % (0-3); HEMATOCRIT 25.2 % (36.0-47.0); HEMOGLOBIN 8.6 g/dL (12.0-15.5); LYMPH % 25 % (24-48); MEAN CORPUSCULAR HEMOGLOBIN 30 pg (25-35); MEAN CORPUSCULAR HGB CONC 34 g/dL (31-37); MEAN CORPUSCULAR VOLUME 88 fL (79-100); MONO # 1.4 x10^3/uL (0.0-1.1); MONO % 18 % (0-9); NEUT # 4.2 x10^3uL (1.8-7.7); NEUT % 53 % (31-73); PLATELET COUNT 343 x10^3/uL (140-400); RED BLOOD COUNT 2.86 x10^6/uL (3.50-5.40); RED CELL DISTRIBUTION WIDTH 20.6 % (11.5-14.5)
[2017-05-12 04:31] LABS: ANION GAP 8 (6-14); BLOOD UREA NITROGEN 36 mg/dL (7-20); CALCIUM 8.9 mg/dL (8.5-10.1); CARBON DIOXIDE 30 mmol/L (21-32); CHLORIDE 101 mmol/L (98-107); CREATININE 3.7 mg/dL (0.6-1.0); GFR 14.5; GLUCOSE 95 mg/dL (70-99); MAGNESIUM 2.2 mg/dL (1.8-2.4); SODIUM 139 mmol/L (136-145)
[2017-05-12] MEDS: INSULIN DETEMIR 300 UNITS/3 ML INSULN.PEN. SQ ×2 (08:00→21:12)
[2017-05-12 08:09] LABS: POC GLUCOSE 78 mg/dL (70-99)
[2017-05-12] MEDS: LACTOBACILLUS RHAMNOSUS GG 1 CAPSULE. PO ×2 (08:28→21:04)
[2017-05-12] MEDS: SODIUM BICARBONATE 650 MG TABLET. PO ×3 (08:28→21:03)
[2017-05-12] MEDS: CLOPIDOGREL BISULFATE 75 MG TABLET PO (08:28)
[2017-05-12] MEDS: ALBUTEROL SULFATE 2.5 MG/3 ML NEBU. NEB ×4 (08:28→20:00)
[2017-05-12] MEDS: CYANOCOBALAMIN (VITAMIN B-12) 1,000 MCG TABLET. PO (08:28)
[2017-05-12] MEDS: FERROUS SULFATE 325 MG TABLET. PO (08:28)
[2017-05-12] MEDS: LINAGLIPTIN 5 MG TABLET PO (08:28)
[2017-05-12] MEDS: CALCIUM ACETATE 667 MG CAPSULE PO ×3 (08:28→17:15)
[2017-05-12] MEDS: ASPIRIN 325 MG TABLET PO (08:28)
[2017-05-12] MEDS: BUMETANIDE 1 MG TABLET. PO (08:29)
[2017-05-12] MEDS: cloNIDine HCL 0.2 MG TABLET PO ×3 (08:29→21:04)
[2017-05-12] MEDS: LABETALOL HCL 200 MG TABLET PO ×2 (08:30→21:04)
[2017-05-12] MEDS: ISOSORBIDE MONONITRATE ER 30 MG TAB.ER.24H PO (08:31)
[2017-05-12] MEDS: LOSARTAN POTASSIUM 50 MG TABLET. PO (08:31)
[2017-05-12 11:40] LABS: POC GLUCOSE 127 mg/dL (70-99)
[2017-05-12 17:18] LABS: POC GLUCOSE 75 mg/dL (70-99)
[2017-05-12 20:58] LABS: POC GLUCOSE 154 mg/dL (70-99)
[2017-05-12] MEDS: ATORVASTATIN CALCIUM 10 MG TABLET. PO (21:03)
[2017-05-13 07:18] LABS: POC GLUCOSE 54 mg/dL (70-99)
[2017-05-13] MEDS ORDERED: DEXTROSE 50% 25 GM / 50ML DISP.SYRIN. IV ×2 (07:19→07:30)
[2017-05-13] MEDS: ALBUTEROL SULFATE 2.5 MG/3 ML NEBU. NEB ×4 (07:28→20:00)
[2017-05-13 07:40] LABS: POC GLUCOSE 120 mg/dL (70-99)
[2017-05-13] MEDS: CALCIUM ACETATE 667 MG CAPSULE PO ×3 (08:07→17:27)
[2017-05-13] MEDS: FLUCONAZOLE 100 MG TABLET. PO (08:08)
[2017-05-13] MEDS: FERROUS SULFATE 325 MG TABLET. PO (08:26)
[2017-05-13] MEDS: SODIUM BICARBONATE 650 MG TABLET. PO (08:26)
[2017-05-13] MEDS: ASPIRIN 325 MG TABLET PO (08:26)
[2017-05-13] MEDS: BUMETANIDE 1 MG TABLET. PO (08:26)
[2017-05-13] MEDS: CYANOCOBALAMIN (VITAMIN B-12) 1,000 MCG TABLET. PO (08:26)
[2017-05-13] MEDS: LACTOBACILLUS RHAMNOSUS GG 1 CAPSULE. PO ×2 (08:26→21:34)
[2017-05-13] MEDS: CLOPIDOGREL BISULFATE 75 MG TABLET PO (08:26)
[2017-05-13] MEDS: ISOSORBIDE MONONITRATE ER 30 MG TAB.ER.24H PO (08:28)
[2017-05-13] MEDS: LABETALOL HCL 200 MG TABLET PO ×2 (08:28→21:35)
[2017-05-13] MEDS: cloNIDine HCL 0.2 MG TABLET PO ×2 (08:29→14:00)
[2017-05-13] MEDS: LOSARTAN POTASSIUM 50 MG TABLET. PO (08:29)
[2017-05-13] MEDS: LINAGLIPTIN 5 MG TABLET PO (08:30)
[2017-05-13 11:08] LABS: POC GLUCOSE 98 mg/dL (70-99)
[2017-05-13] MEDS: LINEZOLID 600 MG TABLET PO ×2 (15:17→21:34)
[2017-05-13] MEDS: ACETAMINOPHEN 325 MG TABLET. PO (15:37)
[2017-05-13] MEDS: cloNIDine HCL 0.1 MG TABLET PO ×2 (15:43→21:36)
[2017-05-13 17:30] LABS: POC GLUCOSE 98 mg/dL (70-99)
[2017-05-13 21:07] LABS: POC GLUCOSE 180 mg/dL (70-99)
[2017-05-13] MEDS: DARBEPOETIN ALFA 60 MCG/0.3 ML DISP.SYRIN. SQ (21:38)
[2017-05-13] MEDS: ATORVASTATIN CALCIUM 40 MG TABLET. PO (21:38)
[2017-05-13] MEDS: INSULIN DETEMIR 300 UNITS/3 ML INSULN.PEN. SQ (21:45)
[2017-05-14] MEDS: cloNIDine HCL 0.1 MG TABLET PO ×3 (05:57→22:42)
[2017-05-14] MEDS: ALBUTEROL SULFATE 2.5 MG/3 ML NEBU. NEB ×4 (06:02→19:17)
[2017-05-14] MEDS ORDERED: DEXTROSE 50% 25 GM / 50ML DISP.SYRIN. IV ×2 (07:35→08:00)
[2017-05-14 07:51] LABS: POC GLUCOSE 158 mg/dL (70-99)
[2017-05-14 07:51] LABS: POC GLUCOSE 46 mg/dL (70-99)
[2017-05-14] MEDS: ASPIRIN 325 MG TABLET PO (08:07)
[2017-05-14] MEDS: CALCIUM ACETATE 667 MG CAPSULE PO ×3 (08:07→17:17)
[2017-05-14 08:10] LABS: GLUCOSE 155 mg/dL (70-99)
[2017-05-14] MEDS: LABETALOL HCL 200 MG TABLET PO ×2 (09:00→20:24)
[2017-05-14] MEDS: BUMETANIDE 1 MG TABLET. PO (09:00)
[2017-05-14] MEDS: LACTOBACILLUS RHAMNOSUS GG 1 CAPSULE. PO ×2 (09:09→20:23)
[2017-05-14] MEDS: CYANOCOBALAMIN (VITAMIN B-12) 1,000 MCG TABLET. PO (09:09)
[2017-05-14] MEDS: LINEZOLID 600 MG TABLET PO ×2 (09:09→20:23)
[2017-05-14] MEDS: CLOPIDOGREL BISULFATE 75 MG TABLET PO (09:10)
[2017-05-14] MEDS: FERROUS SULFATE 325 MG TABLET. PO (09:10)
[2017-05-14 11:49] LABS: POC GLUCOSE 144 mg/dL (70-99)
[2017-05-14] MEDS ORDERED: IV NORMAL SALINE 1000ML BAG 1,000 ML IV (12:58)
[2017-05-14] MEDS ORDERED: DIALYSIS PATIENT. MC ×2 (13:00)
[2017-05-14] MEDS ORDERED: ALBUMIN HUMAN 25% 200 ML IV (13:00)
[2017-05-14] MEDS ORDERED: 0.9 % SODIUM CHLORIDE 10 ML DISP.SYRIN. IV ×2 (13:00)
[2017-05-14] MEDS: LOSARTAN POTASSIUM 50 MG TABLET. PO (18:00)
[2017-05-14] MEDS: ISOSORBIDE MONONITRATE ER 30 MG TAB.ER.24H PO (18:01)
[2017-05-14] MEDS: ATORVASTATIN CALCIUM 40 MG TABLET. PO (20:23)
[2017-05-14 20:50] LABS: POC GLUCOSE 227 mg/dL (70-99)
[2017-05-15] MEDS: cloNIDine HCL 0.1 MG TABLET PO ×3 (05:47→20:56)
[2017-05-15 06:32] LABS: POC GLUCOSE 143 mg/dL (70-99)
[2017-05-15 06:32] LABS: POC GLUCOSE 142 mg/dL (70-99)
[2017-05-15] MEDS: ALBUTEROL SULFATE 2.5 MG/3 ML NEBU. NEB ×4 (07:19→19:15)
[2017-05-15 08:35] LABS: POC GLUCOSE 121 mg/dL (70-99)
[2017-05-15] MEDS: BUMETANIDE 1 MG TABLET. PO (08:49)
[2017-05-15] MEDS: LINEZOLID 600 MG TABLET PO ×2 (08:49→20:54)
[2017-05-15] MEDS: CYANOCOBALAMIN (VITAMIN B-12) 1,000 MCG TABLET. PO (08:50)
[2017-05-15] MEDS: ASPIRIN 325 MG TABLET PO (08:50)
[2017-05-15] MEDS: ISOSORBIDE MONONITRATE ER 30 MG TAB.ER.24H PO (08:50)
[2017-05-15] MEDS: CALCIUM ACETATE 667 MG CAPSULE PO ×3 (08:50→17:12)
[2017-05-15] MEDS: CLOPIDOGREL BISULFATE 75 MG TABLET PO (08:51)
[2017-05-15] MEDS: LACTOBACILLUS RHAMNOSUS GG 1 CAPSULE. PO ×2 (08:51→20:54)
[2017-05-15] MEDS: LOSARTAN POTASSIUM 50 MG TABLET. PO (08:51)
[2017-05-15] MEDS: FERROUS SULFATE 325 MG TABLET. PO (08:51)
[2017-05-15] MEDS: LABETALOL HCL 200 MG TABLET PO ×2 (08:52→20:55)
[2017-05-15] MEDS ORDERED: DEXTROSE 50% 25 GM / 50ML DISP.SYRIN. IV (10:00)
[2017-05-15] MEDS: INSULIN ASPART 300 UNITS/3 ML INSULN.PEN SQ ×2 (12:00→17:00)
[2017-05-15 12:48] LABS: POC GLUCOSE 130 mg/dL (70-99)
[2017-05-15 17:35] LABS: POC GLUCOSE 161 mg/dL (70-99)
[2017-05-15 20:04] LABS: POC GLUCOSE 240 mg/dL (70-99)
[2017-05-15] MEDS: ATORVASTATIN CALCIUM 40 MG TABLET. PO (20:55)
[2017-05-16] MEDS: cloNIDine HCL 0.1 MG TABLET PO ×3 (05:50→21:33)
[2017-05-16] MEDS: ALBUTEROL SULFATE 2.5 MG/3 ML NEBU. NEB ×4 (07:07→19:19)
[2017-05-16] MEDS ORDERED: IV NORMAL SALINE 1000ML BAG 1,000 ML IV ×2 (07:57)
[2017-05-16] MEDS: ASPIRIN 325 MG TABLET PO (08:00)
[2017-05-16] MEDS: INSULIN ASPART 300 UNITS/3 ML INSULN.PEN SQ ×3 (08:00→17:24)
[2017-05-16] MEDS ORDERED: DIALYSIS PATIENT. MC ×2 (08:00)
[2017-05-16] MEDS: CALCIUM ACETATE 667 MG CAPSULE PO ×3 (08:00→17:15)
[2017-05-16 08:28] LABS: POC GLUCOSE 135 mg/dL (70-99)
[2017-05-16] MEDS: ISOSORBIDE MONONITRATE ER 30 MG TAB.ER.24H PO (09:00)
[2017-05-16] MEDS: LACTOBACILLUS RHAMNOSUS GG 1 CAPSULE. PO ×2 (09:00→21:31)
[2017-05-16] MEDS: CYANOCOBALAMIN (VITAMIN B-12) 1,000 MCG TABLET. PO (09:00)
[2017-05-16] MEDS: BUMETANIDE 1 MG TABLET. PO (09:00)
[2017-05-16] MEDS: LOSARTAN POTASSIUM 50 MG TABLET. PO (09:00)
[2017-05-16] MEDS: FERROUS SULFATE 325 MG TABLET. PO (09:00)
[2017-05-16] MEDS: CLOPIDOGREL BISULFATE 75 MG TABLET PO (09:00)
[2017-05-16] MEDS: LABETALOL HCL 200 MG TABLET PO ×2 (09:00→21:33)
[2017-05-16] MEDS: LINEZOLID 600 MG TABLET PO ×2 (09:00→21:31)
[2017-05-16 17:26] LABS: POC GLUCOSE 166 mg/dL (70-99)
[2017-05-16 19:39] LABS: POC GLUCOSE 200 mg/dL (70-99)
[2017-05-16] MEDS: ATORVASTATIN CALCIUM 40 MG TABLET. PO (21:31)
[2017-05-17] MEDS: cloNIDine HCL 0.1 MG TABLET PO ×2 (06:30→14:00)
[2017-05-17] MEDS: ALBUTEROL SULFATE 2.5 MG/3 ML NEBU. NEB ×3 (07:36→15:43)
[2017-05-17] MEDS: INSULIN ASPART 300 UNITS/3 ML INSULN.PEN SQ ×2 (08:00→12:29)
[2017-05-17] MEDS: ASPIRIN 325 MG TABLET PO (08:19)
[2017-05-17] MEDS: CALCIUM ACETATE 667 MG CAPSULE PO ×2 (08:19→12:28)
[2017-05-17] MEDS: CLOPIDOGREL BISULFATE 75 MG TABLET PO (08:22)
[2017-05-17] MEDS: LINEZOLID 600 MG TABLET PO (08:22)
[2017-05-17] MEDS: FERROUS SULFATE 325 MG TABLET. PO (08:22)
[2017-05-17] MEDS: ISOSORBIDE MONONITRATE ER 30 MG TAB.ER.24H PO (08:23)
[2017-05-17] MEDS: BUMETANIDE 1 MG TABLET. PO (08:24)
[2017-05-17] MEDS: LOSARTAN POTASSIUM 50 MG TABLET. PO (08:24)
[2017-05-17] MEDS: LACTOBACILLUS RHAMNOSUS GG 1 CAPSULE. PO (08:24)
[2017-05-17] MEDS: LABETALOL HCL 200 MG TABLET PO (08:25)
[2017-05-17] MEDS: CYANOCOBALAMIN (VITAMIN B-12) 1,000 MCG TABLET. PO (08:25)
[2017-05-17 08:31] LABS: POC GLUCOSE 120 mg/dL (70-99)
[2017-05-17] MEDS ORDERED: MAGNESIUM SULFATE 2GM 50 ML IV (09:45)
[2017-05-17 11:43] LABS: POC GLUCOSE 173 mg/dL (70-99)
== END 2017-05-17 17:11 | DRG 689 ==
LOC: 5 NORTH 05-12 13:30 → ER 12:15 → ED HOLD 14:35 → 5 NORTH 18:32
PROC: 5A1D70Z Performance of Urinary Filtration, Intermittent, Less than 6 Hours Per Day (ICD-10-PCS; principal; 2017-05-14)
PROC: 5A1D70Z Performance of Urinary Filtration, Intermittent, Less than 6 Hours Per Day (ICD-10-PCS; 2017-05-16)
DX: N39.0 Urinary tract infection, site not specified (principal); N18.6 End stage renal disease; I13.2 Hypertensive heart and chronic kidney disease with heart failure and with stage 5 chronic kidney disease, or end stage renal disease; E10.22 Type 1 diabetes mellitus with diabetic chronic kidney disease; E10.42 Type 1 diabetes mellitus with diabetic polyneuropathy; N25.81 Secondary hyperparathyroidism of renal origin; I69.351 Hemiplegia and hemiparesis following cerebral infarction affecting right dominant side; E10.51 Type 1 diabetes mellitus with diabetic peripheral angiopathy without gangrene; E10.649 Type 1 diabetes mellitus with hypoglycemia without coma; D63.1 Anemia in chronic kidney disease; E03.9 Hypothyroidism, unspecified; B95.2 Enterococcus as the cause of diseases classified elsewhere; Z16.21 Resistance to vancomycin; E78.5 Hyperlipidemia, unspecified; G89.29 Other chronic pain; M54.9 Dorsalgia, unspecified; I50.9 Heart failure, unspecified; H54.61 Unqualified visual loss, right eye, normal vision left eye; M17.0 Bilateral primary osteoarthritis of knee; Z82.49 Family history of ischemic heart disease and other diseases of the circulatory system; Z83.3 Family history of diabetes mellitus; Z99.2 Dependence on renal dialysis; Z79.4 Long term (current) use of insulin; Z91.041 Radiographic dye allergy status; Z87.440 Personal history of urinary (tract) infections
CPT/HCPCS: 36415; 71045; 80048; 80076; 81001; 82553; 82947; 82962; 83690; 83735; 83880; 84484; 85025; 87086; 87186; 93005; 94640; 94760; 97110-GP; 97116-GP; 97161-GP; 97165-GO; 97530-GO; 97530-GP; 97535-GO; 99285; 99285-25; J0881; J1815; J7042; J7613

== ENCOUNTER 2019-04-08 09:56 | Outpatient (CLI) | payer MEDICARE, OTHER ==
[~2019-04-08] VITALS: Ht 162.6 cm; Wt 83.5 kg
[~2019-04-08 09:56] MED LIST changes: +ALBU1.25 NEB; +AMLO10TA8 PO; +ASCO500T3 PO; +ATOR10TA PO; +ATOR10TA60 PO; +BISA10SU55 RC; +BUME0.5T2 PO; +CALC667T4 PO; +CLOP75TA PO; +CYAN-25 PO; +DARB40DI SQ; +FERR325T72 PO; +HEPARIN for ARTERIAL LINE 0 ML ONE; +INSU100I17 SQ; +INSU100I27 SQ; +IODIXANOL 320 MG/ML 100 ML VIAL. ONE; +ISOS30TA4 PO; -LABE200T2 PO; +LABE200T4 PO; +LACT1CAP2 PO; +LIDOCAINE WITH 8.4% SOD BICARB 3 ML DISP.SYRIN. ONE; +LINA5TAB PO; -LINA5TAB4 PO; +LOSA100T14 PO; -LOSA100T6 PO; +MAGN30OR PO; +MAGN400O7 PO; +ONDA4TAB7 PO; +PRED20TA PO
[2019-04-08] MEDS ORDERED: ASPI-612 PO (10:45)
[2019-04-08] MEDS ORDERED: TRAM50TA PO (10:45)
[2019-04-08] MEDS ORDERED: GABA-585 PO (10:45)
[2019-04-08] MEDS ORDERED: RANI-376 PO (10:45)
[2019-04-08] MEDS ORDERED: HYDR-3164 PO (10:45)
[2019-04-08 10:53] LABS: BASO # 0.1 x10^3/uL (0.0-0.2); BASO % 1 % (0-3); EOS # 0.3 x10^3/uL (0.0-0.7); EOS % 4 % (0-3); HEMATOCRIT 30.6 % (36.0-47.0); HEMOGLOBIN 10.3 g/dL (12.0-15.5); LYMPH # 1.4 x10^3/uL (1.0-4.8); LYMPH % 20 % (24-48); MEAN CORPUSCULAR HEMOGLOBIN 33 pg (25-35); MEAN CORPUSCULAR HGB CONC 34 g/dL (31-37); MEAN CORPUSCULAR VOLUME 97 fL (79-100); MONO % 14 % (0-9); NEUT # 4.1 x10^3/uL (1.8-7.7); NEUT % 61 % (31-73); PLATELET COUNT 281 x10^3/uL (140-400); RED BLOOD COUNT 3.17 x10^6/uL (3.50-5.40); WHITE BLOOD COUNT 6.8 x10^3/uL (4.0-11.0)
[2019-04-08] MEDS ORDERED: ALTEPLASE 2 MG VIAL INT CAT ONE (11:00)
[2019-04-08 11:03] LABS: PROTHROMBIN TIME PATIENT 14.4 SEC (11.7-14.0)
[2019-04-08 11:15] LABS: CALCIUM 9.2 mg/dL (8.5-10.1); GFR 4.6
[2019-04-08 11:17] VITALS: BP 174/75
[2019-04-08 11:20] LABS: POTASSIUM 7.3 mmol/L (3.5-5.1)
--- NOTE | 2019-04-08 11:42 | NUR ---
Pt arrived shaking and confused. Dr. Lino at bedside. Called facility to receive report. Shaking and confusion is new as of this AM. Called granddaughter. Pt had critical K+ 7.3. Notified Dr. Lino of lab. Attempted to page Dr. Clay x2. Was unsuccessful in contacting. Dr. Lino requested pt be sent to ER to get evaluated and to have temporary dialysis catheter placed. Pt taken to ER via [facility] and report given to PARK Malik.
[2019-04-08] MEDS ORDERED: CLON0.1T PO (15:02)
[2019-04-10] MEDS ORDERED: CEFD300C PO (12:34)
== END 2019-04-08 11:49 | disposition home or self-care (01) ==
LOC: INTRAD 09:56
PROVIDERS: ATTEND Internal Medicine Nephrology
DX: M25.80 Other specified joint disorders, unspecified joint (principal); E87.5 Hyperkalemia; E10.22 Type 1 diabetes mellitus with diabetic chronic kidney disease; I12.9 Hypertensive chronic kidney disease with stage 1 through stage 4 chronic kidney disease, or unspecified chronic kidney disease; N18.9 Chronic kidney disease, unspecified; E78.5 Hyperlipidemia, unspecified; D50.9 Iron deficiency anemia, unspecified; K29.70 Gastritis, unspecified, without bleeding; M10.9 Gout, unspecified; E03.9 Hypothyroidism, unspecified; Z53.8 Procedure and treatment not carried out for other reasons; Z98.890 Other specified postprocedural states; Z86.73 Personal history of transient ischemic attack (TIA), and cerebral infarction without residual deficits; Z82.49 Family history of ischemic heart disease and other diseases of the circulatory system; Z83.3 Family history of diabetes mellitus; Z82.61 Family history of arthritis; Z79.4 Long term (current) use of insulin; Z79.899 Other long term (current) drug therapy
CPT/HCPCS: 36415; 80048; 85025; 85610; 85730